=== PATIENT | female | born 1940 | race Two or more races ===

== ENCOUNTER 2020-10-21 11:36 | Outpatient (REF) | payer MEDICARE, SELFPAY ==
--- NOTE | ~2020-10-21 | XR_ITS ---
EXAMINATION: XR LUMBOSACRAL SPINE CLINICAL INFORMATION: Lumbago with sciatica, right side. COMPARISON: Lumbar spine MRI 07/10/2011. TECHNIQUE: Three views of the lumbosacral spine. FINDINGS: There is normal lumbar lordosis. There is L5-S1 disc prosthesis stabilized with bilateral pedicular screws and interconnecting rods. Mild loss of L1-L2, L2-L3 and L3-L4 disc heights is noted. The vertebral heights and alignment is normal. No visible fracture or lytic process seen. XR/XR lumbar spine 2-3V IMPRESSION: 1. Fused L5-S1. 2. Mild degenerative disc changes upper lumbar spine. 3. No visible acute fracture or dislocation seen.
== END 2020-10-21 11:37 | disposition home or self-care (01) ==
LOC: HO.XRAY 11:36
PROVIDERS: PCP Internal Medicine; Visit Provider Student in an Organized Health Care Education/Training Program
DX: M54.41 Lumbago with sciatica, right side (principal); G89.29 Other chronic pain
CPT/HCPCS: 72100; 99212

== ENCOUNTER → 2020-11-18 15:26 | Outpatient (BNVA) | payer MEDICARE, MEDICAID, SELFPAY | PROVIDERS: PCP Internal Medicine; Visit Provider Anesthesiology | DX: M96.1 Postlaminectomy syndrome, not elsewhere classified (principal); M51.36 Other intervertebral disc degeneration, lumbar region; G89.4 Chronic pain syndrome | CPT/HCPCS: 99202 ==

== ENCOUNTER 2020-11-25 09:58 | Outpatient (REF) | payer MEDICARE, MEDICAID, SELFPAY ==
--- NOTE | ~2020-11-25 | MR_ITS ---
EXAMINATION: MR LUMBAR SPINE WITHOUT AND WITH CONTRAST CLINICAL INFORMATION: Post laminectomy syndrome. COMPARISON: MRI dated 07/18/2011. X-ray from 10/21/2020. TECHNIQUE: MRI of the lumbar spine was obtained using routine sequences with and without contrast. Intravenous contrast: Gadavist 7.5 mL FINDINGS: VERTEBRAL BODIES AND PARASPINAL STRUCTURES: There is a mild rightward curvature of the lumbar spine. No compression fractures are seen. There is a mild anterolisthesis at the L4-L5 level. Posterior spinal fusion instrumentation visible at the L5-S1 level with an interbody prosthesis. The marrow signal is diffusely heterogeneous with fatty changes. No paraspinal soft tissue fluid collections are seen. CONUS MEDULLARIS AND CAUDA EQUINA: Normal, terminating at the level of L2. No lower cord signal abnormality is seen. No syrinx visible. The cauda equina nerve roots appear normal. There is no pathologic intradural enhancement on postcontrast imaging. SPINAL LEVELS: T12-L1: A right paracentral disc protrusion with a small component migrating superiorly has slightly increased in size with mild ventral thecal sac deformity. Mild facet arthropathy evident. Otherwise, no central canal stenosis or foraminal narrowing. L1-L2 and L2-L3: No significant disc pathology, central canal stenosis, or foraminal narrowing. L3-L4: Moderate right-sided facet arthrosis with postlaminectomy changes. No central canal stenosis. Mild posterior disc bulge again evident which is lateralized to the right side and further encroaches upon the moderately narrowed right neural foramen. This finding in combination with hypertrophic facet arthropathy results in mild mass effect upon the exiting right L3 nerve root, worsened compared to prior imaging. L4-L5: Very mild anterolisthesis is evident with a shallow, broad-based central disc protrusion lateralized more so to the right side. A small extruded component extends into the right lateral recess with mild mass effect upon the right L5 nerve root. Moderate facet arthropathy and [id number] central canal stenosis, worse at the upper L5 vertebral body level. Bony spurring and bulging disc result in moderate bilateral foraminal encroachment. L5-S1: Post fusion changes with a desiccated central disc protrusion and endplate spurring which appear to result in impression upon the emerging right S1 nerve root in the lateral recess and subarticular zone. No central canal stenosis. Hypertrophic facet arthropathy and moderate right foraminal narrowing. MR/MR lumbar spine wo/w con IMPRESSION: Mild increase in size of a right paracentral disc protrusion at the T12-L1 level resulting in mild ventral thecal sac distortion. Chronic post laminectomy changes at the L3-L4 level with moderate right-sided facet arthropathy and a right lateralized posterior disc bulge resulting in worsened moderate right foraminal encroachment and distortion of the exiting right L3 nerve root. Very mild anterolisthesis at the L4-L5 level with a shallow, broad-based central disc protrusion which has a small extruded component extending into the right lateral recess with mild mass effect upon the right L5 nerve root. [id number] central canal stenosis and hypertrophic facet arthropathy, worse at the upper L5 vertebral body level. Moderate foraminal narrowing. Status post prior posterior lumbar interbody fusion with hardware instrumentation. Desiccated central disc protrusion and ossific spurring impress upon the ventral thecal sac and right S1 nerve root.
[2020-11-25 11:03] LABS: Anion Gap 14 (12-20); Carbon Dioxide 28 mmol/L (22-29); Chloride 101 mmol/L (96-108); Cholesterol 214 mg/dL; Estimated Glomerular Filt Rate > 60; Glucose Random 191 mg/dL (60-115); HDL Cholesterol 64 mg/dL; LDL Cholesterol Calculated 116 mg/dl; Potassium 4.2 mmol/L (3.3-5.1); Sodium 139 mmol/L (135-145); Triglycerides 171 mg/dL
[2020-11-25 11:04] LABS: Estimated Average Glucose 203 mg/dL; Hemoglobin A1c % 8.7 %
[2020-11-25 11:08] LABS: Blood Urea Nitrogen 26 mg/dL (9-16); Calcium 9.1 mg/dL (8.4-10.2)
[2020-11-25 11:26] LABS: Free T4 (Free Thyroxine) 0.71 ng/dL (0.71-1.85)
[2020-11-25 17:31] LABS: Creatinine Urine 70.73 mg/dL; Microalbum/Creatinine Ratio Ur 39.5 ug/mg cr
== END 2020-11-25 09:59 | disposition home or self-care (01) ==
LOC: HO.MRI 09:58
PROVIDERS: Absent Provider Internal Medicine; PCP Internal Medicine; Visit Provider Anesthesiology
DX: M96.1 Postlaminectomy syndrome, not elsewhere classified (principal); E03.9 Hypothyroidism, unspecified; E11.9 Type 2 diabetes mellitus without complications; I10 Essential (primary) hypertension
CPT/HCPCS: 36415; 72158; 80048; 80061; 82043; 82565; 83036; 84439; 84443; A9585

== ENCOUNTER 2021-01-05 13:00 | Outpatient (RCR) | payer MEDICARE, MEDICAID, SELFPAY ==
--- NOTE | 2020-12-09 15:13 | MHC.PT.EP ---
[facility] [place] Office [place] Office [place] Office [address] [place] [address] [phone] F: [phone] F: [phone] F: [phone] F: [phone] Physical Therapy Plan of Care Date of Evaluation: Date of Surgery: na Diagnosis: low back pain with right sciatica Assessment: The patient has low back pain that is episodic in nature. She feels nearly constant leg pain and back pain. She presents with limited trunk ROM, strength. She has poor quality of movement limited by pain. She has reduced functional mobility. Poor sitting posture noted. Pt has poor body mechanics with lifting. She will benefit from skilled PT for education on lifting mechanics, body mechanics, and sitting posture. Frequency and Duration: The patient will be seen 2x/week x 4 weeks Short Term Goals: 1.Pt to able to demonstrate proper sitting posture with the use of a lumbar roll to decrease aggravating factors. 2.Pt to be able to demonstrate proper posture for common leisure activities such as crocheting and phone/tablet use. 3.For the patient to demonstrate proper upright sitting posture with use of the lumbar roll to improve compliance and carryover. Skilled Nursing Goals: 1.The patient to demonstrate proper lifting mechanics for household chore activities to show improved functional mobility. 2.The patient to report no leg or hip pain in order to show centralization of pain and reduction of lumbar derangement 3. Pt to be able to demonstrate self management of lumbar pain by demonstration of HEP. Treatment Plan: Modalities to reduce pain, spasms and effusion. Manual therapy to restore motion and function. Therapeutic exercise to improve strength and flexibility. Neuromuscular re-education for posture and balance. Therapeutic activities to return to functional activities of daily living. Electronically signed by: Jackie Shirley PT DPT Please sign and return to therapist. Thank you for your referral.
--- NOTE | 2021-01-05 14:19 | MHC.PT.DC ---
[facility] [place] Office [place] Office [place] Office [address] [place] [address] [facility] [phone] F: [phone] F: [phone] F: [phone] F: [phone] Physical Therapy Discharge Report Diagnosis: low back pain with right sciatica Date of Surgery: na Date of Evaluation: 12/09/20 Date of Discharge: 01/05/21 Treatments to Date: 8 Cancellations to Date: No Shows to Date: Discharge Status: Improved Function Independent with HEP Patient Elected to Stop Discharge Summary: Despite increased subjective pain levels the patient was able to complete the same exercise program as well a few new standing exercises without reports of increased pain. She shows increased activity tolerance, and increased strength demonstrated by performing the exercises without trouble or distress. The patient was d/c today due to lack of subjective improvements and the patient's request to return to the MD. The patient was issued a HEP and theraband. She has pictures of the exercises. Electronically signed by: Jackie Shirley PT DPT Please sign and return to therapist. Thank you for your referral.
== END 2021-01-20 08:00 | disposition home or self-care (01) ==
LOC: HO.PT 13:00
PROVIDERS: PCP Internal Medicine; Visit Provider Student in an Organized Health Care Education/Training Program
DX: M54.41 Lumbago with sciatica, right side (principal); G89.29 Other chronic pain
CPT/HCPCS: 97110; 97112; 97162; 97530

== ENCOUNTER → 2021-02-02 14:35 | Outpatient (BNVA) | payer MEDICARE, MEDICAID, SELFPAY | PROVIDERS: PCP Internal Medicine; Visit Provider Nurse Practitioner Family | DX: M51.36 Other intervertebral disc degeneration, lumbar region (principal); M96.1 Postlaminectomy syndrome, not elsewhere classified; G89.4 Chronic pain syndrome | CPT/HCPCS: 99212 ==

== ENCOUNTER 2021-04-07 06:05 | Outpatient (REF) | payer MEDICARE, MEDICAID, SELFPAY ==
--- NOTE | ~2021-04-07 | FL_ITS ---
EXAMINATION: XR FLUOROSCOPY WITH IMAGES CLINICAL INFORMATION: Low back pain. Previous fusion. COMPARISON: Lumbar spine x-ray 10/21/2020 TECHNIQUE: Fluoroscopy performed by Suyapa Obrien NP. Fluoroscopy time: 1.9 minutes DAP: 14.2 Gycm2 Images: 1 FINDINGS: There are L5 and S1 bilateral pedicular screws and interconnecting rods with a disc prosthesis for fusion. There are needles positioned inferior to the L4 pedicles with contrast extending into the soft tissues for pain management. The L4-L5 disc level is unremarkable. FL/FL guidance in treatment room IMPRESSION: Fluoroscopy provided to the referring physician for pain management.
== END 2021-04-07 06:06 | disposition home or self-care (01) ==
LOC: HO.RADIR 06:05
PROVIDERS: Visit Provider Internal Medicine
DX: M51.36 Other intervertebral disc degeneration, lumbar region (principal); M96.1 Postlaminectomy syndrome, not elsewhere classified; M54.5 Low back pain
CPT/HCPCS: 64483; 64484; J1100

== ENCOUNTER → 2021-05-14 09:02 | Outpatient (BNVA) | payer MEDICARE, MEDICAID, SELFPAY | PROVIDERS: PCP Internal Medicine; Visit Provider Internal Medicine | DX: M96.1 Postlaminectomy syndrome, not elsewhere classified (principal) | CPT/HCPCS: 99212 ==

== ENCOUNTER 2022-01-26 07:25 | Outpatient (REF) | payer MEDICARE, MEDICAID, SELFPAY ==
--- NOTE | ~2022-01-26 | FL_ITS ---
EXAMINATION: XR FLUOROSCOPY WITH IMAGES CLINICAL INFORMATION: Postlaminectomy syndrome. COMPARISON: None. TECHNIQUE: Fluoroscopy performed by Dr. Graham Neves. Fluoroscopy time: 0.7 minutes DAP: 2.3 Gy-cm2 Images: 3 FINDINGS: The patient is status post pedicle screw and margaret fixation L5-S1. Interdisc spacer present. A single needle is seen overlying the sacrum. FL/FL guidance in treatment room IMPRESSION: Intraoperative fluoroscopy for pain management procedure.
== END 2022-01-26 07:26 | disposition home or self-care (01) ==
LOC: HO.RADIR 07:25
PROVIDERS: Visit Provider Internal Medicine
DX: M51.36 Other intervertebral disc degeneration, lumbar region (principal); M96.1 Postlaminectomy syndrome, not elsewhere classified
CPT/HCPCS: 62323; J1040

== ENCOUNTER → 2022-02-25 10:14 | Outpatient (BNVA) | payer MEDICARE, MEDICAID, SELFPAY | PROVIDERS: PCP Internal Medicine; Visit Provider Nurse Practitioner Family | DX: M51.36 Other intervertebral disc degeneration, lumbar region (principal); M96.1 Postlaminectomy syndrome, not elsewhere classified | CPT/HCPCS: 99212 ==

== ENCOUNTER 2023-11-06 08:57 | Emergency (ER) | payer MEDICARE, MEDICAID, SELFPAY ==
--- NOTE | ~2023-11-06 | US_ITS ---
EXAMINATION: US VENOUS ULTRASOUND WITH DOPPLER LOWER EXTREMITY, BILATERAL CLINICAL INFORMATION: Bilateral lower extremity pain, edema and skin changes COMPARISON: Right lower extremity DVT study 06/12/2008 again (report only) TECHNIQUE: Ultrasound of the deep veins is performed from the hip to the calf with compression sonography and color and pulse Doppler assessment. Spectral analysis with color-flow imaging is performed. FINDINGS: RIGHT: There is normal venous compression and respiratory variation and augmented flow. The visualized common femoral vein, superficial femoral vein, profunda femoral vein, popliteal vein, and the trifurcation region shows no evidence of deep venous thrombosis. There is no significant popliteal fossa cyst. LEFT: There is normal venous compression and respiratory variation and augmented flow. The visualized common femoral vein, superficial femoral vein, profunda femoral vein, popliteal vein, and the trifurcation region shows no evidence of deep venous thrombosis. There is no significant popliteal fossa cyst. If the patient's symptoms persist, followup ultrasound in 5 days 7 days might be of value to exclude proximal propagation from a non-visualized calf vein. US/US venous duplex LE BI IMPRESSION: No DVT demonstrated in either lower extremity.
--- NOTE | ~2023-11-06 | XR_ITS ---
EXAMINATION: XR CHEST CLINICAL INFORMATION: Question congestive heart failure. COMPARISON: 12/29/2015 chest radiographs. TECHNIQUE: 2 views of the chest were obtained. FINDINGS: The lung volumes are low. There is no gross pneumothorax. S-shaped thoracolumbar scoliosis with multilevel degenerative changes. Cardiac silhouette appears enlarged, although evaluation is limited due to low lung volumes and scoliosis. Degenerative changes in the thoracic spine. Arm overlies the spine on the lateral view, further limiting evaluation. No gross pleural effusion. Mild bibasilar opacities likely represent subsegmental atelectasis or scar, although an infectious/inflammatory process could also be considered. XR/XR chest 2V IMPRESSION: 1. Mild bibasilar opacities likely represent subsegmental atelectasis or scar, although an infectious/inflammatory process could also be considered. 2. Cardiac silhouette appears enlarged, although evaluation is limited due to low lung volumes and scoliosis.
[2023-11-06 09:07] VITALS: BP 200/99; PULSE 95; RESP 16; TEMP 36; O2SAT 96; BMI 30.6
--- NOTE | 2023-11-06 10:51 | MHC.EDTECH ---
This tech called patient to triage for lab work 10:48, No answer
[2023-11-06 11:34] LABS: MANUAL DIFF FLAG NO
[2023-11-06 11:38] LABS: Basophils Absolute Auto 0.1 X10*3/uL (0.0-0.2); Basophils Percent Auto 0.9 % (0-2); Eosinophils Absolute Auto 0.2 X10*3/uL (0.0-0.4); Eosinophils Percent Auto 3.1 % (0-4); Hematocrit 38.8 % (37.0-47.0); Hemoglobin 12.7 g/dl (12.0-16.0); Imm Gran Abs Auto 0.03 X10*3/uL (0.00-0.03); Imm Gran Pct Auto 0.6 % (0.0-0.4); Lymphocytes Absolute Auto 1.3 X10*3/uL (1.2-4.9); Lymphocytes Percent Auto 23.1 % (20-40); Mean Corpuscular HGB Conc 32.7 g/dl (31.0-35.0); Mean Corpuscular Hemoglobin 31.5 pg (27.0-33.0); Mean Corpuscular Volume 96.3 fL (80.0-98.0); Mean Platelet Volume 9.3 fL (9.4-12.3); Monocytes Absolute Auto 0.5 X10*3/uL (0.1-1.2); Monocytes Percent Auto 9.4 % (2-11); Neutrophils Absolute Auto 3.4 x10*3/uL (2.0-8.3); Neutrophils Percent Auto 62.9 % (45-73); Platelet Count 329 X10*3/uL (160-400); Red Blood Count 4.03 X10*6/uL (4.20-5.50); Red Cell Distribution Width 13.6 % (11.0-16.0); White Blood Count 5.5 X10*3/uL (4.8-10.8)
[2023-11-06 11:58] LABS: B Type Natriuretic Peptide 21 pg/mL (<100)
--- NOTE | 2023-11-06 11:59 | ED.GENADULT ---
HPI - General Adult General Chief complaint: Extremity Injury, Lower Stated complaint: both legs swelling Time Seen by Provider: 11/06/23 11:59 History of Present Illness HPI narrative: 83 y/o F patient; PMH HTN, arthritis, T2DM (on Glipizide), hypothyroidism, HLD, GERD; presents from home with report of bilateral lower extremity swelling for the last one month. The patient states she has been in [place] since April 2023, and flew back yesterday. Per her son, when she travels to [place] she takes 3 months worth of medications with her and then occasionally she will call him to report she is out of medication and he will send her medications to her. However her son is concerned that she has not recently been compliant with her medications. The patient also endorses she has not recently been compliant with any of her medications. She denies: chest pain, SOB, cough/congestion, nausea/vomiting, diarrhea, abdominal pain. Related Data Home Medications Medication Instructions Recorded Confirmed acetaminophen 650 mg 650 mg PO Q8H 10/21/20 04/07/21 tablet,extended release (Tylenol Arthritis Pain) atenolol 100 mg tablet 100 mg PO DAILY 10/21/20 04/07/21 glipizide 10 mg tablet 10 mg PO DAILY 10/21/20 04/07/21 hydralazine 25 mg tablet 25 mg PO ONCE 10/21/20 04/07/21 hydrochlorothiazide 50 mg tablet 50 mg PO DAILY 10/21/20 04/07/21 levothyroxine 75 mcg capsule 75 mcg PO DAILY 10/21/20 04/07/21 omeprazole 20 mg capsule,delayed 20 mg PO DAILY 10/21/20 04/07/21 release simvastatin 80 mg tablet 80 mg PO DAILY 10/21/20 04/07/21 Previous Rx's Medication Instructions Recorded diclofenac sodium 1 % topical gel 2 g topical BID #100 grams 01/26/21 Allergies Allergy/AdvReac Type Severity Reaction Status Date / Time codeine [Tylenol-Codeine] Allergy Intermediate rash Verified 11/06/23 09:06 Penicillins Allergy Unknown SKIN TURNS Verified 11/06/23 09:06 PURPLE Review of Systems Review of Systems: Yes all other systems are reviewed and are negative PMFSH Past Medical History Attestation statement: The following information was validated with the patient. Source: old records reviewed Medical History Chronic pain syndrome Postlaminectomy syndrome of lumbar region Disc degeneration, lumbar Social History Social History Alcohol intake: never Smoked in Last 30 Days: No Use of substances other than those prescribed or required for medical reasons: No Advance Directives: No Physical Exam ED Vital Signs: Vital Signs - 24 hr 11/06/23 09:07 11/06/23 12:09 11/06/23 14:23 Temperature 96.8 F 98.8 F 98.2 F Pulse Rate 95 91 81 Respiratory Rate 16 16 16 Blood Pressure 200/99 H 194/86 H 179/81 H Pulse Oximetry 96 97 96 Oxygen Delivery Method Room Air Room Air Room Air BMI result Body Mass Index 30.6 Patient is afebrile, hypertensive. Const General: cooperative and no acute distress HENMT Head: Yes atraumatic Eyes General: appearance normal, both eyes and all related structures Neck Neck: Yes full ROM, Yes supple and No tender Chest Chest palpation & inspection: normal inspection of the chest and normal palpation of entire chest wall Resp Effort & Inspection: normal respiratory effort, able to speak in complete sentences, no cough and no respiratory distress Auscultation: clear to auscultation bilaterally Cardio Rate: regular rate Rhythm: regular rhythm Peripheral pulses: Peripheral pulses 2+ throughout GI Inspection: Yes normal to inspection, No Abdominal wall edema and No distended Palpation (GI): Soft to palpation, not firm, nontender, no guarding and not rigid Auscultation: normal bowel sounds Course Course Course Narrative: Patient is afebrile and hypertensive. She took her anti-hypertensive medications this morning following arrival in the emergency department. Received previously ordered: bilateral lower extremities US, basic labs. Called with critical glucose >400. Added VBG, LA, betahydroxybuterate, UA, CXR, serum osm. Reevaluation(s) Reevaluation #1: VBG without acute metabolic acidosis. Betahydroxybuterate within normal levels. UA unremarkable other than glucosurea. LA elevated at 2.8 - provided 1L IVF. Cr 1.34 (unclear baseline). TSH within normal levels. No evidence of DKA or HHS at this time. Placed on insulin sliding scale and provided Lispro 10 units. Improvement in glucose following insulin. Provided total 2L IVF - resolution of mild lactic acidosis. Impression: Asymptomatic hyperglycemia, hypertension Plan: Discharge to home with PCP follow up Patient heavily encouraged to take her dailt medications Condition: Stable Medications Administered Discontinued Medications Generic Name Dose Route Start Last Admin Trade Name Albertoq PRN Reason Stop Dose Admin Sodium Chloride 1,000 mls @ 999 mls/hr 11/06/23 12:45 11/06/23 15:32 Ns IV 11/06/23 13:45 Infused .Q1H1M MARIA DEL CARMEN Infusion Sodium Chloride 1,000 mls @ 999 mls/hr 11/06/23 16:15 11/06/23 19:03 Ns IV 11/06/23 17:15 Infused .Q1H1M MARIA DEL CARMEN Infusion Insulin Human Lispro 10 unit 11/06/23 13:49 11/06/23 14:21 Insulin Lispro 100 Unit/Ml 3 Ml Vial SUBCUT 11/06/23 13:50 10 unit ONCE ONE Administration Protocol Medical Decision Making Lab Data 11/06/23 11:31 11/06/23 11:31 Labs: Lab Results 11/06/23 11/06/23 11/06/23 Range/Units 11:31 12:16 12:17 WBC 5.5 (4.8-10.8) X10*3/uL RBC 4.03 L (4.20-5.50) X10*6/uL Hgb 12.7 (12.0-16.0) g/dl Hct 38.8 (37.0-47.0) % MCV 96.3 (80.0-98.0) fL MCH 31.5 (27.0-33.0) pg MCHC 32.7 (31.0-35.0) g/dl RDW 13.6 (11.0-16.0) % Plt Count 329 (160-400) X10*3/uL MPV 9.3 L (9.4-12.3) fL Immature Gran % (Auto) 0.6 H (0.0-0.4) % Neut % (Auto) 62.9 (45-73) % Lymph % (Auto) 23.1 (20-40) % [place] % (Auto) 9.4 (2-11) % Eos % (Auto) 3.1 (0-4) % Baso % (Auto) 0.9 (0-2) % Lymph # (Auto) 1.3 (1.2-4.9) X10*3/uL [place] # (Auto) 0.5 (0.1-1.2) X10*3/uL Eos # (Auto) 0.2 (0.0-0.4) X10*3/uL Baso # (Auto) 0.1 (0.0-0.2) X10*3/uL Abs Immat Gran (auto) 0.03 (0.00-0.03) X10*3/uL Absolute Neuts (auto) 3.4 (2.0-8.3) x10*3/uL Absolute Nucleated RBC 0.000 (0.0-0.012) X10*3/uL Nucleated RBC % (auto) 0.0 (0.0-0.2) /100WBC VBG pH (7.32-7.43) VBG pCO2 mmHg VBG pO2 mmHg VBG HCO3 (22-26) mmol/L VBG O2 Saturation % VBG Base Excess mmol/L Sodium 143 (135-145) mmol/L Potassium 3.9 (3.3-5.1) mmol/L Chloride 100 (96-108) mmol/L Carbon Dioxide 27 (22-29) mmol/L Anion Gap 20 (12-20) BUN 32 H (9-16) mg/dL Creatinine 1.34 (0.5-1.4) mg/dL Estim Creat Clear Calc 30.1 Estimated GFR 38 POC Glucose 409 H* (60-115) mg/dL Random Glucose 456 H* (60-115) mg/dL Estimat Average Glucose mg/dL Hemoglobin A1c % (<6.0) % Osmolality (281-305) mosm/kg Lactic Acid 2.8 H* (0.5-2.0) mmol/L Lactic Acid F/U @ 2Hr Calcium 9.5 (8.4-10.2) mg/dL Total Bilirubin 0.5 (0.0-1.0) mg/dL AST 18 (5-31) U/L ALT 33 H (0-31) U/L Alkaline Phosphatase 84 (39-117) U/L Troponin I High Sens < 2.7 (<3.5-17.0) ng/L B-Natriuretic Peptide 21 (<100) pg/mL Total Protein 8.1 H (6.5-8.0) g/dL Albumin 4.7 (3.5-5.0) g/dL Beta-Hydroxybutyrate 0.25 (0.02-0.27) mmol/L TSH 3.70 (0.32-4.0) uIU/mL Urine Color Urine Appearance Urine pH (5.0-9.0) Ur Specific [place] (1.005-1.025) Urine Protein (Neg-Trace) mg/dL Urine Glucose (UA) (Negative) mg/dL Urine Ketones (Negative) mg/dL Urine Blood (Negative) Urine Nitrite (Negative) Ur Leukocyte Esterase (Negative) Urine RBC (0-2) /HPF Urine WBC (0-5) /HPF Ur Squamous Epith Cells (0-2) /HPF Urine Bacteria (None Seen) Hyaline Casts (0-2) /LPF 11/06/23 11/06/23 11/06/23 Range/Units 12:20 12:30 14:34 WBC (4.8-10.8) X10*3/uL RBC (4.20-5.50) X10*6/uL Hgb (12.0-16.0) g/dl Hct (37.0-47.0) % MCV (80.0-98.0) fL MCH (27.0-33.0) pg MCHC (31.0-35.0) g/dl RDW (11.0-16.0) % Plt Count (160-400) X10*3/uL MPV (9.4-12.3) fL Immature Gran % (Auto) (0.0-0.4) % Neut % (Auto) (45-73) % Lymph % (Auto) (20-40) % [place] % (Auto) (2-11) % Eos % (Auto) (0-4) % Baso % (Auto) (0-2) % Lymph # (Auto) (1.2-4.9) X10*3/uL [place] # (Auto) (0.1-1.2) X10*3/uL Eos # (Auto) (0.0-0.4) X10*3/uL Baso # (Auto) (0.0-0.2) X10*3/uL Abs Immat Gran (auto) (0.00-0.03) X10*3/uL Absolute Neuts (auto) (2.0-8.3) x10*3/uL Absolute Nucleated RBC (0.0-0.012) X10*3/uL Nucleated RBC % (auto) (0.0-0.2) /100WBC VBG pH 7.50 H (7.32-7.43) VBG pCO2 38 mmHg VBG pO2 48 mmHg VBG HCO3 30 H (22-26) mmol/L VBG O2 Saturation 78.0 % VBG Base Excess 7.0 mmol/L Sodium (135-145) mmol/L Potassium (3.3-5.1) mmol/L Chloride (96-108) mmol/L Carbon Dioxide (22-29) mmol/L Anion Gap (12-20) BUN (9-16) mg/dL Creatinine (0.5-1.4) mg/dL Estim Creat Clear Calc Estimated GFR POC Glucose 280 H (60-115) mg/dL Random Glucose (60-115) mg/dL Estimat Average Glucose mg/dL Hemoglobin A1c % (<6.0) % Osmolality (281-305) mosm/kg Lactic Acid (0.5-2.0) mmol/L Lactic Acid F/U @ 2Hr Calcium (8.4-10.2) mg/dL Total Bilirubin (0.0-1.0) mg/dL AST (5-31) U/L ALT (0-31) U/L Alkaline Phosphatase (39-117) U/L Troponin I High Sens (<3.5-17.0) ng/L B-Natriuretic Peptide (<100) pg/mL Total Protein (6.5-8.0) g/dL Albumin (3.5-5.0) g/dL Beta-Hydroxybutyrate (0.02-0.27) mmol/L TSH (0.32-4.0) uIU/mL Urine Color Yellow Urine Appearance Clear Urine pH 8.0 (5.0-9.0) Ur Specific [place] 1.025 (1.005-1.025) Urine Protein Negative (Neg-Trace) mg/dL Urine Glucose (UA) >=1000 H (Negative) mg/dL Urine Ketones Negative (Negative) mg/dL Urine Blood Trace H (Negative) Urine Nitrite Negative (Negative) Ur Leukocyte Esterase Negative (Negative) Urine RBC 3-5 H (0-2) /HPF Urine WBC 0-5 (0-5) /HPF Ur Squamous Epith Cells 0-2 (0-2) /HPF Urine Bacteria None Seen (None Seen) Hyaline Casts 0-2 (0-2) /LPF 11/06/23 11/06/23 11/06/23 Range/Units 15:31 18:29 19:04 WBC (4.8-10.8) X10*3/uL RBC (4.20-5.50) X10*6/uL Hgb (12.0-16.0) g/dl Hct (37.0-47.0) % MCV (80.0-98.0) fL MCH (27.0-33.0) pg MCHC (31.0-35.0) g/dl RDW (11.0-16.0) % Plt Count (160-400) X10*3/uL MPV (9.4-12.3) fL Immature Gran % (Auto) (0.0-0.4) % Neut % (Auto) (45-73) % Lymph % (Auto) (20-40) % [place] % (Auto) (2-11) % Eos % (Auto) (0-4) % Baso % (Auto) (0-2) % Lymph # (Auto) (1.2-4.9) X10*3/uL [place] # (Auto) (0.1-1.2) X10*3/uL Eos # (Auto) (0.0-0.4) X10*3/uL Baso # (Auto) (0.0-0.2) X10*3/uL Abs Immat Gran (auto) (0.00-0.03) X10*3/uL Absolute Neuts (auto) (2.0-8.3) x10*3/uL Absolute Nucleated RBC (0.0-0.012) X10*3/uL Nucleated RBC % (auto) (0.0-0.2) /100WBC VBG pH (7.32-7.43) VBG pCO2 mmHg VBG pO2 mmHg VBG HCO3 (22-26) mmol/L VBG O2 Saturation % VBG Base Excess mmol/L Sodium (135-145) mmol/L Potassium (3.3-5.1) mmol/L Chloride (96-108) mmol/L Carbon Dioxide (22-29) mmol/L Anion Gap (12-20) BUN (9-16) mg/dL Creatinine (0.5-1.4) mg/dL Estim Creat Clear Calc Estimated GFR POC Glucose 156 H (60-115) mg/dL Random Glucose (60-115) mg/dL Estimat Average Glucose 240 mg/dL Hemoglobin A1c % 10.0 H (<6.0) % Osmolality 322 H (281-305) mosm/kg Lactic Acid 2.3 H* 1.9 (0.5-2.0) mmol/L Lactic Acid F/U @ 2Hr Cancelled Calcium (8.4-10.2) mg/dL Total Bilirubin (0.0-1.0) mg/dL AST (5-31) U/L ALT (0-31) U/L Alkaline Phosphatase (39-117) U/L Troponin I High Sens (<3.5-17.0) ng/L B-Natriuretic Peptide (<100) pg/mL Total Protein (6.5-8.0) g/dL Albumin (3.5-5.0) g/dL Beta-Hydroxybutyrate (0.02-0.27) mmol/L TSH (0.32-4.0) uIU/mL Urine Color Urine Appearance Urine pH (5.0-9.0) Ur Specific [place] (1.005-1.025) Urine Protein (Neg-Trace) mg/dL Urine Glucose (UA) (Negative) mg/dL Urine Ketones (Negative) mg/dL Urine Blood (Negative) Urine Nitrite (Negative) Ur Leukocyte Esterase (Negative) Urine RBC (0-2) /HPF Urine WBC (0-5) /HPF Ur Squamous Epith Cells (0-2) /HPF Urine Bacteria (None Seen) Hyaline Casts (0-2) /LPF Radiology Impression Discussion of test interpretation with radiology: I have reviewed the radiologist's reading. Radiologist Impression: EXAMINATION: XR CHEST CLINICAL INFORMATION: Question congestive heart failure. COMPARISON: 12/29/2015 chest radiographs. TECHNIQUE: 2 views of the chest were obtained. FINDINGS: The lung volumes are low. There is no gross pneumothorax. S-shaped thoracolumbar scoliosis with multilevel degenerative changes. Cardiac silhouette appears enlarged, although evaluation is limited due to low lung volumes and scoliosis. Degenerative changes in the thoracic spine. Arm overlies the spine on the lateral view, further limiting evaluation. No gross pleural effusion. Mild bibasilar opacities likely represent subsegmental atelectasis or scar, although an infectious/inflammatory process could also be considered. XR/XR chest 2V IMPRESSION: 1. Mild bibasilar opacities likely represent subsegmental atelectasis or scar, although an infectious/inflammatory process could also be considered. 2. Cardiac silhouette appears enlarged, although evaluation is limited due to low lung volumes and scoliosis. Discharge Plan Discharge Clinical Impression: Hypertension, Hyperglycemia Patient Disposition: Home, Self-Care Instructions: Hypertension and Diabetes (ED) Additional Instructions: As we discussed, you were seen today for high blood pressure and high blood sugar. It is very important that you take your daily medications as prescribed. Follow up with your PCP within 2 days to discuss your recent ED visit. Return to the emergency department for: Chest pain Difficulty breathing Passing out Abdominal pain Prescriptions: No Action diclofenac sodium 1 % gel 2 g topical BID Qty: 100 3RF atenolol 100 mg tablet 100 mg PO DAILY glipizide 10 mg tablet 10 mg PO DAILY simvastatin 80 mg tablet 80 mg PO DAILY omeprazole 20 mg capsule,delayed release(DR/EC) 20 mg PO DAILY hydralazine 25 mg tablet 25 mg PO ONCE acetaminophen [Tylenol Arthritis Pain] 650 mg tablet extended release 650 mg PO Q8H levothyroxine 75 mcg capsule 75 mcg PO DAILY hydrochlorothiazide 50 mg tablet 50 mg PO DAILY
[2023-11-06 12:02] LABS: Alanine Aminotransferase 33 U/L (0-31); Albumin Level 4.7 g/dL (3.5-5.0); Alkaline Phosphatase 84 U/L (39-117); Anion Gap 20 (12-20); Aspartate Amino Transferase 18 U/L (5-31); Bilirubin Total 0.5 mg/dL (0.0-1.0); Blood Urea Nitrogen 32 mg/dL (9-16); Calcium 9.5 mg/dL (8.4-10.2); Carbon Dioxide 27 mmol/L (22-29); Chloride 100 mmol/L (96-108); Creatinine Clr Calc Pharmacy 30.1; Estimated Glomerular Filt Rate 38; Glucose Random 456 mg/dL (60-115); Potassium 3.9 mmol/L (3.3-5.1); Sodium 143 mmol/L (135-145); Total Protein 8.1 g/dL (6.5-8.0)
--- NOTE | 2023-11-06 12:03 | PC.NURSE ---
critical value of a random glucose of 456mg/dL received from chemistry at this time. dr. caban notified/aware.
[2023-11-06 12:09] VITALS: BP 194/86; PULSE 91; RESP 16; TEMP 37.1; O2SAT 97
--- NOTE | 2023-11-06 12:19 | PC.NURSE ---
a&ox4. vss and up to date aside from being hypertensive. 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 pt presents to the ED w/ bilateral LE edema x 1 month. pt states she did not get checked out because she was in [place] x 4 months. pt just returned last night. 3+ pitting edema noted to LE bilaterally. swelling noted to thighs bilaterally as well - nonpitting. pt verbalizes constant 10/10 pain in calves bilaterally. tender upon palpation. pt verbalizes there is nothing that makes pain feel worse/better. pt denies feeling sob. no sob/wob noted. pt able to speak in full/clear sentences w/o difficulty. respirations even and unlabored. pt's son bedside for support. POC obtained by tech displaying 409 mg/dL. 20gIV placed in the right forearm - labs obtained/sent to lab. plan of care ongoing. call katz placed within reach.
[2023-11-06 12:21] LABS: Glucose, Whole Blood 409 mg/dL (60-115)
[2023-11-06 12:26] LABS: Venous Blood Gas Refer to POC result
[2023-11-06 12:27] LABS: VBG HCO3 30 mmol/L (22-26); VBG pCO2 38 mmHg; VBG pO2 48 mmHg
[2023-11-06 12:37] LABS: Appearance Urine Clear; Color Urine Yellow; Glucose Urine UA >=1000 mg/dL (Negative); Leukocyte Esterase Urine Negative (Negative); Nitrite Urine Negative (Negative); Specific Gravity - Urine 1.025 (1.005-1.025); UMIC TRIGGER UACC YES; Urine Blood Trace (Negative); Urine Ketones Negative (Negative); Urine Protein Negative (Neg-Trace)
[2023-11-06 12:38] LABS: Beta-Hydroxybutyrate 0.25 mmol/L (0.02-0.27)
[2023-11-06 12:39] LABS: Bacteria Urine None Seen (None Seen); Hyaline Casts Urine 0-2 /LPF (0-2); Squamous Epithelial Cell Urine 0-2 /HPF (0-2); WBC Urine 0-5 /HPF (0-5)
[2023-11-06 12:44] LABS: Lactic Acid 2.8 mmol/L (0.5-2.0)
[2023-11-06] MEDS: 0.9 % Sodium Chloride 1,000 ML 999 ML IV ×2 (12:58→16:35)
--- NOTE | 2023-11-06 12:58 | PC.NURSE ---
pt returned from xray at this time. IVF administered per provider order.
[2023-11-06 13:22] LABS: Troponin-I High Sensitivity < 2.7 ng/L (<3.5-17.0)
[2023-11-06 14:21] LABS: Reflex Lactate? Lactic Acid Added
[2023-11-06] MEDS: Insulin Lispro 100 UNIT/ML 3 ML VIAL 10 UNIT SUBCUT (14:21)
[2023-11-06 14:23] VITALS: BP 179/81; PULSE 81; RESP 16; TEMP 36.8; O2SAT 96
--- NOTE | 2023-11-06 14:45 | PC.NURSE ---
insulin administered per provider order. repeat POC obtained displaying 280mg/dL.
[2023-11-06 14:48] LABS: Glucose, Whole Blood 280 mg/dL (60-115)
[2023-11-06 15:55] LABS: Estimated Average Glucose 240 mg/dL
[2023-11-06 16:01] LABS: Lactic Acid 2.3 mmol/L (0.5-2.0)
[2023-11-06 16:03] LABS: Osmolality, Serum 322 mosm/kg (281-305)
[2023-11-06 17:36] LABS: Reflex Lactate? Lactic Acid Added
[2023-11-06 18:41] LABS: Glucose, Whole Blood 156 mg/dL (60-115)
[2023-11-06 19:18] LABS: Lactic Acid 1.9 mmol/L (0.5-2.0)
[2023-11-06 19:33] VITALS: BP 168/86; PULSE 78; RESP 18; TEMP 37.2; O2SAT 100
== END 2023-11-06 19:58 | disposition home or self-care (01) ==
PROVIDERS: Emergency Medicine; Emergency Provider Emergency Medicine; PCP Internal Medicine
DX: E11.65 Type 2 diabetes mellitus with hyperglycemia (principal); I10 Essential (primary) hypertension; M79.89 Other specified soft tissue disorders; Z79.84 Long term (current) use of oral hypoglycemic drugs
CPT/HCPCS: 36415; 71046; 80053; 81001; 82010; 82803; 82947; 83036; 83605; 83880; 83930; 84443; 84484; 85025; 93970; 96360; 96361; 99284; 99285

== ENCOUNTER 2024-02-06 13:57 | Outpatient (REF) | payer MEDICARE, MEDICAID, SELFPAY ==
[2024-02-06 16:42] LABS: Cholesterol 192 mg/dL (<200); HDL Cholesterol 62 mg/dL (>40); LDL Cholesterol Calculated 104 mg/dL (<100); Triglycerides 131 mg/dL (<150)
[2024-02-06 18:56] LABS: Reflex LDLD? No
== END 2024-02-06 13:58 | disposition home or self-care (01) ==
LOC: HO.HHCL 13:57
PROVIDERS: Visit Provider Internal Medicine
DX: E78.2 Mixed hyperlipidemia (principal)
CPT/HCPCS: 36415; 80061

== ENCOUNTER 2024-02-09 13:32 | Outpatient (REF) | payer MEDICARE, MEDICAID, SELFPAY ==
[2024-02-09 16:25] LABS: Appearance Urine Clear; Color Urine Yellow; Glucose Urine UA Negative (Negative); Leukocyte Esterase Urine Small (1+) (Negative); Nitrite Urine Negative (Negative); PH 5.5 (5.0-9.0); Specific Gravity - Urine 1.015 (1.005-1.025); UMIC TRIGGER UA YES; Urine Blood Negative (Negative); Urine Ketones Negative (Negative); Urine Protein Negative (Neg-Trace)
[2024-02-09 16:37] LABS: Bacteria Urine None Seen (None Seen); Hyaline Casts Urine 0-2 /LPF (0-2); RBC Urine 0-2 /HPF (0-2); Squamous Epithelial Cell Urine 0-2 /HPF (0-2); WBC Urine 0-5 /HPF (0-5)
== END 2024-02-09 13:33 | disposition home or self-care (01) ==
LOC: HO.HHCL 13:32
PROVIDERS: Visit Provider Internal Medicine
DX: R82.90 Unspecified abnormal findings in urine (principal)
CPT/HCPCS: 81001

== ENCOUNTER 2024-02-16 09:51 | Outpatient (REF) | payer MEDICARE, SELFPAY ==
--- NOTE | ~2024-02-16 | MR_ITS ---
EXAMINATION: MR LUMBAR SPINE WITHOUT CONTRAST CLINICAL INFORMATION: Recurrent lower back pain. COMPARISON: Lumbar spine MRI from 11/25/2020. TECHNIQUE: MRI of the lumbar spine was obtained using routine sequences without contrast. FINDINGS: Instrumented posterior fusion L5-S1 bilateral paired interpedicular screws. Disc spacers in place at L5-S1. Moderate right convex curvature of the midthoracic spine. Moderate left convex curvature of the thoracolumbar junction. Degenerative stepwise grade 1 anterolisthesis of L4-S1. Moderate degenerative disc disease at T12-L1 and L3-L5. Mild marrow edema within the L4-5 facets consistent with degenerative stress reaction. Associated maximum discogenic and lytic changes including mild Modic type I discogenic edema at L2-L3 and L4-L5. No additional suspicious marrow edema. The vertebral body heights are well-maintained. The conus medullaris terminates at the level of L1-L2. The distal spinal cord is normal in appearance. Laminectomy changes at L3-L4. Moderate subcutaneous edema within the posterior soft tissues of the back from L1-S3. No additional significant abnormalities of the paraspinal musculature. Limited evaluation of the intra-abdominal structures without significant abnormalities. The abdominal aorta is of normal contour and caliber. AXIAL SPINAL LEVELS: T12-L1: Mild diffuse disc bulge with posterior osseous ridging and superimposed central/right subarticular disc protrusion. There is mild bilateral facet joint arthropathy. There is no neural foraminal stenosis. There is no spinal canal stenosis. L1-L2: Mild diffuse disc bulge. There is mild bilateral facet joint arthropathy. There is no neural foraminal stenosis. There is no spinal canal stenosis. L2-L3: Shallow diffuse disc bulge. There is moderate bilateral facet joint arthropathy. There is mild bilateral neural foraminal stenosis. There is no spinal canal stenosis. L3-L4: Mild diffuse disc bulge with posterior osseous ridging and superimposed right foraminal disc protrusion. There is moderate right and mild left facet joint arthropathy. There is moderate right worse than left neural foraminal stenosis. Posterior decompression. There is stenosis of the right worse than left subarticular zones with no overt spinal canal stenosis centrally. L4-L5: Moderate diffuse disc bulge facet uncovering from anterolisthesis. There is severe bilateral facet joint arthropathy. There is moderate to severe bilateral neural foraminal stenosis. There is stenosis of the subarticular zones with mild spinal canal stenosis centrally. L5-S1: Fused at this level with moderate posterior osseous ridging. There is the facets are fused with moderate hypertrophic change facet joint arthropathy. There is moderate to severe right and mild left neural foraminal stenosis. There is stenosis of the right worse than left subarticular zones with no overt spinal canal stenosis centrally. MR/MR lumbar spine wo con IMPRESSION: Instrumented posterior fusion of L5-S1. Posterior decompression of L3-L4. Moderate multilevel degenerative spondyloarthropathy of the lumbar spine as described in detail above. Most notably, there is mild spinal canal stenosis at L4-L5. Stenoses of the subarticular zones and moderate to severe neural foraminal stenoses from L3-S1. Overall, degenerative changes appears similar to exam from 2020.
== END 2024-02-16 09:52 | disposition home or self-care (01) ==
LOC: HO.MRI 09:51
PROVIDERS: PCP Internal Medicine; Visit Provider Internal Medicine
DX: M54.50 Low back pain, unspecified (principal); G89.29 Other chronic pain
CPT/HCPCS: 72148

== ENCOUNTER → 2024-02-26 12:41 | Outpatient (REF) | payer MEDICARE, SELFPAY ==
--- NOTE | 2024-02-26 12:46 | CA_ITS ---
Transthoracic Echocardiogram Patient (Last, First, Middle): Nola Styles M Gender: Female Date of : 1940 Age: 83 Procedure Date: 02/26/2024 Procedure Type: Transthoracic Echocardiogram Location: OP Height: 162.56 cm Weight: 69.85 kg BSA: 1.75 m2 Heart Rate: 68 bpm BP: 152 / 74 mmHg Photovoltaic Installation Technician: SB Referring MD: Jaime Tinoco MD Symptoms: I10 HTN Study Quality: Fair but adequate ECG Rhythm: Sinus Conclusions: - The left ventricular systolic function is normal. The calculated ejection fraction is 68% by biplane method. - Moderate to severe basal septal hypertrophy. - No obvious valvular pathology seen on this study. Findings Left Ventricle Normal left ventricular cavity size. There is mildly increased left ventricular wall thickness. The left ventricular systolic function is normal. The calculated ejection fraction is 68% by biplane method. There is no evidence of regional wall motion abnormalities. Evidence suggests grade I (mild) diastolic dysfunction. Moderate to severe basal septal hypertrophy. Right Ventricle Normal right ventricular cavity size. There is moderately decreased right ventricular systolic function. Atria Both atria are normal in size. Aortic Valve There is a normal trileaflet aortic valve. There is mild calcification of the aortic valve. There is no aortic valve stenosis. There is no aortic valve regurgitation. Mitral Valve There is mild mitral annular calcification. There is no mitral valve regurgitation. There is no mitral valve stenosis. Pulmonic Valve The pulmonic valve is likely normal. Tricuspid Valve There is mild tricuspid valve regurgitation. There is no evidence of pulmonary hypertension. Great Vessels The asc aorta is normal in size. Venous The inferior vena cava was not well visualized. Pericardium/Pleural There is no evidence of pericardial effusion. Prior Study Comparison No significant change compared to prior study dated: 08/28/2006. Recommendations, Care & Conclusions No obvious valvular pathology seen on this study. Measurements 2D Linear Measurements IVSd: 1.00 0.6-0.9/0.6-1.0 cm LVIDd: 4.58 3.9-5.3/4.2-5.9 cm LVIDd Index: 2.62 2.4-3.2/2.2-3.1 cm/m2 LVIDs: 3.01 2.0-3.6 cm LVPWd: 1.10 0.7-1.1 cm LA Diam: 4.20 2.7-3.8/3.0-4.0 cm LAIDs Index: 2.40 1.5-2.3 cm/m2 LV Mass: 209.81 67-162/88-224 g LV Mass Index: 119.89 43-95/49-115 g/m2 LVOT Diam: 2.00 3.0+(-)1.3 cm 2D Systolic Function EF 4C: 75.40 >55% EF 2C: 59.40 >55% EF BiP: 67.50 >55% Mitral Valve MV Pk E: 0.61 MV PK A: 0.84 MV Decel Time: 281.00 E/A: 0.70 E'Lateral: 5.87 E'Medial: 3.92 E/E' Med: 15.50 E/E' Lat: 10.40 PHT: 82.00 MVA PHT: 2.68 Decel [place]: 2.17 Aortic Valve AoV Pk Zach: 1.51 AoV Pk Grad: 9.00 NATALIA: 2.28 LVOT LVOT Pk Zach: 0.99 LVOT Mn Zach: 0.68 LVOT VTI: 0.23 LVOT Pk Grad: 4.00 LVOT Mn Grad: 2.00 LVOT Diam: 2.00 LVOT Area: 3.14 Diastolic Function MV Pk E: 0.61 MV Pk A: 0.84 E/A: 0.70 E'Medial: 3.92 E/E' Med: 15.50 E' Laterial: 5.87 E/E' Lat: 10.40 Right Ventricle TAPSE (mm): 12.20 TVS' Zach: 6.96 Tricuspid Valve TR Pk Zach: 2.39 TR Pk Grad: 23.00 RA Press: 3.00 Great Vessels Aorta Sinus of Valsalva: 3.00 2.0-3.5 cm Ao Asc: 3.30 2.1-3.4 cm Pulmonary Valve PV Pk Zach: 1.02 Peak PV Grad: 4.00 Updated in Other Vendor System with Status of Final Amilcar Alston MD electronically signed on 02/26/2024 3:39:56 PM with status of Final
== END ==
LOC: HO.CARD 12:41
PROVIDERS: PCP Internal Medicine; Visit Provider Internal Medicine
DX: I10 Essential (primary) hypertension (principal); R60.0 Localized edema
CPT/HCPCS: 93306

== ENCOUNTER → 2024-02-26 12:46 | Outpatient (BNV) | payer MEDICARE, SELFPAY | PROVIDERS: PCP Internal Medicine; Visit Provider Internal Medicine | DX: I36.1 Nonrheumatic tricuspid (valve) insufficiency (principal); I34.0 Nonrheumatic mitral (valve) insufficiency; I35.8 Other nonrheumatic aortic valve disorders | CPT/HCPCS: 93306 ==

== ENCOUNTER 2024-03-27 09:01 | Outpatient (AMB) | payer MEDICARE, SELFPAY ==
--- NOTE | 2024-03-27 09:02 | MHC.OFFVIS ---
Vital Signs 03/27/24 09:04 Height 5 ft 1 in Weight 160 lb BMI 30.2 BP 170/88 H Blood Pressure Location Rt brachial Position Sitting Respiration 14 Pulse 68 Pulse Source Pulse Oximeter Pulse Oximetry (%) 95 Oxygen Delivery Method Room Air Intake Visit Reasons: Hip Pain Allergies codeine [Tylenol-Codeine] Allergy (Intermediate, Verified 03/27/24 09:09) rash Penicillins Allergy (Unknown, Verified 03/27/24 09:09) SKIN TURNS PURPLE Medication List - Last Reconciled 03/27/24 by Danuta Alexander LPN acetaminophen ER (Tylenol Arthritis Pain) 650 mg PO Q8H atenolol 100 mg PO DAILY diclofenac sodium 1% 2 grams topical BID glipizide 10 mg PO DAILY hydralazine 25 mg PO ONCE hydrochlorothiazide 50 mg PO DAILY levothyroxine 75 mcg PO DAILY omeprazole 20 mg PO DAILY simvastatin 80 mg PO DAILY HPI HPI Hip Pain: Details: 83-year-old female presents today for evaluation of back pain. She states her back pain has recurred and also has pain in the bilateral hip with occasional radiating pain in the legs. She reports she feels weak in the hip. She has difficulty sleeping at times due to pain. She is planning to go on a vacation this month, and states she is afraid to go because of pain. She is interested in receiving injections for bilateral hips. She underwent 2 surgeries on the back on 2 levels L4-5 and L5-S1 in 2008 and 2011. She had received instrumental fusion at L5-S1. She has had positive response to caudal LUCINDA and TFESI. Past Procedures: 01/26/22: Caudal LUCINDA with catheter - 50% sustained relief. 04/07/21: Bilateral L4 TFESI - 75% relief that is ongoing. [facility] Medical History Chronic pain syndrome Postlaminectomy syndrome of lumbar region Disc degeneration, lumbar Social History Alcohol intake: never Physical Exam Vital Signs: Last Vital Signs Pulse 68 03/27/24 09:04 Resp 14 03/27/24 09:04 BP 170/88 H 03/27/24 09:04 Pulse Ox 95 03/27/24 09:04 Oxygen Delivery Method Room Air 03/27/24 09:04 BMI result Body Mass Index 30.2 On exam today: Appears afebrile. Alert and oriented. Mood and affect appropriate. Follows and participates in conversation appropriately. Respiratory effort is unlabored. Able to transition from sit to stand unassisted. Ambulates with bilaterally normal heel strike and toe off. Able to stand and walk on toes and heels. Tenderness overlying the bilateral sacroiliac joints. Weight-bearing reproduces pain overlying the sacroiliac joints. Results Reviewed Results Reviewed: Date: 02/16/24. EXAMINATION: MR LUMBAR SPINE WITHOUT CONTRAST FINDINGS: Instrumented posterior fusion L5-S1 bilateral paired interpedicular screws. Disc spacers in place at L5-S1. Moderate right convex curvature of the midthoracic spine. Moderate left convex curvature of the thoracolumbar junction. Degenerative stepwise grade 1 anterolisthesis of L4-S1. Moderate degenerative disc disease at T12-L1 and L3-L5. Mild marrow edema within the L4-5 facets consistent with degenerative stress reaction. Associated maximum discogenic and lytic changes including mild Modic type I discogenic edema at L2-L3 and L4-L5. No additional suspicious marrow edema. The vertebral body heights are well-maintained. The conus medullaris terminates at the level of L1-L2. The distal spinal cord is normal in appearance. Laminectomy changes at L3-L4. Moderate subcutaneous edema within the posterior soft tissues of the back from L1-S3. No additional significant abnormalities of the paraspinal musculature. Limited evaluation of the intra-abdominal structures without significant abnormalities. The abdominal aorta is of normal contour and caliber. AXIAL SPINAL LEVELS: T12-L1: Mild diffuse disc bulge with posterior osseous ridging and superimposed central/right subarticular disc protrusion. There is mild bilateral facet joint arthropathy. There is no neural foraminal stenosis. There is no spinal canal stenosis. L1-L2: Mild diffuse disc bulge. There is mild bilateral facet joint arthropathy. There is no neural foraminal stenosis. There is no spinal canal stenosis. L2-L3: Shallow diffuse disc bulge. There is moderate bilateral facet joint arthropathy. There is mild bilateral neural foraminal stenosis. There is no spinal canal stenosis. L3-L4: Mild diffuse disc bulge with posterior osseous ridging and superimposed right foraminal disc protrusion. There is moderate right and mild left facet joint arthropathy. There is moderate right worse than left neural foraminal stenosis. Posterior decompression. There is stenosis of the right worse than left subarticular zones with no overt spinal canal stenosis centrally. L4-L5: Moderate diffuse disc bulge facet uncovering from anterolisthesis. There is severe bilateral facet joint arthropathy. There is moderate to severe bilateral neural foraminal stenosis. There is stenosis of the subarticular zones with mild spinal canal stenosis centrally. L5-S1: Fused at this level with moderate posterior osseous ridging. There is the facets are fused with moderate hypertrophic change facet joint arthropathy. There is moderate to severe right and mild left neural foraminal stenosis. There is stenosis of the right worse than left subarticular zones with no overt spinal canal stenosis centrally. IMPRESSION: Instrumented posterior fusion of L5-S1. Posterior decompression of L3-L4. Moderate multilevel degenerative spondyloarthropathy of the lumbar spine as described in detail above. Most notably, there is mild spinal canal stenosis at L4-L5. Stenoses of the subarticular zones and moderate to severe neural foraminal stenoses from L3-S1. Overall, degenerative changes appears similar to exam from 2020. Assessment & Plan Assessment & Plan (1) Postlaminectomy syndrome of lumbar region: Code(s): M96.1 - Postlaminectomy syndrome, not elsewhere classified Category: Medical (2) Sacroiliac joint dysfunction: Code(s): M53.3 - Sacrococcygeal disorders, not elsewhere classified Category: Medical Plan Multilevel degenerative changes in setting of post-laminectomy syndrome following instrumented fusion. Current pain appears to be secondary to SI joint dysfunction, though she has responded well to transforaminal injections in the past. She does have a radicular component at this time, but this is minimal. Will schedule for a bilateral?sacroiliac?joint?injections as a next step in anticipation of her upcoming vacation. If the SI joint injection is not helpful, we can discuss neuromodulation strategies in the future. Discussed the risks and benefits of the procedure with the patient in detail. All questions were answered. The patient is on board with the plan. Justification for interventional therapy: ? Patient with average pain > 6/10 ? Patient has exhausted conservative therapy ? Patient unable to tolerate physical therapy due to pain . Patient has a good understanding of their pain condition and has appropriate mental and social support Scribed for Dr. Neves by Yelena nurses medical assistants phlebotomists, on 03/27/2024. I, Dr. Neves, have personally reviewed and agree with the information entered by the scribe. Coding Level of Care Code Est Pt Level 4 (81742) Diagnoses Postlaminectomy syndrome of lumbar region M96.1 Sacroiliac joint dysfunction M53.3
[2024-03-27 09:04] VITALS: BP 170/88; PULSE 68; RESP 14; O2SAT 95; BMI 30.2
== END 2024-03-27 09:27 | disposition home or self-care (01) ==
PROVIDERS: PCP Internal Medicine; Visit Provider Internal Medicine
DX: M96.1 Postlaminectomy syndrome, not elsewhere classified (principal); M53.3 Sacrococcygeal disorders, not elsewhere classified
CPT/HCPCS: 99214

== ENCOUNTER → 2024-03-27 09:01 | Outpatient (BNVA) | payer MEDICARE, SELFPAY | PROVIDERS: PCP Internal Medicine; Visit Provider Internal Medicine | DX: M96.1 Postlaminectomy syndrome, not elsewhere classified (principal); M53.3 Sacrococcygeal disorders, not elsewhere classified | CPT/HCPCS: 99212 ==

== ENCOUNTER 2024-04-04 07:21 | Outpatient (REF) | payer MEDICARE, SELFPAY | END 2024-04-04 07:22 | disposition home or self-care (01) | LOC: CF 07:21 | PROVIDERS: Visit Provider Internal Medicine | DX: M53.3 Sacrococcygeal disorders, not elsewhere classified (principal) | CPT/HCPCS: 27096; J2795; J3301 ==

== ENCOUNTER 2024-04-04 13:51 | Outpatient (AMB) | payer MEDICARE, SELFPAY ==
[2024-04-04 13:54] VITALS: BP 154/81; PULSE 66; RESP 16; O2SAT 98
--- NOTE | 2024-04-04 14:24 | MHC.OFFVIS ---
Vital Signs 04/04/24 13:54 04/04/24 14:25 BP 154/81 H 178/88 H Blood Pressure Location Lt brachial Lt brachial Position Sitting Sitting Respiration 16 17 Pulse 66 61 Pulse Source Pulse Oximeter Pulse Oximeter Pulse Oximetry (%) 98 98 Oxygen Delivery Method Room Air Room Air Comment Pre-op Post-op Intake Visit Reasons: Chuy theraputic SIJ inj Allergies codeine [Tylenol-Codeine] Allergy (Intermediate, Verified 03/27/24 09:09) rash Penicillins Allergy (Unknown, Verified 03/27/24 09:09) SKIN TURNS PURPLE HPI HPI Chuy theraputic SIJ inj: Details: Patient presents for scheduled procedure. Denies any recent cough, cold, infection, fever or other significant changes in medical history since last office visit. [facility] Medical History Chronic pain syndrome Postlaminectomy syndrome of lumbar region Disc degeneration, lumbar Social History Alcohol intake: never Physical Exam Vital Signs: Last Vital Signs Pulse 61 04/04/24 14:25 Resp 17 04/04/24 14:25 BP 178/88 H 04/04/24 14:25 Pulse Ox 98 04/04/24 14:25 Oxygen Delivery Method Room Air 04/04/24 14:25 Office Procedures Joint Injection/Aspiration Joint Injection/Aspiration Details: Sacroiliac Joint Injection, Bilateral The procedure, its benefits, and its risks were explained and written informed consent was obtained from the patient. Immediately prior to starting the procedure, a time-out safety check was conducted. The patient's identification, procedure name, procedure site, and procedure laterality were confirmed with the patient. ? Patient was placed prone on the fluoroscopy table and the lumbosacral area was prepped using ChloraPrep and draped with sterile draped in standard fashion. The C-arm was rotated in a contralateral oblique fashion until the medial border of the iliac crest no longer foreshadowed the posterior sacroiliac joint line. The skin and subcutaneous tissue was anesthetized using 1 mL of 0.75% plain lidocaine with 1.5-inch 25-gauge needle in the middle region of the joint line.? A 3.5-inch 22-gauge spinal needle with small bend on the tip was slowly advanced towards the joint line, coaxial to the x-ray beam. Once bony content was obtained, the needle was easily slid into the intra-articular space.? Intra-articular needle position was confirmed using lateral fluoroscopy.? A total volume of 2.5mL of solution containing 40 mg triamcinolone and rest 0.5% of ropivacaine was injected intra-articularly. The stylet was reinserted and needle was removed. The same procedure was then repeated on the other side. The patient tolerated the procedure well. Patient denied any lower extremity weakness or numbness. Patient was observed for 30 min and was discharged after fulfilling the standard discharge criteria. Coding 41573 - Sacroiliac (Bilateral) Procedure code (CPT) selection complete Assessment & Plan Assessment & Plan (1) Sacroiliac joint dysfunction: Code(s): M53.3 - Sacrococcygeal disorders, not elsewhere classified Category: Medical Plan Patient is status post bilateral therapeutic sacroiliac joint injections. Patient tolerated procedure well and was discharged home in stable condition with discharge instructions. All questions were answered. We will follow-up via telephone or in clinic to assess response to therapy. A follow-up appointment was made during today's visit. Orders: Orders FL guidance in treatment room Today M53.3 - Sacrococcygeal disorders, not elsewhere classified Coding Level of Care Code Procedure Only Diagnoses Sacroiliac joint dysfunction M53.3 CPT Codes Coding - Joint 9: 63214 - Sacroiliac ([id number])
[2024-04-04 14:25] VITALS: BP 178/88; PULSE 61; RESP 17; O2SAT 98
== END 2024-04-04 14:24 | disposition home or self-care (01) ==
LOC: HO.PMCPRC 13:51
PROVIDERS: PCP Internal Medicine; Visit Provider Internal Medicine
DX: M53.3 Sacrococcygeal disorders, not elsewhere classified (principal)
CPT/HCPCS: 27096

== ENCOUNTER 2024-05-31 11:36 | Outpatient (AMB) | payer MEDICARE, SELFPAY ==
--- NOTE | 2024-05-31 11:37 | A.OFFVIS_ITS ---
Vital Signs 05/31/24 11:39 Height 5 ft 1 in Weight 157 lb BMI 29.7 BP 188/86 H Blood Pressure Location Lt brachial Position Sitting Respiration 15 Pulse 63 Pulse Source Pulse Oximeter Pulse Oximetry (%) 96 Oxygen Delivery Method Room Air Intake Visit Reasons: S/P kori therapeutic SIJ inj Allergies codeine [Tylenol-Codeine] Allergy (Intermediate, Verified 05/31/24 11:41) rash Penicillins Allergy (Unknown, Verified 05/31/24 11:41) SKIN TURNS PURPLE Medication List - Last Reconciled 05/31/24 by Danuta Alexander LPN acetaminophen ER (Tylenol Arthritis Pain) 650 mg PO Q8H atenolol 100 mg PO DAILY diclofenac sodium 1% 2 grams topical BID glipizide 10 mg PO DAILY hydralazine 25 mg PO ONCE hydrochlorothiazide 50 mg PO DAILY levothyroxine 75 mcg PO DAILY omeprazole 20 mg PO DAILY simvastatin 80 mg PO DAILY HPI HPI S/P kori therapeutic SIJ inj: Details: 83-year-old female who presents today to the office for status post bilateral therapeutic sacroiliac joint injection She states that last injection did not provide any relief. She reports pain in her lower back region. She has to use wheelchair for ambulation during her vacation due to difficulty walking for prolonged period of time. She is amenable to proceed with further injection first prior to trying neuromodulation option. Past procedures 04/04/2024: Sacroiliac Joint Injection, Bilateral: No relief. 01/26/22: Caudal LUCINDA with catheter - 50% sustained relief. 04/07/21: Bilateral L4 TFESI - 75% relief that is ongoing. [facility] Medical History Chronic pain syndrome Postlaminectomy syndrome of lumbar region Disc degeneration, lumbar Social History Alcohol intake: never Review of Systems Const All systems reviewed & are unremarkable except as noted in HPI and below Physical Exam Vital Signs: Last Vital Signs Pulse 63 05/31/24 11:39 Resp 15 05/31/24 11:39 BP 188/86 H 05/31/24 11:39 Pulse Ox 96 05/31/24 11:39 Oxygen Delivery Method Room Air 05/31/24 11:39 BMI result Body Mass Index 29.7 General: Appears afebrile. Alert and oriented. Mood and affect appropriate. Follows and participates in conversation appropriately. Respiratory effort is unlabored. Able to transition from sit to stand unassisted. Ambulates with bilaterally normal heel strike and toe off. Results Reviewed Results Reviewed: 02/16/2024: MR LUMBAR SPINE WITHOUT CONTRAST FINDINGS: Instrumented posterior fusion L5-S1 bilateral paired interpedicular screws. Disc spacers in place at L5-S1. Moderate right convex curvature of the midthoracic spine. Moderate left convex curvature of the thoracolumbar junction. Degenerative stepwise grade 1 anterolisthesis of L4-S1. Moderate degenerative disc disease at T12-L1 and L3-L5. Mild marrow edema within the L4-5 facets consistent with degenerative stress reaction. Associated maximum discogenic and lytic changes including mild Modic type I discogenic edema at L2-L3 and L4-L5. No additional suspicious marrow edema. The vertebral body heights are well-maintained. The conus medullaris terminates at the level of L1-L2. The distal spinal cord is normal in appearance. Laminectomy changes at L3-L4. Moderate subcutaneous edema within the posterior soft tissues of the back from L1-S3. No additional significant abnormalities of the paraspinal musculature. Limited evaluation of the intra-abdominal structures without significant abnormalities. The abdominal aorta is of normal contour and caliber. AXIAL SPINAL LEVELS: T12-L1: Mild diffuse disc bulge with posterior osseous ridging and superimposed central/right subarticular disc protrusion. There is mild bilateral facet joint arthropathy. There is no neural foraminal stenosis. There is no spinal canal stenosis. L1-L2: Mild diffuse disc bulge. There is mild bilateral facet joint arthropathy. There is no neural foraminal stenosis. There is no spinal canal stenosis. L2-L3: Shallow diffuse disc bulge. There is moderate bilateral facet joint arthropathy. There is mild bilateral neural foraminal stenosis. There is no spinal canal stenosis. L3-L4: Mild diffuse disc bulge with posterior osseous ridging and superimposed right foraminal disc protrusion. There is moderate right and mild left facet joint arthropathy. There is moderate right worse than left neural foraminal stenosis. Posterior decompression. There is stenosis of the right worse than left subarticular zones with no overt spinal canal stenosis centrally. L4-L5: Moderate diffuse disc bulge facet uncovering from anterolisthesis. There is severe bilateral facet joint arthropathy. There is moderate to severe bilateral neural foraminal stenosis. There is stenosis of the subarticular zones with mild spinal canal stenosis centrally. L5-S1: Fused at this level with moderate posterior osseous ridging. There is the facets are fused with moderate hypertrophic change facet joint arthropathy. There is moderate to severe right and mild left neural foraminal stenosis. There is stenosis of the right worse than left subarticular zones with no overt spinal canal stenosis centrally. IMPRESSION: Instrumented posterior fusion of L5-S1. Posterior decompression of L3-L4. Moderate multilevel degenerative spondyloarthropathy of the lumbar spine as described in detail above. Most notably, there is mild spinal canal stenosis at L4-L5. Stenoses of the subarticular zones and moderate to severe neural foraminal stenoses from L3-S1. Overall, degenerative changes appears similar to exam from 2020. Assessment & Plan Assessment & Plan (1) Disc degeneration, lumbar: Code(s): M51.36 - Other intervertebral disc degeneration, lumbar region Category: Medical (2) Lumbar radiculopathy: Code(s): M54.16 - Radiculopathy, lumbar region Category: Medical Plan We will schedule her for a repeat bilateral L4-5 transforaminal epidural steroid injection since that seems to have provided her most relief amongst the others that we have tried so far. She had 75 % sustained relief from that injection in 2020. Her recent MRI scan result showed moderate to severe foraminal stenosis at L4-5. Discussed the risks and benefits of the procedure with the patient in detail. All questions were answered. The patient is on board with the plan. Justification for interventional therapy: ? Patient with average pain > 6/10 ? Patient has exhausted conservative therapy ? Patient unable to tolerate physical therapy due to pain. ? Previous injection provided >75% relief in 2020. . Patient has a good understanding of their pain condition and has appropriate mental and social support Scribed for Dr. Neevs by Boni Camacho, medical records field technician, on 05/31/2024. I, Dr. Neves, have personally reviewed and agree with the information entered by the scribe. Coding Level of Care Code Est Pt Level 3 (07212) Diagnoses Disc degeneration, lumbar M51.36 Lumbar radiculopathy M54.16
[2024-05-31 11:39] VITALS: BP 188/86; PULSE 63; RESP 15; O2SAT 96; BMI 29.7
== END 2024-05-31 11:47 | disposition home or self-care (01) ==
PROVIDERS: PCP Internal Medicine; Visit Provider Internal Medicine
DX: M51.369 Other intervertebral disc degeneration, lumbar region without mention of lumbar back pain or lower extremity pain (principal); M54.16 Radiculopathy, lumbar region
CPT/HCPCS: 99213

== ENCOUNTER → 2024-05-31 11:36 | Outpatient (BNVA) | payer MEDICARE, SELFPAY | PROVIDERS: PCP Internal Medicine; Visit Provider Internal Medicine | DX: M51.369 Other intervertebral disc degeneration, lumbar region without mention of lumbar back pain or lower extremity pain (principal); M54.16 Radiculopathy, lumbar region | CPT/HCPCS: 99212 ==

== ENCOUNTER 2024-06-27 06:23 | Outpatient (REF) | payer MEDICARE, SELFPAY | END 2024-06-27 06:24 | disposition home or self-care (01) | LOC: CF 06:23 | PROVIDERS: Visit Provider Internal Medicine | DX: M54.16 Radiculopathy, lumbar region (principal) | CPT/HCPCS: 64483; J1100; J2003; Q9967 ==

== ENCOUNTER 2024-06-27 11:07 | Outpatient (AMB) | payer MEDICARE, SELFPAY ==
[2024-06-27 11:13] VITALS: BP 180/69; PULSE 69; O2SAT 97
--- NOTE | 2024-06-27 11:13 | MHC.OFFVIS ---
Vital Signs 06/27/24 11:13 06/27/24 11:42 BP 180/69 H 190/73 H Blood Pressure Location Lt brachial Lt brachial Position Sitting Sitting Pulse 69 68 Pulse Source Pulse Oximeter Pulse Oximeter Pulse Oximetry (%) 97 95 Oxygen Delivery Method Room Air Room Air Intake Visit Reasons: kori L4-L5 TFESI Allergies codeine [Tylenol-Codeine] Allergy (Intermediate, Verified 05/31/24 11:41) rash Penicillins Allergy (Unknown, Verified 05/31/24 11:41) SKIN TURNS PURPLE HPI HPI kori L4-L5 TFESI: Details: Patient presents for scheduled procedure. Denies any recent cough, cold, infection, fever or other significant changes in medical history since last office visit. [facility] Medical History Chronic pain syndrome Postlaminectomy syndrome of lumbar region Disc degeneration, lumbar Social History Alcohol intake: never Physical Exam Vital Signs: Last Vital Signs Pulse 68 06/27/24 11:42 BP 190/73 H 06/27/24 11:42 Pulse Ox 95 06/27/24 11:42 Oxygen Delivery Method Room Air 06/27/24 11:42 Office Procedures Details: Transforaminal epidural steroid injection, Bilateral L4/5 After obtaining written consent, pre-procedure blood pressure and heart rate were stable and recorded in the nursing record. The patient was placed in the prone position on the fluoroscopy table. The lumbosacral area was prepped with chloraprep, allowed to dry and draped in sterile fashion. Using fluoroscopy, the skin overlying our target was anesthetized with 0.5% lidocaine. A 22 gauge 3.5 inch spinal needle was advanced to the safe triangle in the upper pole of the right L4 foramen. No paresthesias were elicited with needle placement and aspiration was negative for blood and CSF. Correct needle position was confirmed with approximately 1 ml contrast dye (Omnipaque 180 mg/ml) injected under real-time fluoroscopy. No evidence of vascular or intrathecal uptake was seen and there was both epidural and peripheral spread of the contrast agent. 7.5 mg dexamethasone plus 1 ml containing 0.5% lidocaine was slowly injected. The needle was flushed and removed. The same procedure was repeated for the remaining levels. The skin was cleansed and a sterile bandages were applied. The patient tolerated the procedure well and no complications were encountered. Following the procedure the patient's vital signs were stable. The patient was discharged home in good condition with post-procedural instructions. Time Out: Immediately prior to the procedure, the following was verbally confirmed that there is a signed consent form and that the correct patient, planned procedure, site and side are consistent with documentation and that necessary equipment and/or blood products are available prior to the start of the case. Complications: none EBL: <5 cc 73220 - Lumbar/Sacral (bilateral) Procedure code (CPT) selection complete Assessment & Plan Assessment & Plan (1) Lumbar radiculopathy: Code(s): M54.16 - Radiculopathy, lumbar region Category: Medical Plan Patient is status post bilateral L4-5 TFESI. Patient tolerated procedure well and was discharged home in stable condition with discharge instructions. All questions were answered. We will follow-up via telephone or in clinic to assess response to therapy. A follow-up appointment was made during today's visit. Orders: Orders [place] guidance in treatment room Today M54.16 - Radiculopathy, lumbar region Coding Level of Care Code Procedure Only Diagnoses Lumbar radiculopathy M54.16 CPT Codes Transforaminal Epidural Steroid Inj - TESI 3: 47464 - Lumbar/Sacral ([id number])
[2024-06-27 11:42] VITALS: BP 190/73; PULSE 68; O2SAT 95
== END 2024-06-27 11:42 | disposition home or self-care (01) ==
LOC: HO.PMCPRC 11:07
PROVIDERS: PCP Internal Medicine; Visit Provider Internal Medicine
DX: M54.16 Radiculopathy, lumbar region (principal)
CPT/HCPCS: 64483

== ENCOUNTER 2024-07-24 10:59 | Outpatient (AMB) | payer MEDICARE, SELFPAY ==
[2024-07-24 11:20] VITALS: BP 120/82; PULSE 88; RESP 15; O2SAT 98; BMI 26.8
--- NOTE | 2024-07-24 11:20 | A.OFFVIS_ITS ---
Vital Signs 07/24/24 11:20 Height 5 ft 7 in Weight 171 lb BMI 26.8 BP 120/82 Blood Pressure Location Lt brachial Position Sitting Respiration 15 Pulse 88 Pulse Source Pulse Oximeter Pulse Oximetry (%) 98 Oxygen Delivery Method Room Air Intake Visit Reasons: s/p kori L4-L5 TFESI Allergies codeine [Tylenol-Codeine] Allergy (Intermediate, Verified 07/24/24 11:31) rash Penicillins Allergy (Unknown, Verified 07/24/24 11:31) SKIN TURNS PURPLE Medication List - Last Reconciled 07/24/24 by Danuta Alexander LPN acetaminophen ER (Tylenol Arthritis Pain) 650 mg PO Q8H atenolol 100 mg PO DAILY diclofenac sodium 1% 2 grams topical BID glipizide 10 mg PO DAILY hydralazine 25 mg PO ONCE hydrochlorothiazide 50 mg PO DAILY levothyroxine 75 mcg PO DAILY omeprazole 20 mg PO DAILY simvastatin 80 mg PO DAILY HPI HPI s/p kori L4-L5 TFESI: Details: 83-year-old female who presents to the office today for status post bilateral L4-5 TFESI. The patient reports >75% relief following the procedure. She reports mild improvement in her symptoms. She is inquiring if she needs to come back if pain recurs. She is inquiring if the injections contribute to the weak bones. She underwent back surgery in 2008 as well as 2011. She had tried Tylenol for pain and is wondering if she can take Tylenol now. She is also concerned about side effects with multiple medications. She reports she has a cyst on the finger of the left hand. She is requesting a referral to hand surgeon. Past procedures 06/27/24: Transforaminal epidural steroid injection, Bilateral L4/5: >75% relief. 04/04/2024: Sacroiliac Joint Injection, Bilateral: No relief. 01/26/22: Caudal LUCINDA with catheter - 50% sustained relief. 04/07/21: Bilateral L4 TFESI - 75% relief that is ongoing. [facility] Medical History Chronic pain syndrome Postlaminectomy syndrome of lumbar region Disc degeneration, lumbar Social History Alcohol intake: never Review of Systems Const All systems reviewed & are unremarkable except as noted in HPI and below Physical Exam Vital Signs: Last Vital Signs Pulse 88 07/24/24 11:20 Resp 15 07/24/24 11:20 BP 120/82 07/24/24 11:20 Pulse Ox 98 07/24/24 11:20 Oxygen Delivery Method Room Air 07/24/24 11:20 BMI result Body Mass Index 26.8 General: Appears afebrile. Alert and oriented. Mood and affect appropriate. Follows and participates in conversation appropriately. Respiratory effort is unlabored. Able to transition from sit to stand unassisted. Ambulates with bilaterally normal heel strike and toe off. Results Reviewed Results Reviewed: 02/16/2024: MR LUMBAR SPINE WITHOUT CONTRAST FINDINGS: Instrumented posterior fusion L5-S1 bilateral paired interpedicular screws. Disc spacers in place at L5-S1. Moderate right convex curvature of the midthoracic spine. Moderate left convex curvature of the thoracolumbar junction. Degenerative stepwise grade 1 anterolisthesis of L4-S1. Moderate degenerative disc disease at T12-L1 and L3-L5. Mild marrow edema within the L4-5 facets consistent with degenerative stress reaction. Associated maximum discogenic and lytic changes including mild Modic type I discogenic edema at L2-L3 and L4-L5. No additional suspicious marrow edema. The vertebral body heights are well-maintained. The conus medullaris terminates at the level of L1-L2. The distal spinal cord is normal in appearance. Laminectomy changes at L3-L4. Moderate subcutaneous edema within the posterior soft tissues of the back from L1-S3. No additional significant abnormalities of the paraspinal musculature. Limited evaluation of the intra-abdominal structures without significant abnormalities. The abdominal aorta is of normal contour and caliber. AXIAL SPINAL LEVELS: T12-L1: Mild diffuse disc bulge with posterior osseous ridging and superimposed central/right subarticular disc protrusion. There is mild bilateral facet joint arthropathy. There is no neural foraminal stenosis. There is no spinal canal stenosis. L1-L2: Mild diffuse disc bulge. There is mild bilateral facet joint arthropathy. There is no neural foraminal stenosis. There is no spinal canal stenosis. L2-L3: Shallow diffuse disc bulge. There is moderate bilateral facet joint arthropathy. There is mild bilateral neural foraminal stenosis. There is no spinal canal stenosis. L3-L4: Mild diffuse disc bulge with posterior osseous ridging and superimposed right foraminal disc protrusion. There is moderate right and mild left facet joint arthropathy. There is moderate right worse than left neural foraminal stenosis. Posterior decompression. There is stenosis of the right worse than left subarticular zones with no overt spinal canal stenosis centrally. L4-L5: Moderate diffuse disc bulge facet uncovering from anterolisthesis. There is severe bilateral facet joint arthropathy. There is moderate to severe bilateral neural foraminal stenosis. There is stenosis of the subarticular zones with mild spinal canal stenosis centrally. L5-S1: Fused at this level with moderate posterior osseous ridging. There is the facets are fused with moderate hypertrophic change facet joint arthropathy. There is moderate to severe right and mild left neural foraminal stenosis. There is stenosis of the right worse than left subarticular zones with no overt spinal canal stenosis centrally. IMPRESSION: Instrumented posterior fusion of L5-S1. Posterior decompression of L3-L4. Moderate multilevel degenerative spondyloarthropathy of the lumbar spine as described in detail above. Most notably, there is mild spinal canal stenosis at L4-L5. Stenoses of the subarticular zones and moderate to severe neural foraminal stenoses from L3-S1. Overall, degenerative changes appears similar to exam from 2020. Assessment & Plan Assessment & Plan (1) Ganglion cyst of finger of left hand: Code(s): M67.442 - Ganglion, left hand Category: Medical (2) Lumbar radiculopathy: Code(s): M54.16 - Radiculopathy, lumbar region Category: Medical Plan She reports more than 75% relief for her symptoms. I encourage her to call us when her symptoms come back and then we can revisit interventions. She inquired about taking acetaminophen as needed. I told her she can take 2 to 3 tablets a day as needed. For ganglion cyst, will refer her to a hand specialist. She will follow up as needed. Scribed for Dr. Neves by Yelena diploma medical assistant, on 07/24/2024. I, Dr. Neves, have personally reviewed and agree with the information entered by the scribe. Orders: Referrals Hand Surgery Referral M67.442 - Ganglion, left hand Coding Level of Care Code Est Pt Level 3 (30585) Diagnoses Ganglion cyst of finger of left hand M67.442 Lumbar radiculopathy M54.16
== END 2024-07-24 12:22 | disposition home or self-care (01) ==
PROVIDERS: PCP Internal Medicine; Visit Provider Internal Medicine
DX: M67.442 Ganglion, left hand (principal); M54.16 Radiculopathy, lumbar region
CPT/HCPCS: 99213

== ENCOUNTER → 2024-07-24 10:59 | Outpatient (BNVA) | payer MEDICARE, SELFPAY | PROVIDERS: PCP Internal Medicine; Visit Provider Internal Medicine | DX: M67.442 Ganglion, left hand (principal); M54.16 Radiculopathy, lumbar region | CPT/HCPCS: 99212 ==

== ENCOUNTER 2024-09-15 22:55 | Emergency (ER) | payer MEDICARE, SELFPAY ==
[2024-09-15 22:58] VITALS: BP 177/74; PULSE 67; RESP 16; TEMP 36.9; O2SAT 99; BMI 27.5
[2024-09-15 23:13] LABS: MANUAL DIFF FLAG NO
[2024-09-15 23:15] LABS: Basophils Absolute Auto 0.1 X10*3/uL (0.0-0.2); Basophils Percent Auto 0.8 % (0-2); Eosinophils Absolute Auto 0.2 X10*3/uL (0.0-0.4); Eosinophils Percent Auto 2.8 % (0-4); Hemoglobin 12.4 g/dl (12.0-16.0); Imm Gran Abs Auto 0.02 X10*3/uL (0.00-0.03); Imm Gran Pct Auto 0.3 % (0.0-0.4); Lymphocytes Absolute Auto 2.4 X10*3/uL (1.2-4.9); Lymphocytes Percent Auto 36.7 % (20-40); Mean Corpuscular HGB Conc 33.5 g/dl (31.0-35.0); Mean Corpuscular Hemoglobin 29.8 pg (27.0-33.0); Mean Corpuscular Volume 88.9 fL (80.0-98.0); Mean Platelet Volume 8.8 fL (9.4-12.3); Monocytes Absolute Auto 0.6 X10*3/uL (0.1-1.2); Monocytes Percent Auto 9.6 % (2-11); Neutrophils Absolute Auto 3.2 x10*3/uL (2.0-8.3); Neutrophils Percent Auto 49.8 % (45-73); Platelet Count 359 X10*3/uL (160-400); Red Blood Count 4.16 X10*6/uL (4.20-5.50); Red Cell Distribution Width 13.2 % (11.0-16.0); White Blood Count 6.4 X10*3/uL (4.8-10.8)
[2024-09-15 23:28] LABS: Alanine Aminotransferase 23 U/L (0-31); Albumin Level 4.4 g/dL (3.5-5.0); Alkaline Phosphatase 61 U/L (39-117); Anion Gap 15 (12-20); Aspartate Amino Transferase 22 U/L (5-31); Bilirubin Total 0.3 mg/dL (0.0-1.0); Blood Urea Nitrogen 30 mg/dL (9-16); Calcium 9.3 mg/dL (8.4-10.2); Carbon Dioxide 24 mmol/L (22-29); Chloride 107 mmol/L (96-108); Creatinine Clr Calc Pharmacy 45.5; Estimated Glomerular Filt Rate 58; Glucose Random 122 mg/dL (60-115); Potassium 3.9 mmol/L (3.3-5.1); Sodium 142 mmol/L (135-145)
[2024-09-15 23:34] LABS: B Type Natriuretic Peptide 35 pg/mL (<100)
[2024-09-16 01:13] VITALS: BP 180/69; PULSE 66; RESP 16; TEMP 36.6; O2SAT 95
--- NOTE | 2024-09-16 01:53 | ED.EXTPRO ---
HPI - Extremity Problem General Chief complaint: Extremity Problem Stated complaint: bilat leg pain/swelling, unable to walk Time Seen by Provider: 09/16/24 01:51 Source: patient Mode of arrival: ambulatory Limitations: no limitations History of Present Illness ED Provider: HPI Narrative: Patient with history of longstanding diabetes complaining of pain , paresthesia in the lower extremities for several months getting worse in last 2 weeks feels very sensitive to touch difficulty in walking because of increased pain taken Tylenol comes here for pain getting worse specially in the nighttime when she sleeps Related Data Home Medications ?Medication ?Instructions ?Recorded ?Confirmed acetaminophen 650 mg 650 mg PO Q8H 10/21/20 07/24/24 tablet,extended release (Tylenol Arthritis Pain) atenolol 100 mg tablet 100 mg PO DAILY 10/21/20 07/24/24 glipizide 10 mg tablet 10 mg PO DAILY 10/21/20 07/24/24 hydralazine 25 mg tablet 25 mg PO ONCE 10/21/20 07/24/24 hydrochlorothiazide 50 mg tablet 50 mg PO DAILY 10/21/20 07/24/24 levothyroxine 75 mcg capsule 75 mcg PO DAILY 10/21/20 07/24/24 omeprazole 20 mg capsule,delayed 20 mg PO DAILY 10/21/20 07/24/24 release simvastatin 80 mg tablet 80 mg PO DAILY 10/21/20 07/24/24 Previous Rx's ?Medication ?Instructions ?Recorded diclofenac sodium 1 % topical gel 2 g topical BID #100 grams 01/26/21 gabapentin 100 mg capsule 100 mg PO Q8H #90 caps 09/16/24 Allergies Allergy/AdvReac Type Severity Reaction Status Date / Time codeine [Tylenol-Codeine] Allergy Intermediate rash Verified 09/15/24 23:02 Penicillins Allergy Unknown SKIN TURNS Verified 09/15/24 23:02 PURPLE Review of Systems Review of Systems: Yes all other systems are reviewed and are negative PMFSH Past Medical History Medical History Chronic pain syndrome Postlaminectomy syndrome of lumbar region Disc degeneration, lumbar Social History Social History Alcohol intake: never Advance Directives: No Advance Directives Information Provided: Yes Do you have a plan to hurt others: No Plan Physical Exam Vital Signs: Vital Signs: Last Vital Signs Temp 97.6 F 09/16/24 02:29 Pulse 74 09/16/24 02:29 Resp 20 09/16/24 02:29 BP 156/89 H 09/16/24 02:29 Pulse Ox 97 09/16/24 02:29 O2 Del Method Room Air 09/16/24 02:29 BMI result Body Mass Index 27.5 Appearance: Alert. Oriented X3. No acute distress. Eyes: PERRLA, No Nystagmus ENT: Pharynx normal. Oral Mucosa moist Neck: Normal inspection. Neck supple. CVS: Normal heart rate and rhythm. Pulses normal. Respiratory: No respiratory distress. Equal air entry bilateral, no wheezing/rales/rhonchi Abdomen: Soft and nontender. Bowel sounds are present, no mass palpable, no CVA tenderness Skin: Skin warm and dry. Normal skin color. Normal skin turgor. Extremities: No lower extremity edema. No calf tenderness increased sensitive to light touch Neuro: Oriented X 3. No motor deficit. No sensory deficit.No cerebellar signs , cranial nerves II-XII intact Medications Administered Discontinued Medications Generic Name Dose Route Start Last Admin Trade Name Freq PRN Reason Stop Dose Admin Gabapentin 200 mg 09/16/24 02:01 09/16/24 02:23 Gabapentin 100 Mg Capsule PO 09/16/24 02:02 200 mg ONCE ONE Administration Oxycodone HCl 10 mg 09/16/24 02:22 09/16/24 02:25 Oxycodone Hcl Immed Release 5 Mg Tablet PO 09/16/24 02:23 10 mg ONCE ONE Administration Medical Decision Making Medical Decision Making [facility] Narrative: Patient with painful diabetic neuropathy will prescribe gabapentin advised to follow with PCP Lab Data MDM Lab Attestation statement: I reviewed the patient's lab results. 09/15/24 23:04 09/15/24 23:04 Labs: Lab Results 09/15/24 Range/Units 23:04 WBC 6.4 (4.8-10.8) X10*3/uL RBC 4.16 L (4.20-5.50) X10*6/uL Hgb 12.4 (12.0-16.0) g/dl Hct 37.0 (37.0-47.0) % MCV 88.9 (80.0-98.0) fL MCH 29.8 (27.0-33.0) pg MCHC 33.5 (31.0-35.0) g/dl RDW 13.2 (11.0-16.0) % Plt Count 359 (160-400) X10*3/uL MPV 8.8 L (9.4-12.3) fL Immature Gran % (Auto) 0.3 (0.0-0.4) % Neut % (Auto) 49.8 (45-73) % Lymph % (Auto) 36.7 (20-40) % Rock % (Auto) 9.6 (2-11) % Eos % (Auto) 2.8 (0-4) % Baso % (Auto) 0.8 (0-2) % Lymph # (Auto) 2.4 (1.2-4.9) X10*3/uL Rock # (Auto) 0.6 (0.1-1.2) X10*3/uL Eos # (Auto) 0.2 (0.0-0.4) X10*3/uL Baso # (Auto) 0.1 (0.0-0.2) X10*3/uL Abs Immat Gran (auto) 0.02 (0.00-0.03) X10*3/uL Absolute Neuts (auto) 3.2 (2.0-8.3) x10*3/uL Absolute Nucleated RBC 0.000 (0.0-0.012) X10*3/uL Nucleated RBC % (auto) 0.0 (0.0-0.2) /100WBC Sodium 142 (135-145) mmol/L Potassium 3.9 (3.3-5.1) mmol/L Chloride 107 (96-108) mmol/L Carbon Dioxide 24 (22-29) mmol/L Anion Gap 15 (12-20) BUN 30 H (9-16) mg/dL Creatinine 0.93 (0.5-1.4) mg/dL Estim Creat Clear Calc 45.5 Estimated GFR 58 Random Glucose 122 H (60-115) mg/dL Calcium 9.3 (8.4-10.2) mg/dL Magnesium 1.7 (1.6-2.6) mg/dL Total Bilirubin 0.3 (0.0-1.0) mg/dL AST 22 (5-31) U/L ALT 23 (0-31) U/L Alkaline Phosphatase 61 (39-117) U/L B-Natriuretic Peptide 35 (<100) pg/mL Total Protein 8.0 (6.5-8.0) g/dL Albumin 4.4 (3.5-5.0) g/dL Discharge Plan Discharge Clinical Impression: Painful diabetic neuropathy Patient Disposition: Home, Self-Care Instructions: Diabetic Peripheral Neuropathy (ED) Additional Instructions: Start taking gabapentin 100 mg 3 times daily for neuropathic pain which is from diabetes Follow up with your PCP Prescriptions: New gabapentin 100 mg capsule 100 mg PO Q8H Qty: 90 0RF No Action diclofenac sodium 1 % gel 2 g topical BID Qty: 100 3RF atenolol 100 mg tablet 100 mg PO DAILY glipizide 10 mg tablet 10 mg PO DAILY simvastatin 80 mg tablet 80 mg PO DAILY omeprazole 20 mg capsule,delayed release(DR/EC) 20 mg PO DAILY hydralazine 25 mg tablet 25 mg PO ONCE acetaminophen [Tylenol Arthritis Pain] 650 mg tablet extended release 650 mg PO Q8H levothyroxine 75 mcg capsule 75 mcg PO DAILY hydrochlorothiazide 50 mg tablet 50 mg PO DAILY Interventions: ED Discharge Assessment Last Done: 09/16/24 02:29 Discharge Date/Time: 09/16/24 02:36 Print Language: Occitan
[2024-09-16 02:14] LABS: Magnesium 1.7 mg/dL (1.6-2.6)
[2024-09-16] MEDS: Gabapentin 100 MG CAPSULE 200 MG PO (02:23)
[2024-09-16] MEDS: oxyCODONE HCl Immed Release 5 MG TABLET 10 MG PO (02:25)
[2024-09-16 02:29] VITALS: BP 156/89; PULSE 74; RESP 20; TEMP 36.4; O2SAT 97
--- NOTE | 2024-09-16 02:35 | PC.NURSE ---
assisted to wheelchair for dc. mental status at baseline. speech clear. moving all extremities at baseline. +pedal pules/CMS bilaterally
== END 2024-09-16 02:36 | disposition home or self-care (01) ==
PROVIDERS: Emergency Provider Internal Medicine; PCP Internal Medicine
DX: E11.40 Type 2 diabetes mellitus with diabetic neuropathy, unspecified (principal); R60.0 Localized edema; R26.2 Difficulty in walking, not elsewhere classified; M79.605 Pain in left leg; M79.604 Pain in right leg; Z79.899 Other long term (current) drug therapy
CPT/HCPCS: 36415; 80053; 83735; 83880; 85025; 99283

== ENCOUNTER 2024-10-03 10:33 | Outpatient (AMB) | payer MEDICARE, SELFPAY ==
--- NOTE | 2024-10-03 10:36 | A.OFFVIS_ITS ---
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 States she has pain in the left leg and foot. States it has been going on for about a month. 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 She states over the last month she has had worsening left leg more than right leg pain with swelling. Complaints include pain, swelling of lower extremities, cramping, fatigue, and heaviness of the lower extremities. It has been affecting their daily activities including walking, standing, and physical activity. It is noted more so in left leg. She has been having increased difficulty in walking due to the pain and swelling. She is a diabetic and does have a history of neuropathy; her last A1c on 09/24/2024 was 7.8%. Patient denies any previous venous surgery or injections. Patient denies any history of DVT/ PE. Patient denies any history of phlebitis. Trial of compression includes - elevation with some relief, soaking with water and Epsom salts decreases the swelling, and leg massager They now present for vascular evaluation regarding their varicose veins. [facility] Medical History Chronic pain syndrome Postlaminectomy syndrome of lumbar region Disc degeneration, lumbar Social History Alcohol intake: never Review of Systems Const Reports as per HPI and Denies weakness ENT Reports Normal hearing present and Denies dizziness Card Reports as per HPI, Denies chest pain, Denies chest pain at rest, Denies chest pain with activity, Denies dyspnea and Denies dyspnea on exertion Resp Reports as per HPI, Denies cough, Denies dyspnea and Denies dyspnea on exertion GI Reports as per HPI, Denies abdominal pain, Denies nausea and Denies vomiting Musc Denies numbness Skin/Breast Reports as per HPI, Denies erythema and Denies wounds Neuro Reports Normal hearing present, Denies dizziness, Denies numbness, Denies Sensory deficit (Neuro) and Denies weakness Psych Reports no additional complaints Endo Reports no additional complaints Physical Exam Const General: healthy appearing and no acute distress Orientation/consciousness: patient oriented x3 HEENT Head: Yes normal to inspection Ears: hearing grossly normal bilaterally Mouth: Normal oral and palatal mucosa present Resp Effort & Inspection: normal respiratory effort and able to speak in complete sentences Auscultation: clear to auscultation bilaterally Cardio Jugular venous distension: no JVD Rate: regular rate Rhythm: regular rhythm Heart sounds: S1 normal heart sound present and S2 normal heart sound present Bruits: no abdominal aortic bruits, no carotid bruits, no femoral bruits and no renal bruits Peripheral pulses: Peripheral pulses 2+ throughout GI Inspection: Yes normal to inspection Palpation (GI): No Abdominal aortic bruit present Skin General skin exam: no rashes or lesions noted Wounds: no wounds Hair: normal Neuro General: patient oriented x3 Cranial nerves: Yes Normal hearing present Cognition (Neuro): normal cognition Gait exam (Neuro): Normal gait present Motor exam (neuro): 5/5 motor strength present throughout Sensory Exam: No Sensory deficit (Neuro) Extrem Other: Left lower extremity: +1 peripheral edema noted. Palpable DP pulses. Discoloration noted around ankles. Right lower extremity: trace peripheral edema noted. Palpable DP pulses. CEAP: C - 3/4 E - primary A - superficial P - reflux General: Yes normal to inspection, Yes full ROM, Yes capillary refill normal and Yes normal gait Assessment & Plan Assessment & Plan (1) Varicose veins of both lower extremities with inflammation: Code(s): I83.11 - Varicose veins of right lower extremity with inflammation; I83.12 - Varicose veins of left lower extremity with inflammation Category: Medical Plan: Nola is presenting today with her son for concerns of venous insufficiency. She states she has had over a month worth left more than right lower extremity pain and swelling, that has caused increased difficulty in walking. In short, the patient has evidence of venous insufficiency. I have discussed the pathophysiology with the patient. In addition I have provided informational material regarding venous disease to the patient. We have discussed conservative measures including compression, elevation, and exercise. I have also provided a handout regarding appropriate use of compression stockings and where to purchase good compression stockings as well. I have taken the liberty of ordering venous insufficiency testing with the patient. They will follow up with me after testing. The patient had an opportunity to ask questions regarding the treatment plan. All questions were answered. Imaging studies, laboratory studies and physical exam results were discussed and reviewed in detail. No major barriers to understanding were identified. The patient expressed understanding and agreement with the above treatment plan. The patient is aware they should contact our office by phone for worsening of the current condition or the appearance of new symptoms. Thank you for allowing me to participate in the [facility] care of this patient. If you have any questions or concerns regarding the treatment for the above condition please do not hesitate to contact me. The office telephone contact is [phone]. This note is constructed using voice recognition software. While every effort has been made to ensure accuracy, marker machine attendant errors may have been included. Thank you for allowing me to participate in the care of your patient. Yours sincerely, YAMILET Neil Orders: Orders US venous duplex LE BI 1 Week I83.11 - Varicose veins of right lower extremity with inflammation, I83.12 - Varicose veins of left lower extremity with inflammation Coding Level of Care Code New Pt Level 4 (02589) Diagnoses Varicose veins of both lower extremities with inflammation I83.11; I83.12
--- OUTSIDE RECORDS SUMMARY | 2024-10-03 11:14 | XMS_ITS | Encounter Summary ---
Author Organization [employer] Address [address] [place] [address] Care Team Providers Care Tap Puller Name Role Phone Jaime Mares MD Primary Care Provide r Reason for Visit * Reason Comments Med Refill Encounter Details Date Type Department Care Team ([facility] Contact Info) Description 06/05/2024 Refill [facility] MED[facility]INE [address] [place] [address] Olya Harris MD [address] [place] [address] Type 2 diabetes mellitus with diabetic polyneuropathy, without long-term current use of insulin ([facility]) Social History Tobacco Use Types Packs/Day Years Used Date Smoking Tobacco: Never Passive Smoke Exposure: Never Smokeless Tobacco: Never Depression Answer Date Recorded Patient Health Questionnaire-9 Score 1 12/05/2023 Patient Health Questionnaire-9 Score 1 12/05/2023 Last PHQ-9: Questionnaire Data Not on file 0 12/05/2023 Housing Stability Answer Date Recorded What is your housing situation today? I have ray parnell 12/05/[address] you li ve. Do you have problems with any of the following? None of the above 12/05/2023 Food Insecurity Answer Date Recorded Within the past 12 months, y ou worried that your food would run out before you got money to buy more: Never True 12/05/2023 Within the past 12 months,th e food you bought just didn't last and you didn't have enough money to get more: Never True Transportation Answer Date Recorded In the past 12 months, has l ack of transportation kept you from medical appts, meetings, work or from getting things needed for daily living? No 12/05/2023 Utilities Answer Date Recorded In the past 12 months, has t he electric, gas, oil or water company threatened to shut off services in your home? No 12/05/2023 Depression Answer Date Recorded Patient Health Questionnaire-2 Score 0 12/05/2023 Comments Unknown Sex and Gender Information Value Date Recorded Sex Assigned at Female 06/20/2022 10:14 AM EDT Legal Sex Female 10:14 AM EDT Gender Identity Female 06/20/2022 10:14 AM EDT Sexual Orientation Choose not to disclose 2021 10:14 AM EDT documented as of this encounter Plan of Treatment Upcoming Encounters Date Type Department Care Team (Late st Contact Info) Description 10/22/2024 1:15 PM EST Office Visit [facility] MEDICINE [address] [place] [phone] Jaime Mares MD [address] [place] [phone] documented as of this encounter Visit Diagnoses Diagnosis Type 2 diabetes mellitus with diabetic polyneuropathy, without long-term current use of insulin ([facility]) documented in this encounter Additional Health Concerns Assessment Noted Time PHQ-9 Depression Total Score: 1 12/05/19 24 9:34 AM EDT documented as of this encounter Care Teams Tap Puller Relationship Specialty Start Date End Date Jaime Mares MD [address] [place] [phone] PCP - General Internal Medicine 06/23/14 documented as of this encounter
--- OUTSIDE RECORDS SUMMARY | 2024-10-03 11:14 | XMS_ITS | Encounter Summary ---
Author Organization [employer] Address [address] [facility] [address] [place] [address] Care Team Providers Care Talent Acquisition Specialist Name Role Phone Jaime Mares MD Primary Care Provide r Encounter Details Date Type Department Care Team (Late st Contact Info) Description 09/15/2024 Orders Only GENERIC EXTERNAL DATA DEPARTMENT Provider, Generic External Data Social History Tobacco Use Types Packs/Day Years [...] Description 10/22/2024 1:15 PM EST Office Visit [facility] [address] [facility] [place] [address] Jaime Mares MD [address] [facility] [place] [phone] documented as of this encounter Procedures Procedure Name Priority Date/Time Associated Diagnosis Comments CBC WITH AUTO DIFFERENTIAL Routine 09/15/2024 11:04 PM EST B TYPE NATRIURETIC PEPTIDE (BNP) Routine 09/15/2024 11:04 PM EST MAGNESIUM Routine 09/15/2024 11:04 PM EST COMPREHENSIVE METABOLIC PANEL Routine 09/15/2024 11:04 PM EST documented in this encounter Results * Magnesium (09/15/2024 11:04 PM EST) Pathologist [facility] Magnesium 1.7 1.6 - 2.6 mg/dL [facility] 09/15/2024 11:0 4 PM EST 09/15/2024 11:12 PM EST us Generic External Data Provider LAB BLOOD ORDERAB LES Final Result [facility] [address] [place] [address] [phone] * B Type Natriuretic Peptide (BNP) (09/15/2024 11:04 PM EST) Pathologist [facility] B Type Natriuretic Peptide 35 <100 pg/mL [facility] Comment:For those patients w ho are being treated with Natrecor(nesiritide, recombinant BNP), BNP testing should beperformed at least two hours post treatment in order toensure that only endogenous levels of BNP are detected. 09/15/2024 11:0 4 PM EST 09/15/2024 11:12 PM EST us Generic External Data Provider LAB BLOOD ORDERAB LES Final Result [facility] [address] [place] [address] [phone] * (ABNORMAL) Comprehensive Metabolic Panel (09/15/2024 11:04 PM EST) Sodium 142 135 - 145 mmol/L [facility] Potassium 3.9 3.3 - 5.1 mmol/L [facility] Chloride 107 96 - 108 mmol/L [facility] Carbon Dioxide 24 22 - 29 mmol/L [facility] Anion Gap 15 12 - 20 [facility] Urea Nitrogen (BUN) 30(H) 9 - 16 mg/dL [facility] Creatinine, Serum 0.93 0.5 - 1.4 mg/dL [facility] Creatinine Clr Calc Pharmacy 45.5 [facility] Comment:Provided height and weight: 162.56 cm,72.575 kg.eGFR (calculated from the MDRD study equation) and eCrCl(calculated from the Cockcroft-Gault equation) are based ondifferent parameters and may not yield comparable results.If eCrCl result is absurd, please check patient'sheight/weight. Estimated Glomerular Filt Rate 58 [facility] Comment:Chronic Kidney Disea se: Estimated GFR < 60 mL/min/[id number] Kidney Disease: Estimated GFR < 15 mL/min/1.73m2 Glucose 122(H) 60 - 115 mg/dL [facility] Calcium 9.3 8.4 - 10.2 mg/dL [facility] Bilirubin, Total 0.3 0.0 - 1.0 mg/dL [facility] Aspartate Amino Transferase 22 5 - 31 U/L [facility] Alanine Aminotransferase 23 0 - 31 U/L [facility] Total Protein 8.0 6.5 - 8.0 g/dL [facility] Albumin Level 4.4 3.5 - 5.0 g/dL [facility] Alkaline Phosphatase 61 39 - 117 U/L [facility] 09/15/2024 11:0 4 PM EST 09/15/2024 11:12 PM EST us Generic External Data Provider LAB BLOOD ORDERAB LES Final Result [facility] [address] [place], [place] [phone] * (ABNORMAL) CBC auto differential (09/15/2024 11:04 PM EST) White Blood Count 6.4 4.8 - 10.8 X10*3/uL [facility] Red Blood Count 4.16(L) 4.20 - 5.50 X10*6/uL [facility] Hemoglobin 12.4 12.0 - 16.0 g/dl [facility] Hematocrit 37.0 37.0 - 47.0 % [facility] Mean Corpuscular Volume 88.9 80.0 - 98.0 fL [facility] Mean Corpuscular Hemoglobin 29.8 27.0 - 33.0 pg [facility] Mean Corpuscular HGB Conc 33.5 31.0 - 35.0 g/dl [facility] Red Cell Distribution Width 13.2 11.0 - 16.0 % [facility] Platelet Count 359 160 - 400 X10*3/uL [facility] Mean Platelet Volume 8.8(L) 9.4 - 12.3 fL [facility] Neutrophils Percent Auto 49.8 45 - 73 % [facility] Imm Gran Pct Auto 0.3 0.0 - 0.4 % [facility] Lymphocytes Percent Auto 36.7 20 - 40 % [facility] Monocytes Percent Auto 9.6 2 - 11 % [facility] Eosinophils Percent Auto 2.8 0 - 4 % [facility] Basophils Percent Auto 0.8 0 - 2 % [facility] NRBC Pct Auto 0.0 0.0 - 0.2 /100WBC [facility] Neutrophils Absolute Auto 3.2 2.0 - 8.3 x10*3/uL [facility] Imm Gran Abs Auto 0.02 0.00 - 0.03 X10*3/uL [facility] Lymphocytes Absolute Auto 2.4 1.2 - 4.9 X10*3/uL [facility] Monocytes Absolute Auto 0.6 0.1 - 1.2 X10*3/uL [facility] Eosinophils Absolute Auto 0.2 0.0 - 0.4 X10*3/uL [facility] Basophils Absolute Auto 0.1 0.0 - 0.2 X10*3/uL [facility] NRBC Abs Auto 0.000 0.0 - 0.012 X10*3/uL [facility] 09/15/2024 11:0 4 PM EST 09/15/2024 11:12 PM EST us Generic External Data Provider LAB BLOOD ORDERAB LES Final Result Performing Organization Address City/State/[facility] Co de Phone Number [facility] [address] [place] [address] [phone] documented in this encounter Visit Diagnoses Not on filedocumented in this encounter Additional Health Concerns Assessment Noted Time PHQ-9 Depression Total Score: 1 12/05/19 24 9:34 AM EDT documented as of this encounter Care Teams Talent Acquisition Specialist Relationship Specialty Start Date End Date Jaime Mares MD [address] [place] [phone] PCP - General Internal Medicine 06/23/14 documented as of this encounter
--- OUTSIDE RECORDS SUMMARY | 2024-10-03 11:14 | XMS_ITS | Encounter Summary ---
Author Organization [employer] Address [address] [facility] [address] [place] [address] Care Team Providers Care Training Engineer Name Role Phone Jaime Mares MD Primary Care Provide r Reason for Visit * Reason Onset Date Comments ER Follow-up 09/17/2024 Encounter Details Date Type Department Care Team ([facility] st Contact Info) Description 09/17/2024 Telephone [facility] MEDICINE [address] [place] [address] Jaime Mares MD [address] [place] [phone] ER Follow-up Social History Tobacco Use Types Packs/Day Years [...] AM EDT documented as of this encounter Miscellaneous Notes * Telephone Encounter - Edwina Espinosa RN - 09/18/2024 2:31 PM EST TC placed to pt to f/u on recent [facility] ED visit on 09/16/2024 for bilateral leg pain due to diabetic peripheral neuropathy. Pt discharged with instructions to start taking gabapentin 100 mg TID for the pain related to diabetes. Pt confirms that the pain can at times be around at 7/10 and ambulation isdifficult. Pt agreeable to coming in to the office to discuss this neuropathic pain with PCP on 09/24/2024 at 11 AM. * Telephone Encounter - Ferny James - 09/18/2024 2:10 PM EST Tc from pt returning call. Pt would like to request a referral to the PT on leg because pt can't walk. Pt contact info: [phone] (Swedish) * Telephone Encounter - Edwina Espinosa RN - 09/18/2024 1:37 PM EST TC placed to pt and LVM to call back the office * Telephone Encounter - Valentin Warren 09/17/2024 11:32 AM EST Patient calling to report ED visit on : Date: 09/15/2024 Hospital: [facility] Seen for: trouble walking Symptomatic No *if yes message should go to Triage Patient advised will forward to team nurse for follow up documented in this encounter Plan of Treatment Upcoming Encounters Date Type Department Care Team (Late st Contact Info) Description 10/22/2024 1:15 PM EST Office Visit [facility] MEDICINE [address] [place] [address] Jaime Mares MD [address] [place] [address] documented as of this encounter Visit Diagnoses Not on filedocumented in this encounter Additional Health Concerns Assessment Noted Time PHQ-9 Depression Total Score: 1 12/05/19 24 9:34 AM EDT documented as of this encounter Care Teams Training Engineer Relationship Specialty Start Date End Date Jaime Mares MD [address] [place] [address] PCP - General Internal Medicine 06/23/14 documented as of this encounter
--- OUTSIDE RECORDS SUMMARY | 2024-10-03 11:14 | XMS_ITS | Encounter Summary ---
Author Organization [employer] Address [address] [place] [address] [address] [place] [address] Care Team Providers Care Navigation Teacher Name Role Phone Jaime Mares MD Primary Care Provide r Reason for Referral * Imaging (Routine) - Authorized Specialty Diagnoses / Procedures Referred By Contac t Referred To Contact Radiology Diagnoses Osteoporosis, unspecified osteoporosis type, unspecified pathological fracture presence Procedures BD DEXA Axial Jaime Mares MD [address] [place] [address] Phone: tel: fax: [address] Phone: tel: fax: Referral ID Status Reason Start Date Expiration Date V isits Requested Visits Authorized [id number] Authorized 09/24/2024 09/24/2025 1 1 * Consultation (Routine) - Authorized Specialty Diagnoses / Procedures Referred By Contac t Referred To Contact Vascular Surgery Diagnoses Vascular insufficiency of extremity Jaime Mares MD [address] [place] [address] Phone: tel: fax: [facility] Referral ID Status Reason Start Date Expiration Date Visits Requested Visits Authorized [id number] Authorized Specialty Services Required 09/24/2024 09/24/2025 1 1 Reason for Visit * Reason Comments Sick Onsite [facility] 09/16/2024 DX: DIABETIC NEUROPATHY, BILATERAL LEG PAIN Encounter Details Date Type Department Care Team (Latest Contact Info) Description 09/24/2024 11:00 AM EST Office Visit [facility] [address] [place] [address] Ja[facility] Mares MD [address] [facility] [place] [address] Essential hypertension (Primary Dx); Type 2 diabetes mellitus with diabetic polyneuropathy, without long-term current use of insulin ([facility]); Acquired hypothyroidism; Mixed hyperlipidemia; Uncontrolled type 2 diabetes mellitus with hyperglycemia ([facility]); Vascular insufficiency of extremity; Osteoporosis, unspecified osteoporosis type, unspecified pathological fracture presence; Encounter for immunization; Neuropathic pain of both legs Social History Tobacco Use Types Packs/Day Years Used Date Smoking Tobacco: Never Passive Smoke Exposure: Never Smokeless Tobacco: Never Depression Answer Date Recorded Patient Health Questionnaire-9 Score 3 09/24/2024 Patient Health Questionnaire-9 Score 3 09/24/2024 Last PHQ-9: Questionnaire Data Not on file 0 09/24/2024 Housing Stability Answer Date Recorded What is [...] Answer Date Recorded Patient Health Questionnaire-2 Score 1 09/24/2024 Internet Access Answer Date Recorded Internet Access Q1 Yes 09/24/2024 Internet Access Q2 Not on file 09/24/2024 Comments Unknown Sex and Gender Information Value Date Recorded Sex Assigned at Female 06/20/2022 10:14 AM EDT Legal Sex Female 10:14 AM EDT Gender Identity Female 06/20/2022 10:14 AM EDT Sexual Orientation Choose not to disclose 2021 10:14 AM EDT documented as of this encounter Last Filed Vital Signs Vital Sign Reading Time Taken Comments Blood Pressure 152/72 09/24/2024 11:29 AM EST manual recheck BP Pulse 70 09/24/2024 11:29 AM EST Temperature 35.7 ??C (96.2 ??F) 09/24/2024 1 1:01 AM EST Respiratory Rate 20 09/24/2024 11:0 1 AM EST Oxygen Saturation 99% 09/24/2024 11: 29 AM EST Inhaled Oxygen Concentration - - Weight 71.6 kg (157 lb 12.8 oz) 09/24/2024 11:01 AM EST Height 172.4 cm (5' 7.88 ) 09/24/2024 1 1:01 AM EST Body Mass Index 24.08 09/24/2024 11:01 AM EST documented in this encounter Progress Notes * Jaime Christopher MD - 09/24/2024 11:00 AM EST SUBJECTIVE Nola Styles is a 84 y.o. female who presents for Sick Onsite ([facility] 09/16/2024 DX: DIABETIC NEUROPATHY, BILATERAL LEG PAIN). Hypertension This is a chronic problem. Pertinent negatives include no chest pain, headaches or shortness of breath. Review of Systems Constitutional: Negative for fever. HENT: Negative for sore throat. Respiratory: Negative for cough and shortness of breath. Cardiovascular: Negative for chest pain. Gastrointestinal: Negative for abdominal pain. Neurological: Negative for headaches. Allergies Allergen Reactions Alendronate Penicillin G Amlodipine Rash OBJECTIVE Vitals: 09/24/24 1101 09/24/24 1129 BP: (!) 174/78 (!) 152/72 BP Location: Left arm Left arm Patient Position: Sitting Sitting BP Cuff Size: Large adult Large adult Pulse: 65 70 Resp: 20 Temp: 96.2 ??F (35.7 ??C) TempSrc: Temporal SpO2: 96% 99% Weight: 157 lb 12.8 oz (71.6 kg) Height: 5' 7.88 (1.724 m) Physical Exam Vitals reviewed. Constitutional: Appearance: Normal appearance. HENT: Head: Normocephalic and atraumatic. Right Ear: External ear normal. Left Ear: External ear normal. Nose: Nose normal. Mouth/Throat: Mouth: Mucous membranes are moist. Eyes: Conjunctiva/sclera: Conjunctivae normal. Cardiovascular: Rate and Rhythm: Normal rate and regular rhythm. Pulmonary: Effort: Pulmonary effort is normal. Breath sounds: Normal breath sounds. Skin: General: Skin is warm. Neurological: Mental Status: She is alert. Mental status is at baseline. Assessment/Plan Problem List Items Addressed This Visit Diabetes mellitus with diabetic polyneuropathy, without long-term current use of insulin ([facility]) Patient is here for a f/u a Hgb A1c on 09/24/2024: 7.8 down to 8 from 10 She is on a regimen of Metformin XR 500 mg 2 tabs po BID and Glipizide ER 10 mg po Daily she is getting med boxes. Plan: Asked to bring glucometer before we make any changes Eye exam was done on 12/12/13 via [facility] Microalbumin will repeat Foot check risk of zero, on Asa daily. Adhere to diabetic diet check your blood sugars regularly check your feet on a daily basis f/u 4 weeks Relevant Medications gabapentin (Neurontin) 300 MG capsule Other Relevant Orders POCT Glucose (Completed) POCT HGB A1C (Completed) Albumin, Random Urine W/Creatinine Essential hypertension - Primary Pt here for a f/u BP remains uncontrolled She is supposed to be on a regimen of: Atenolol 100 mg po daily, Hctz 50 mg po daily and Hydralazine 25 mg po TID, No longer on Benicar 20 mg po daily, Insurance did not cover brand name only. Pt was on Irbesartan but refuses to take it, she did not want to take any other medications other than the Benicar She also did not tolerate Losartan because she felt lightheaded so she decided to stop. Most recent electrolytes, Bun and Creatinine done on Lab Results Component Value Date NA 142 09/15/2024 NA 143 11/06/2023 K 3.9 09/15/2024 K 3.9 11/06/2023 CL 107 09/15/2024 CL 100 11/06/2023 BUN 30 (H) 09/15/2024 BUN 32 (H) 11/06/2023 CREATININE 0.93 09/15/2024 CREATININE 1.34 11/06/2023 were wnl. Plan: Will recheck in 4 weeks , if still elevated will start on Benicar 20 mg po daily pt has new insurance Pt has medboxes patient advised to adhere to a low sodium diet, encouraged about medication compliance, counseled about weight loss. Pt had a [address] Branham, pt was seen 09/30/2019 Study showed BP was suboptimally controlled Pt is resistant to adding a new agent. f/u with me in 4 weeks ECHO 02/26/24 unremarkable Acquired hypothyroidism Pt doing well Pt is on synthroid 75 mcg po daily but most recent TSH Lab Results Component Value Date TSH 3.70 11/06/2023 11/06/2023 normal continue current regimen. Relevant Orders TSH with Reflex to Free T4 Mixed hyperlipidemia Patient with elevated lipids. Most recent lipid profile from: Lab Results Component Value Date TRIG 131 02/06/2024 CHOL 192 02/06/2024 LDLCHOLCAL 104 (H) 02/06/2024 HDL 62 02/06/2024 Currently on a regimen of: Simvastatin 80mg po qhs . Most recent LFT'S from: 11/06/2023 were wnl. Lipids not at target. Previously we switched her to Atorvastatin 40 mg po qhs, but she told me she was not able to tolerate it. She is resistant to try any other agent. She wants to continue with Simvastatin advised to try to adhere to a low cholesterol diet, counseled and educated about diet and exercise,Patient encouraged to come up with a personal goal for weight loss. Repeat Lipid profile. Pt forgot Vascular insufficiency of extremity Relevant Orders Referral to Vascular Surgery Osteoporosis Relevant Orders BD DEXA Axial Neuropathic pain of both legs Patient with c/o new onset of burning pain on both lower extremities On exam she has decreased sensation on her feet Previously I had recommended a Trial of gabapentin 300 mg po TID. Pt did not refill meds. Seen in the ER recently and restarted on a lower dose of 100 mg po TID with good results, I had asked her to go back to her 300 mg po TID dose. Side effects such as over sedation discussed, she will increase the dose gradually, once a day then twice a day then TID if tolerated Other Visit Diagnoses Uncontrolled type 2 diabetes mellitus with hyperglycemia (CMS/HCC) Relevant Medications gabapentin (Neurontin) 300 MG capsule Encounter for immunization Relevant Orders FLU VACCINE TRIVALENT HIGH DOSE 65 yrs + (Completed) documented in this encounter Miscellaneous Notes * Assessment & Plan Note - Jaime Christopher MD - 09/24/2024 3:28 PM EST Associated Problem(s): Neuropathic pain of both legs Patient with c/o new onset of burning pain on both lower extremities On exam she has decreased sensation on her feet Previously I had recommended a Trial of gabapentin 300 mg po TID. Pt did not refill meds. Seen in the ER recently and restarted on a lower dose of 100 mg po TID with good results, I had asked her to go back to her 300 mg po TID dose. Side effects such as over sedation discussed, she will increase the dose gradually, once a day then twice a day then TID if tolerated * Assessment & Plan Note - Jaime Christopher MD - 09/24/2024 11:40 AM EST Associated Problem(s): Mixed hyperlipidemia Patient with elevated lipids. Most recent lipid profile from: Lab Results Component Value Date TRIG 131 02/06/2024 CHOL 192 02/06/2024 LDLCHOLCAL 104 (H) 02/06/2024 HDL 62 02/06/2024 Currently on a regimen of: Simvastatin 80mg po qhs . Most recent LFT'S from: 11/06/2023 were wnl. Lipids not at target. Previously we switched her to Atorvastatin 40 mg po qhs, but she told me she was not able to tolerate it. She is resistant to try any other agent. She wants to continue with Simvastatin advised to try to adhere to a low cholesterol diet, counseled and educated about diet and exercise,Patient encouraged to come up with a personal goal for weight loss. Repeat Lipid profile. Pt forgot * Assessment & Plan Note - Jaime Christopher MD - 09/24/2024 11:39 AM EST Associated Problem(s): Acquired hypothyroidism Pt doing well Pt is on synthroid 75 mcg po daily but most recent TSH Lab Results Component Value Date TSH 3.70 11/06/2023 11/06/2023 normal continue current regimen. * Assessment & Plan Note - Jaime Christopher MD - 09/24/2024 11:38 AM EST Associated Problem(s): Essential hypertension Pt here for a f/u BP remains uncontrolled She is supposed to be on a regimen of: Atenolol 100 mg po daily, Hctz 50 mg po daily and Hydralazine 25 mg po TID, No longer on Benicar 20 mg po daily, Insurance did not cover brand name only. Pt was on Irbesartan but refuses to take it, she did not want to take any other medications other than the Benicar She also did not tolerate Losartan because she felt lightheaded so she decided to stop. Most recent electrolytes, Bun and Creatinine done on Lab Results Component Value Date NA 142 09/15/2024 NA 143 11/06/2023 K 3.9 09/15/2024 K 3.9 11/06/2023 CL 107 09/15/2024 CL 100 11/06/2023 BUN 30 (H) 09/15/2024 BUN 32 (H) 11/06/2023 CREATININE 0.93 09/15/2024 CREATININE 1.34 11/06/2023 were wnl. Plan: Will recheck in 4 weeks , if still elevated will start on Benicar 20 mg po daily pt has new insurance Pt has medboxes patient advised to adhere to a low sodium diet, encouraged about medication compliance, counseled about weight loss. Pt had a [address] Branham, pt was seen 09/30/2019 Study showed BP was suboptimally controlled Pt is resistant to adding a new agent. f/u with me in 4 weeks ECHO 02/26/24 unremarkable * Assessment & Plan Note - Jaime Christopher MD - 09/24/2024 11:37 AM EST Associated Problem(s): Diabetes mellitus with diabetic polyneuropathy, without long-term current use of insulin ([facility]) Patient is here for a f/u a Hgb A1c on 09/24/2024: 7.8 down to 8 from 10 She is on a regimen of Metformin XR 500 mg 2 tabs po BID and Glipizide ER 10 mg po Daily she is getting med boxes. Plan: Asked to bring glucometer before we make any changes Eye exam was done on 12/12/13 via [facility] Microalbumin will repeat Foot check risk of zero, on Asa daily. Adhere to diabetic diet check your blood sugars regularly check your feet on a daily basis f/u 4 weeks documented in this encounter Plan of Treatment Upcoming Encounters Date Type Department Care Team (Late st Contact Info) Description 10/22/2024 1:15 PM EST Office Visit [facility] [address] [place], [place] [phone] Jaime Mares MD [address] [place] [address] Scheduled Orders Name Type Priority Associated Diagnoses Orde r Schedule Albumin, Random Urine W/Creatinine Lab Routine Type 2 diabetes mellitus with diabetic polyneuropathy, without long-term current use of insulin (CMS/HCC) Ordered: 09/24/2024 TSH with Reflex to Free T4 Lab Routine Acquired hypothyroidism Ordered: 09/24/2024 BD DEXA Axial Imaging Routine Osteoporosis, unspecified osteoporosis type, unspecified pathological fracture presence Ordered: 09/24/2024 Scheduled Referrals Name Type Priority Associated Diagnoses Orde r Schedule Referral to Vascular Surgery Outpatient Referral Routine Vascular insufficiency of extremity Expected: 09/24/2024 (Approximate), Expires: 09/24/2025 documented as of this encounter Procedures Procedure Name Priority Date/Time Associated Diagnosis Comments POCT GLYCATED HEMOGLOBIN, TOTAL Routine 09/24/2024 11:20 AM EST Type 2 diabetes mellitus with diabetic polyneuropathy, without long-term current use of insulin ([facility]) POCT GLUCOSE Routine 09/24/2024 11:16 AM EST Type 2 diabetes mellitus with diabetic polyneuropathy, without long-term current use of insulin ([facility]) documented in this encounter Results * (ABNORMAL) POCT HGB A1C (09/24/2024 11:20 AM EST) Hemoglobin A1C 7.8(A) 4.0 - 6.0 % QC Media Lot # [id number] Lot# Expiration Date Blood 09/24/2024 11:2 0 AM EST us Jaime Christopher MD POINT OF CARE TEST EN TER/EDIT ORDERABLES Final Result * POCT Glucose (09/24/2024 11:16 AM EST) Glucose Blood, POC 120 60 - 200 mg/dL QC Media Lot # [id number] Lot# Expiration Date Blood Capillary blood specimen / Unknown 09/24/2024 11:16 AM EST us Jaime Christopher MD POINT OF CARE TEST EN TER/EDIT ORDERABLES Final Result documented in this encounter Visit Diagnoses Diagnosis Essential hypertension- Primary Unspecified essential hypertension Type 2 diabetes mellitus with diabetic polyneuropathy, without long-term current use of insulin ([facility]) Acquired hypothyroidism Unspecified hypothyroidism Mixed hyperlipidemia Uncontrolled type 2 diabetes mellitus with hyperglycemia ([facility]) Vascular insufficiency of extremity Osteoporosis, unspecified osteoporosis type, unspecified pathological fracture presence Encounter for immunization Neuropathic pain of both legs documented in this encounter Additional Health Concerns Assessment Noted Time PHQ-9 Depression Total Score: 3 09/24/19 25 11:09 AM EST documented as of this encounter Care Teams Navigation Teacher Relationship Specialty Start Date End Date Jaime Mares MD [address] [place] [id number] PCP - General Internal Medicine 06/23/14 documented as of this encounter
--- OUTSIDE RECORDS SUMMARY | 2024-10-03 11:14 | XMS_ITS | Encounter Summary ---
Author Organization [employer] Address [address] [facility] [address] [place] [address] Care Team Providers Care Sheet Ironworker Name Role Phone Jaime Mares MD Primary Care Provide r Reason for Visit * Reason Onset Date Comments Returning Call 09/23/2024 Encounter Details Date Type Department Care Team ([facility] st Contact Info) Description 09/23/2024 Telephone [facility] [address] [place] [address] Jaime Mares MD [address] [place] [address] Returning Call Social History Tobacco Use Types Packs/Day Years [...] Telephone Encounter - Edwina Espinosa RN - 09/25/2024 9:40 AM EST TC placed to pt to f/u on telephone call from 09/23/2024 in which the pt states that she was contacted by [facility]. Pt confirms that she went to her scheduled office visit yesterday with PCP and currently has no further questions or concerns at this time. Pt to call back PRN * Telephone Encounter - Mauro Toribio - 09/24/2024 3:52 PM EST TC from pt returning call regarding prior message. Contact pt at [phone] (Tristanian) * Telephone Encounter - Edwina Espinosa RN - 09/23/2024 11:30 AM EST TC placed to pt and LVM to call back the office * Telephone Encounter - Ferny James - 09/23/2024 9:53 AM EST Tc from pt requesting a call back because pt states that she received a phone call from [facility] but doesn't know from who. Pt contact: [phone] documented in this encounter Plan of Treatment Upcoming Encounters Date Type Department Care Team (Late st Contact Info) Description 10/22/2024 1:15 PM EST Office Visit [facility] [address] [facility] [place] [address] Jaime Mares MD [address] [place] [address] documented as of this encounter Visit Diagnoses Not on filedocumented in this encounter Additional Health Concerns Assessment Noted Time PHQ-9 Depression Total Score: 1 12/05/19 24 9:34 AM EDT documented as of this encounter Care Teams Sheet Ironworker Relationship Specialty Start Date End Date Jaime Mares MD [address] [place] [address] PCP - General Internal Medicine 06/23/14 documented as of this encounter
--- OUTSIDE RECORDS SUMMARY | 2024-10-03 11:14 | XMS_ITS | Encounter Summary ---
Author Organization [employer] Address [address] [facility] [address], [place] [address] Care Team Providers Care Music Theory Professor Name Role Phone Jaime Mares MD Primary Care Provide r Reason for Visit * Reason Onset Date Comments triage 2022 Encounter Details Date Type Department Care Team ([facility] st Contact Info) Description 2022 Telephone [facility] [address] [place] [address] Jaime Mares MD [address] [place] [address] triage Social History Tobacco Use Types Packs/Day Years Used Date Smoking Tobacco: Never Assessed Comments Unknown Sex and Gender Information Value Date Recorded Sex Assigned at Female 06/20/2022 10:14 AM EDT Legal Sex Female 10:14 AM EDT Gender Identity Female 06/20/2022 10:14 AM EDT Sexual Orientation Choose not to disclose 2021 10:14 AM EDT documented as of this encounter Miscellaneous Notes * Telephone Encounter - Gin Kuhn RN - 08/26/2022 10:38 AM EST Pt's son Juan called [facility] 08/25/22 reporting pt covid + as of 08/23/22. Pertinent Sx include cough, sneezing, body aches, insomnia. Denies fever, wheezing, SOB. Pt requesting paxlovid. Will send request to PCP as well as on site provider. documented in this encounter Plan of Treatment Upcoming Encounters Date Type Department Care Team (Late st Contact Info) Description 10/22/2024 1:15 PM EST Office Visit [facility] [address] [facility] [place] [address] Jaime Mares MD [address] [place] [address] documented as of this encounter Visit Diagnoses Not on filedocumented in this encounter Care Teams Music Theory Professor Relationship Specialty Start Date End Date Jaime Mares MD [address] [facility] [place] [address] PCP - General Internal Medicine 06/23/14 documented as of this encounter
--- OUTSIDE RECORDS SUMMARY | 2024-10-03 11:14 | XMS_ITS | Encounter Summary ---
Author Organization [employer] [facility] Address [address] [facility] [address], [place] [address] Care Team Providers Care Manager Of Procurement Name Role Phone Jaime Mares MD Primary Care Provide r Reason for Visit * Reason Comments Med Refill Encounter Details Date Type Department Care Team (Late st Contact Info) Description 03/29/2023 Refill [facility] [address] [place] [address] Jaime Mares MD [address] [place], [place] [phone] Essential (primary) hypertension Social History Tobacco Use Types Packs/Day Years [...] Description 10/22/2024 1:15 PM EST Office Visit [facility] [address] [place], [place] [phone] Jaime Mares MD [address] [place], [place] [phone] documented as of this encounter Visit Diagnoses Diagnosis Essential (primary) hypertension Unspecified essential hypertension documented in this encounter Care Teams Manager Of Procurement Relationship Specialty Start Date End Date Jaime Mares MD [address] [place] [address] PCP - General Internal Medicine 06/23/14 documented as of this encounter
--- OUTSIDE RECORDS SUMMARY | 2024-10-03 11:14 | XMS_ITS | Encounter Summary ---
Author Organization [employer] Address [address] [facility] [address] [place] [address] Care Team Providers Care Pan Helper Name Role Phone Jaime Mares MD Primary Care Provide r Reason for Visit * Reason Onset Date Comments Referral 09/19/2024 New Med Request 09/19/2024 Encounter Details Date Type Department Care Team ([facility] st Contact Info) Description 09/19/2024 Telephone [facility] [address] [place] [address] Jaime Mares MD [address] [place] [address] Referral; New Med Request Social History Tobacco Use Types Packs/Day Years [...] Miscellaneous Notes * Telephone Encounter - Gin Shin RN - 09/19/2024 11:13 AM EST To be addressed in other encounter * Telephone Encounter - Valentin Noe - 09/19/2024 10:49 AM EST Tc from pt requesting a referral for physical therapy due to visiting ER and was recommend to follow up with PCP and request referral due to pain and constant crap in foot. Pt also states need [employer] test strips for glucometer as requested glucometer monitor and never was given to her after several attempts pt states she bough it and needs the test strips. documented in this encounter Plan of Treatment Upcoming Encounters Date Type Department Care Team (Late st Contact Info) Description 10/22/2024 1:15 PM EST Office Visit [facility] [address] [place] [address] Jaime Mares MD [address] [place] [address] documented as of this encounter Visit Diagnoses Not on filedocumented in this encounter Additional Health Concerns Assessment Noted Time PHQ-9 Depression Total Score: 1 12/05/19 24 9:34 AM EDT documented as of this encounter Care Teams Pan Helper Relationship Specialty Start Date End Date Jaime Mares MD [address] [place] [address] PCP - General Internal Medicine 06/23/14 documented as of this encounter
--- OUTSIDE RECORDS SUMMARY | 2024-10-03 11:14 | XMS_ITS | Encounter Summary ---
Author Organization [employer] Address [address] [facility] [address] [place] [address] Care Team Providers Care Tractor Operator Helper Name Role Phone Jaime Mares MD Primary Care Provide r Encounter Details Date Type Department Care Team (Late st Contact Info) Description 11/23/2022 Orders Only [facility] [address] [place], [place] [phone] Duyen Burgess LPN Social History Tobacco Use Types Packs/Day Years [...] 1:15 PM EST Office Visit [facility] [address] [place] [address] Jaime Mares MD [address] [place], [place] [phone] documented as of this encounter Visit Diagnoses Not on filedocumented in this encounter Care Teams Tractor Operator Helper Relationship Specialty Start Date End Date Jaime Mares MD [address] [place], [place] [phone] PCP - General Internal Medicine 06/23/14 documented as of this encounter
--- OUTSIDE RECORDS SUMMARY | 2024-10-03 11:14 | XMS_ITS | Clinical Summary ---
Author Organization [employer] Address [address] [place] [address] Care Team Providers Care Supervisor General Name Role Phone Jaime Mares MD Primary Care Provide r Allergies Active Allergy Reactions Criticality Noted Date Comments Alendronate 05/08/2014 Amlodipine Rash Low 07/03/2012 Penicillin G 03/15/2012 Medications metFORMIN XR (Glucophage-XR) 500 MG 24 hr tabletIndications :Type 2 diabetes mellitus with diabetic polyneuropathy, without long-term current use of insulin (CMS/HCC) TAKE 2 TABLETS BY MOUTH TWICE DAILY AT NOON AND IN THE EVENING 120 tablet 6 02/06/20 24 Active simvastatin (Zocor) 80 MG tabletIndications :Mixed hyperlipidemia TAKE 1 TABLET BY MOUTH EVERY EVENING 90 tablet 1 04/11/20 24 Active Calcium Carb-Cholecalcife rol (Oyster Shell Calcium w/D) 500-5 MG-MCG tablet TAKE 1 TABLET BY MOUTH TWICE DAILY IN THE MORNING AND IN THE EVENING 180 tablet 1 04/11/20 24 Active levothyroxine (Synthroid, Levoxyl) 75 MCG tablet TAKE 1 TABLET BY MOUTH EVERY MORNING 90 tablet 1 04/11/20 24 Active atenolol (Tenormin) 100 MG tabletIndications :Essential hypertension TAKE 1 TABLET BY MOUTH EVERYDAY AT NOON 90 tablet 1 04/11/20 24 Active hydroCHLOROthiazi de (HYDRODiuril) 50 MG tabletIndications :Essential hypertension TAKE 1 TABLET BY MOUTH EVERY MORNING 90 tablet 1 04/11/20 24 Active glipiZIDE XL (Glucotrol XL) 10 MG 24 hr tabletIndications :Type 2 diabetes mellitus with diabetic polyneuropathy, without long-term current use of insulin (CMS/HCC) TAKE 1 TABLET BY MOUTH EVERY MORNING WITH BREAKFAST 90 tablet 1 04/11/20 24 Active hydrALAZINE (Apresoline) 50 MG tabletIndications :Essential (primary) hypertension TAKE 1 TABLET BY MOUTH THREE TIMES A DAY 270 tablet 1 04/11/20 24 Active Aspirin Low Dose 81 MG EC tablet TAKE 1 TABLET BY MOUTH EVERY EVENING 90 tablet 3 05/23/20 24 Active omeprazole (PriLOSEC) [address] capsule TAKE 1 CAPSULE BY MOUTH EVERY MORNING BEFORE MEALS 90 capsule 3 05/23/20 24 Active gabapentin (Neurontin) 300 MG capsuleIndication s:Uncontrolled type 2 diabetes mellitus with hyperglycemia (CMS/HCC) Take 1 capsule (300 mg) by mouth 3 times daily. 90 capsule 3 09/24/19 25 Active gabapentin (Neurontin) 300 MG capsuleIndication s:Uncontrolled type 2 diabetes mellitus with hyperglycemia (CMS/HCC) Take 1 capsule (300 mg) by mouth 3 times daily. 90 capsule 3 12/06/19 24 2024 Discontinued(R eorder (will not trigger notification to Pharmacy)) Active Problems Problem Noted Date Diagnosed Date Vascular insufficiency of extremity 09/24/2024 Neuropathic pain of both legs 12/06/2023 Assessment & Plan (09/24/2024 3:28 PM EST): Patient with c/o new onset of burning [...] twice a day then TID if tolerated Assessment & Plan (12/06/2023 1:57 PM EDT): Patient with c/o new onset of burning pain on both lower extremities On exam she has decreased sensation on her feet Plan: Diabetic shoes Trial of gabapentin 300 mg po TID [facility] care 12/05/2023 Assessment & Plan (12/06/2023 1:55 PM EDT): Mammo BI-RADS - 1 10/15/2018 Pt is 83 years of age no further screenings discussed with patient DEXA scan osteoporosis 02/04/14 Colonoscopy 12/07/2018 Vaccines: Flu: Declines Tdap: 11/03/2015 Zoster : f/u visit in 2 months Skin lesion 12/05/2023 Assessment & Plan (12/05/2023 10:01 AM EDT): Hyperkeratotic skin lesion right mckin[place] Brown, irregular borders, seborrheic hyperkeratosis Plan: [facility] Diabetes mellitus with diabe tic polyneuropathy, without long-term current use of insulin 08/26/2022 Assessment & Plan (09/24/2024 3:25 PM EST): Patient is here for a f/u a Hgb A1c on 09/24/2024: 7.8 down to 8 from 10 She is on a regimen of Metformin XR 500 mg 2 tabs po BID and Glipizide ER 10 mg po Daily she is getting med boxes. Plan: Asked to bring glucometer before we make any changes Eye exam was done on 12/12/13 via [facility] Microalbumin will repeat Foot check risk of zero, on Asa daily. Adhere to diabetic diet check your blood sugars regularly check your feet on a daily basis f/u 4 weeks Assessment & Plan (02/06/2024 1:36 PM EDT): Patient is here for a f/u a Hgb A1c on 02/06/2024: down to 8 from 10 She is on a regimen of Metformin XR 500 mg 2 tabs po BID and Glipizide ER 10 mg po Daily she is getting med boxes. Plan: No changes for now Average bg today 132 Eye exam was done on 12/12/13 via [facility] Microalbumin 08/27/2019 was 5 ,pt on ARB. will repeat Foot check risk of zero, on Asa daily. Adhere to diabetic diet check your blood sugars regularly check your feet on a daily basis f/u 3 months Assessment & Plan (12/06/2023 1:49 PM EDT): Patient is here for a f/u after a long hiatus, was living in [place] and was without medications for months, [place] the [place] she ended up in the ER due to hyperglycemia that was managed with IV fluids and Insulin Glucometer review today: average Hgb A1c on 11/06/2023: 10 She is supposed to ne on a regimen of Metformin XR 500 mg 2 tabs po BID and Glipizide ER 10 mg po Daily she is getting med boxes. Patient was without meds for months. I reviewed her glcuometer and now her FBGs are average of 111 Plan: No changes , elevated A1c a result of non compliance Eye exam was done on 12/12/13 via [facility] Microalbumin 08/27/2019 was 5 ,pt on ARB. will repeat Foot check risk of zero, on Asa daily. Adhere to diabetic diet check your blood sugars regularly check your feet on a daily basis f/u 3 months Essential hypertension 05/28/2015 Assessment & Plan (09/24/2024 3:26 PM EST): Pt here for a f/u BP remains [...] me in 4 weeks ECHO 02/26/24 unremarkable Assessment & Plan (02/06/2024 1:37 PM EDT): Pt here for a f/u after a long hiatus. Pt was in [place] BP remains uncontrolled She is on a regimen of: Atenolol 100 mg po daily, Hctz 50 mg po daily and Hydralazine 25 mg po TID No longer on Benicar 20 mg po daily, Insurance did not cover brand name only. Pt was on Irbesartan but refuses to take it, she did not want to take any other medications other than the Benicar She also did not tolerate Losartan because she felt lightheaded so she decided to stop. Most recent electrolytes, Bun and Creatinine done on: 11/06/2023 were wnl. Plan: Add Nifedipine XL 30 mg po daily Pt has medboxes patient advised to adhere to a low sodium diet, encouraged about medication compliance, counseled about weight loss. Pt had a [address] Branham, pt was seen 09/30/2019 Study showed BP was suboptimally controlled Pt is resistant to adding a new agent. f/u with me in 2 months ECHO is booked for 02/26/24 @1PM. Assessment & Plan (12/06/2023 1:45 PM EDT): Pt here for a f/u after a long hiatus. Pt was in [place] BP remains uncontrolled She is on a regimen of: Atenolol 100 mg po daily, Hctz 50 mg po daily and Hydralazine 25 mg po TID No longer on Benicar 20 mg po daily, Insurance did not cover brand name only. Pt was on Irbesartan but refuses to take it, she did not want to take any other medications other than the Benicar She also did not tolerate Losartan because she felt lightheaded so she decided to stop. Pt's son reported patient getting up at night constantly to urinate. I contacted Pharmacy to move diuretic (hydrochlorothiazide) to the morning to prevent pt from having to get up to use the bathroom at [facility]. Most recent electrolytes, Bun and Creatinine done on: 11/06/2023 were wnl. Plan: Continue current regimen. Pt has medboxes patient advised to adhere to a low sodium diet, encouraged about medication compliance, counseled about weight loss. Pt had a [address] Branham, pt was seen 09/30/2019 Study showed BP was suboptimally controlled Pt is resistant to adding a new agent. f/u with me in 2 months Diverticulosis of small intestine 06/30/2014 Assessment & Plan (12/06/2023 1:46 PM EDT): Pt here for a f/u. Used to be under the care of Dr. Graves. Last EGD 12/2018 , biopsy showed chronic gastritis , H pylori as well as atypical lymphoid infiltrate with rare lymphoepithelial lesion, results were not conclusive for a B-cell lymphboproliferative disoreder and the GI recommendation was to treat the H Pylori and repeat the EGD and sampling after treatment Of note pt had a previous MRI done at [facility] that showed a heterogeneous mass like structure about 3 mm x 4 mm in the region of the head of the pancreas, She had a CT of her abdomen and an Upper GI series. 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 Pt was referred to [facility] surgical associates and pt told me she saw Dr Salmeron who according to pt recommended not to do anything. Pt had c/o persistent GERD and nausea. Did not want to take Omeprazole because she felt the omeprazole made her feel nauseated. Pt was switched to Pepcid and will continue to follow with GI Glaucoma suspect 01/03/2014 Assessment & Plan (12/05/2023 8:50 AM EDT): Eye exam was done on 05/22/[address] Carlos She was Dx with glaucoma suspect and referred her to Dr Kay 06/2012 recommending follow up in 1 year. She saw [facility] 12/12/13. Lipoma 01/03/2014 Assessment & Plan (12/05/2023 8:51 AM EDT): Pt with a large mass on her back for several years. exam seemed to be suggestive of a lipoma. US of her back to evaluate this done on 12/04/2012 failed to identified any mass. Pt was seen on 01/31/2013 by a local surgeon Dr Saul for consideration of excision. He was seen and he recommended a CT of the area once done February. His plan was to review the imagine and make recommendations after. He was last seen 01/10/2014 and he thought that likely was a Lipoma but was not 100% sure so he was going to order an MRI of her chest wall. No records were received . Acquired hypothyroidism 08/21/1957 Assessment & Plan (09/24/2024 11:39 AM EST): Pt doing well Pt is on synthroid 75 mcg po daily but most recent TSH Lab Results Component Value Date TSH 3.70 11/06/2023 11/06/2023 normal continue current regimen. Assessment & Plan (12/05/2023 8:43 AM EDT): Pt doing well Pt is on synthroid 75 mcg po daily but most recent TSH 11/06/2023 normal continue current regimen. Chronic low back pain 08[birth year]21/1957 Assessment & Plan (02/06/2024 1:30 PM EDT): Pt c/o persistent low back pain She used to be under the care of [facility] Pain management. Last seen 02/25/2022 Pt has a Hx. of a lumbar radiculopathy for which she had a microdiscectomy of L5-S1 by Dr. Fraga on 06/24/2009. she was seen in and he recommended P.T and an epidural injection which she already had on 02/27/12, pt had minimal relief for 3 days. MRI of the LS spine done on 07/18/11 showed an enhanced scar in the right anterior epidural space of L5-S1 disc without recurrent disk herniation. There was a small right paracentral disc herniation at T12-L1 which was unchanged from previous examination. Pt was also seen by a different Neurosurgeon (Dr Herring) for a second opinion on 05/03/2012 and she did not recommend any further surgical interventions. Pt had a narcotic contract and we started her on MS contin 15 mg po BID and Oxycodone 5mg po q 6 hrs prn. she then decided to stop taking it because she did not want to become addicted to it. Pt decided to follow Dr Fraga's advice and underwent this surgical intervention in an effort to make her pain more tolerable. Pt underwent s right L5-S1 transforaminal lumbar interbody fusion for recurrent disc herniation and foraminal stenosis. Last MRI 11/25/2020 (Please see scanned document) The assurance specialist at [facility] already reviewed her MRI and has recommended a steroid injections. She has had good results with them in the past. MRI booked for 02/16/24 @10:30AM Assessment & Plan (12/06/2023 1:54 PM EDT): Pt c/o persistent low back pain She used to be under the care of [facility] Pain management. Last seen 02/25/2022 Pt has a Hx. of a lumbar radiculopathy for which she had a microdiscectomy of L5-S1 by Dr. Fraga on 06/24/2009. she was seen in and he recommended P.T and an epidural injection which she already had on 02/27/12, pt had minimal relief for 3 days. MRI of the LS spine done on 07/18/11 showed an enhanced scar in the right anterior epidural space of L5-S1 disc without recurrent disk herniation. There was a small right paracentral disc herniation at T12-L1 which was unchanged from previous examination. Pt was also seen by a different Neurosurgeon (Dr Herring) for a second opinion on 05/03/2012 and she did not recommend any further surgical interventions. Pt had a narcotic contract and we started her on MS contin 15 mg po BID and Oxycodone 5mg po q 6 hrs prn. she then decided to stop taking it because she did not want to become addicted to it. Pt decided to follow Dr Fraga's advice and underwent this surgical intervention in an effort to make her pain more tolerable. Pt underwent s right L5-S1 transforaminal lumbar interbody fusion for recurrent disc herniation and foraminal stenosis. Last MRI 11/25/2020 (Please see scanned document) The assurance specialist at [facility] already reviewed her MRI and has recommended a steroid injections. She has had good results with them in the past. Plan: Will update her MRI Mixed hyperlipidemia 08/21/1957 Assessment & Plan (09/24/2024 11:40 AM EST): Patient with elevated lipids. Most recent lipid [...] diet, counseled and educated about diet and exercise, Patient encouraged to come up with a personal goal for weight loss. Repeat Lipid profile. Pt forgot Assessment & Plan (02/06/2024 2:28 PM EDT): Patient with elevated lipids. Most recent lipid profile from: 06/27/2022 Component Ref Range & Units 1 yr ago Chol/HDLC Ratio <5.0 (calc) 4.3 Cholesterol, Total <200 mg/dL 261 High HDL Cholesterol > OR = 50 mg/dL 61 LDL Cholesterol mg/dL (calc) 169 High Currently on a regimen of: Simvastatin 80mg [...] diet, counseled and educated about diet and exercise, Patient encouraged to come up with a personal goal for weight loss. Repeat Lipid profile. Pt forgot Assessment & Plan (12/05/2023 8:48 AM EDT): Patient with elevated lipids. Most recent lipid profile from: 06/27/2022 Component Ref Range & Units 1 yr ago Chol/HDLC Ratio <5.0 (calc) 4.3 Cholesterol, Total <200 mg/dL 261 High HDL Cholesterol > OR = 50 mg/dL 61 LDL Cholesterol mg/dL (calc) 169 High Currently on a regimen of: Simvastatin 80mg [...] diet, counseled and educated about diet and exercise, Patient encouraged to come up with a personal goal for weight loss. Repeat Lipid profile Osteoporosis 08/21/1957 Assessment & Plan (12/05/2023 8:51 AM EDT): Pt unable to tolerate bisphosphonate due to allergic reaction continue Ca with Vit D and moderate exercise Resolved Problems Problem Noted Date Diagnosed Date Resolved Date Type 2 diabetes mellitus 08/21/1957 Encounters Date Type Department Care Team Description 09/24/2024 11:00 AM EST Office Visit [facility] MEDICINE [address] [place] [phone] Jaime Mares MD Essential hypertension (Primary Dx); Type 2 diabetes mellitus with diabetic polyneuropathy, without long-term current use of insulin ([facility]); Acquired hypothyroidism; Mixed hyperlipidemia; Uncontrolled type 2 diabetes mellitus with hyperglycemia ([facility]); Vascular insufficiency of extremity; Osteoporosis, unspecified osteoporosis type, unspecified pathological fracture presence; Encounter for immunization; Neuropathic pain of both legs 09/24/2024 Travel 09/23/2024 Telephone [facility] MEDICINE [address] [place] [address] Jaime Mares MD Returning Call 09/23/2024 Telephone [facility] MEDICINE [address] [place], [place] [phone] Jaime Mares MD Chart Prep 09/19/2024 Telephone [facility] MEDICINE [address] [place], [place] [phone] Jaime Mares MD Medication Question 09/19/2024 Telephone [facility] MEDICINE [address], [place] [phone] Jaime Mares MD Referral 09/19/2024 Telephone [facility] MEDICINE [address], [place] [phone] Jaime Mares MD Referral; New Med Request 09/17/2024 Telephone [facility] [address], [place] [phone] Jaime Mares MD ER Follow-up 09/15/2024 Orders Only GENERIC EXTERNAL DATA DEPARTMENT Provider, Generic External Data 09/06/2024 Telephone [facility] [address], [place] [phone] Jaime Mares MD Referral 09/06/2024 Telephone [facility] [address], [place] [phone] Jaime Mares MD Nurse Triage from Last 3 Months Immunizations Name Administration Dates Next Due Influenza High-dose Quadriva lent Preservative Free 06/23/2022 Influenza, High Dose Seasona l, Preservative Free 09/24/2024 Pfizer Covid-19 Vaccine 12+ 05/19/2021,,09/29/2020 Pneumococcal Conjugate PCV 13 05/28/2015 Pneumococcal Polysaccharide PPSV23 11/29/2016 TD (adult), 2 Lf tetanus tox oid, preservative free, adsorbed 04/02/1993 Tdap 11/29/2016 Zoster, live 11/03/2015 Social History Tobacco Use Types Packs/Day Years Used Date Smoking Tobacco: Never Passive Smoke Exposure: Never Smokeless Tobacco: Never Tobacco Cessation:Counseling Given: Not Answered Depression Answer Date Recorded Patient Health Questionnaire-9 [...] not to disclose 2021 10:14 AM EDT Last Filed Vital Signs Vital Sign Reading [...] Mass Index 24.08 09/24/2024 11:01 AM EST Plan of Treatment Upcoming Encounters Date Type Department Care Team (Late st Contact Info) Description 10/22/2024 1:15 PM EST Office Visit [facility] MEDICINE [address] [place] [address] Jaime Mares MD [address] [place] [phone] Health Maintenance Due Date Last Done Comments Eye Exam 1950 Zoster Vaccines (2 of 3) 12/29/2015 11/03/2015 RSV Patients and Patients Aged 60 years or older (1 - 1-dose 75+ series) 2017 Diabetes: Urine Protein Screening 06/27/2023 06/27/2022, 11/25/2020, 08/27/2019 COVID-19 Vaccine ( season) 2024 03/17/2022, 05/19/2021, 10/19/2020, Additional history exists Diabetes: Foot Exam 12/04/2024 12/05/2023, 12/05/2023, 12/05/2023, Additional history exists Diabetes: Hemoglobin A1C 12/22/2024 025, 02/06/2024, 11/06/2023, Additional history exists Lipid Panel 02/05/2025 02/06/2024, 06/27/2022 Alcohol/Substance Use Screening 09/24/2025 09/24/2024 Depression Screening 09/24/2025 09/24/2024, 09/24/19 25 SDOH Screening 09/24/2025 09/24/2024 Tobacco Screening 09/24/2025 09/24/2024 DTaP/Tdap/Td Vaccines (2 - Td or Tdap) 11/29/2026 11/29/2016, 04/02/1993 Pneumococcal Vaccine: 50+ Years Completed 11/29/2016, 05/28/2015 Influenza Vaccine Completed 09/24/2024, 06/23/2022 HIB Vaccines Aged Out No longer eligi ble based on patient's age to complete this topic HPV Vaccines Aged Out No longer eligi ble based on patient's age to complete this topic Hepatitis A Vaccines Aged Out No long er eligible based on patient's age to complete this topic Hepatitis B Vaccines Aged Out No long er eligible based on patient's age to complete this topic IPV Vaccines Aged Out No longer eligi ble based on patient's age to complete this topic Meningococcal Vaccine Aged Out No ana marco eligible based on patient's age to complete this topic RSV under 20 months Aged Out No longe r eligible based on patient's age to complete this topic Rotavirus Vaccines Aged Out No longer eligible based on patient's age to complete this topic Procedures Procedure Name Priority Date/Time Associated Diagnosis Comments POCT GLYCATED HEMOGLOBIN, TOTAL Routine 09/24/2024 11:20 AM EST Type 2 diabetes mellitus with diabetic polyneuropathy, without long-term current use of insulin ([facility]) POCT GLUCOSE Routine 09/24/2024 11:16 AM EST Type 2 diabetes mellitus with diabetic polyneuropathy, without long-term current use of insulin ([facility]) MAGNESIUM Routine 09/15/2024 11:04 PM EST B TYPE NATRIURETIC PEPTIDE (BNP) Routine 09/15/2024 11:04 PM EST COMPREHENSIVE METABOLIC PANEL Routine 09/15/2024 11:04 PM EST CBC WITH AUTO DIFFERENTIAL Routine 09/15/2024 11:04 PM EST LIPID PANEL WITH REFLEX TO DIRECT LDL Routine 02/06/2024 2:08 PM EDT Mixed hyperlipidemia ALBUMIN, RANDOM URINE W/CREATININE Routine 06/27/2022 11:37 AM EST from Last 3 Months or Most Recently Relevant to Health Maintenance Results * (ABNORMAL) POCT HGB A1C (09/24/2024 11:20 AM EST) Hemoglobin A1C 7.8(A) 4.0 - 6.0 % QC Media Lot # [id number] Lot# Expiration Date Blood 09/24/2024 11:2 0 AM EST Jaime Christopher MD POINT OF CARE TEST EN TER/EDIT ORDERABLES Final Result * POCT Glucose (09/24/2024 11:16 AM EST) Glucose Blood, POC 120 60 - 200 mg/dL QC Media Lot # [id number] Lot# Expiration Date [id number] Blood Capillary blood specimen / Unknown 09/24/2024 11:16 AM EST Jaime Christopher MD POINT OF CARE TEST EN TER/EDIT ORDERABLES Final Result * (ABNORMAL) CBC auto differential (09/15/2024 11:04 PM EST) White Blood Count 6.4 4.8 - 10.8 X10*3/uL [facility] Red Blood Count 4.16(L) 4.20 - 5.50 X10*6/uL [facility] Hemoglobin 12.4 12.0 - 16.0 g/dl [facility] Hematocrit 37.0 37.0 - 47.0 % [facility] Mean Corpuscular Volume 88.9 80.0 - 98.0 fL [facility] Mean Corpuscular Hemoglobin 29.8 27.0 - 33.0 pg [facility] Mean Corpuscular HGB Conc 33.5 31.0 - 35.0 g/dl [facility] Red Cell Distribution Width 13.2 11.0 - 16.0 % [facility] Platelet Count 359 160 - 400 X10*3/uL [facility] Mean Platelet Volume 8.8(L) 9.4 - 12.3 fL [facility] Neutrophils Percent Auto 49.8 45 - 73 % [facility] Imm Gran Pct Auto 0.3 0.0 - 0.4 % [facility] Lymphocytes Percent Auto 36.7 20 - 40 % [facility] Monocytes Percent Auto 9.6 2 - 11 % [facility] Eosinophils Percent Auto 2.8 0 - 4 % [facility] Basophils Percent Auto 0.8 0 - 2 % [facility] NRBC Pct Auto 0.0 0.0 - 0.2 /100WBC [facility] Neutrophils Absolute Auto 3.2 2.0 - 8.3 x10*3/uL [facility] Imm Gran Abs Auto 0.02 0.00 - 0.03 X10*3/uL [facility] Lymphocytes Absolute Auto 2.4 1.2 - 4.9 X10*3/uL [facility] Monocytes Absolute Auto 0.6 0.1 - 1.2 X10*3/uL [facility] Eosinophils Absolute Auto 0.2 0.0 - 0.4 X10*3/uL [facility] Basophils Absolute Auto 0.1 0.0 - 0.2 X10*3/uL [facility] NRBC Abs Auto 0.000 0.0 - 0.012 X10*3/uL [facility] 09/15/2024 11:0 4 PM EST 09/15/2024 11:12 PM EST Generic External Data Provider LAB BLOOD ORDERAB LES Final Result Performing Organization Address [facility] Co de Phone Number [facility] [address] [place] [phone] * B Type Natriuretic Peptide (BNP) (09/15/2024 11:04 PM EST) B Type Natriuretic Peptide 35 <100 pg/mL [facility] Comment:For those patients w ho are being treated with Natrecor(nesiritide, recombinant BNP), BNP testing should beperformed at least two hours post treatment in order toensure that only endogenous levels of BNP are detected. 09/15/2024 11:0 4 PM EST 09/15/2024 11:12 PM EST Generic External Data Provider LAB BLOOD ORDERAB LES Final Result Performing Organization Address [facility] Co de Phone Number [facility] [address] [place] [address] [phone] * Magnesium (09/15/2024 11:04 PM EST) Magnesium 1.7 1.6 - 2.6 mg/dL [facility] 09/15/2024 11:0 4 PM EST 09/15/2024 11:12 PM EST us Generic External Data Provider LAB BLOOD ORDERAB LES Final Result [facility] [address] [place] [address] [phone] * (ABNORMAL) Comprehensive Metabolic Panel (09/15/2024 11:04 PM EST) Sodium 142 135 - 145 mmol/L [facility] Potassium 3.9 3.3 - 5.1 mmol/L [facility] Chloride 107 96 - 108 mmol/L [facility] Carbon Dioxide 24 22 - 29 mmol/L [facility] Anion Gap 15 12 - 20 [facility] Urea Nitrogen (BUN) 30(H) 9 - 16 mg/dL [facility] Creatinine, Serum 0.93 0.5 - 1.4 mg/dL [facility] Creatinine Clr Calc Pharmacy 45.5 [facility] Comment:Provided height and weight: 162.56 cm,72.575 kg.eGFR (calculated from the MDRD study equation) and eCrCl(calculated from the Cockcroft-Gault equation) are based ondifferent parameters and may not yield comparable results.If eCrCl result is absurd, please check patient'sheight/weight. Estimated Glomerular Filt Rate 58 [facility] Comment:Chronic Kidney Disea se: Estimated GFR < 60 mL/min/1.06t1Xhkgkm Kidney Disease: Estimated GFR < 15 mL/min/1.73m2 Glucose 122(H) 60 - 115 mg/dL [facility] Calcium 9.3 8.4 - 10.2 mg/dL [facility] Bilirubin, Total 0.3 0.0 - 1.0 mg/dL [facility] Aspartate Amino Transferase 22 5 - 31 U/L [facility] Alanine Aminotransferase 23 0 - 31 U/L [facility] Total Protein 8.0 6.5 - 8.0 g/dL [facility] Albumin Level 4.4 3.5 - 5.0 g/dL [facility] Alkaline Phosphatase 61 39 - 117 U/L [facility] 09/15/2024 11:0 4 PM EST 09/15/2024 11:12 PM EST us Generic External Data Provider LAB BLOOD ORDERAB LES Final Result Performing Organization Address [facility]/ZIP Co de Phone Number [facility] [address] [place] [address] [phone] * (ABNORMAL) Lipid Panel with Reflex to Direct LDL (02/06/2024 2:08 PM EDT) Triglycerides 131 <150 mg/dL [facility] Comment:Desirable Triglyceri de: less than 150 mg/dLBorderline High Triglyceride 150-199 mg/dLHigh Triglyceride: 200-499 mg/dLVery High Triglyceride: greater than or equal to 5OO mg/dL Cholesterol 192 <200 mg/dL [facility] Comment:Desirable Cholestero l: less than 200 mg/dLBorderline High Cholesterol: 200-239 mg/dLHigh Cholesterol: greater than 239 mg/dL LDL Cholesterol Calculated 104(H) <100 mg/dL [facility] Comment:Desirable LDL: less than 100 mg/dLNear Optimal/Above Optimal LDL: 110- 129 mg/dLBorderline High LDL: 130-159 mg/dLHigh LDL: 160-189 mg/dLVery High LDL: greater than or equal to 190 mg/dL HDL Cholesterol 62 >40 mg/dL [facility] Comment:Desirable HDL: great er than 40 mg/dL Note: This HDL assay may give artificially low results in patients with liver disease. Blood 02/06/2024 2:08 PM EDT 02/06/2024 3:53 PM EDT us Jaime Christopher MD LAB BLOOD ORDERABLES Final Result Performing Organization Address [facility]/ZIP Co de Phone Number [facility] [address] [place] [address] [phone] * ALBUMIN, RANDOM URINE W/CREATININE (06/27/2022 11:37 AM EST) Microalbumin Urine 1.2 See Note: mg/dL [facility] Comment: Reference Range: ?? Reference Range Not established Microalb/Creat Ratio 11 <30 mcg/mg creat [facility] Comment: ?? The ADA defines abnormalities in albumin excretion as follows: ?? Albuminuria Category ?Result (mcg/mg creatinine) ?? Normal to Mildly increased ?? <30 Moderately increased ? 30-299 ?? Severely increased ? > OR = 300 ?? The ADA recommends that at least two of three specimens collected within a 3-6 month period be abnormal before considering a patient to be within a diagnostic category. Creatinine, Urine 109 20 - 275 mg/dL [facility] 06/27/2022 11:3 7 AM EST Jaime Christopher MD LAB URINE ORDERABLES Final Result Performing Organization Address City/State/[facility] Co de Phone Number [facility] from Last 3 Months or Most Recently Relevant to Health Maintenance Insurance [id number] [facility] Care Teams Supervisor General Relationship Specialty Start Date End Date Jaime Mares MD [address] [place] [phone] PCP - General Internal Medicine 06/23/14
--- OUTSIDE RECORDS SUMMARY | 2024-10-03 11:14 | XMS_ITS | Encounter Summary ---
Author Organization [employer] Address [address] [facility] [address] [place] [address] Care Team Providers Care Senior It Auditor Name Role Phone Jaime Mares MD Primary Care Provide r Reason for Visit * Reason Onset Date Comments Medication Question 09/19/2024 Encounter Details Date Type Department Care Team ([facility] st Contact Info) Description 09/19/2024 Telephone [facility] MEDICINE [address] [place] [address] Jaime Mares MD [address] [place] [address] Medication Question Social History Tobacco Use Types Packs/Day Years [...] encounter Miscellaneous Notes * Telephone Encounter - Shelton Salter - 09/19/2024 11:04 AM EST TC from pt requesting Test strips . documented in this encounter Plan of Treatment Upcoming Encounters Date Type Department Care Team (Late st Contact Info) Description 10/22/2024 1:15 PM EST Office Visit [facility] MED[facility]INE [address] [place] [address] Jaime Mares MD [address] [place] [address] documented as of this encounter Visit Diagnoses Not on filedocumented in this encounter Additional Health Concerns Assessment Noted Time PHQ-9 Depression Total Score: 1 12/05/19 24 9:34 AM EDT documented as of this encounter Care Teams Senior It Auditor Relationship Specialty Start Date End Date Jaime Mares MD [address] [place] [address] PCP - General Internal Medicine 06/23/14 documented as of this encounter
--- OUTSIDE RECORDS SUMMARY | 2024-10-03 11:14 | XMS_ITS | Encounter Summary ---
Author Organization [employer] Address [address] [facility] [address] [place] [address] Care Team Providers Care Civil Clerk Name Role Phone Jaime Mares MD Primary Care Provide r Encounter Details Date Type Department Care Team (Late st Contact Info) Description 01/23/2023 Orders Only [facility]S [address] [place], [place] [phone] Duyen Burgess LPN Social History Tobacco Use [...] Description 10/22/2024 1:15 PM EST Office Visit [facility] MEDICINE [address] [place] [address] Jaime Mares MD [address] [place], [place] [phone] documented as of this encounter Visit Diagnoses Not on filedocumented in this encounter Care Teams Civil Clerk Relationship Specialty Start Date End Date Jaime Mares MD [address] [place], [place] [phone] PCP - General Internal Medicine 06/23/14 documented as of this encounter
--- OUTSIDE RECORDS SUMMARY | 2024-10-03 11:14 | XMS_ITS | Encounter Summary ---
Author Organization [employer] Address [address] [facility] [address] [place] [address] Care Team Providers Care Manager Programs Name Role Phone Jaime Mares MD Primary Care Provide r Reason for Visit * Reason Onset Date Comments Chart Prep 09/23/2024 Encounter Details Date Type Department Care Team ([facility] st Contact Info) Description 09/23/[address] [facility] MEDICINE [address] [place] [address] Jaime Mares MD [address] [place] [address] Chart Prep Social History Tobacco Use Types Packs/Day Years [...] encounter Miscellaneous Notes * Telephone Encounter - Minerva Patricio [place] - 09/23/2024 9:23 AM EST Chart Prep Labs: done Images: not done ; MRI completed, ECHO also completed. Vaccines due: Covid Due, Flu Due, RSV in Pharmacy Due, and Shingles in pharmacy Due Referrals: Completed Screenings: Eye Exam and Foot Exam Overdue care gaps: A1C, Glucose, Sbirt, SDOH, PHQ-9, and Oral Health Chart prep for upcoming appt with Dr.Esparza alvarado. LB documented in this encounter Plan of Treatment Upcoming Encounters Date Type Department Care Team (Late st Contact Info) Description 10/22/2024 1:15 PM EST Office Visit [facility] MEDICINE [address] [place] [address] Jaime Mares MD [address] [place] [address] documented as of this encounter Visit Diagnoses Not on filedocumented in this encounter Additional Health Concerns Assessment Noted Time PHQ-9 Depression Total Score: 1 12/05/19 24 9:34 AM EDT documented as of this encounter Care Teams Manager Programs Relationship Specialty Start Date End Date Jaime Mares MD [address] [place] [address] PCP - General Internal Medicine 06/23/14 documented as of this encounter
--- OUTSIDE RECORDS SUMMARY | 2024-10-03 11:14 | XMS_ITS | Encounter Summary ---
Author Organization [employer] Address [address] [facility] [address] [place] [address] Care Team Providers Care Hop Trainer Name Role Phone Jaime Mares MD Primary Care Provide r Reason for Visit * Reason Onset Date Comments triage 08/23/2022 Encounter Details Date Type Department Care Team ([facility] st Contact Info) Description 08/23/2022 Telephone [facility] MEDICINE [address] [place] [address] Jaime Mares MD [address] [place] [address] triage Social History Tobacco Use Types Packs/Day [...] encounter Miscellaneous Notes * Telephone Encounter - Pinky Javed RN - 08/23/2022 1:08 PM EST Triage call with [employer] [place] [id number] Pt reports home tested + for Covid this morning. Pt symptoms are mild with runny nose, sneezing, nasal congestion, dry cough, neg for fever, diarrhea, nausea. Pt was given home care handouts via textin dominican. Home care disposition agreed with and home care reviewed thoroughly. Pt is asking aboutmedications and if BP meds can be taken with certain cough syrups. Scheduled a tele visit with MEDICAL RECORDS MANAGER Catalina tejeda at 315pm . Insurance is active. Protocol Used: COVID-19 - Diagnosed or Suspected (Adult) Protocol-Based Disposition: Home Care Positive Triage Question: * [1] COVID-19 diagnosed by positive lab test (e.g., PCR, rapid self-test kit) AND [2] mild symptoms (e.g., cough, fever, others) AND [3] no complications or SOB * All higher-acuity triage questions were negative Care Advice Discussed: * Reassurance and Education - Positive COVID-19 Lab Test and Mild Symptoms * General Care Advice for COVID-19 Symptoms * Cough Medicines * Cough Syrup With Dextromethorphan * Cough Syrup With Dextromethorphan - Extra Notes and Warnings * Humidifier * Coughing Spells * Pain and Fever Medicines * Pain and Fever Medicines - Extra Notes and Warnings * Mild Stomach and Intestinal Symptoms During COVID-19 Illness * Reasons To Call Back - Fever over 103 F (39.4 C) - Fever lasts over 3 days - Fever returns after being gone for 24 hours - Chest pain or difficulty breathing occurs - You become worse * COVID-19 - How to Protect Your Family and Yourself From Getting Sick * COVID-19 - How to Protect Others - When You Are Sick With COVID-19 * Clean Your Hands Often Cough (Dutch) handout sent to [phone] CDC: Sick With COVID-19 (Dutch) handout sent to [phone] * Telephone Encounter - Alejandra Ferreira - 08/23/2022 11:28 AM EST Patient calling to report Covid positive pt sneezing x 1 day. Patient speaks (Dutch). Advised triage nurse will call patient back. documented in this encounter Plan of Treatment Upcoming Encounters Date Type Department Care Team (Late st Contact Info) Description 10/22/2024 1:15 PM EST Office Visit [facility] MEDICINE [address] [place] [phone] Jaime Mares MD [address] [place] [address] documented as of this encounter Visit Diagnoses Not on filedocumented in this encounter Care Teams Hop Trainer Relationship Specialty Start Date End Date Jaime Mares MD [address] [place] [address] PCP - General Internal Medicine 06/23/14 documented as of this encounter
--- OUTSIDE RECORDS SUMMARY | 2024-10-03 11:14 | XMS_ITS | Encounter Summary ---
Author Organization [employer] Address [address] [facility] [address] [place] [address] Care Team Providers Care Bariatric Program Coordinator Name Role Phone Jaime Mares MD Primary Care Provide r Encounter Details Date Type Department Care Team (Latest Contact Info) Description 09/24/2024 Travel Social History Tobacco Use Types Packs/Day Years [...] Description 10/22/2024 1:15 PM EST Office Visit [facility] MEDICINE [address] [place] [address] Jaime Mares MD [address] [place] [address] documented as of this encounter Visit Diagnoses Not on filedocumented in this encounter Additional Health Concerns Assessment Noted Time PHQ-9 Depression Total Score: 3 09/24/19 25 11:09 AM EST documented as of this encounter Care Teams Bariatric Program Coordinator Relationship Specialty Start Date End Date Jaime Mares MD [address] [place] [address] PCP - General Internal Medicine 06/23/14 documented as of this encounter
--- OUTSIDE RECORDS SUMMARY | 2024-10-03 11:14 | XMS_ITS | Encounter Summary ---
Author Organization [employer] Address [address] [facility] [address] [place] [address] Care Team Providers Care Digital Media Producer Name Role Phone Jaime Mares MD Primary Care Provide r Reason for Visit * Reason Onset Date Comments Referral 09/06/2024 Encounter Details Date Type Department Care Team ([facility] st Contact Info) Description 09/06/2024 Telephone [facility] MEDICINE [address] [place] [address] Jaime Mares MD [address] [place] [address] Referral Social History Tobacco Use Types Packs/Day Years [...] Telephone Encounter - Gin Shin RN - 09/07/2024 11:27 AM EST No Dx of calcaneal spurs on file. Pt spoke with [facility] nurses yestrday and [place]. If appropriate, she can be referred to podiatry after that as she has never been evaluated for this. * Telephone Encounter - Stefani Hillman - 09/06/2024 1:17 PM EST Tc from pt requesting referral for a security infrastructure engineer, states has a spur and can't walk. documented in this encounter Plan of Treatment Upcoming Encounters Date Type Department Care Team (Late st Contact Info) Description 10/22/2024 1:15 PM EST Office Visit [facility] MEDICINE [address] [place] [address] Jaime Mares MD [address] [place] [address] documented as of this encounter Visit Diagnoses Not on filedocumented in this encounter Additional Health Concerns Assessment Noted Time PHQ-9 Depression Total Score: 1 12/05/19 24 9:34 AM EDT documented as of this encounter Care Teams Digital Media Producer Relationship Specialty Start Date End Date Jaime Mares MD [address] [place] [address] PCP - General Internal Medicine 06/23/14 documented as of this encounter
--- OUTSIDE RECORDS SUMMARY | 2024-10-03 11:14 | XMS_ITS | Encounter Summary ---
Author Organization [employer] [facility] Address [address] [facility] [address] [place] [address] Care Team Providers Care Space Operations Name Role Phone Jaime Mares MD Primary Care Provide r Reason for Visit * Reason Onset Date Comments Nurse Triage 09/06/2024 Encounter Details Date Type Department Care Team ([facility] st Contact Info) Description 09/06/2024 Telephone [facility] MEDICINE [address] [place] [address] Jaime Mares MD [address] [place] [address] Nurse Triage Social History Tobacco Use Types Packs/Day Years [...] encounter Miscellaneous Notes * Telephone Encounter - Kimberli Knutson RN - 09/06/2024 1:47 PM EST Called pt. Via [employer] distributor advertising material [id number] [address]. Pt. States that she has been having pain in her left foot x 3-4 days. Pt. Cannot bear weight on foot. Sole of foot is swollen. No redness and no spot on foot. Pt. Is Diabetic. No fever. Pt. States she Is worried that her other foot will get effected also because she is bearing all her weight on right foot and it is starting to hurt. Pt. Will go to [facility] walk in tomorrow am 09/07/24 and have her Son bring her. Protocol Used: Foot Pain (Adult) Protocol-Based Disposition: See in Office today - Pt. Unable to come in today. Will go to [facility] walk in tomorrow around 10am with Son 09/07/24. Video visit offer not recorded Positive Triage Question: * Moderate pain (e.g., interferes with normal activities, limping) and present > 3 days * All higher-acuity triage questions were negative * Telephone Encounter - Stefani Hillman - 09/06/2024 1:15 PM EST Symptom: Leg Pain - Not From Injury Outcome: Schedule an urgent appointment (within 1 hour) or talk to a nurse or provider soon Reason: Trouble walking The caller accepted this outcome. [phone] Sy[place] documented in this encounter Plan of Treatment Upcoming Encounters Date Type Department Care Team (Late st Contact Info) Description 10/22/2024 1:15 PM EST Office Visit [facility] [address] [facility] [place] [address] Jaime Mares MD [address] [facility] [place] [address] documented as of this encounter Visit Diagnoses Not on filedocumented in this encounter Additional Health Concerns Assessment Noted Time PHQ-9 Depression Total Score: 1 12/05/19 24 9:34 AM EDT documented as of this encounter Care Teams Space Operations Relationship Specialty Start Date End Date Jaime Mares MD [address] [facility] [place] [address] PCP - General Internal Medicine 06/23/14 documented as of this encounter
--- OUTSIDE RECORDS SUMMARY | 2024-10-03 11:14 | XMS_ITS | Encounter Summary ---
Author Organization [employer] Address [address] [facility] [address] [place] [address] Care Team Providers Care Unit Assembler Name Role Phone Jaime Mares MD Primary Care Provide r Reason for Visit * Reason Onset Date Comments Referral 09/19/2024 Encounter Details Date Type Department Care Team ([facility] st Contact Info) Description 09/19/2024 Telephone [facility] MEDICINE [address] [place] [address] Jaime Mares MD [address] [place] [address] Referral Social History Tobacco Use Types Packs/Day [...] Telephone Encounter - Edwina Espinosa RN - 09/19/2024 2:27 PM EST TC placed to pt with S oyster worker Dexter #[id number] to advise and inform that at upcoming ED F/U appt with PCP on 09/24 a request and referral for physical therapy can be placed. Pt was advised at most recent ED visit to participate in physical therapy to assist with ongoing diabetic neuropathy. Pt agreeable to this plan of care and stated understanding. * Telephone Encounter - Shelton Salter - 09/19/2024 11:00 AM EST TC from pt requesting referral for Physical Therapy of her leg pain. Seen at [facility] ED on 09/16/24 . Pt would like Physical Therapy to be at [facility] . Upcoming HD[facility] visit on 09/24 documented in this encounter Plan of Treatment Upcoming Encounters Date Type Department Care Team (Late st Contact Info) Description 10/22/2024 1:15 PM EST Office Visit [facility] MEDICINE [address] [place] [address] Jaime Mares MD [address] [place] [address] documented as of this encounter Visit Diagnoses Not on filedocumented in this encounter Additional Health Concerns Assessment Noted Time PHQ-9 Depression Total Score: 1 12/05/19 24 9:34 AM EDT documented as of this encounter Care Teams Unit Assembler Relationship Specialty Start Date End Date Jaime Mares MD [address] [place] [address] PCP - General Internal Medicine 06/23/14 documented as of this encounter
== END 2024-10-03 11:37 | disposition home or self-care (01) ==
PROVIDERS: PCP Internal Medicine; Visit Provider Physician Assistant Surgical
DX: I83.11 Varicose veins of right lower extremity with inflammation (principal); I83.12 Varicose veins of left lower extremity with inflammation
CPT/HCPCS: 99204

== ENCOUNTER → 2024-10-03 10:33 | Outpatient (BNVA) | payer MEDICARE, SELFPAY | PROVIDERS: PCP Internal Medicine; Visit Provider Physician Assistant Surgical | DX: I83.11 Varicose veins of right lower extremity with inflammation (principal); I83.12 Varicose veins of left lower extremity with inflammation | CPT/HCPCS: 99202 ==

== ENCOUNTER 2024-10-22 13:41 | Outpatient (REF) | payer MEDICARE, SELFPAY ==
[2024-10-22 16:51] LABS: Cholesterol 227 mg/dL (<200); HDL Cholesterol 47 mg/dL (>40); LDL Cholesterol Calculated 139 mg/dL (<100); Triglycerides 205 mg/dL (<150)
[2024-10-22 17:01] LABS: TSH reflex Free T4 1.07 uIU/mL (0.32-4.0)
[2024-10-22 17:14] LABS: Creatinine Urine 24.46 mg/dL; Microalbum/Creatinine Ratio Ur 53.1 ug/mg cr (<30)
--- OUTSIDE RECORDS SUMMARY | 2024-10-22 17:15 | XMS_ITS | Encounter Summary ---
Author Organization [employer] Address [address] [place] [address] [address], [place] [address] Care Team Providers Care Aircraft Motor Mechanic Name Role Phone Jaime Mares MD Primary Care Provide r Reason for Referral * Imaging (Routine) - Pending Review Specialty Diagnoses / Procedures Referred By Contac t Referred To Contact Radiology Diagnoses Osteoporosis, unspecified osteoporosis type, unspecified pathological fracture presence Procedures BD DEXA Axial Jaime Mares MD [address] [place] [address] Phone: tel: fax: [address] Phone: tel: fax: Referral ID Status Reason Start Date Expiration Date V isits Requested Visits Authorized [id number] Pending Review 09/24/2024 09/24/2025 1 1 * Consultation (Routine) - Closed Specialty Diagnoses / Procedures Referred By Contac t Referred To Contact Vascular Surgery Diagnoses Vascular insufficiency of extremity Jaime Mares MD [address] [place] [address] Phone: tel: fax: [facility] Referral ID Status Reason Start Date Expiration Date V isits Requested Visits Authorized [id number] Closed Specialty Services Required 09/24/2024 09/24/2025 1 1 Reason for Visit * Reason Comments Sick Onsite [facility] 09/16/2024 DX: DIABETIC NEUROPATHY, BILATERAL LEG PAIN Encounter Details Date Type Department Care Team (Latest Contact Info) Description 09/24/2024 11:00 AM EST Office Visit [facility] [address] [facility] [place] [address] Jaime Mares MD [address] [place] [address] Essential hypertension (Primary Dx); Type 2 diabetes mellitus with diabetic polyneuropathy, without long-term current use of insulin ([facility]); Acquired hypothyroidism; Mixed hyperlipidemia; Uncontrolled type 2 diabetes mellitus with hyperglycemia ([facility]); Vascular insufficiency of extremity; Osteoporosis, unspecified osteoporosis [...] y.o. female who presents for Sick Onsite ([facility] 09/16/2024 DX: DIABETIC NEUROPATHY, BILATERAL LEG [...] polyneuropathy, without long-term current use of insulin ([facility]) Patient is here for a f/u a Hgb A1c on 09/24/2024: 7.8 down to 8 from 10 She is on a regimen of Metformin XR 500 mg 2 tabs po BID and Glipizide ER 10 mg po Daily she is getting med boxes. Plan: Asked to bring glucometer before we make any changes Eye exam was done on 12/12/13 via [facility] Microalbumin will repeat Foot check risk of [...] polyneuropathy, without long-term current use of insulin ([facility]) Patient is here for a f/u a Hgb A1c on 09/24/2024: 7.8 down to 8 from 10 She is on a regimen of Metformin XR 500 mg 2 tabs po BID and Glipizide ER 10 mg po Daily she is getting med boxes. Plan: Asked to bring glucometer before we make any changes Eye exam was done on 12/12/13 via [facility] Microalbumin will repeat Foot check risk of zero, on Asa daily. Adhere to diabetic diet check your blood sugars regularly check your feet on a daily basis f/u 4 weeks documented in this encounter Plan of Treatment Upcoming Encounters Date Type Department Care Team (Late st Contact Info) Description 11/22/2024 11:30 AM EDT Clinical Support [facility] MEDICINE [address] [place] [address] 01/23/2025 11:15 AM EDT Office Visit [facility] MEDICINE [address] [place] [address] Jaime Mares MD [address] [place] [phone] Scheduled Orders Name Type Priority Associated Diagnoses Orde r Schedule Albumin, Random Urine W/Creatinine Lab Routine Type 2 diabetes mellitus with diabetic polyneuropathy, without long-term current use of insulin ([facility]) Ordered: 09/24/2024 TSH with Reflex to Free [...] polyneuropathy, without long-term current use of insulin ([facility]) POCT GLUCOSE Routine 09/24/2024 11:16 AM EST Type 2 diabetes mellitus with diabetic polyneuropathy, without long-term current use of insulin ([facility]) documented in this encounter Results * (ABNORMAL) [...] polyneuropathy, without long-term current use of insulin ([facility]) Acquired hypothyroidism Unspecified hypothyroidism Mixed hyperlipidemia Uncontrolled type 2 diabetes mellitus with hyperglycemia ([facility]) Vascular insufficiency of extremity Osteoporosis, unspecified osteoporosis type, unspecified pathological fracture presence Encounter for immunization Neuropathic pain of both legs documented in this encounter Additional Health Concerns Assessment Noted Time PHQ-9 Depression Total Score: 3 09/24/19 25 11:09 AM EST documented as of this encounter Care Teams Aircraft Motor Mechanic Relationship Specialty Start Date End Date Jaime Mares MD [address] [place] [phone] PCP - General Internal Medicine 06/23/14 documented as of this encounter
--- OUTSIDE RECORDS SUMMARY | 2024-10-22 17:15 | XMS_ITS | Encounter Summary ---
Author Organization [employer] Address [address] [facility] [address] [place] [address] Care Team Providers Care Gang Bore Operator Name Role Phone Jaime Mares MD Primary Care Provide r Reason for Visit * Reason Onset Date Comments Medication Question 09/19/2024 Encounter Details Date Type Department Care Team ([facility] st Contact Info) Description 09/19/2024 Telephone [facility] MEDICINE [address] [place] [address] Jaime Mares MD [address] [place] [address] Medication Question Social History Tobacco Use Types [...] Description 11/22/2024 11:30 AM EDT Clinical Support [facility] MEDICINE [address] [place] [address] 01/23/2025 11:15 AM EDT Office Visit [facility]ICINE [address] [place] [address] Jaime Mares MD [address] [place] [address] documented as of this encounter Visit Diagnoses Not on filedocumented in this encounter Additional Health Concerns Assessment Noted Time PHQ-9 Depression Total Score: 1 12/05/19 24 9:34 AM EDT documented as of this encounter Care Teams Gang Bore Operator Relationship Specialty Start Date End Date Jaime Mares MD [address] [place] [phone] PCP - General Internal Medicine 06/23/14 documented as of this encounter
--- OUTSIDE RECORDS SUMMARY | 2024-10-22 17:15 | XMS_ITS | Encounter Summary ---
Author Organization [employer] Address [address] [facility] [address] [place] [address] Care Team Providers Care County Director Name Role Phone Jaime Mares MD Primary Care Provide r Reason for Visit * Reason Onset Date Comments Returning Call 09/23/2024 Encounter Details Date Type Department Care Team ([facility] st Contact Info) Description 09/23/2024 Telephone [facility] MEDICINE [address] [place] [address] Jaime Mares MD [address] [place] [address] Returning Call Social History Tobacco Use Types [...] pt states that she was contacted by [facility]. Pt confirms that she went to her scheduled office visit yesterday with PCP and currently has no further questions or concerns at this time. Pt to call back PRN * Telephone Encounter - Mauro Toribio - 09/24/2024 3:52 PM EST TC from pt returning call regarding prior message. Contact pt at [phone] (Danish) * Telephone Encounter - Edwina Espinosa RN - 09/23/2024 11:30 AM EST TC placed to pt and LVM to call back the office * Telephone Encounter - Ferny aJmes - 09/23/2024 9:53 AM EST Tc from pt requesting a call back because pt states that she received a phone call from [facility] but doesn't know from who. Pt contact: [phone] documented in this encounter Plan of Treatment Upcoming Encounters Date Type Department Care Team (Late st Contact Info) Description 11/22/2024 11:30 AM EDT Clinical Support [address] [address] 01/23/2025 11:15 AM EDT Office Visit [address] [address] Jaime Mares MD [address] [place] [phone] documented as of this encounter Visit Diagnoses Not on filedocumented in this encounter Additional Health Concerns Assessment Noted Time PHQ-9 Depression Total Score: 1 12/05/19 24 9:34 AM EDT documented as of this encounter Care Teams County Director Relationship Specialty Start Date End Date Jaime Mares MD [address] [place] [phone] PCP - General Internal Medicine 06/23/14 documented as of this encounter
--- OUTSIDE RECORDS SUMMARY | 2024-10-22 17:15 | XMS_ITS | Encounter Summary ---
Author Organization [employer] Address [address] [facility] 7t [place] [address] Care Team Providers Care Student Nurse Name Role Phone Jaime Mares MD Primary Care Provide r Reason for Visit * Reason Comments Med Refill Encounter Details Date Type Department Care Team ([facility] Contact Info) Description 06/05/2024 Refill [facility] MEDICINE [address] [place] [address] Olya Harris MD [address] [place] [address] Type 2 diabetes mellitus with diabetic polyneuropathy, without long-term current use of insulin ([facility]) Social History Tobacco Use Types [...] Description 11/22/2024 11:30 AM EDT Clinical Support [address] [address] 01/23/2025 11:15 AM EDT Office Visit [facility] MEDICINE [address] [place] [address] Jaime Mares MD [address] [place] [address] documented as of this encounter Visit Diagnoses Diagnosis Type 2 diabetes mellitus with diabetic polyneuropathy, without long-term current use of insulin ([facility]) documented in this encounter Additional Health Concerns Assessment Noted Time PHQ-9 Depression Total Score: 1 12/05/19 24 9:34 AM EDT documented as of this encounter Care Teams Student Nurse Relationship Specialty Start Date End Date Jaime Mares MD [address] [place] [phone] PCP - General Internal Medicine 06/23/14 documented as of this encounter
--- OUTSIDE RECORDS SUMMARY | 2024-10-22 17:15 | XMS_ITS | Encounter Summary ---
Author Organization [employer] Address [address] [facility] 7 [place] [address] Care Team Providers Care Python Java Developer Name Role Phone Jaime Mares MD Primary Care Provide r Reason for Visit * Reason Comments Follow-up Encounter Details Date Type Department Care Team (Latest Contact Info) Description 10/22/2024 1:15 PM EST Office Visit [facility] MEDICINE [address] [place] [address] Jaime Mares MD [address] [place] [address] Vascular insufficiency of extremity (Primary Dx); Type 2 diabetes mellitus with diabetic polyneuropathy, without long-term current use of insulin ([facility]); Essential hypertension; Mixed hyperlipidemia; Acquired hypothyroidism; Preventative health care; Neuropathic pain of both legs Social History [...] Sign Reading Time Taken Comments Blood Pressure 156/96 10/22/2024 1:20 PM EST manual recheck BP Pulse 60 10/22/2024 1:08 PM EST Temperature 36.1 ??C (96.9 ??F) 10/22/2024 1 :08 PM EST Respiratory Rate 20 10/22/2024 1:08 PM EST Oxygen Saturation 97% 10/22/2024 1:0 8 PM EST Inhaled Oxygen Concentration - - Weight 72.3 kg (159 lb 6.4 oz) 10/22/2024 1:08 PM EST Height 172.4 cm (5' 7.88 ) 10/22/2024 1 :08 PM EST Body Mass Index 24.32 10/22/2024 1:08 PM EST documented in this encounter Progress Notes * Jaime Christopher MD - 10/22/2024 1:15 PM EST SUBJECTIVE Nola Styles is a 84 y.o. female who presents for Follow-up. Diabetes She presents for her follow-up diabetic visit. She has type 2 diabetes mellitus. Pertinent negatives for hypoglycemia include no headaches. Pertinent negatives for diabetes include no chest pain. Review of Systems Constitutional: Negative for fever. HENT: Negative for sore throat. Respiratory: Negative for cough and shortness of breath. Cardiovascular: Negative for chest pain. Gastrointestinal: Negative for abdominal pain. Neurological: Negative for headaches. Allergies Allergen Reactions Alendronate Penicillin G Amlodipine Rash OBJECTIVE Vitals: 10/22/24 1308 10/22/24 1320 BP: (!) 192/86 (!) 156/96 BP Location: Left arm Left arm Patient Position: Sitting Sitting BP Cuff Size: Adult Adult Pulse: 60 Resp: 20 Temp: 96.9 ??F (36.1 ??C) TempSrc: Temporal SpO2: 97% Weight: 159 lb 6.4 oz (72.3 kg) Height: 5' 7.88 (1.724 m) Physical [...] Assessment/Plan Problem List Items Addressed This Visit Vascular insufficiency of extremity - Primary Seen by Vascular surgery 10/03/2024 work up in progress Diabetes mellitus with diabetic polyneuropathy, without long-term current use of insulin ([facility]) Patient is here for a f/u a Hgb A1c on 09/24/2024: 7.8 down to 8 from 10 She is on a regimen of Metformin XR 500 mg 2 tabs po BID and Glipizide ER 10 mg po Daily she is getting med boxes. Did not bring Glucometer today Plan: No changes until she brings her glucometer Eye exam was done on 12/12/13 via [facility] Microalbumin re ordered Foot check risk of zero, on Asa daily. Adhere to diabetic diet check your blood sugars regularly check your feet on a daily basis f/u 3 months Relevant Orders Albumin, Random Urine W/Creatinine POCT Glucose (Completed) Essential hypertension Pt here for a f/u BP remains uncontrolled She is supposed to be on a regimen of: Atenolol 100 mg po daily, Hctz 50 mg po daily and Hydralazine 25 mg po TID Pt was on Irbesartan but refuses to [...] 09/15/2024 CREATININE 1.34 11/06/2023 were wnl. Plan: Start Diovan 40 mg po daily Pt has medboxes patient advised to adhere to a low sodium diet, encouraged about medication compliance, counseled about weight loss. Pt had a [address] Branham, pt was seen 09/30/2019 Study showed BP was suboptimally controlled Pt is resistant to adding a new agent. f/u with me in 4 weeks ECHO 02/26/24 unremarkable Relevant Medications valsartan (Diovan) 40 MG tablet Mixed hyperlipidemia Patient with elevated lipids. Most [...] weight loss. Repeat Lipid profile. Pt forgot again Relevant Orders Lipid Panel, Standard Acquired hypothyroidism Pt doing well Pt is on synthroid 75 mcg po daily but most recent TSH Lab Results Component Value Date TSH 3.70 11/06/2023 11/06/2023 normal continue current regimen. Repeat TSH Relevant Orders TSH with Reflex to Free T4 Preventative health care Mammo BI-RADS - 1 10/15/2018 Pt is 83 years of age no further screenings discussed with patient DEXA scan osteoporosis 02/04/14 Colonoscopy 12/07/2018 Vaccines: Flu: Declines Tdap: 11/03/2015 Neuropathic pain of both legs Patient with c/o burning pain on both lower extremities On exam she has decreased sensation on her feet She is Gabapentin 300 mg po TID dose. Side effects such as over sedation discussed. documented in this encounter Miscellaneous Notes * Assessment & Plan Note - Jaime Christopher MD - 10/22/2024 1:28 PM EST Associated Problem(s): Neuropathic pain of both legs Patient with c/o burning pain on both lower extremities On exam she has decreased sensation on her feet She is Gabapentin 300 mg po TID dose. Side effects such as over sedation discussed. * Assessment & Plan Note - Jaime Christopher MD - 10/22/2024 1:26 PM EST Associated Problem(s): Preventative health care Mammo BI-RADS - 1 10/15/2018 Pt is 83 years of age no further screenings discussed with patient DEXA scan osteoporosis 02/04/14 Colonoscopy 12/07/2018 Vaccines: Flu: Declines Tdap: 11/03/2015 * Assessment & Plan Note - Jaime Christopher MD - 10/22/2024 1:07 PM EST Associated Problem(s): Acquired hypothyroidism Pt doing well Pt is on synthroid 75 mcg po daily but most recent TSH Lab Results Component Value Date TSH 3.70 11/06/2023 11/06/2023 normal continue current regimen. Repeat TSH * Assessment & Plan Note - Jaime Christopher MD - 10/22/2024 1:07 PM EST Associated Problem(s): Mixed hyperlipidemia Patient with [...] weight loss. Repeat Lipid profile. Pt forgot again * Assessment & Plan Note - Jaime Christopher MD - 10/22/2024 1:06 PM EST Associated Problem(s): Essential hypertension Pt here for a f/u BP remains uncontrolled She is supposed to be on a regimen of: Atenolol 100 mg po daily, Hctz 50 mg po daily and Hydralazine 25 mg po TID Pt was on Irbesartan but refuses to [...] 09/15/2024 CREATININE 1.34 11/06/2023 were wnl. Plan: Start Diovan 40 mg po daily Pt has medboxes patient [...] Plan Note - Jaime Christopher MD - 10/22/2024 1:05 PM EST Associated Problem(s): Diabetes mellitus with diabetic polyneuropathy, without long-term current use of insulin ([facility]) Patient is here for a f/u a Hgb A1c on 09/24/2024: 7.8 down to 8 from 10 She is on a regimen of Metformin XR 500 mg 2 tabs po BID and Glipizide ER 10 mg po Daily she is getting med boxes. Did not bring Glucometer today Plan: No changes until she brings her glucometer Eye exam was done on 12/12/13 via [facility] Microalbumin re ordered Foot check risk of zero, on Asa daily. Adhere to diabetic diet check your blood sugars regularly check your feet on a daily basis f/u 3 months * Assessment & Plan Note - Jaime Christopher MD - 10/22/2024 1:04 PM EST Associated Problem(s): Vascular insufficiency of extremity Seen by Vascular surgery 10/03/2024 work up in progress documented in this encounter Plan of Treatment Upcoming Encounters Date Type Department Care Team (Late st Contact Info) Description 11/22/2024 11:30 AM EDT Clinical Support [facility] [address] [facility] [address] 01/23/2025 11:15 AM EDT Office Visit [facility] MEDICINE [address] [facility] [place] [address] Jaime Mares MD [address] [place] [address] documented as of this encounter Procedures Procedure Name Priority Date/Time Associated Diagnosis Comments TSH W/REFLEX TO FT4 Routine 10/22/2024 1:43 PM EST Acquired hypothyroidism ALBUMIN, RANDOM URINE W/CREATININE Routine 10/22/2024 1:43 PM EST Type 2 diabetes mellitus with diabetic polyneuropathy, without long-term current use of insulin ([facility]) LIPID PANEL, STANDARD Routine 10/22/2024 1:43 PM EST Mixed hyperlipidemia POCT GLUCOSE Routine 10/22/2024 1:20 PM EST Type 2 diabetes mellitus with diabetic polyneuropathy, without long-term current use of insulin ([facility]) documented in this encounter Results * (ABNORMAL) Lipid Panel, Standard (10/22/2024 1:43 PM EST) Triglycerides 205(H) <150 mg/dL [facility] Comment:Desirable Triglyceri de: less than 150 mg/dLBorderline High Triglyceride 150-199 mg/dLHigh Triglyceride: 200-499 mg/dLVery High Triglyceride: greater than or equal to 5OO mg/dL Cholesterol 227(H) <200 mg/dL [facility] Comment:Desirable Cholestero l: less than 200 mg/dLBorderline High Cholesterol: 200-239 mg/dLHigh Cholesterol: greater than 239 mg/dL LDL Cholesterol Calculated 139(H) <100 mg/dL [facility] Comment:Desirable LDL: less than 100 mg/dLNear Optimal/Above Optimal LDL: 110- 129 mg/dLBorderline High LDL: 130-159 mg/dLHigh LDL: 160-189 mg/dLVery High LDL: greater than or equal to 190 mg/dL HDL Cholesterol 47 >40 mg/dL [facility] Comment:Desirable HDL: great er than 40 mg/dL Note: This HDL assay may give artificially low results in patients with liver disease. Blood Venous blood specimen / Unknown 10/22/2024 1:43 PM EST 10/22/2024 4:06 PM EST Jaime Christopher MD LAB BLOOD ORDERABLES Final Result Performing Organization Address [facility]/ZIP Co de Phone Number [facility] [address] [place] [phone] * TSH with Reflex to Free T4 (10/22/2024 1:43 PM EST) TSH reflex Free T4 1.07 0.32 - 4.0 uIU/mL [facility] Blood Venous blood specimen / Unknown 10/22/2024 1:43 PM EST 10/22/2024 4:06 PM EST Jaime Christopher MD LAB BLOOD ORDERABLES Final Result Performing Organization Address [facility] Co de Phone Number [facility] [address] [place] [phone] * (ABNORMAL) Albumin, Random Urine W/Creatinine (10/22/2024 1:43 PM EST) Creatinine, Urine 24.46 mg/dL [facility] Microalbumin Urine 13.0 mg/L [facility] Microalbum Creatinine Ratio Ur 53.1(H) <30 ug/mg cr [facility] Comment:Albumin/Creatinine R atio Reference Ranges: Normal: < 30 ug/mg creatinine Microalbuminuria: 30 - 300 ug/mg creatinineClinical Albuminuria: > 300 ug/mg creatinine Urine (Urine, Random) 10/22/2024 1:43 PM EST 10/22/2024 4:36 PM EST Jaime Christopher MD LAB URINE ORDERABLES Final Result [facility] [address] [place] [address] [phone] * POCT Glucose (10/22/2024 1:20 PM EST) Glucose Blood, POC 96 60 - 200 mg/dL QC Media Lot # [id number] Lot# Expiration Date [id number] Blood Capillary blood specimen / Unknown 10/22/2024 1:20 PM EST Jaime Christopher MD POINT OF CARE TEST EN TER/EDIT ORDERABLES Final Result documented in this encounter Visit Diagnoses Diagnosis Vascular insufficiency of extremity- Primary Type 2 diabetes mellitus with diabetic polyneuropathy, without long-term current use of insulin ([facility]) Essential hypertension Unspecified essential hypertension Mixed hyperlipidemia Acquired hypothyroidism Unspecified hypothyroidism Preventative health care Routine general medical examination at a health care facility Neuropathic pain of both legs documented in this encounter Additional Health Concerns Assessment Noted Time PHQ-9 Depression Total Score: 3 09/24/19 25 11:09 AM EST documented as of this encounter Care Teams Python Java Developer Relationship Specialty Start Date End Date Jaime Mares MD [address] [place] [phone] PCP - General Internal Medicine 06/23/14 documented as of this encounter
--- OUTSIDE RECORDS SUMMARY | 2024-10-22 17:15 | XMS_ITS | Encounter Summary ---
Author Organization [facility] Address [address] [facility] [address], [place] [address] Care Team Providers Care Supply Chain Business Analyst Name Role Phone Jaime Mares MD Primary Care Provide r Reason for Visit * Reason Comments Med Refill Encounter Details Date Type Department Care Team (Late st Contact Info) Description 03/29/2023 Refill [facility] MEDICINE [address] [place] [address] [phone] Jaime Mares MD [address] [place] [address] [phone] Essential (primary) hypertension Social History Tobacco Use [...] Description 11/22/2024 11:30 AM EDT Clinical Support [facility] MEDICINE [address] [place] [address] [phone] 01/23/2025 11:15 AM EDT Office Visit [facility] MEDICINE [address] [place] [address] [phone] Jaime Mares MD [address] [place] [address] [phone] documented as of this encounter Visit Diagnoses Diagnosis Essential (primary) hypertension Unspecified essential hypertension documented in this encounter Care Teams Supply Chain Business Analyst Relationship Specialty Start Date End Date Jaime Mares MD [address] [place] [address] PCP - General Internal Medicine 06/23/14 documented as of this encounter
--- OUTSIDE RECORDS SUMMARY | 2024-10-22 17:15 | XMS_ITS | Encounter Summary ---
Author Organization [employer] Address [address] [facility] [address], [place] [address] Care Team Providers Care Diamond Selector Name Role Phone Jaime Mares MD Primary Care Provide r Reason for Visit * Reason Onset Date Comments triage 2022 Encounter Details Date Type Department Care Team ([facility] st Contact Info) Description 2022 Telephone [facility] [address] [place] [address] Jaime Mares MD [address] [place] [address] triage Social History Tobacco Use Types Packs/Day [...] Description 11/22/2024 11:30 AM EDT Clinical Support [address] [address] 01/23/2025 11:15 AM EDT Office Visit [address] [address] Jaime Mares MD [address] [place] [phone] documented as of this encounter Visit Diagnoses Not on filedocumented in this encounter Care Teams Diamond Selector Relationship Specialty Start Date End Date Jaime Mares MD [address] [place] [phone] PCP - General Internal Medicine 06/23/14 documented as of this encounter
--- OUTSIDE RECORDS SUMMARY | 2024-10-22 17:15 | XMS_ITS | Encounter Summary ---
Author Organization [employer] Address [address] [facility] 7[address] [place] [address] Care Team Providers Care Surgery Tech Name Role Phone Jaime Mares MD Primary Care Provide r Encounter Details Date Type Department Care Team (Late st Contact Info) Description 01/23/2023 Orders Only [facility] [address] [place] [address] Duyen Burgess LPN Social History Tobacco Use [...] Description 11/22/2024 11:30 AM EDT Clinical Support [address] [address] 01/23/2025 11:15 AM EDT Office Visit [address] [address] Jaime Mares MD [address] [place] [phone] documented as of this encounter Visit Diagnoses Not on filedocumented in this encounter Care Teams Surgery Tech Relationship Specialty Start Date End Date Jaime Mares MD [address] [place] [address] PCP - General Internal Medicine 06/23/14 documented as of this encounter
--- OUTSIDE RECORDS SUMMARY | 2024-10-22 17:15 | XMS_ITS | Encounter Summary ---
Author Organization [employer] Address [address] [facility] 7t [place] [address] Care Team Providers Care Ware Finisher Name Role Phone Jaime Mares MD Primary [...] Description 11/22/2024 11:30 AM EDT Clinical Support [facility] [address] [place] [phone] 01/23/2025 11:15 AM EDT Office Visit [address] [address] Jaime Mares MD [address] [place] [phone] documented as of this encounter Visit Diagnoses Not on filedocumented in this encounter Additional Health Concerns Assessment Noted Time PHQ-9 Depression Total Score: 3 09/24/19 25 11:09 AM EST documented as of this encounter Care Teams Ware Finisher Relationship Specialty Start Date End Date Jaime Mares MD [address] [place] [phone] PCP - General Internal Medicine 06/23/14 documented as of this encounter
--- OUTSIDE RECORDS SUMMARY | 2024-10-22 17:15 | XMS_ITS | Encounter Summary ---
Author Organization [employer] Address [address] [facility] 7 [place] [address] Care Team Providers Care Abalone Processor Name Role Phone Jaime Mares MD Primary Care Provide r Reason for Visit * Reason Onset Date Comments Chart Prep 09/23/2024 Encounter Details Date Type Department Care Team ([facility] st Contact Info) Description 09/23/2024 Telephone [facility] [address] [place] [address] Jaime Mares MD [address] [place] [address] Chart Prep Social History Tobacco Use Types [...] Description 11/22/2024 11:30 AM EDT Clinical Support [facility] [address] [place] [address] [place] [address] 01/23/2025 11:15 AM EDT Office Visit [facility] [address] [place] [address] [place] [address] Jaime Mares MD [address] [place] [phone] documented as of this encounter Visit Diagnoses Not on filedocumented in this encounter Additional Health Concerns Assessment Noted Time PHQ-9 Depression Total Score: 1 12/05/19 24 9:34 AM EDT documented as of this encounter Care Teams Abalone Processor Relationship Specialty Start Date End Date Jaime Mares MD [address] [place] [phone] PCP - General Internal Medicine 06/23/14 documented as of this encounter
--- OUTSIDE RECORDS SUMMARY | 2024-10-22 17:15 | XMS_ITS | Encounter Summary ---
Author Organization [employer] Address [address] [facility] 7 [place] [address] Care Team Providers Care Brick Kiln Burner Name Role Phone Jaime Mares MD Primary Care Provide r Reason for Visit * Reason Onset Date Comments Chart Prep 10/04/2024 Encounter Details Date Type Department Care Team ([facility] st Contact Info) Description 10/04/2024 Telephone [facility] [address] [place] [address] Jaime Mares MD [address] [place] [address] Chart Prep Social History Tobacco Use Types [...] Telephone Encounter - Minerva Patricio [place] - 10/04/2024 11:15 AM EST Chart Prep Labs: not done Images: BD Dexa appt for 10/25/2024 @11:30AM. Vaccines due: Covid Due, RSV in Pharmacy Due, and Shingles in pharmacy Due Referrals: Vascular Completed Screenings: Eye Exam and Foot Exam Overdue care gaps: Glucose Chart prep for upcoming appt with Dr.Esparza alvarado. LB documented in this encounter Plan of Treatment Upcoming Encounters Date Type Department Care Team (Late st Contact Info) Description 11/22/2024 11:30 AM EDT Clinical Support [facility] [address] [place] [address] 01/23/2025 11:15 AM EDT Office Visit [facility] [address] [place] [address] Jaime Mares MD [address] [place] [phone] documented as of this encounter Visit Diagnoses Not on filedocumented in this encounter Additional Health Concerns Assessment Noted Time PHQ-9 Depression Total Score: 3 09/24/19 25 11:09 AM EST documented as of this encounter Care Teams Brick Kiln Burner Relationship Specialty Start Date End Date [place]eneg[place] Ashwin, Jaime, MD [address] [place] [address] PCP - General Internal Medicine 06/23/14 documented as of this encounter
--- OUTSIDE RECORDS SUMMARY | 2024-10-22 17:15 | XMS_ITS | Encounter Summary ---
Author Organization [employer] Address [address] [facility] 7t [place] [address] Care Team Providers Care Entertainment Agent Name Role Phone Jaime Mares MD Primary Care Provide r Encounter Details Date Type Department Care Team (Latest Contact Info) Description 10/22/2024 Travel Social History Tobacco Use Types Packs/Day [...] Description 11/22/2024 11:30 AM EDT Clinical Support [facility] [address] [place] [phone] 01/23/2025 11:15 AM EDT Office Visit [address] [address] Jaime Mares MD [address] [place] [address] documented as of this encounter Visit Diagnoses Not on filedocumented in this encounter Additional Health Concerns Assessment Noted Time PHQ-9 Depression Total Score: 3 09/24/19 25 11:09 AM EST documented as of this encounter Care Teams Entertainment Agent Relationship Specialty Start Date End Date Jaime Mares MD [address] [place] [phone] PCP - General Internal Medicine 06/23/14 documented as of this encounter
--- OUTSIDE RECORDS SUMMARY | 2024-10-22 17:15 | XMS_ITS | Clinical Summary ---
Author Organization [employer] Address [address] [place] [address] 7[address] [place] [address] Care Team Providers Care Plant Operator Control Room Operator Name Role Phone Jaime Mares MD [...] EVENING 120 tablet 6 02/06/20 24 Active hydrALAZINE (Apresoline) 50 MG tabletIndications [...] daily. 90 capsule 3 09/24/19 25 Active Calcium Carb-Cholecalcife rol (Oyster Shell Calcium w/D) 500-5 MG-MCG tablet TAKE 1 TABLET BY MOUTH TWICE DAILY IN THE MORNING AND IN THE EVENING 180 tablet 1 10/08/19 25 Active glipiZIDE XL (Glucotrol XL) 10 MG 24 hr tabletIndications :Type 2 diabetes mellitus with diabetic polyneuropathy, without long-term current use of insulin (CMS/HCC) TAKE 1 TABLET BY MOUTH EVERY MORNING WITH BREAKFAST 90 tablet 1 10/08/19 25 Active atenolol (Tenormin) 100 MG tabletIndications :Essential hypertension TAKE 1 TABLET BY MOUTH EVERYDAY AT NOON 90 tablet 1 10/08/19 25 Active simvastatin (Zocor) 80 MG tabletIndications :Mixed hyperlipidemia TAKE 1 TABLET BY MOUTH EVERY EVENING 90 tablet 1 10/08/19 25 Active hydroCHLOROthiazi de (HYDRODiuril) 50 MG tabletIndications :Essential hypertension TAKE 1 TABLET BY MOUTH EVERY MORNING 90 tablet 1 10/08/19 25 Active levothyroxine (Synthroid, Levoxyl) 75 MCG tablet TAKE 1 TABLET BY MOUTH EVERY MORNING 90 tablet 1 10/08/19 25 Active valsartan (Diovan) 40 MG tabletIndications :Essential hypertension Take 1 tablet (40 mg) by mouth Once per day. 30 tablet 3 10/23/19 25 Active gabapentin (Neurontin) 300 MG capsuleIndication s:Uncontrolled type 2 diabetes mellitus with hyperglycemia (CMS/HCC) Take 1 capsule (300 mg) by mouth 3 times daily. 90 capsule 3 12/06/19 24 2024 Discontinued(R eorder (will not trigger notification to Pharmacy)) simvastatin (Zocor) 80 MG tabletIndications :Mixed hyperlipidemia TAKE 1 TABLET BY MOUTH EVERY EVENING 90 tablet 1 04/11/20 24 2024 Discontinued Calcium Carb-Cholecalcife rol (Oyster Shell Calcium w/D) 500-5 MG-MCG tablet TAKE 1 TABLET BY MOUTH TWICE DAILY IN THE MORNING AND IN THE EVENING 180 tablet 1 04/11/20 24 2024 Discontinued levothyroxine (Synthroid, Levoxyl) 75 MCG tablet TAKE 1 TABLET BY MOUTH EVERY MORNING 90 tablet 1 04/11/20 24 2024 Discontinued atenolol (Tenormin) 100 MG tabletIndications :Essential hypertension TAKE 1 TABLET BY MOUTH EVERYDAY AT NOON 90 tablet 1 04/11/20 24 2024 Discontinued hydroCHLOROthiazi de (HYDRODiuril) 50 MG tabletIndications :Essential hypertension TAKE 1 TABLET BY MOUTH EVERY MORNING 90 tablet 1 04/11/20 24 2024 Discontinued glipiZIDE XL (Glucotrol XL) 10 MG 24 hr tabletIndications :Type 2 diabetes mellitus with diabetic polyneuropathy, without long-term current use of insulin ([facility]) TAKE 1 TABLET BY MOUTH EVERY MORNING WITH BREAKFAST 90 tablet 1 04/11/20 24 2024 Discontinued Active Problems Problem Noted Date Diagnosed Date Vascular insufficiency of extremity 09/24/2024 Assessment & Plan (10/22/2024 1:04 PM EST): Seen by Vascular surgery 10/03/2024 work up in progress Neuropathic pain of both legs 12/06/2023 Assessment & Plan (10/22/2024 1:28 PM EST): Patient with c/o burning pain on both lower extremities On exam she has decreased sensation on her feet She is Gabapentin 300 mg po TID dose. Side effects such as over sedation discussed. Assessment & Plan (09/24/2024 3:28 PM EST): [...] Trial of gabapentin 300 mg po TID Preventative health care 12/05/2023 Assessment & Plan (10/22/2024 1:26 PM EST): Mammo BI-RADS - 1 10/15/2018 Pt is 83 years of age no further screenings discussed with patient DEXA scan osteoporosis 02/04/14 Colonoscopy 12/07/2018 Vaccines: Flu: Declines Tdap: 11/03/2015 Assessment & Plan (12/06/2023 1:55 PM EDT): Mammo BI-RADS - 1 10/15/2018 Pt is 83 years of age no further screenings discussed with patient DEXA scan osteoporosis 02/04/14 Colonoscopy 12/07/2018 Vaccines: Flu: Declines Tdap: 11/03/2015 Zoster : f/u visit in 2 months Skin lesion 12/05/2023 Assessment & Plan (12/05/2023 10:01 AM EDT): Hyperkeratotic skin lesion right mckinney Brown, irregular borders, seborrheic hyperkeratosis Plan: [facility] Diabetes mellitus with diabe tic polyneuropathy, without long-term current use of insulin 08/26/2022 Assessment & Plan (10/22/2024 1:19 PM EST): Patient is here for a [...] Eye exam was done on 12/12/13 via [facility] Microalbumin re ordered Foot check risk of zero, on Asa daily. Adhere to diabetic diet check your blood sugars regularly check your feet on a daily basis f/u 3 months Assessment & Plan (09/24/2024 3:25 PM EST): [...] Eye exam was done on 12/12/13 via [facility] Microalbumin will repeat Foot check [...] Eye exam was done on 12/12/13 via [facility] Microalbumin 08/27/2019 was 5 ,pt on ARB. will repeat Foot check risk of zero, on Asa daily. Adhere to diabetic diet check your blood sugars regularly check your feet on a daily basis f/u 3 months Assessment & Plan (12/06/2023 1:49 PM EDT): Patient is here for a f/u after a long hiatus, was living in [place] and was without medications for months, upon her return to the she ended up in the ER due [...] Eye exam was done on 12/12/13 via [facility] Microalbumin 08/27/2019 was 5 ,pt on ARB. will repeat Foot check risk of zero, on Asa daily. Adhere to diabetic diet check your blood sugars regularly check your feet on a daily basis f/u 3 months Essential hypertension 05/28/2015 Assessment & Plan (10/22/2024 1:24 PM EST): Pt here for a f/u [...] weeks ECHO 02/26/24 unremarkable Assessment & Plan (09/24/2024 3:26 PM EST): [...] after a long hiatus. Pt was in [place] BP remains uncontrolled She is on a [...] after a long hiatus. Pt was in [place] BP remains uncontrolled She is on a [...] get up to use the bathroom at [facility]. Most recent electrolytes, Bun and Creatinine done [...] pt had a [place] [facility] that showed a heterogeneous mass like structure [...] to the radiologist. Pt was referred to [facility] and pt told me she [...] . Acquired hypothyroidism 08/21/1957 Assessment & Plan (10/22/2024 1:07 PM EST): Pt doing well Pt is on synthroid 75 mcg po daily but most recent TSH Lab Results Component Value Date TSH 3.70 11/06/2023 11/06/2023 normal continue current regimen. Repeat TSH Assessment & Plan (09/24/2024 11:39 AM EST): [...] used to be under the care of [facility] Pain management. Last seen 02/25/2022 Pt has [...] MRI 11/25/2020 (Please see scanned document) The materials specialist at [facility] already reviewed her MRI and has recommended a steroid injections. She has had good results with them in the past. MRI booked for 02/16/24 @10:30AM Assessment & Plan (12/06/2023 1:54 PM EDT): Pt c/o persistent low back pain She used to be under the care of [facility] Pain management. Last seen 02/25/2022 Pt has [...] MRI 11/25/2020 (Please see scanned document) The materials specialist at [facility] already reviewed her MRI and has recommended a steroid injections. She has had good results with them in the past. Plan: Will update her MRI Mixed hyperlipidemia 08/21/1957 Assessment & Plan (10/22/2024 1:07 PM EST): Patient with elevated lipids. Most recent [...] loss. Repeat Lipid profile. Pt forgot again Assessment & Plan (09/24/2024 11:40 AM EST): [...] Encounters Date Type Department Care Team Description 10/22/2024 1:15 PM EST Office Visit [facility] [address] [place], [place] [address] Jaime Mares MD Vascular insufficiency of extremity (Primary Dx); Type 2 diabetes mellitus with diabetic polyneuropathy, without long-term current use of insulin ([facility]); Essential hypertension; Mixed hyperlipidemia; Acquired hypothyroidism; Preventative health care; Neuropathic pain of both legs 10/22/2024 Travel 10/06/2024 Refill [facility] [place], [place] [address] Jaime Mares MD Type 2 diabetes mellitus with diabetic polyneuropathy, without long-term current use of insulin ([facility]); Essential hypertension; Mixed hyperlipidemia 10/04/2024 Telephone [facility] [place] [address] Jaime Mares MD Chart Prep 09/24/2024 11:00 AM EST Office Visit [facility] [place] [place] [address] Jaime Mares MD Essential hypertension (Primary Dx); Type 2 diabetes mellitus with diabetic polyneuropathy, without long-term current use of insulin ([facility]); Acquired hypothyroidism; Mixed hyperlipidemia; Uncontrolled type 2 diabetes mellitus with hyperglycemia ([facility]); Vascular insufficiency of extremity; Osteoporosis, unspecified osteoporosis type, unspecified pathological fracture presence; Encounter for immunization; Neuropathic pain of both legs 09/24/2024 Travel 09/23/2024 Telephone [facility] [place] [address] Jaime Mares MD Returning Call 09/23/2024 Telephone [facility] [place] [address] Jaime Mares MD Chart Prep 09/19/2024 Telephone [facility] [place] [place] [address] Jaime Mares MD Medication Question 09/19/2024 Telephone [facility] [place] [address] Jaime Mares MD Referral 09/19/2024 Telephone [facility] [address] [place], [place] [address] Jaime Mares MD Referral; New Med Request 09/17/2024 Telephone [facility] [address] [place], [place] [address] Jaime Mares MD ER Follow-up 09/15/2024 Orders Only GENERIC EXTERNAL DATA DEPARTMENT Provider, Generic External Data 09/06/2024 Telephone [facility] [address] [place], [place] [address] Jaime Mares MD Referral 09/06/2024 Telephone [facility] [address] [place], [place] [phone] Jaime Mares MD Nurse Triage from Last [...] Mass Index 24.32 10/22/2024 1:08 PM EST Plan of Treatment Upcoming Encounters Date Type Department Care Team (Late st Contact Info) Description 11/22/2024 11:30 AM EDT Clinical Support [facility] [address] [place] [phone] 01/23/2025 11:15 AM EDT Office Visit [facility] [address] [place] [phone] Jaime Mares MD [address] [place] [phone] Health Maintenance Due Date Last Done Comments Eye Exam 1950 Zoster Vaccines (2 of 3) 12/29/2015 11/03/2015 RSV Patients and Patients Aged 60 years or older (1 - 1-dose 75+ series) 2017 Diabetes: Urine Protein Screening 06/27/2023 10/22/2024, 06/27/2022, 11/25/2020, Additional history exists COVID-19 Vaccine ( season) 2024 03/17/2022, 05/19/2021, 10/19/2020, Additional history exists Diabetes: Foot Exam 12/04/2024 12/05/2023, 12/05/2023, 12/05/2023, Additional history exists Diabetes: Hemoglobin A1C 12/22/2024 025, 02/06/2024, 11/06/2023, Additional history exists Lipid Panel 02/05/2025 10/22/2024, 01/19, 06/27/2022 Alcohol/Substance Use Screening 09/24/2025 09/24/2024 Depression Screening 09/24/2025 09/24/2024, 09/24/19 SDOH Screening 09/24/2025 09/24/2024 Tobacco Screening 09/24/2025 [...] Procedure Name Priority Date/Time Associated Diagnosis Comments LIPID PANEL, STANDARD Routine 10/22/2024 1:43 PM EST Mixed hyperlipidemia TSH W/REFLEX TO FT4 Routine 10/22/2024 1 :43 PM EST Acquired hypothyroidism ALBUMIN, RANDOM URINE W/CREATININE Routine 10/22/2024 1:43 PM EST Type 2 diabetes mellitus with diabetic polyneuropathy, without long-term current use of insulin ([facility]) POCT GLUCOSE Routine 10/22/2024 1:20 PM EST Type 2 diabetes mellitus with diabetic polyneuropathy, without long-term current use of insulin ([facility]) POCT GLYCATED HEMOGLOBIN, TOTAL Routine 09/24/2024 11:20 AM EST Type 2 diabetes mellitus with diabetic polyneuropathy, without long-term current use of insulin ([facility]) POCT GLUCOSE Routine 09/24/2024 11:16 AM EST Type 2 diabetes mellitus with diabetic polyneuropathy, without long-term current use of insulin ([facility]) MAGNESIUM Routine 09/15/2024 11:04 PM EST B TYPE NATRIURETIC PEPTIDE (BNP) Routine 09/15/2024 11:04 PM EST COMPREHENSIVE METABOLIC PANEL Routine 09/15/2024 11:04 PM EST CBC WITH AUTO DIFFERENTIAL Routine 09/15/2024 11:04 PM EST from Last 3 Months Results * TSH with Reflex to Free T4 (10/22/2024 1:43 PM EST) TSH reflex Free T4 1.07 0.32 - 4.0 uIU/mL [facility] Blood Venous blood specimen / Unknown 10/22/2024 1:43 PM EST 10/22/2024 4:06 PM EST Jaime Christopher MD LAB BLOOD ORDERABLES Final Result Performing Organization Address [facility] Co de Phone Number [facility] [address] [place] [phone] * (ABNORMAL) Albumin, Random Urine W/Creatinine (10/22/2024 1:43 PM EST) Creatinine, Urine 24.46 mg/dL [facility] Microalbumin Urine 13.0 mg/L H [facility] Microalbum Creatinine Ratio Ur 53.1(H) <30 ug/mg cr [facility] Comment:Albumin/Creatinine R atio Reference Ranges: Normal: < 30 ug/mg creatinine Microalbuminuria: 30 - 300 ug/mg creatinineClinical Albuminuria: > 300 ug/mg creatinine Urine (Urine, Random) 10/22/2024 1:43 PM EST 10/22/2024 4:36 PM EST Jaime Christopher MD LAB URINE ORDERABLES Final Result Performing Organization Address [facility] Co de Phone Number [facility] [address] [place] [phone] * (ABNORMAL) Lipid Panel, Standard (10/22/2024 1:43 PM EST) Triglycerides 205(H) <150 mg/dL [facility] Comment:Desirable Triglyceri de: less than 150 mg/dLBorderline High Triglyceride 150-199 mg/dLHigh Triglyceride: 200-499 mg/dLVery High Triglyceride: greater than or equal to 5OO mg/dL Cholesterol 227(H) <200 mg/dL [facility] Comment:Desirable Cholestero l: less than 200 mg/dLBorderline High Cholesterol: 200-239 mg/dLHigh Cholesterol: greater than 239 mg/dL LDL Cholesterol Calculated 139(H) <100 mg/dL [facility] Comment:Desirable LDL: less than 100 mg/dLNear Optimal/Above Optimal LDL: 110- 129 mg/dLBorderline High LDL: 130-159 mg/dLHigh LDL: 160-189 mg/dLVery High LDL: greater than or equal to 190 mg/dL HDL Cholesterol 47 >40 mg/dL [facility] Comment:Desirable HDL: great er than 40 mg/dL Note: This HDL assay may give artificially low results in patients with liver disease. Blood Venous blood specimen / Unknown 10/22/2024 1:43 PM EST 10/22/2024 4:06 PM EST us Jaime Christopher MD LAB BLOOD ORDERABLES Final Result [facility] [address] [place] [phone] * POCT Glucose (10/22/2024 1:20 PM EST) Only the most recent of2 resultswithin the time period is included. Glucose Blood, POC 96 60 - 200 mg/dL QC Media Lot # [id number] Lot# Expiration Date Blood Capillary blood specimen / Unknown 10/22/2024 1:20 PM EST us Jaime Christopher MD POINT OF CARE TEST EN TER/EDIT ORDERABLES Final Result * (ABNORMAL) POCT HGB A1C (09/24/2024 11:20 AM EST) Hemoglobin A1C 7.8(A) 4.0 - 6.0 % QC Media Lot # [id number] Lot# Expiration Date Blood 09/24/2024 11:2 0 AM EST us Jaime Christopher MD POINT OF CARE TEST EN TER/EDIT ORDERABLES Final Result * (ABNORMAL) CBC auto differential (09/15/2024 11:04 PM EST) White Blood Count 6.4 4.8 - 10.8 X10*3/uL [facility] Red Blood Count 4.16(L) 4.20 - 5.50 X10*6/uL [facility] Hemoglobin 12.4 12.0 - 16.0 g/dl [facility] Hematocrit 37.0 37.0 - 47.0 % [facility] Mean Corpuscular Volume 88.9 80.0 - 98.0 fL [facility] Mean Corpuscular Hemoglobin 29.8 27.0 - 33.0 pg [facility] Mean Corpuscular HGB Conc 33.5 31.0 - 35.0 g/dl [facility] Red Cell Distribution Width 13.2 11.0 - 16.0 % [facility] Platelet Count 359 160 - 400 X10*3/uL [facility] Mean Platelet Volume 8.8(L) 9.4 - 12.3 fL [facility] Neutrophils Percent Auto 49.8 45 - 73 % [facility] Imm Gran Pct Auto 0.3 0.0 - 0.4 % [facility] Lymphocytes Percent Auto 36.7 20 - 40 % [facility] Monocytes Percent Auto 9.6 2 - 11 % [facility] Eosinophils Percent Auto 2.8 0 - 4 % [facility] Basophils Percent Auto 0.8 0 - 2 % [facility] NRBC Pct Auto 0.0 0.0 - 0.2 /100WBC [facility] Neutrophils Absolute Auto 3.2 2.0 - 8.3 x10*3/uL [facility] Imm Gran Abs Auto 0.02 0.00 - 0.03 X10*3/uL [facility] Lymphocytes Absolute Auto 2.4 1.2 - 4.9 X10*3/uL [facility] Monocytes Absolute Auto 0.6 0.1 - 1.2 X10*3/uL [facility] Eosinophils Absolute Auto 0.2 0.0 - 0.4 X10*3/uL [facility] Basophils Absolute Auto 0.1 0.0 - 0.2 X10*3/uL [facility] NRBC Abs Auto 0.000 0.0 - 0.012 X10*3/uL [facility] 09/15/2024 11:0 4 PM EST 09/15/2024 11:12 PM EST us Generic External Data Provider LAB BLOOD ORDERAB LES Final Result Performing Organization Address [facility] Phone Number [facility] [address] [place] [phone] * B Type Natriuretic Peptide (BNP) (09/15/2024 11:04 PM EST) Pathologist [facility] B Type Natriuretic Peptide 35 <100 pg/mL [facility] Comment:For those patients w ho are being treated with Natrecor(nesiritide, recombinant BNP), BNP testing should beperformed at least two hours post treatment in order toensure that only endogenous levels of BNP are detected. 09/15/2024 11:0 4 PM EST 09/15/2024 11:12 PM EST Generic External Data Provider LAB BLOOD ORDERAB LES Final Result Performing Organization Address [facility] Number [facility] [address] [place] [phone] * Magnesium (09/15/2024 11:04 PM EST) Pathologist [facility] Magnesium 1.7 1.6 - 2.6 mg/dL [facility] 09/15/2024 11:0 4 PM EST 09/15/2024 11:12 PM EST Generic External Data Provider LAB BLOOD ORDERAB LES Final Result Performing Organization Address [facility] Phone Number [facility] [address] [place] [phone] * (ABNORMAL) Comprehensive Metabolic Panel (09/15/2024 11:04 PM EST) Pathologist [facility] Sodium 142 135 - 145 mmol/L [facility] Potassium 3.9 3.3 - 5.1 mmol/L [facility] Chloride 107 96 - 108 mmol/L [facility] Carbon Dioxide 24 22 - 29 mmol/L [facility] Anion Gap 15 12 - 20 [facility] Urea Nitrogen (BUN) 30(H) 9 - 16 mg/dL [facility] Creatinine, Serum 0.93 0.5 - 1.4 mg/dL [facility] Creatinine Clr Calc Pharmacy 45.5 [facility] Comment:Provided height and weight: 162.56 cm,72.575 kg.eGFR (calculated from the MDRD study equation) and eCrCl(calculated from the Cockcroft-Gault equation) are based ondifferent parameters and may not yield comparable results.If eCrCl result is absurd, please check patient'sheight/weight. Estimated Glomerular Filt Rate 58 [facility] Comment:Chronic Kidney Disea se: Estimated GFR < 60 mL/min/[id number] Kidney Disease: Estimated GFR < 15 mL/min/1.73m2 Glucose 122(H) 60 - 115 mg/dL [facility] Calcium 9.3 8.4 - 10.2 mg/dL [facility] Bilirubin, Total 0.3 0.0 - 1.0 mg/dL [facility] Aspartate Amino Transferase 22 5 - 31 U/L [facility] Alanine Aminotransferase 23 0 - 31 U/L [facility] Total Protein 8.0 6.5 - 8.0 g/dL [facility] Albumin Level 4.4 3.5 - 5.0 g/dL [facility] Alkaline Phosphatase 61 39 - 117 U/L [facility] 09/15/2024 11:0 4 PM EST 09/15/2024 11:12 PM EST us Generic External Data Provider LAB BLOOD ORDERAB LES Final Result [facility] [address] [place] [address] [phone] from Last 3 Months Insurance [facility] Member Subscriber Plan / Payer (Ef fective 2024-Present) Name:Nola Styles Relation to Subscriber:Self Name:Nola Styles Payer ID:Not on file Type:Not on file Address: [address] MEDICARE ADVANTAGE Care Teams Plant Operator Control Room Operator Relationship Specialty Start Date End Date Jaime Mares MD [address] [place] [phone] PCP - General Internal Medicine 06/23/14
--- OUTSIDE RECORDS SUMMARY | 2024-10-22 17:15 | XMS_ITS | Encounter Summary ---
Author Organization [employer] Address [address] [facility] [address] [place] [address] Care Team Providers Care Supervisor Slitting And Shipping Name Role Phone Jaime Mares MD Primary Care Provide r Reason for Visit * Reason Comments Med Refill Encounter Details Date Type Department Care Team ([facility] Contact Info) Description 10/06/2024 Refill [facility] [address] [place] [address] Jaime Mares MD [address] [place] [address] Type 2 diabetes mellitus with diabetic polyneuropathy, without long-term current use of insulin ([facility]); Essential hypertension; Mixed hyperlipidemia Social History Tobacco Use Types Packs/Day Years [...] Description 11/22/2024 11:30 AM EDT Clinical Support [address] [address] 01/23/2025 11:15 AM EDT Office Visit [address] [address] Jaime Mares MD [address] [place] [phone] documented as of this encounter Visit Diagnoses Diagnosis Type 2 diabetes mellitus with diabetic polyneuropathy, without long-term current use of insulin ([facility]) Essential hypertension Unspecified essential hypertension Mixed hyperlipidemia documented in this encounter Additional Health Concerns Assessment Noted Time PHQ-9 Depression Total Score: 3 09/24/19 25 11:09 AM EST documented as of this encounter Care Teams Supervisor Slitting And Shipping Relationship Specialty Start Date End Date Jaime Mares MD [address] [place] [phone] PCP - General Internal Medicine 06/23/14 documented as of this encounter
--- OUTSIDE RECORDS SUMMARY | 2024-10-22 17:15 | XMS_ITS | Encounter Summary ---
Author Organization [employer] Address [address] [facility] [address] [place] [address] Care Team Providers Care Tangled Yarn Worker Name Role Phone Jaime Mares MD Primary Care Provide r Encounter Details Date Type Department Care Team (Late st Contact Info) Description 11/23/2022 Orders Only [facility] [address] [place] [address] Duyen Burgess LPN Social History Tobacco Use [...] Description 11/22/2024 11:30 AM EDT Clinical Support [address] [address] 01/23/2025 11:15 AM EDT Office Visit [address] [address] Jaime Mares MD [address] [place] [phone] documented as of this encounter Visit Diagnoses Not on filedocumented in this encounter Care Teams Tangled Yarn Worker Relationship Specialty Start Date End Date Jaime Mares MD [address] [place] [address] PCP - General Internal Medicine 06/23/14 documented as of this encounter
--- OUTSIDE RECORDS SUMMARY | 2024-10-22 17:15 | XMS_ITS | Encounter Summary ---
Author Organization [employer] Address [address] [facility] [address] [place] [address] Care Team Providers Care Tours Hostess Name Role Phone Jaime Mares MD Primary Care Provide r Reason for Visit * Reason Onset Date Comments triage 08/23/2022 Encounter Details Date Type Department Care Team ([facility] st Contact Info) Description 08/23/2022 Telephone [facility] MEDICINE [address] [place] [address] Jaime Mares MD [address] [place] [address] triage Social History Tobacco Use Types Packs/Day [...] 08/23/2022 1:08 PM EST Triage call with [employer] Remote Sensing Specialist ID [id number] Pt reports home tested + for Covid this morning. Pt symptoms are mild with runny nose, sneezing, nasal congestion, dry cough, neg for fever, diarrhea, nausea. Pt was given home care handouts via textin vincentian. Home care disposition agreed with and home care reviewed thoroughly. Pt is asking aboutmedications and if BP meds can be taken with certain cough syrups. Scheduled a tele visit with FORKLIFT OPERATOR Catalina tejeda at 315pm . Insurance is [...] COVID-19 * Clean Your Hands Often Cough (Faroese) handout sent to [phone] CDC: Sick With COVID-19 (Faroese) handout sent to [phone] * Telephone Encounter - Alejandra Ferreira - 08/23/2022 11:28 AM EST Patient calling to report Covid positive pt sneezing x 1 day. Patient speaks (Faroese). Advised triage nurse will call patient back. documented in this encounter Plan of Treatment Upcoming Encounters Date Type Department Care Team (Late st Contact Info) Description 11/22/2024 11:30 AM EDT Clinical Support [address] [address] 01/23/2025 11:15 AM EDT Office Visit [address] [place] [address] Jaime Mares MD [address] [place], [place] [phone] documented as of this encounter Visit Diagnoses Not on filedocumented in this encounter Care Teams Tours Hostess Relationship Specialty Start Date End Date Jaime Mares MD [address] [place], [place] [phone] PCP - General Internal Medicine 06/23/14 documented as of this encounter
== END 2024-10-22 13:42 | disposition home or self-care (01) ==
LOC: HO.HHCL 13:41
PROVIDERS: Visit Provider Internal Medicine
DX: E78.2 Mixed hyperlipidemia (principal); E03.9 Hypothyroidism, unspecified; E11.42 Type 2 diabetes mellitus with diabetic polyneuropathy
CPT/HCPCS: 36415; 80061; 82043; 82570; 84443

== ENCOUNTER 2024-10-25 10:56 | Outpatient (REF) | payer MEDICARE, SELFPAY ==
--- NOTE | ~2024-10-25 | MM_ITS ---
EXAMINATION: DXA BONE DENSITY AXIAL HISTORY: Estrogen deficiency TECHNIQUE: IRIS-RFID Dual energy absorptiometry (DEXA) of the lumbar spine, total left hip, and femoral neck was performed. COMPARISON: Comparison is made with the prior examination dated 02/04/2014. FINDINGS: The bone mineral density of the lumbar spine is 0.865 with a T-score of -2.5, and a Z-score of -0.8. This represents a BMD change of 5.1% compared to the prior exam. This is statistically significant. The bone mineral density of the left total hip is 0.947 with a T-score of -0.5, and a Z-score of 1.5. This represents BMD change of 4.4% compared to the prior exam. This is statistically significant. The bone mineral density of the left femoral neck is 0.928 with a T-score of -0.8, and a Z-score of 1.4. This represents BMD change of 4.0% compared to the prior exam. FRACTURE RISK: The FRAX index suggests a ten year probability of major osteoporotic fracture of 6.4%, and of hip fracture 1.2%. MM/XR DEXA axial skeleton IMPRESSION: Based on bone mineral density, and according to World Health Organization (WHO) criteria, the diagnosis is consistent with osteoporosis. All bone density values are in grams per centimeter squared (g/cm2). Statistically, 68% of repeat scans fall within 1 SD (+/- 0.010 g/cm2 for AP spine L1-L4) and 1 SD (+/- 0.012 g/cm2 for femur total) FRAX is a trademark of the [employer] [employer] Metabolic Bone Disease, a World Health Organization (WHO) Collaborating Center. Electronically signed by: Cristhian Draper MD 10/25/2024 01:40 PM EST
--- OUTSIDE RECORDS SUMMARY | 2024-10-25 12:37 | XMS_ITS | Encounter Summary ---
Author Organization [employer] Address [address] [facility] 7 [place] [address] Care Team Providers Care Offshore Wind Turbine Technician Name Role Phone Jaime Mares MD Primary Care Provide r Reason for Visit * Reason Onset Date Comments Returning Call 09/23/2024 Encounter Details Date Type Department Care Team ([facility] st Contact Info) Description 09/23/2024 Telephone [facility] MEDICINE [address] [place] [address] Jaime Mares MD [address] [place] [address] Returning Call Social History Tobacco Use Types [...] states that she was contacted by [facility]. Pt confirms that she went to her scheduled office visit yesterday with PCP and currently has no further questions or concerns at this time. Pt to call back PRN * Telephone Encounter - Mauro Toribio - 09/24/2024 3:52 PM EST TC from pt returning call regarding prior message. Contact pt at [phone] (Bulgarian) * Telephone Encounter - Edwina Espinosa RN - 09/23/2024 11:30 AM EST TC placed to pt and LVM to call back the office * Telephone Encounter - Ferny James - 09/23/2024 9:53 AM EST Tc from pt requesting a call back because pt states that she received a phone call from [place] but doesn't know from who. Pt contact: [phone] documented in this encounter Plan of Treatment Upcoming Encounters Date Type Department Care Team (Late st Contact Info) Description 11/22/2024 11:30 AM EDT Clinical Support [address] [address] 01/23/2025 11:15 AM EDT Office Visit [address] [address] Jaime Mares MD [address] [place] [address] documented as of this encounter Visit Diagnoses Not on filedocumented in this encounter Additional Health Concerns Assessment Noted Time PHQ-9 Depression Total Score: 1 12/05/19 24 9:34 AM EDT documented as of this encounter Care Teams Offshore Wind Turbine Technician Relationship Specialty Start Date End Date Jaime Mares MD [address] [place] [phone] PCP - General Internal Medicine 06/23/14 documented as of this encounter
--- OUTSIDE RECORDS SUMMARY | 2024-10-25 12:37 | XMS_ITS | Encounter Summary ---
Author Organization [employer] Address [address] [facility] 7[address] [place] [address] Care Team Providers Care Mechanical Assembler Name Role Phone Jaime Mares MD Primary Care Provide r Reason for Visit * Reason Comments Med Refill Encounter Details Date Type Department Care Team ([facility] Contact Info) Description 10/06/2024 Refill [facility] MEDICINE [address] [place] [address] Jaime Mares MD 230 [place] [address] Type 2 diabetes mellitus with diabetic polyneuropathy, without long-term current use of insulin ([facility]); Essential hypertension; Mixed hyperlipidemia Social History Tobacco [...] Description 11/22/2024 11:30 AM EDT Clinical Support [address] [address] 01/23/2025 11:15 AM EDT Office Visit [address] [address] Jaime Mares MD [address] [place] [phone] documented as of this encounter Visit Diagnoses Diagnosis Type 2 diabetes mellitus with diabetic polyneuropathy, without long-term current use of insulin ([facility]) Essential hypertension Unspecified essential hypertension Mixed hyperlipidemia documented in this encounter Additional Health Concerns Assessment Noted Time PHQ-9 Depression Total Score: 3 09/24/19 25 11:09 AM EST documented as of this encounter Care Teams Mechanical Assembler Relationship Specialty Start Date End Date Jaime Mares MD [address] [place] [phone] PCP - General Internal Medicine 06/23/14 documented as of this encounter
--- OUTSIDE RECORDS SUMMARY | 2024-10-25 12:37 | XMS_ITS | Encounter Summary ---
Author Organization [employer] Address [address] [facility] [address] [address] Care Team Providers Care Field Artillery Fire Control Man Name Role Phone Jaime Mares MD Primary Care Provide r Encounter Details Date Type Department Care Team (Late st Contact Info) Description 11/23/2022 Orders Only [facility] CHC MED & PEDS [address] [place] [address] Duyen Burgess LPN Social History Tobacco Use [...] Description 11/22/2024 11:30 AM EDT Clinical Support [address] [address] 01/23/2025 11:15 AM EDT Office Visit [address] [address] Jaime Mares MD [address] [place] [address] documented as of this encounter Visit Diagnoses Not on filedocumented in this encounter Care Teams Field Artillery Fire Control Man Relationship Specialty Start Date End Date Jaime Mares MD 230 [place] [address] PCP - General Internal Medicine 06/23/14 documented as of this encounter
--- OUTSIDE RECORDS SUMMARY | 2024-10-25 12:37 | XMS_ITS | Encounter Summary ---
Author Organization [employer] Address [address] [facility] 7 [place] [address] Care Team Providers Care Coal And Ash Supervisor Name Role Phone Jaime Mares MD Primary Care Provide r Reason for Visit * Reason Comments Follow-up Encounter Details Date Type Department Care Team (Latest Contact Info) Description 10/22/2024 1:15 PM EST Office Visit [facility] MEDICINE [address] [place] [address] Jaime Mares MD 230 [place] [address] Vascular insufficiency of extremity (Primary Dx); Type 2 diabetes mellitus with diabetic polyneuropathy, without long-term current use of insulin ([facility]); Essential hypertension; Mixed hyperlipidemia; Acquired hypothyroidism; Preventative [...] polyneuropathy, without long-term current use of insulin ([facility]) Patient is here for a f/u a Hgb A1c on 09/24/2024: 7.8 down to 8 from 10 She is on a regimen of Metformin XR 500 mg 2 tabs po BID and Glipizide ER 10 mg po Daily she is getting med boxes. Did not bring Glucometer today Plan: No changes until she brings her glucometer Eye exam was done on 12/12/13 via [facility] Microalbumin re ordered Foot check [...] polyneuropathy, without long-term current use of insulin ([facility]) Patient is here for a f/u a Hgb A1c on 09/24/2024: 7.8 down to 8 from 10 She is on a regimen of Metformin XR 500 mg 2 tabs po BID and Glipizide ER 10 mg po Daily she is getting med boxes. Did not bring Glucometer today Plan: No changes until she brings her glucometer Eye exam was done on 12/12/13 via [facility] Microalbumin re ordered Foot check [...] Description 11/22/2024 11:30 AM EDT Clinical Support [facility] [address] [facility] [place] [address] 01/23/2025 11:15 AM EDT Office Visit [facility] [address] [facility] [place] [address] Jaime Mares MD [address] [facility] [place] [address] documented as of this encounter Procedures Procedure Name Priority Date/Time Associated Diagnosis Comments TSH W/REFLEX TO FT4 Routine 10/22/2024 1:43 PM EST Acquired hypothyroidism ALBUMIN, RANDOM URINE W/CREATININE Routine 10/22/2024 1:43 PM EST Type 2 diabetes mellitus with diabetic polyneuropathy, without long-term current use of insulin ([facility]) LIPID PANEL, STANDARD Routine 10/22/2024 1:43 PM EST Mixed hyperlipidemia POCT GLUCOSE Routine 10/22/2024 1:20 PM EST Type 2 diabetes mellitus with diabetic polyneuropathy, without long-term current use of insulin ([facility]) documented in this encounter Results * (ABNORMAL) Lipid Panel, Standard (10/22/2024 1:43 PM EST) Triglycerides 205(H) <150 mg/dL [facility] Comment:Desirable Triglyceri de: less than 150 mg/dLBorderline High Triglyceride 150-199 mg/dLHigh Triglyceride: 200-499 mg/dLVery High Triglyceride: greater than or equal to 5OO mg/dL Cholesterol 227(H) <200 mg/dL [facility] Comment:Desirable Cholestero l: less than 200 mg/dLBorderline High Cholesterol: 200-239 mg/dLHigh Cholesterol: greater than 239 mg/dL LDL Cholesterol Calculated 139(H) <100 mg/dL [facility] Comment:Desirable LDL: less than 100 mg/dLNear Optimal/Above Optimal LDL: 110- 129 mg/dLBorderline High LDL: 130-159 mg/dLHigh LDL: 160-189 mg/dLVery High LDL: greater than or equal to 190 mg/dL HDL Cholesterol 47 >40 mg/dL [facility] Comment:Desirable HDL: great er than 40 mg/dL Note: This HDL assay may give artificially low results in patients with liver disease. Blood Venous blood specimen / Unknown 10/22/2024 1:43 PM EST 10/22/2024 4:06 PM EST Jaime Christopher MD LAB BLOOD ORDERABLES Final Result Performing Organization Address [facility]/ZIP Co de Phone Number [facility] [address] [place] [phone] * TSH with Reflex to Free T4 (10/22/2024 1:43 PM EST) TSH reflex Free T4 1.07 0.32 - 4.0 uIU/mL [facility] Blood Venous blood specimen / Unknown 10/22/2024 1:43 PM EST 10/22/2024 4:06 PM EST Jaime Christopher MD LAB BLOOD ORDERABLES Final Result Performing Organization Address [facility] Co de Phone Number [facility] [address] [place] [phone] * (ABNORMAL) Albumin, Random Urine W/Creatinine (10/22/2024 1:43 PM EST) Creatinine, Urine 24.46 mg/dL [facility] Microalbumin Urine 13.0 mg/L H [facility] Microalbum Creatinine Ratio Ur 53.1(H) <30 ug/mg cr [facility] Comment:Albumin/Creatinine R atio Reference Ranges: Normal: < 30 ug/mg creatinine Microalbuminuria: 30 - 300 ug/mg creatinineClinical Albuminuria: > 300 ug/mg creatinine Urine (Urine, Random) 10/22/2024 1:43 PM EST 10/22/2024 4:36 PM EST Jaime Christopher MD LAB URINE ORDERABLES Final Result [facility] [address] [place] [address] [phone] * POCT Glucose (10/22/2024 1:20 PM EST) Glucose Blood, POC 96 60 - 200 mg/dL QC Media Lot # [id number] Lot# Expiration Date [id number] Blood Capillary blood specimen / Unknown 10/22/2024 1:20 PM EST Jaime Christopher MD POINT OF CARE TEST EN TER/EDIT ORDERABLES Final Result documented in this encounter Visit Diagnoses Diagnosis Vascular insufficiency of extremity- Primary Type 2 diabetes mellitus with diabetic polyneuropathy, without long-term current use of insulin ([facility]) Essential hypertension Unspecified essential hypertension Mixed hyperlipidemia Acquired hypothyroidism Unspecified hypothyroidism Preventative health care Routine general medical examination at a health care facility Neuropathic pain of both legs documented in this encounter Additional Health Concerns Assessment Noted Time PHQ-9 Depression Total Score: 3 09/24/19 25 11:09 AM EST documented as of this encounter Care Teams Coal And Ash Supervisor Relationship Specialty Start Date End Date Jaime Mares MD [address] [place] [phone] PCP - General Internal Medicine 06/23/14 documented as of this encounter
--- OUTSIDE RECORDS SUMMARY | 2024-10-25 12:37 | XMS_ITS | Encounter Summary ---
Author Organization [employer] [facility] Address [address] [facility] [address] [address] Care Team Providers Care Milk Vendor Name Role Phone Jaime Mares MD Primary Care Provide r Encounter Details Date Type Department Care Team (Late st Contact Info) Description 01/23/2023 Orders Only [facility] CHC MED & PEDS [address] [place] [address] Duyen Burgess LPN Social History Tobacco Use [...] Description 11/22/2024 11:30 AM EDT Clinical Support [address] [address] 01/23/2025 11:15 AM EDT Office Visit [address] [address] Jaime Mares MD [address] [place] [address] documented as of this encounter Visit Diagnoses Not on filedocumented in this encounter Care Teams Milk Vendor Relationship Specialty Start Date End Date Jaime Mares MD [address] [place] [address] PCP - General Internal Medicine 06/23/14 documented as of this encounter
--- OUTSIDE RECORDS SUMMARY | 2024-10-25 12:37 | XMS_ITS | Encounter Summary ---
Author Organization [employer] Address 75 [facility] 7 [place] [address] Care Team Providers Care Special Machine Stitcher Name Role Phone Jaime Mares MD Primary Care Provide r Reason for Visit * Reason Onset Date Comments Medication Question 09/19/2024 Encounter Details Date Type Department Care Team ([facility] st Contact Info) Description 09/19/2024 Telephone [facility] MEDICINE [address] [place] [address] Jaime Mares MD [address] [place] [address] Medication Question Social History Tobacco Use Types [...] Description 11/22/2024 11:30 AM EDT Clinical Support [facility] MEDICINE [address] [place] [phone] 01/23/2025 11:15 AM EDT Office Visit [facility] MEDICINE [address] [place] [phone] Jaime Mares MD [address] [place] [address] documented as of this encounter Visit Diagnoses Not on filedocumented in this encounter Additional Health Concerns Assessment Noted Time PHQ-9 Depression Total Score: 1 12/05/19 24 9:34 AM EDT documented as of this encounter Care Teams Special Machine Stitcher Relationship Specialty Start Date End Date Jaime Mares MD [address] [place] [phone] PCP - General Internal Medicine 06/23/14 documented as of this encounter
--- OUTSIDE RECORDS SUMMARY | 2024-10-25 12:37 | XMS_ITS | Clinical Summary ---
Author Organization [employer] Address [address] [place] [address] 7t [place] [address] Care Team Providers Care Cotton Ball Machine Tender Name Role Phone Jaime Mares MD Primary [...] polyneuropathy, without long-term current use of insulin ([facility]) TAKE 1 TABLET BY MOUTH EVERY MORNING [...] day. 30 tablet 3 10/23/19 25 Active simvastatin (Zocor) 80 MG tabletIndications :Mixed hyperlipidemia TAKE 1 TABLET BY MOUTH EVERY EVENING 90 tablet 1 04/11/20 24 025 Discontinued Calcium Carb-Cholecalcife rol (Oyster Shell Calcium w/D) 500-5 MG-MCG tablet TAKE 1 TABLET BY MOUTH TWICE DAILY IN THE MORNING AND IN THE EVENING 180 tablet 04/11/20 025 Discontinued levothyroxine (Synthroid, Levoxyl) 75 MCG tablet TAKE 1 TABLET BY MOUTH EVERY MORNING 90 tablet 1 04/11/20 24 025 Discontinued atenolol (Tenormin) 100 MG tabletIndications :Essential hypertension TAKE 1 TABLET BY MOUTH EVERYDAY AT NOON 90 tablet 1 04/11/20 24 025 Discontinued hydroCHLOROthiazi de (HYDRODiuril) 50 MG tabletIndications :Essential hypertension TAKE 1 TABLET BY MOUTH EVERY MORNING 90 tablet 1 04/11/20 24 025 Discontinued glipiZIDE XL (Glucotrol XL) 10 MG 24 hr tabletIndications :Type 2 diabetes mellitus with diabetic polyneuropathy, without long-term current use of insulin ([facility]) TAKE 1 TABLET BY MOUTH EVERY MORNING WITH BREAKFAST 90 tablet 1 04/11/20 24 025 Discontinued Active Problems Problem Noted Date Diagnosed [...] Trial of gabapentin 300 mg po TID [facility] care 12/05/2023 Assessment & Plan (10/22/2024 1:26 [...] mckinney Brown, irregular borders, seborrheic hyperkeratosis Plan: [facility] Diabetes mellitus with diabe tic [...] Eye exam was done on 12/12/13 via [facility] Microalbumin re ordered Foot check [...] Eye exam was done on 12/12/13 via [facility] Microalbumin 08/27/2019 was 5 ,pt on ARB. will repeat Foot check risk of zero, on Asa daily. Adhere to diabetic diet check your blood sugars regularly check your feet on a daily basis f/u 3 months Assessment & Plan (12/06/2023 1:49 PM EDT): Patient is here for a f/u after a long hiatus, was living in [place] and was without medications for months, upon [...] Eye exam was done on 12/12/13 via [facility] Microalbumin 08/27/2019 was 5 ,pt [...] after a long hiatus. Pt was in [place] BP remains uncontrolled She is on a [...] after a long hiatus. Pt was in [place] BP remains uncontrolled She is on a [...] get up to use the bathroom at [facility]. Most recent electrolytes, Bun and [...] a previous MRI done [place] [facility] that showed a heterogeneous mass like structure [...] radiologist. Pt was referred to [facility] and pt told me she [...] used to be under the care of [facility] Pain management. Last seen 02/25/2022 Pt has [...] MRI 11/25/2020 (Please see scanned document) The graphics specialist at [facility] already reviewed her MRI and has recommended a steroid injections. She has had good results with them in the past. MRI booked for 02/16/24 @10:30AM Assessment & Plan (12/06/2023 1:54 PM EDT): Pt c/o persistent low back pain She used to be under the care of [facility] Pain management. Last seen 02/25/2022 Pt has [...] MRI 11/25/2020 (Please see scanned document) The graphics specialist at [facility] already reviewed her MRI and has recommended [...] Description 10/22/2024 1:15 PM EST Office Visit [facility] [address] [place] [phone] Jaime Mares MD Vascular insufficiency of extremity (Primary Dx); Type 2 diabetes mellitus with diabetic polyneuropathy, without long-term current use of insulin (CMS/HCC); Essential hypertension; Mixed hyperlipidemia; Acquired hypothyroidism; Preventative health care; Neuropathic pain of both legs 10/22/2024 Travel 10/06/2024 Refill [facility] Prabhjot Sebastian, [place] [address] Jaime Mares MD Type 2 diabetes mellitus with diabetic polyneuropathy, without long-term current use of insulin (CMS/HCC); Essential hypertension; Mixed hyperlipidemia 10/04/2024 Telephone [facility] Prabhjot Sebastian, [place] [address] Jaime Mares MD Chart Prep 09/24/2024 11:00 AM EST Office Visit [facility] [place] [address] Jaime Mares MD Essential hypertension (Primary Dx); Type 2 diabetes mellitus with diabetic polyneuropathy, without long-term current use of insulin ([facility]); Acquired hypothyroidism; Mixed hyperlipidemia; Uncontrolled type 2 diabetes mellitus with hyperglycemia ([facility]); Vascular insufficiency of extremity; Osteoporosis, unspecified osteoporosis type, unspecified pathological fracture presence; Encounter for immunization; Neuropathic pain of both legs 09/24/2024 Travel 09/23/2024 Telephone [facility] [place] [place] [address] Jaime Mares MD Returning Call 09/23/2024 Telephone [facility] [place] [place] [address] Jaime Mares MD Chart Prep 09/19/2024 Telephone [facility] [place] [place] [address] Jaime Mares MD Medication Question 09/19/2024 Telephone [facility] Prabhjot Sebastian, [place] [address] Jaime Mares MD Referral 09/19/2024 Telephone [facility] [place] [place] [address] Jaime Mares MD Referral; New Med Request 09/17/2024 Telephone [facility] [place] [place] [address] Jaime Mares MD ER Follow-up 09/15/2024 Orders Only GENERIC EXTERNAL DATA DEPARTMENT Provider, Generic External Data 09/06/2024 Telephone [facility] [address], [place] [address] Jaime Mares MD Referral 09/06/2024 Telephone [facility] [address], [place] [address] Jaime Mares MD Nurse Triage from Last [...] Description 11/22/2024 11:30 AM EDT Clinical Support [facility] [address] [place] [phone] 01/23/2025 11:15 AM EDT Office Visit [facility] [address] [place] [phone] Jaime Mares MD [address] [place] [phone] Health Maintenance Due Date Last Done Comments Eye Exam 1950 Zoster Vaccines (2 of 3) 12/29/2015 11/03/2015 RSV Patients and Patients Aged 60 years or older (1 - 1-dose 75+ series) 2017 COVID-19 Vaccine ( season) 2024 03/17/2022, 05/19/2021, 10/19/2020, Additional history exists Diabetes: Foot Exam 12/04/2024 12/05/2023, 12/05/2023, 12/05/2023, Additional history exists Diabetes: Hemoglobin A1C 12/22/2024 025, 02/06/2024, 11/06/2023, Additional history exists Alcohol/Substance Use Screening 09/24/2025 09/24/2024 Depression Screening 09/24/2025 09/24/2024, 09/24/19 SDOH Screening 09/24/2025 09/24/2024 Tobacco Screening 09/24/2025 09/24/2024 Diabetes: Urine Protein Screening 10/22/2025 10/22/2024, 06/27/2022, 11/25/2020, Additional history exists Lipid Panel 10/22/2025 10/22/2024, 01/19, 06/27/2022 DTaP/Tdap/Td Vaccines (2 - Td or Tdap) [...] polyneuropathy, without long-term current use of insulin ([facility]) POCT GLUCOSE Routine 10/22/2024 1:20 PM EST Type 2 diabetes mellitus with diabetic polyneuropathy, without long-term current use of insulin ([facility]) POCT GLYCATED HEMOGLOBIN, TOTAL Routine 09/24/2024 11:20 AM EST Type 2 diabetes mellitus with diabetic polyneuropathy, without long-term current use of insulin ([facility]) POCT GLUCOSE Routine 09/24/2024 11:16 AM EST Type 2 diabetes mellitus with diabetic polyneuropathy, without long-term current use of insulin ([facility]) MAGNESIUM Routine 09/15/2024 11:04 PM EST B TYPE NATRIURETIC PEPTIDE (BNP) Routine 09/15/2024 11:04 PM EST COMPREHENSIVE METABOLIC PANEL Routine 09/15/2024 11:04 PM EST CBC WITH AUTO DIFFERENTIAL Routine 09/15/2024 11:04 PM EST from Last 3 Months Results * TSH with Reflex to Free T4 (10/22/2024 1:43 PM EST) TSH reflex Free T4 1.07 0.32 - 4.0 uIU/mL [facility] Blood Venous blood specimen / Unknown 10/22/2024 1:43 PM EST 10/22/2024 4:06 PM EST us Jaime Christopher MD LAB BLOOD ORDERABLES Final Result [facility] [address] [place] [address] [phone] * (ABNORMAL) Albumin, Random Urine W/Creatinine (10/22/2024 1:43 PM EST) Creatinine, Urine 24.46 mg/dL [facility] Microalbumin Urine 13.0 mg/L [facility] Microalbum Creatinine Ratio Ur 53.1(H) <30 ug/mg cr [facility] Comment:Albumin/Creatinine R atio Reference Ranges: Normal: < 30 ug/mg creatinine Microalbuminuria: 30 - 300 ug/mg creatinineClinical Albuminuria: > 300 ug/mg creatinine Urine (Urine, Random) 10/22/2024 1:43 PM EST 10/22/2024 4:36 PM EST Jaime Christopher MD LAB URINE ORDERABLES Final Result [facility] [address] [place] [address] [phone] * (ABNORMAL) Lipid Panel, Standard (10/22/2024 1:43 PM EST) Triglycerides 205(H) <150 mg/dL [facility] Comment:Desirable Triglyceri de: less than 150 mg/dLBorderline High Triglyceride 150-199 mg/dLHigh Triglyceride: 200-499 mg/dLVery High Triglyceride: greater than or equal to 5OO mg/dL Cholesterol 227(H) <200 mg/dL [facility] Comment:Desirable Cholestero l: less than 200 mg/dLBorderline High Cholesterol: 200-239 mg/dLHigh Cholesterol: greater than 239 mg/dL LDL Cholesterol Calculated 139(H) <100 mg/dL [facility] Comment:Desirable LDL: less than 100 mg/dLNear Optimal/Above Optimal LDL: 110- 129 mg/dLBorderline High LDL: 130-159 mg/dLHigh LDL: 160-189 mg/dLVery High LDL: greater than or equal to 190 mg/dL HDL Cholesterol 47 >40 mg/dL [facility] Comment:Desirable HDL: great er than 40 mg/dL Note: This HDL assay may give artificially low results in patients with liver disease. Blood Venous blood specimen / Unknown 10/22/2024 1:43 PM EST 10/22/2024 4:06 PM EST Jaime Christopher MD LAB BLOOD ORDERABLES Final Result [facility] [address] [place] [phone] * POCT Glucose (10/22/2024 1:20 PM EST) Only the most recent of2 resultswithin the time period is included. [facility] Glucose Blood, POC 96 60 - 200 mg/dL QC Media Lot # [id number] Lot# Expiration Date Blood Capillary blood specimen / Unknown 10/22/2024 1:20 PM EST Jaime Christopher MD POINT OF CARE TEST EN TER/EDIT ORDERABLES Final Result * (ABNORMAL) POCT HGB A1C (09/24/2024 11:20 AM EST) [facility] Hemoglobin A1C 7.8(A) 4.0 - 6.0 % QC Media Lot # [id number] Lot# Expiration Date Blood 09/24/2024 11:2 0 AM EST Jaime Christopher MD POINT OF CARE TEST EN TER/EDIT ORDERABLES Final Result * (ABNORMAL) CBC auto differential (09/15/2024 11:04 PM EST) [facility] White Blood Count 6.4 4.8 - 10.8 X10*3/uL [facility] Red Blood Count 4.16(L) 4.20 - 5.50 X10*6/uL [facility] Hemoglobin 12.4 12.0 - 16.0 g/dl [facility] Hematocrit 37.0 37.0 - 47.0 % [facility] Mean Corpuscular Volume 88.9 80.0 - 98.0 fL [facility] Mean Corpuscular Hemoglobin 29.8 27.0 - 33.0 pg [facility] Mean Corpuscular HGB Conc 33.5 31.0 - 35.0 g/dl [facility] Red Cell Distribution Width 13.2 11.0 - 16.0 % [facility] Platelet Count 359 160 - 400 X10*3/uL [facility] Mean Platelet Volume 8.8(L) 9.4 - 12.3 fL [facility] Neutrophils Percent Auto 49.8 45 - 73 % [facility] Imm Gran Pct Auto 0.3 0.0 - 0.4 % [facility] Lymphocytes Percent Auto 36.7 20 - 40 % [facility] Monocytes Percent Auto 9.6 2 - 11 % [facility] Eosinophils Percent Auto 2.8 0 - 4 % [facility] Basophils Percent Auto 0.8 0 - 2 % [facility] NRBC Pct Auto 0.0 0.0 - 0.2 /100WBC [facility] Neutrophils Absolute Auto 3.2 2.0 - 8.3 x10*3/uL [facility] Imm Gran Abs Auto 0.02 0.00 - 0.03 X10*3/uL [facility] Lymphocytes Absolute Auto 2.4 1.2 - 4.9 X10*3/uL [facility] Monocytes Absolute Auto 0.6 0.1 - 1.2 X10*3/uL [facility] Eosinophils Absolute Auto 0.2 0.0 - 0.4 X10*3/uL [facility] Basophils Absolute Auto 0.1 0.0 - 0.2 X10*3/uL [facility] NRBC Abs Auto 0.000 0.0 - 0.012 X10*3/uL [facility] 09/15/2024 11:0 4 PM EST 09/15/2024 11:12 PM EST Generic External Data Provider LAB BLOOD ORDERAB LES Final Result Performing Organization Address [facility] de Phone Number [facility] [address] [place] [phone] * B Type Natriuretic Peptide (BNP) (09/15/2024 11:04 PM EST) [facility] B Type Natriuretic Peptide 35 <100 pg/mL [facility] Comment:For those patients w ho are being treated with Natrecor(nesiritide, recombinant BNP), BNP testing should beperformed at least two hours post treatment in order toensure that only endogenous levels of BNP are detected. 09/15/2024 11:0 4 PM EST 09/15/2024 11:12 PM EST Generic External Data Provider LAB BLOOD ORDERAB LES Final Result Performing Organization Address [facility] de Phone Number [facility] [address] [place] [phone] * Magnesium (09/15/2024 11:04 PM EST) [facility] Magnesium 1.7 1.6 - 2.6 mg/dL [facility] 09/15/2024 11:0 4 PM EST 09/15/2024 11:12 PM EST Generic External Data Provider LAB BLOOD ORDERAB LES Final Result Performing Organization Address [facility] de Phone Number [facility] [address] [place] [phone] * (ABNORMAL) Comprehensive Metabolic Panel (09/15/2024 11:04 PM EST) [facility] Sodium 142 135 - 145 mmol/L [facility] Potassium 3.9 3.3 - 5.1 mmol/L [facility] Chloride 107 96 - 108 mmol/L [facility] Carbon Dioxide 24 22 - 29 mmol/L [facility] Anion Gap 15 12 - 20 [facility] Urea Nitrogen (BUN) 30(H) 9 - 16 mg/dL [facility] Creatinine, Serum 0.93 0.5 - 1.4 mg/dL [facility] Creatinine Clr Calc Pharmacy 45.5 [facility] Comment:Provided height and weight: 162.56 cm,72.575 kg.eGFR (calculated from the MDRD study equation) and eCrCl(calculated from the Cockcroft-Gault equation) are based ondifferent parameters and may not yield comparable results.If eCrCl result is absurd, please check patient'sheight/weight. Estimated Glomerular Filt Rate 58 [facility] Comment:Chronic Kidney Disea se: Estimated GFR < 60 mL/min/1.94c6Slmkri Kidney Disease: Estimated GFR < 15 mL/min/1.73m2 Glucose 122(H) 60 - 115 mg/dL [facility] Calcium 9.3 8.4 - 10.2 mg/dL [facility] Bilirubin, Total 0.3 0.0 - 1.0 mg/dL [facility] Aspartate Amino Transferase 22 5 - 31 U/L [facility] Alanine Aminotransferase 23 0 - 31 U/L [facility] Total Protein 8.0 6.5 - 8.0 g/dL [facility] Albumin Level 4.4 3.5 - 5.0 g/dL [facility] Alkaline Phosphatase 61 39 - 117 U/L [facility] 09/15/2024 11:0 4 PM EST 09/15/2024 11:12 PM EST us Generic External Data Provider LAB BLOOD ORDERAB LES Final Result [facility] [address] [place] [address] [phone] from Last 3 Months Insurance [facility] Member Subscriber Plan / Payer (Ef fective 2024-Present) Name:Nola Styles Relation to Subscriber:Self Name:Nola Styles Payer ID:Not on file Type:Not on file Address: [address] MED[address] ADVANTAGE Member Subscriber Plan / Payer (Ef fective 2024-Present) Name:Nola Styles Relation to Subscriber:Self Name:Nola Styles Payer ID:Not on file Type:Not on file Address: [address] Care Teams Cotton Ball Machine Tender Relationship Specialty Start Date End Date Jaime Mares MD [address] [place] [address] PCP - General Internal Medicine 06/23/14
--- OUTSIDE RECORDS SUMMARY | 2024-10-25 12:37 | XMS_ITS | Encounter Summary ---
Author Organization [email or web address] Address [address] [facility] 7t [place] [address] Care Team Providers Care Auto Parts Professional Name Role Phone Jaime Mares MD Primary Care Provide r Reason for Visit * Reason Comments Med Refill Encounter Details Date Type Department Care Team ([facility] Contact Info) Description 06/05/2024 Refill [facility] [address] [place] [address] Olya Harris MD [address] [place] [address] Type 2 diabetes mellitus with diabetic polyneuropathy, without long-term current use of insulin ([facility]) Social History Tobacco Use Types Packs/Day Years [...] Description 11/22/2024 11:30 AM EDT Clinical Support [address] [address] 01/23/2025 11:15 AM EDT Office Visit [facility] [address] [place] [phone] Jaime Mares MD [address] [place] [phone] documented as of this encounter Visit Diagnoses Diagnosis Type 2 diabetes mellitus with diabetic polyneuropathy, without long-term current use of insulin ([facility]) documented in this encounter Additional Health Concerns Assessment Noted Time PHQ-9 Depression Total Score: 1 12/05/19 24 9:34 AM EDT documented as of this encounter Care Teams [employer] Parts Professional Relationship Specialty Start Date End Date Jaime Mares MD [address] [place] [phone] PCP - General Internal Medicine 06/23/14 documented as of this encounter
--- OUTSIDE RECORDS SUMMARY | 2024-10-25 12:37 | XMS_ITS | Encounter Summary ---
Author Organization [employer] Address [address] [facility] 7t [place] [address] Care Team Providers Care Pen Maker Name Role Phone Jaime Mares MD Primary [...] Description 11/22/2024 11:30 AM EDT Clinical Support [facility] [address] [place] [phone] 01/23/2025 11:15 AM EDT Office Visit [address] [address] Jaime Mares MD [address] [place] [phone] documented as of this encounter Visit Diagnoses Not on filedocumented in this encounter Additional Health Concerns Assessment Noted Time PHQ-9 Depression Total Score: 3 09/24/19 25 11:09 AM EST documented as of this encounter Care Teams Pen Maker Relationship Specialty Start Date End Date Jaime Mares MD [address] [place] [phone] PCP - General Internal Medicine 06/23/14 documented as of this encounter
--- OUTSIDE RECORDS SUMMARY | 2024-10-25 12:37 | XMS_ITS | Encounter Summary ---
Author Organization [facility] Address [address] [facility] [address], [place] [address] Care Team Providers Care Mechanical Engineering Technologist Name Role Phone Jaime Mares MD Primary Care Provide r Reason for Visit * Reason Comments Med Refill Encounter Details Date Type Department Care Team (Late st Contact Info) Description 03/29/2023 Refill [facility] [address] [place] [address] [phone] Jaime Mares MD [address] [place] [address] [phone] Essential (primary) hypertension Social History Tobacco Use [...] Description 11/22/2024 11:30 AM EDT Clinical Support [facility] [address] [place] [address] [phone] 01/23/2025 11:15 AM EDT Office Visit [facility] [address] [place] [address] [phone] Jaime Mares MD [address] [place] [address] [phone] documented as of this encounter Visit Diagnoses Diagnosis Essential (primary) hypertension Unspecified essential hypertension documented in this encounter Care Teams Mechanical Engineering Technologist Relationship Specialty Start Date End Date Jaime Mares MD [address] [place] [phone] PCP - General Internal Medicine 06/23/14 documented as of this encounter
--- OUTSIDE RECORDS SUMMARY | 2024-10-25 12:37 | XMS_ITS | Encounter Summary ---
Author Organization [employer] Address [address] [facility] 7 [place] [address] Care Team Providers Care Dining Manager Name Role Phone Jaime Mares MD Primary Care Provide r Reason for Visit * Reason Onset Date Comments Chart Prep 10/04/2024 Encounter Details Date Type Department Care Team ([facility] st Contact Info) Description 10/04/2024 Telephone [facility] [address] [place] [address] Jaime Mares MD [address] [place] [address] Chart Prep Social History Tobacco Use Types [...] Description 11/22/2024 11:30 AM EDT Clinical Support [facility] [address] [place] [phone] 01/23/2025 11:15 AM EDT Office Visit [facility] [address] [place] [phone] Jaime Mares MD [address] [place] [phone] documented as of this encounter Visit Diagnoses Not on filedocumented in this encounter Additional Health Concerns Assessment Noted Time PHQ-9 Depression Total Score: 3 09/24/19 25 11:09 AM EST documented as of this encounter Care Teams Dining Manager Relationship Specialty Start Date End Date Montenegro Ashwin, Jaime, MD [address] [place] [address] PCP - General Internal Medicine 06/23/14 documented as of this encounter
--- OUTSIDE RECORDS SUMMARY | 2024-10-25 12:37 | XMS_ITS | Encounter Summary ---
Author Organization [employer] Address [address] [facility] [address] [address] Care Team Providers Care Hand Assembler Name Role Phone Jaime Mares MD Primary Care Provide r Reason for Visit * Reason Onset Date Comments triage 2022 Encounter Details Date Type Department Care Team ([facility] st Contact Info) Description 2022 Telephone [facility] [address] [place] [address] Jaime Mares MD 230 [place] [address] triage Social History Tobacco Use Types Packs/Day [...] 11/22/2024 11:30 AM EDT Clinical Support [address] [address] 01/23/2025 11:15 AM EDT Office Visit [address] [address] Jaime Mares MD [address] [place] [phone] documented as of this encounter Visit Diagnoses Not on filedocumented in this encounter Care Teams Hand Assembler Relationship Specialty Start Date End Date Jaime Mares MD [address] [place] [phone] PCP - General Internal Medicine 06/23/14 documented as of this encounter
--- OUTSIDE RECORDS SUMMARY | 2024-10-25 12:37 | XMS_ITS | Encounter Summary ---
Author Organization [employer] Address [address] [facility] [address] [place] [address] Care Team Providers Care Rocket Engine Component Mechanic Name Role Phone Jaime Mares MD Primary Care Provide r Reason for Visit * Reason Onset Date Comments triage 08/23/2022 Encounter Details Date Type Department Care Team ([facility] st Contact Info) Description 08/23/2022 Telephone [facility] [address] [place] [address] Jaime Mares MD [address] [place] [address] triage Social History Tobacco Use Types Packs/Day [...] 08/23/2022 1:08 PM EST Triage call with [employer] [employer] [id number] Pt reports home tested + for Covid this morning. Pt symptoms are mild with runny nose, sneezing, nasal congestion, dry cough, neg for fever, diarrhea, nausea. Pt was given home care handouts via textin guatemalan. Home care disposition agreed with and home care reviewed thoroughly. Pt is asking aboutmedications and if BP meds can be taken with certain cough syrups. Scheduled a tele visit with PRESS OPERATOR HEAVY DUTY Catalina tejeda at 315pm . Insurance is [...] COVID-19 * Clean Your Hands Often Cough (Icelandic) handout sent to [phone] CDC: Sick With COVID-19 (Icelandic) handout sent to [phone] * Telephone Encounter - Alejandra Ferreira - 08/23/2022 11:28 AM EST Patient calling to report Covid positive pt sneezing x 1 day. Patient speaks (Icelandic). Advised triage nurse will call patient back. documented in this encounter Plan of Treatment Upcoming Encounters Date Type Department Care Team (Late st Contact Info) Description 11/22/2024 11:30 AM EDT Clinical Support [address] [address] 01/23/2025 11:15 AM EDT Office Visit [address] [place] [address] Jaime Mares MD [address] [place], [place] [phone] documented as of this encounter Visit Diagnoses Not on filedocumented in this encounter Care Teams Rocket Engine Component Mechanic Relationship Specialty Start Date End Date Jaime Mares MD [address] [place], [place] [phone] PCP - General Internal Medicine 06/23/14 documented as of this encounter
== END 2024-10-25 10:57 | disposition home or self-care (01) ==
LOC: HO.MAMMO 10:56
PROVIDERS: PCP Internal Medicine; Visit Provider Internal Medicine
DX: M81.0 Age-related osteoporosis without current pathological fracture (principal)
CPT/HCPCS: 77080

== ENCOUNTER → 2024-10-25 11:30 | Outpatient (BNV) | payer MEDICARE, SELFPAY | PROVIDERS: PCP Internal Medicine; Visit Provider Radiology Diagnostic Radiology | DX: E28.39 Other primary ovarian failure (principal) | CPT/HCPCS: 77080 ==

== ENCOUNTER 2024-10-31 08:25 | Outpatient (REF) | payer MEDICARE, SELFPAY ==
--- NOTE | ~2024-10-31 | US_ITS ---
EXAMINATION: US VENOUS ULTRASOUND WITH DOPPLER LOWER EXTREMITY, BILATERAL CLINICAL INFORMATION: Varicose veins of right lower extremity with inflammation. COMPARISON: DVT ultrasound 11/06/2023. TECHNIQUE: Ultrasound of the superficial veins is performed in the bilateral lower extremities from the hip to the calf with compression sonography and color and pulse Doppler assessment. Spectral analysis with color-flow imaging is performed. FINDINGS: RIGHT SIDE: GREATER SAPHENOUS VEIN: The right saphenofemoral junction diameter is 0.4 cm. There is no reflux. The right proximal thigh diameter is 0.3 cm. There is no reflux. The right mid thigh diameter is 0.2 cm. There is no reflux. The right above-knee diameter is 0.2 cm. There is no reflux. The right at-knee diameter is 0.2 cm. There is no reflux. The right below-knee diameter is 0.2 cm. There is no reflux. The right mid calf diameter is 0.1 cm. There is no reflux. The right ankle diameter is 0.1 cm. There is no reflux. MEDIAL ACCESSORY GREATER SAPHENOUS VEIN: The right saphenofemoral junction diameter is 0.2 cm. There is no reflux. The right mid thigh diameter is 0.2 cm. There is no reflux. LESSER SAPHENOUS VEIN: The right saphenopopliteal junction diameter is 0.2 cm. There is no reflux. The right mid calf diameter is 0.2 cm. There is no reflux. The right distal calf diameter is 0.2 cm. There is no reflux. The vein of Giacomini diameter 0.3 cm. There is no reflux. SAPHENOUS PERFORATORS: None. VARICOSITIES: None. LEFT SIDE: GREATER SAPHENOUS VEIN: The left saphenofemoral junction diameter is 0.7 cm. There is no reflux. The left proximal thigh diameter is 0.5 cm. There is no reflux. The left mid thigh diameter is 0.3 cm. There is no reflux. The left above-knee diameter is 0.3 cm. There is no reflux. The left at-knee diameter is 0.3 cm. There is no reflux. The left below-knee diameter is 0.2 cm. There is no reflux. The left mid calf diameter is 0.2 cm. There is no reflux. The left ankle diameter is 0.2 cm. There is no reflux. LATERAL ACCESSORY GREATER SAPHENOUS VEIN: The left saphenofemoral junction diameter is 0.1 cm. There is no reflux The left mid thigh diameter is 0.2 cm. There is no reflux. LESSER SAPHENOUS VEIN: The left saphenopopliteal junction diameter is 0.2 cm. There is no reflux. The left mid calf diameter is 0.2 cm. There is no reflux. The left distal calf diameter is 0.2 cm. There is no reflux. The vein of Giacomini diameter 0.2 cm. There is no reflux. SAPHENOUS PERFORATORS: None. VARICOSITIES: At the left greater saphenous vein proximal calf measures 0.2 cm. There is no reflux. OTHER: There is no evidence of DVT in either lower extremity. Mildly prominent reactive appearing left groin lymph node measuring 1.9 x 0.8 x 1.8). This is nonspecific. US/US venous duplex LE BI IMPRESSION: : 1. No hemodynamically significant reflux is seen of the bilateral greater or lesser saphenous veins. 2. There is a solitary left greater saphenous varicosity in the proximal left calf measuring 0.2 cm. There is no reflux. 3. There are no right lower extremity varicosities. 4. See above for details. Electronically signed by: Reyes Gutierrez MD 10/31/2024 09:59 AM EDT
--- OUTSIDE RECORDS SUMMARY | 2024-10-31 08:53 | XMS_ITS | Encounter Summary ---
Author Organization [employer] Address [address] [facility] [address] [place] [address] Care Team Providers Care Assembler Faucets Name Role Phone Jaime Mares MD Primary Care Provide r Reason for Visit * Reason Onset Date Comments Chart Prep 10/04/2024 Encounter Details Date Type Department Care Team ([facility] st Contact Info) Description 10/04/2024 Telephone [facility] MEDICINE [address] [place] [address] Jaime Mares MD [address] [place] [address] Chart Prep Social History Tobacco Use Types [...] Description 11/22/2024 11:30 AM EDT Clinical Support [facility] MEDICINE [address] [place] [phone] 01/23/2025 11:15 AM EDT Office Visit [facility] MED[facility]INE [address] [place] [phone] Jaime Mares MD [address] [place] [phone] documented as of this encounter Visit Diagnoses Not on filedocumented in this encounter Additional Health Concerns Assessment Noted Time PHQ-9 Depression Total Score: 3 09/24/19 25 11:09 AM EST documented as of this encounter Care Teams Assembler Faucets Relationship Specialty Start Date End Date Montenegro Ashwin, Jaime, MD [address] [place] [address] PCP - General Internal Medicine 06/23/14 documented as of this encounter
--- OUTSIDE RECORDS SUMMARY | 2024-10-31 08:53 | XMS_ITS | Encounter Summary ---
Author Organization [employer] Address [address] [facility] [address] [place] [address] Care Team Providers Care Layer Off Name Role Phone Jaime Mares MD Primary Care Provide r Reason for Visit * Reason Onset Date Comments Results 10/28/2024 Referral 10/28/2024 Encounter Details Date Type Department Care Team ([facility] st Contact Info) Description 10/28/2024 Telephone [facility] MED[facility]INE [address] [place] [address] Gin Shin RN [address] [place] [address] Results; Referral Social History Tobacco Use Types Packs/Day [...] Telephone Encounter - Gin Shin RN - 10/28/2024 9:22 AM EDT Telephone call placed to pt utilizing How do you roll? #[id number] regarding below results and POC. Informed DEXA showed known Dx of osteoporosis. Pt confirms she is taking the calcium with vitamin D. Informed of referral to endocrinology and advised if she doesn't hear from their office to book appt within 2 weeks,let us know. Pt reports that she has a lot of appts. Explained that with osteoporosis we worry about her falling and breaking a bone and that endocrinology will evaluate and see if there is any Tx they can offer to strengthen her bones. Pt agreeable to plan after discussing risks and plan. Pt verbalized understanding and denied having any further questions or concerns at this time. * Telephone Encounter - Gin Shin RN - 10/28/2024 8:59 AM EDT ----- Message from Jaime Christopher MD sent at 10/27/2024 4:09 PM EDT ----- Please let patient know her most recent Bone density shows osteoporosis (known) In the past she wasnot treated with Biphosphonates due to allergic reaction.I have placed a referral to Endocrinology for consideration of alternative treatments. In the meantime please make sure she is taking her Calcium with Vitamin D documented in this encounter Plan of Treatment Upcoming Encounters Date Type Department Care Team (Late st Contact Info) Description 11/22/2024 11:30 AM EDT Clinical Support [address] [address] 01/23/2025 11:15 AM EDT Office Visit [address] [address] Jaime Mares MD [address] [place] [phone] documented as of this encounter Visit Diagnoses Not on filedocumented in this encounter Additional Health Concerns Assessment Noted Time PHQ-9 Depression Total Score: 3 09/24/19 25 11:09 AM EST documented as of this encounter Care Teams Layer Off Relationship Specialty Start Date End Date Jaime Mares MD [address] [place] [phone] PCP - General Internal Medicine 06/23/14 documented as of this encounter
--- OUTSIDE RECORDS SUMMARY | 2024-10-31 08:53 | XMS_ITS | Encounter Summary ---
Author Organization [employer] Address [address] [facility] [address] [place] [address] Care Team Providers Care Pickle Sorter Name Role Phone Jaime Mares MD Primary Care Provide r Reason for Visit * Reason Comments Follow-up Encounter Details Date Type Department Care Team (Latest Contact Info) Description 10/22/2024 1:15 PM EST Office Visit [facility] [address] [place] [address] Jaime Mares MD [address] [place] [address] Vascular insufficiency of extremity (Primary Dx); Type 2 diabetes mellitus with diabetic polyneuropathy, without long-term current use of insulin ([facility]); Essential hypertension; Mixed hyperlipidemia; Acquired hypothyroidism; Preventative [...] polyneuropathy, without long-term current use of insulin ([facility]) Patient is here for a [...] Eye exam was done on 12/12/13 via [facility] Microalbumin re ordered Foot [...] polyneuropathy, without long-term current use of insulin ([facility]) Patient is here for a [...] Eye exam was done on 12/12/13 via [facility] Microalbumin re ordered Foot [...] Description 11/22/2024 11:30 AM EDT Clinical Support [facility] [address] [facility] [place] [address] 01/23/2025 11:15 AM EDT Office Visit [facility] [address] [facility] [place] [address] Jaime Mares MD [address] [facility] [place] [address] documented as of this encounter Procedures Procedure Name Priority Date/Time Associated Diagnosis Comments TSH W/REFLEX TO FT4 Routine 10/22/2024 1:43 PM EST Acquired hypothyroidism ALBUMIN, RANDOM URINE W/CREATININE Routine 10/22/2024 1:43 PM EST Type 2 diabetes mellitus with diabetic polyneuropathy, without long-term current use of insulin ([facility]) LIPID PANEL, STANDARD Routine 10/22/2024 1:43 PM EST Mixed hyperlipidemia POCT GLUCOSE Routine 10/22/2024 1:20 PM EST Type 2 diabetes mellitus with diabetic polyneuropathy, without long-term current use of insulin ([facility]) documented in this encounter Results * (ABNORMAL) Lipid Panel, Standard (10/22/2024 1:43 PM EST) Triglycerides 205(H) <150 mg/dL [facility] Comment:Desirable Triglyceri de: less than 150 mg/dLBorderline High Triglyceride 150-199 mg/dLHigh Triglyceride: 200-499 mg/dLVery High Triglyceride: greater than or equal to 5OO mg/dL Cholesterol 227(H) <200 mg/dL [facility] Comment:Desirable Cholestero l: less than 200 mg/dLBorderline High Cholesterol: 200-239 mg/dLHigh Cholesterol: greater than 239 mg/dL LDL Cholesterol Calculated 139(H) <100 mg/dL [facility] Comment:Desirable LDL: less than 100 mg/dLNear Optimal/Above Optimal LDL: 110- 129 mg/dLBorderline High LDL: 130-159 mg/dLHigh LDL: 160-189 mg/dLVery High LDL: greater than or equal to 190 mg/dL HDL Cholesterol 47 >40 mg/dL [facility] Comment:Desirable HDL: great er than 40 mg/dL Note: This HDL assay may give artificially low results in patients with liver disease. Blood Venous blood specimen / Unknown 10/22/2024 1:43 PM EST 10/22/2024 4:06 PM EST Jaime Christopher MD LAB BLOOD ORDERABLES Final Result Performing Organization Address [facility]/ZIP Co de Phone Number [facility] [address] [place] [phone] * TSH with Reflex to Free T4 (10/22/2024 1:43 PM EST) TSH reflex Free T4 1.07 0.32 - 4.0 uIU/mL [facility] Blood Venous blood specimen / Unknown 10/22/2024 1:43 PM EST 10/22/2024 4:06 PM EST Jaime Christopher MD LAB BLOOD ORDERABLES Final Result Performing Organization Address [facility] Co de Phone Number [facility] [address] [place] [phone] * (ABNORMAL) Albumin, Random Urine W/Creatinine (10/22/2024 1:43 PM EST) Creatinine, Urine 24.46 mg/dL [facility] Microalbumin Urine 13.0 mg/L H [facility] Microalbum Creatinine Ratio Ur 53.1(H) <30 ug/mg cr [facility] Comment:Albumin/Creatinine R atio Reference Ranges: Normal: < 30 ug/mg creatinine Microalbuminuria: 30 - 300 ug/mg creatinineClinical Albuminuria: > 300 ug/mg creatinine Urine (Urine, Random) 10/22/2024 1:43 PM EST 10/22/2024 4:36 PM EST Jaime Christopher MD LAB URINE ORDERABLES Final Result [facility] [address] [place] [address] [phone] * POCT Glucose (10/22/2024 1:20 PM EST) Glucose Blood, POC 96 60 - 200 mg/dL [employer] Lot # [id number] Lot# Expiration Date [id number] Blood Capillary blood specimen / Unknown 10/22/2024 1:20 PM EST Jaime Christopher MD POINT OF CARE TEST EN TER/EDIT ORDERABLES Final Result documented in this encounter Visit Diagnoses Diagnosis Vascular insufficiency of extremity- Primary Type 2 diabetes mellitus with diabetic polyneuropathy, without long-term current use of insulin ([facility]) Essential hypertension Unspecified essential hypertension Mixed hyperlipidemia Acquired hypothyroidism Unspecified hypothyroidism Preventative health care Routine general medical examination at a health care facility Neuropathic pain of both legs documented in this encounter Additional Health Concerns Assessment Noted Time PHQ-9 Depression Total Score: 3 09/24/19 25 11:09 AM EST documented as of this encounter Care Teams Pickle Sorter Relationship Specialty Start Date End Date Jaime Mares MD [address] [place] [phone] PCP - General Internal Medicine 06/23/14 documented as of this encounter
--- OUTSIDE RECORDS SUMMARY | 2024-10-31 08:53 | XMS_ITS | Clinical Summary ---
Author Organization [employer] Address [address] [place] [address] 7[address] [place] [address] Care Team Providers Care Primary Education Professor Name Role Phone Jaime Mares MD [...] polyneuropathy, without long-term current use of insulin ([facility]) TAKE 1 TABLET BY MOUTH EVERY MORNING [...] polyneuropathy, without long-term current use of insulin ([facility]) TAKE 1 TABLET BY MOUTH EVERY MORNING [...] Trial of gabapentin 300 mg po TID [facility] care 12/05/2023 Assessment & Plan (10/22/2024 1:26 [...] mckinney Brown, irregular borders, seborrheic hyperkeratosis Plan: [facility] Diabetes mellitus with diabe tic [...] Eye exam was done on 12/12/13 via [facility] Microalbumin re ordered Foot check [...] Eye exam was done on 12/12/13 via [facility] Microalbumin 08/27/2019 was 5 ,pt on ARB. will repeat Foot check risk of zero, on Asa daily. Adhere to diabetic diet check your blood sugars regularly check your feet on a daily basis f/u 3 months Assessment & Plan (12/06/2023 1:49 PM EDT): Patient is here for a f/u after a long hiatus, was living in [place] and was without medications for months, upon [...] [facility] 12[facility]12[facility] Microalbumin 08/27/2019 was 5 ,pt [...] after a long hiatus. Pt was in [place] BP remains uncontrolled She is on a [...] after a long hiatus. Pt was in [place] BP remains uncontrolled She is on a [...] pt had a previous MRI done at [facility] that showed a heterogeneous mass like structure [...] to the radiologist. Pt was referred to [facility] surgical associates and pt told me she [...] used to be under the care of [facility]. Last seen 02/25/2022 Pt has [...] MRI 11/25/2020 (Please see scanned document) The instructional systems specialist at [facility] already reviewed her MRI and has recommended a steroid injections. She has had good results with them in the past. MRI booked for 02/16/24 @10:30AM Assessment & Plan (12/06/2023 1:54 PM EDT): Pt c/o persistent low back pain She used to be under the care of [facility]. Last seen 02/25/2022 Pt has [...] MRI 11/25/2020 (Please see scanned document) The instructional systems specialist at [facility] already reviewed her MRI and has recommended [...] Encounters Date Type Department Care Team Description 10/28/2024 Telephone [facility] [address] [place] [address] Gin Shin RN Results; Referral 10/27/2024 Orders Only [facility] [address] [place] [address] Jaime Mares MD Osteoporosis, unspecified osteoporosis type, unspecified pathological fracture presence (Primary Dx) 10/22/2024 1:15 PM EST Office Visit [facility] [address] [facility] [place] [address] Jaime Mares MD Vascular insufficiency of extremity (Primary Dx); Type 2 diabetes mellitus with diabetic polyneuropathy, without long-term current use of insulin ([facility]); Essential hypertension; Mixed hyperlipidemia; Acquired hypothyroidism; Preventative health care; Neuropathic pain of both legs 10/22/2024 Travel 10/06/2024 Refill [facility] [address] [facility] [place] [address] Jaime Mares MD Type 2 diabetes mellitus with diabetic polyneuropathy, without long-term current use of insulin ([facility]); Essential hypertension; Mixed hyperlipidemia 10/04/2024 Telephone [facility] [address] [place] [address] Jaime Mares MD Chart Prep 09/24/2024 11:00 AM EST Office Visit [facility] [address] [facility] [place] [address] Jaime Mares MD Essential hypertension (Primary Dx); Type 2 diabetes mellitus with diabetic polyneuropathy, without long-term current use of insulin ([facility]); Acquired hypothyroidism; Mixed hyperlipidemia; Uncontrolled type 2 diabetes mellitus with hyperglycemia ([facility]); Vascular insufficiency of extremity; Osteoporosis, unspecified osteoporosis type, unspecified pathological fracture presence; Encounter for immunization; Neuropathic pain of both legs 09/24/2024 Travel 09/23/2024 Telephone [facility] [address] [facility] [place] [address] Jaime Mares MD Returning Call 09/23/2024 Telephone [facility] [address] [place] [address] Jaime Mares MD Chart Prep 09/19/2024 Telephone [facility] [address] [place] [address] Jaime Mares MD Medication Question 09/19/[address] [place] [address] Jaime Mares MD Referral 09/19/2024 Telephone [facility] [address] [place] [address] Jaime Mares MD Referral; New Med Request 09/17/2024 Telephone [facility] [address] [facility] [place] [address] Jaime Mares MD ER Follow-up 09/15/2024 Orders Only GENERIC EXTERNAL DATA DEPARTMENT Provider, Generic External Data 09/06/2024 Telephone [facility] [address] [facility] [place] [address] Jaime Mares MD Referral 09/06/2024 Telephone [facility] [address] [facility] [place] [address] Jaime Mares MD Nurse Triage from Last [...] Description 11/22/2024 11:30 AM EDT Clinical Support [facility] [address] [place] [address] 01/23/2025 11:15 AM EDT Office Visit [facility] [address] [place] [address] Jaime Mares MD [address] [place] [address] Health Maintenance Due Date Last Done Comments [...] Procedure Name Priority Date/Time Associated Diagnosis Comments BD DEXA AXIAL Routine 10/25/2024 11:30 AM EST Osteoporosis, unspecified osteoporosis type, unspecified pathological fracture presence LIPID PANEL, STANDARD Routine 10/22/2024 1:43 PM EST Mixed hyperlipidemia TSH W/REFLEX TO FT4 Routine 10/22/2024 1 :43 PM EST Acquired hypothyroidism ALBUMIN, RANDOM URINE W/CREATININE Routine 10/22/2024 1:43 PM EST Type 2 diabetes mellitus with diabetic polyneuropathy, without long-term current use of insulin (CMS/HCC) POCT GLUCOSE Routine 10/22/2024 1:20 PM EST Type 2 diabetes mellitus with diabetic polyneuropathy, without long-term current use of insulin (CMS/HCC) POCT GLYCATED HEMOGLOBIN, TOTAL Routine 09/24/2024 11:20 AM EST Type 2 diabetes mellitus with diabetic polyneuropathy, without long-term current use of insulin (CMS/HCC) POCT GLUCOSE Routine 09/24/2024 11:16 AM EST Type 2 diabetes mellitus with diabetic polyneuropathy, without long-term current use of insulin (CMS/HCC) MAGNESIUM Routine 09/15/2024 11:04 PM EST B TYPE NATRIURETIC PEPTIDE (BNP) Routine 09/15/2024 11:04 PM EST COMPREHENSIVE METABOLIC PANEL Routine 09/15/2024 11:04 PM EST CBC WITH AUTO DIFFERENTIAL Routine 09/15/2024 11:04 PM EST from Last 3 Months Results * BD DEXA Axial (10/25/2024 11:30 AM EST) Anatomical Region Laterality Modality Body Radiographic Juju ging 10/25/2024 11:3 0 AM EST Narrative 10/25/2024 1:43 PM EST ? [facility] ? [address] ?[place], [place] [address] ? Mammography Report ? Signed ? Patient: Nola Styles M ?MR#: [id number] ?? [id number] ? : 1940 ?Acct:[id number] ? Age/Sex: 84 / F ?ADM Date: 10/25/24 ? Loc: HO.MAMMO ? Attending Dr: Jaime Tinoco MD ? Ordering Physician: Jaime Tinoco MD ?Resu ?? lts: ? Date of Service: 10/25/24 ?Follow Up: ? Procedure(s): XR DEXA axial skeleton ?? Accession Number(s): [id number] ? cc: Jaime Tinoco MD; Quin Diaz MD ? EXAMINATION: ??DXA BONE DENSITY AXIAL ? HISTORY: ??Estrogen deficiency ? TECHNIQUE: [employer] Dual energy absorptiometry (DEXA) ?? of the lumbar spine, total left hip, and femoral neck was performed. ? COMPARISON: Comparison is made with the prior examination dated ?? 02/04/2014. ? FINDINGS: ? The bone mineral density of the lumbar spine is 0.865 with a T-score of ?? -2.5, and a Z-score of -0.8. ? This represents a BMD change of 5.1% compared to the prior exam. ??This ?? is statistically significant. ? The bone mineral density of the left total hip is 0.947 with a T-score ?? of -0.5, and a Z-score of 1.5. ? This represents BMD change of 4.4% compared to the prior exam. ??This is ?? statistically significant. ? The bone mineral density of the left femoral neck is 0.928 with a ?? T-score of -0.8, and a Z-score of 1.4. ? This represents BMD change of 4.0% compared to the prior exam. ? FRACTURE RISK: ?? The FRAX index suggests a ten year probability of major osteoporotic ?? fracture of 6.4%, and of hip fracture 1.2%. ? MM/XR DEXA axial skeleton ?? IMPRESSION: ?? Based on bone mineral density, and according to World Health ?? Organization (WHO) criteria, the diagnosis is consistent with ?? osteoporosis. ? All bone density values are in grams per centimeter squared (g/cm2). ?? Statistically, 68% of repeat scans fall within 1 SD (+/- 0.010 g/cm2 ?? for AP spine L1-L4) and 1 SD (+/- 0.012 g/cm2 for femur total) ?? FRAX is a trademark of the [employer]'s ?? [place] for Metabolic Bone Disease, a World Health Organization (WHO) ?? Collaborating Center. ? Electronically signed by: ??Cristhian Draper MD ??10/25/2024 01:40 PM EST ?? RP ? Dictated By: ?Cristhian Draper MD ? Signed By: ?<Electronically signed by Cristhian Draper MD in OV> ?10/25/24 1340 ? DD/ 1130 ? TD/TT: 10/25/24 1159 ? Hansard Reporter: ? Procedure Note Donotuseinterpreter, Image - 10/25/2024 [facility] [address] [place] [address] Dr. [place], [place] [address] Mammography Report Signed Patient: Nola Styles MMR#: [id number] : 3Acct:[id number] Age/Sex: 84 / FADM Date: 10/25/24 Loc: HO.MAMMO Attending Dr: Jaime Tinoco MD Ordering Physician: Jaime Tinocoesu lts: Date of Service: 10/25/24Follow Up: Procedure(s): XR DEXA axial skeleton Accession Number(s): [id number] cc: Jaime Tinoco MD; Quin Diaz MD EXAMINATION: DXA BONE DENSITY AXIAL HISTORY: Estrogen deficiency TECHNIQUE: [employer] Dual energy absorptiometry (DEXA) of the lumbar spine, total left hip, and femoral neck was performed. COMPARISON: Comparison is made with the prior examination dated 02/04/2014. FINDINGS: The bone mineral density of the lumbar spine is 0.865 with a T-score of -2.5, and a Z-score of -0.8. This represents a BMD change of 5.1% compared to the prior exam. This is statistically significant. The bone mineral density of the left total hip is 0.947 with a T-score of -0.5, and a Z-score of 1.5. This represents BMD change of 4.4% compared to the prior exam. This is statistically significant. The bone mineral density of the left femoral neck is 0.928 with a T-score of -0.8, and a Z-score of 1.4. This represents BMD change of 4.0% compared to the prior exam. FRACTURE RISK: The FRAX index suggests a ten year probability of major osteoporotic fracture of 6.4%, and of hip fracture 1.2%. MM/XR DEXA axial skeleton IMPRESSION: Based on bone mineral density, and according to World Health Organization (WHO) criteria, the diagnosis is consistent with osteoporosis. All bone density values are in grams per centimeter squared (g/cm2). Statistically, 68% of repeat scans fall within 1 SD (+/- 0.010 g/cm2 for AP spine L1-L4) and 1 SD (+/- 0.012 g/cm2 for femur total) FRAX is a trademark of the [employer] [place] for Metabolic Bone Disease, a World Health Organization (WHO) Collaborating Center. Electronically signed by: Cristhian Draper MD 10/25/2024 01:40 PM EST Dictated By: Cristhian Draper MD Signed By: <Electronically signed by Cristhian Draper MD in OV> 10/25/24 1340 DD/ 1130 TD/TT: 10/25/24 1159 Hansard Reporter: Jaime Christopher MD IMG DXA PROCEDURES Fi nal Result * TSH with Reflex to Free T4 (10/22/2024 1:43 PM EST) Pathologist [facility] TSH reflex Free T4 1.07 0.32 - 4.0 uIU/mL [facility] Blood Venous blood specimen / Unknown 10/22/2024 1:43 PM EST 10/22/2024 4:06 PM EST Jaime Christopher MD LAB BLOOD ORDERABLES Final Result [facility] [address] [place] [phone] * (ABNORMAL) Albumin, Random Urine W/Creatinine (10/22/2024 1:43 PM EST) Creatinine, Urine 24.46 mg/dL [facility] Microalbumin Urine 13.0 mg/L [facility] Microalbum Creatinine Ratio Ur 53.1(H) <30 ug/mg cr [facility] Comment:Albumin/Creatinine R atio Reference Ranges: Normal: < 30 ug/mg creatinine Microalbuminuria: 30 - 300 ug/mg creatinineClinical Albuminuria: > 300 ug/mg creatinine Urine (Urine, Random) 10/22/2024 1:43 PM EST 10/22/2024 4:36 PM EST Jaime Christopher MD LAB URINE ORDERABLES Final Result Performing Organization Address City/[facility]/ZIP Co de Phone Number [facility] [address] [place] [address] [phone] * (ABNORMAL) Lipid Panel, Standard (10/22/2024 1:43 PM EST) Triglycerides 205(H) <150 mg/dL [facility] Comment:Desirable Triglyceri de: less than 150 mg/dLBorderline High Triglyceride 150-199 mg/dLHigh Triglyceride: 200-499 mg/dLVery High Triglyceride: greater than or equal to 5OO mg/dL Cholesterol 227(H) <200 mg/dL [facility] Comment:Desirable Cholestero l: less than 200 mg/dLBorderline High Cholesterol: 200-239 mg/dLHigh Cholesterol: greater than 239 mg/dL LDL Cholesterol Calculated 139(H) <100 mg/dL [facility] Comment:Desirable LDL: less than 100 mg/dLNear Optimal/Above Optimal LDL: 110- 129 mg/dLBorderline High LDL: 130-159 mg/dLHigh LDL: 160-189 mg/dLVery High LDL: greater than or equal to 190 mg/dL HDL Cholesterol 47 >40 mg/dL [facility] Comment:Desirable HDL: great er than 40 mg/dL Note: This HDL assay may give artificially low results in patients with liver disease. Blood Venous blood specimen / Unknown 10/22/2024 1:43 PM EST 10/22/2024 4:06 PM EST Jaime Christopher MD LAB BLOOD ORDERABLES Final Result [facility] [address] [place] [address] [phone] * POCT Glucose (10/22/2024 1:20 PM [...] Blood Count 6.4 4.8 - 10.8 X10*3/uL [facility] Red Blood Count 4.16(L) 4.20 - 5.50 X10*6/uL [facility] Hemoglobin 12.4 12.0 - 16.0 g/dl [facility] Hematocrit 37.0 37.0 - 47.0 % [facility] Mean Corpuscular Volume 88.9 80.0 - 98.0 fL [facility] Mean Corpuscular Hemoglobin 29.8 27.0 - 33.0 pg [facility] Mean Corpuscular HGB Conc 33.5 31.0 - 35.0 g/dl [facility] Red Cell Distribution Width 13.2 11.0 - 16.0 % [facility] Platelet Count 359 160 - 400 X10*3/uL [facility] Mean Platelet Volume 8.8(L) 9.4 - 12.3 fL [facility] Neutrophils Percent Auto 49.8 45 - 73 % [facility] Imm Gran Pct Auto 0.3 0.0 - 0.4 % [facility] Lymphocytes Percent Auto 36.7 20 - 40 % [facility] Monocytes Percent Auto 9.6 2 - 11 % [facility] Eosinophils Percent Auto 2.8 0 - 4 % [facility] Basophils Percent Auto 0.8 0 - 2 % [facility] NRBC Pct Auto 0.0 0.0 - 0.2 /100WBC [facility] Neutrophils Absolute Auto 3.2 2.0 - 8.3 x10*3/uL [facility] Imm Gran Abs Auto 0.02 0.00 - 0.03 X10*3/uL [facility] Lymphocytes Absolute Auto 2.4 1.2 - 4.9 X10*3/uL [facility] Monocytes Absolute Auto 0.6 0.1 - 1.2 X10*3/uL [facility] Eosinophils Absolute Auto 0.2 0.0 - 0.4 X10*3/uL [facility] Basophils Absolute Auto 0.1 0.0 - 0.2 X10*3/uL [facility] NRBC Abs Auto 0.000 0.0 - 0.012 X10*3/uL [facility] 09/15/2024 11:0 4 PM EST 09/15/2024 11:12 PM EST us Generic External Data Provider LAB BLOOD ORDERAB LES Final Result [facility] [address] [place] [address] [phone] * B Type Natriuretic Peptide (BNP) (09/15/2024 11:04 PM EST) B Type Natriuretic Peptide 35 <100 pg/mL [facility] Comment:For those patients w ho are being treated with Natrecor(nesiritide, recombinant BNP), BNP testing should beperformed at least two hours post treatment in order toensure that only endogenous levels of BNP are detected. 09/15/2024 11:0 4 PM EST 09/15/2024 11:12 PM EST Generic External Data Provider LAB BLOOD ORDERAB LES Final Result Performing Organization Address [facility]/ZIP Co de Phone Number [facility] [address] [place] [phone] * Magnesium (09/15/2024 11:04 PM EST) [facility] Magnesium 1.7 1.6 - 2.6 mg/dL [facility] 09/15/2024 11:0 4 PM EST 09/15/2024 11:12 PM EST Klood External Data Provider LAB BLOOD ORDERAB LES Final Result Performing Organization Address [facility] Co de Phone Number [facility] [address] [place] [phone] * (ABNORMAL) Comprehensive Metabolic Panel (09/15/2024 11:04 PM EST) [facility] Sodium 142 135 - 145 mmol/L [facility] Potassium 3.9 3.3 - 5.1 mmol/L [facility] Chloride 107 96 - 108 mmol/L [facility] Carbon Dioxide 24 22 - 29 mmol/L [facility] Anion Gap 15 12 - 20 [facility] Urea Nitrogen (BUN) 30(H) 9 - 16 mg/dL [facility] Creatinine, Serum 0.93 0.5 - 1.4 mg/dL [facility] Creatinine Clr Calc Pharmacy 45.5 [facility] Comment:Provided height and weight: 162.56 cm,72.575 kg.eGFR (calculated from the MDRD study equation) and eCrCl(calculated from the Cockcroft-Gault equation) are based ondifferent parameters and may not yield comparable results.If eCrCl result is absurd, please check patient'sheight/weight. Estimated Glomerular Filt Rate 58 [facility] Comment:Chronic Kidney Disea se: Estimated GFR < 60 mL/min/1.05t2Vgmcob Kidney Disease: Estimated GFR < 15 mL/min/1.73m2 Glucose 122(H) 60 - 115 mg/dL [facility] Calcium 9.3 8.4 - 10.2 mg/dL [facility] Bilirubin, Total 0.3 0.0 - 1.0 mg/dL [facility] Aspartate Amino Transferase 22 5 - 31 U/L [facility] Alanine Aminotransferase 23 0 - 31 U/L [facility] Total Protein 8.0 6.5 - 8.0 g/dL [facility] Albumin Level 4.4 3.5 - 5.0 g/dL [facility] Alkaline Phosphatase 61 39 - 117 U/L [facility] 09/15/2024 11:0 4 PM EST 09/15/2024 11:12 PM EST us Generic External Data Provider LAB BLOOD ORDERAB LES Final Result Performing Organization Address City/State/[facility] Co de Phone Number [facility] [address] [place] [address] [phone] from Last [address] [facility] [employer] Care Teams Primary Education Professor Relationship Specialty Start Date End Date Jaime Mares MD [address] [place] [phone] PCP - General Internal Medicine 06/23/14
--- OUTSIDE RECORDS SUMMARY | 2024-10-31 08:53 | XMS_ITS | Encounter Summary ---
Author Organization [employer] Address [address] [facility] 7t [place] [address] Care Team Providers Care Home Appliance Technician Name Role Phone Jaime Mares MD [...] 11:30 AM EDT Clinical Support [facility] [address] [place] [phone] 01/23/2025 11:15 AM EDT Office Visit [address] [address] Jaime Mares MD [address] [place] [phone] documented as of this encounter Visit Diagnoses Not on filedocumented in this encounter Additional Health Concerns Assessment Noted Time PHQ-9 Depression Total Score: 3 09/24/19 25 11:09 AM EST documented as of this encounter Care Teams Home Appliance Technician Relationship Specialty Start Date End Date Jaime Mares MD [address] [place] [phone] PCP - General Internal Medicine 06/23/14 documented as of this encounter
--- OUTSIDE RECORDS SUMMARY | 2024-10-31 08:53 | XMS_ITS | Encounter Summary ---
Author Organization [employer] Address [address] [facility] [address] [place] [address] Care Team Providers Care Development Spec Name Role Phone Jaime Mares MD Primary Care Provide r Reason for Visit * Reason Onset Date Comments Medication Question 09/19/2024 Encounter Details Date Type Department Care Team ([facility] st Contact Info) Description 09/19/2024 Telephone [facility] [address] [place] [address] Jaime Mares MD [address] [place] [address] Medication Question Social History Tobacco Use Types [...] Description 11/22/2024 11:30 AM EDT Clinical Support [facility] [address] [place] [phone] 01/23/2025 11:15 AM EDT Office Visit [facility] [address] [place] [phone] Jaime Mares MD [address] [place] [address] documented as of this encounter Visit Diagnoses Not on filedocumented in this encounter Additional Health Concerns Assessment Noted Time PHQ-9 Depression Total Score: 1 12/05/19 24 9:34 AM EDT documented as of this encounter Care Teams Development Spec Relationship Specialty Start Date End Date Jaime Mares MD [address] [place] [phone] PCP - General Internal Medicine 06/23/14 documented as of this encounter
--- OUTSIDE RECORDS SUMMARY | 2024-10-31 08:53 | XMS_ITS | Encounter Summary ---
Author Organization [employer] Address [address] [facility] [address] [place] [address] Care Team Providers Care Safety Analyst Name Role Phone Jaime Mares MD Primary Care Provide r Reason for Visit * Reason Comments Med Refill Encounter Details Date Type Department Care Team ([facility] Contact Info) Description 10/06/2024 Refill [facility] [address] [place] [address] Jaime Mares MD [address] [place] [address] Type 2 diabetes mellitus with diabetic polyneuropathy, without long-term current use of insulin ([facility]); Essential hypertension; Mixed hyperlipidemia Social History [...] Description 11/22/2024 11:30 AM EDT Clinical Support [address] [address] 01/23/2025 11:15 AM EDT Office Visit [address] [address] Jaime Mares MD [address] [place] [phone] documented as of this encounter Visit Diagnoses Diagnosis Type 2 diabetes mellitus with diabetic polyneuropathy, without long-term current use of insulin ([facility]) Essential hypertension Unspecified essential hypertension Mixed hyperlipidemia documented in this encounter Additional Health Concerns Assessment Noted Time PHQ-9 Depression Total Score: 3 09/24/19 25 11:09 AM EST documented as of this encounter Care Teams Safety Analyst Relationship Specialty Start Date End Date Jaime Mares MD [address] [place] [phone] PCP - General Internal Medicine 06/23/14 documented as of this encounter
--- OUTSIDE RECORDS SUMMARY | 2024-10-31 08:53 | XMS_ITS | Encounter Summary ---
Author Organization [employer] Address [address] [facility] [address] [place] [address] Care Team Providers Care Improvement Rn Name Role Phone Jaime Mares MD Primary Care Provide r Encounter Details Date Type Department Care Team (Late st Contact Info) Description 11/23/2022 Orders Only [facility] [address] [place] [address] Duyen Burgess LPN Social History Tobacco Use [...] Description 11/22/2024 11:30 AM EDT Clinical Support [address] [address] 01/23/2025 11:15 AM EDT Office Visit [address] [address] Jaime Mares MD [address] [place] [phone] documented as of this encounter Visit Diagnoses Not on filedocumented in this encounter Care Teams Improvement Rn Relationship Specialty Start Date End Date Jaime Mares MD [address] [place] [address] PCP - General Internal Medicine 06/23/14 documented as of this encounter
--- OUTSIDE RECORDS SUMMARY | 2024-10-31 08:53 | XMS_ITS | Encounter Summary ---
Author Organization [employer] Address [address] [facility] 7t [place] [address] Care Team Providers Care Wireless Store Manager Name Role Phone Jaime Mares MD Primary Care Provide r Reason for Visit * Reason Comments Med Refill Encounter Details Date Type Department Care Team ([facility] Contact Info) Description 06/05/[address] [facility] [address] [place] [address] Olya Harris MD [address] [place] [address] Type 2 diabetes mellitus with diabetic polyneuropathy, without long-term current use of insulin ([facility]) Social History Tobacco Use Types Packs/Day Years [...] Description 11/22/2024 11:30 AM EDT Clinical Support [address] [address] 01/23/2025 11:15 AM EDT Office Visit [facility] [address] [place] [phone] Jaime Mares MD [address] [place] [address] documented as of this encounter Visit Diagnoses Diagnosis Type 2 diabetes mellitus with diabetic polyneuropathy, without long-term current use of insulin ([facility]) documented in this encounter Additional Health Concerns Assessment Noted Time PHQ-9 Depression Total Score: 1 12/05/19 24 9:34 AM EDT documented as of this encounter Care Teams Wireless Store Manager Relationship Specialty Start Date End Date Jaime Mares MD [address] [place] [phone] PCP - General Internal Medicine 06/23/14 documented as of this encounter
--- OUTSIDE RECORDS SUMMARY | 2024-10-31 08:53 | XMS_ITS | Encounter Summary ---
Author Organization [facility] Address [address] [place] [address] [place], [place] [address] Care Team Providers Care Grab Hooker Name Role Phone Jaime Mares MD Primary Care Provide r Reason for Referral * Consultation (Routine) - Authorized Specialty Diagnoses / Procedures Referred By Contac t Referred To Contact Endocrinology Diagnoses Osteoporosis, unspecified osteoporosis type, unspecified pathological fracture presence Jaime Mares MD [address] [place] [address] Phone: tel: fax: [facility] [place] [address] [place] [address] Phone: tel: fax: Referral ID Status Reason Start Date Expiration Date Visits Requested Visits Authorized [id number] Authorized Specialty Services Required 10/27/2024 10/27/2025 1 1 Encounter Details Date Type Department Care Team (Late st Contact Info) Description 10/27/2024 Orders Only [facility] [address] [place], [place] [phone] Jaime Mares MD [address] [place], [place] [phone] Osteoporosis, unspecified osteoporosis type, unspecified pathological fracture presence (Primary Dx) Social History Tobacco Use Types Packs/Day Years [...] 11:30 AM EDT Clinical Support [facility] [address] [place] [address] [phone] 01/23/2025 11:15 AM EDT Office Visit [facility] [address] [place] [phone] Jaime Mares MD [address] [place] [phone] Scheduled Referrals Name Type Priority Associated Diagnoses Orde r Schedule Referral to Endocrinology Outpatient Referral Routine Osteoporosis, unspecified osteoporosis type, unspecified pathological fracture presence Expected: 10/27/2024 (Approximate), Expires: 10/27/2025 documented as of this encounter Visit Diagnoses Diagnosis Osteoporosis, unspecified osteoporosis type, unspecified pathological fracture presence- Primary documented in this encounter Additional Health Concerns Assessment Noted Time PHQ-9 Depression Total Score: 3 09/24/19 25 11:09 AM EST documented as of this encounter Care Teams Grab Hooker Relationship Specialty Start Date End Date Jaime Mares MD [address] [place] [phone] PCP - General Internal Medicine 06/23/14 documented as of this encounter
--- OUTSIDE RECORDS SUMMARY | 2024-10-31 08:53 | XMS_ITS | Encounter Summary ---
Author Organization [facility] Address 75 [facility] [address], [place] [address] Care Team Providers Care Quality Assurance Nurse Name Role Phone Jaime Mares MD Primary Care Provide r Reason for Visit * Reason Comments Med Refill Encounter Details Date Type Department Care Team (Late st Contact Info) Description 03/29/2023 Refill [facility] [address] [place] [address] [phone] Jaime Mares MD [address] [place] [address] [phone] Essential (primary) hypertension Social History Tobacco Use [...] Description 11/22/2024 11:30 AM EDT Clinical Support [facility] [address] [place] [address] [phone] 01/23/2025 11:15 AM EDT Office Visit [facility] [address] [place] [address] [phone] Jaime Mares MD [address] [place] [address] [phone] documented as of this encounter Visit Diagnoses Diagnosis Essential (primary) hypertension Unspecified essential hypertension documented in this encounter Care Teams Quality Assurance Nurse Relationship Specialty Start Date End Date Jaime Mares MD [address] [place] [address] PCP - General Internal Medicine 06/23/14 documented as of this encounter
--- OUTSIDE RECORDS SUMMARY | 2024-10-31 08:53 | XMS_ITS | Encounter Summary ---
Author Organization [employer] Address 75 [facility] 7[address] [place] [address] Care Team Providers Care Label Paster Name Role Phone Jaime Mares MD Primary Care Provide r Reason for Visit * Reason Onset Date Comments triage 08/23/2022 Encounter Details Date Type Department Care Team ([facility] st Contact Info) Description 08/23/2022 Telephone [facility] [address] [place] [address] Jaime Mares MD [address] [place] [address] triage Social History Tobacco Use Types Packs/Day [...] 08/23/2022 1:08 PM EST Triage call with [email or web address] [place] [id number] Pt reports home tested + for Covid this morning. Pt symptoms are mild with runny nose, sneezing, nasal congestion, dry cough, neg for fever, diarrhea, nausea. Pt was given home care handouts via textin romanian. Home care disposition agreed with and home care reviewed thoroughly. Pt is asking aboutmedications and if BP meds can be taken with certain cough syrups. Scheduled a tele visit with PROCESSING ANALYST Catalina tejeda at 315pm . Insurance is [...] COVID-19 * Clean Your Hands Often Cough (French) handout sent to [phone] CDC: Sick With COVID-19 (French) handout sent to [phone] * Telephone Encounter - Alejandra Ferreira - 08/23/2022 11:28 AM EST Patient calling to report Covid positive pt sneezing x 1 day. Patient speaks (French). Advised triage nurse will call patient back. documented in this encounter Plan of Treatment Upcoming Encounters Date Type Department Care Team (Late st Contact Info) Description 11/22/2024 11:30 AM EDT Clinical Support [address] [address] 01/23/2025 11:15 AM EDT Office Visit [address] [place] [address] Jaime Mares MD [address] [place], [place] [phone] documented as of this encounter Visit Diagnoses Not on filedocumented in this encounter Care Teams Label Paster Relationship Specialty Start Date End Date Jaime Mares MD [address] [place], [place] [phone] PCP - General Internal Medicine 06/23/14 documented as of this encounter
--- OUTSIDE RECORDS SUMMARY | 2024-10-31 08:53 | XMS_ITS | Encounter Summary ---
Author Organization [employer] Address 75 [facility] [address] [address] Care Team Providers Care Senior Sas Developer Name Role Phone Jaime Mares MD Primary Care Provide r Reason for Visit * Reason Onset Date Comments triage 2022 Encounter Details Date Type Department Care Team ([facility] st Contact Info) Description 2022 Telephone [facility] [address] [place] [address] Jaime Mares MD [address] [place] [address] triage Social History Tobacco Use Types Packs/Day [...] Description 11/22/2024 11:30 AM EDT Clinical Support [address] [address] 01/23/2025 11:15 AM EDT Office Visit [address] [address] Jaime Mares MD [address] [place] [phone] documented as of this encounter Visit Diagnoses Not on filedocumented in this encounter Care Teams Senior Sas Developer Relationship Specialty Start Date End Date Jaime Mares MD [address] [place] [phone] PCP - General Internal Medicine 06/23/14 documented as of this encounter
--- OUTSIDE RECORDS SUMMARY | 2024-10-31 08:53 | XMS_ITS | Encounter Summary ---
Author Organization [employer] Address 75 [facility] 7[address] [place] [address] Care Team Providers Care Strategic Marketing Leader Name Role Phone Jaime Mares MD Primary Care Provide r Encounter Details Date Type Department Care Team (Late st Contact Info) Description 01/23/2023 Orders Only [facility] [address] [place] [address] Duyen Burgess LPN Social History Tobacco Use [...] Description 11/22/2024 11:30 AM EDT Clinical Support [address] [address] 01/23/2025 11:15 AM EDT Office Visit [address] [address] Jaime Mares MD [address] [place] [phone] documented as of this encounter Visit Diagnoses Not on filedocumented in this encounter Care Teams Strategic Marketing Leader Relationship Specialty Start Date End Date Jaime Mares MD [address] [place] [address] PCP - General Internal Medicine 06/23/14 documented as of this encounter
== END 2024-10-31 08:26 | disposition home or self-care (01) ==
LOC: HO.US 08:25
PROVIDERS: PCP Internal Medicine; Visit Provider Physician Assistant Surgical
DX: I83.11 Varicose veins of right lower extremity with inflammation (principal); I83.12 Varicose veins of left lower extremity with inflammation
CPT/HCPCS: 93970

== ENCOUNTER → 2024-10-31 08:27 | Outpatient (BNV) | payer MEDICARE, SELFPAY | PROVIDERS: PCP Internal Medicine; Visit Provider Radiology Diagnostic Radiology | DX: I83.11 Varicose veins of right lower extremity with inflammation (principal); I83.12 Varicose veins of left lower extremity with inflammation | CPT/HCPCS: 93970 ==

== ENCOUNTER 2024-11-04 09:16 | Outpatient (AMB) | payer MEDICARE, SELFPAY ==
--- NOTE | 2024-11-04 09:17 | MHC.OFFVIS ---
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 Patient reports she noticed about 3 years ago. She states that is causes her pain when she is gripping something. Patient dines numbness and tingling in her finger. Patient mentions that she has a lump on the dorsal aspect of her right hand and that been there for about 3 years as well with no previous treatment. 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 Patient reports she noticed about 3 years ago. She states that is causes her pain when she is gripping something. Patient dines numbness and tingling in her finger. Patient mentions that she has a lump on the dorsal aspect of her right hand and that been there for about 3 years as well with no previous treatment. She is not having pain on the site of the ganglion cyst. No other acute complaints or concerns at this time. [facility] Medical History Chronic pain syndrome Postlaminectomy syndrome of lumbar region Disc degeneration, lumbar Social History (Updated 11/04/24 @ 09:23 by Alden Zazueta) Alcohol intake: never Patient Tobacco Use Status: Never used Tobacco Current occupational status: retired Current occupation: right hand dominant Review of Systems Const All systems reviewed & are unremarkable except as noted in HPI and below Physical Exam Vital Signs: BMI result Body Mass Index 26.1 Extrem Other: Patient is alert, oriented, and in no acute distress. Neuro: Normal sensation of the tips of all digits of the left hand at this time Vascular: Cap refill brisk Pain: No tenderness to palpation about mass on the dorsal aspect of the PIP joint of the left index finger Range of motion of the left hand painless ROM: Patient is able to make a closed fist and extend all digits of the left hand fully and without difficulty Skin: There is noted to be an approximately 1 cm in diameter mass noted on the dorsal aspect of the PIP joint of the left index finger No lacerations or abrasions. General: No ecchymosis, erythema, or evidence of infection. Psych: Appears grossly normal Affect normal Attitude cooperative Assessment & Plan Assessment & Plan (1) Ganglion cyst of finger of left hand: Code(s): M67.442 - Ganglion, left hand Category: Medical Plan 1. Ganglion cyst of PIP joint of left index finger The risks and benefits of a lidocaine injection and cyst aspiration including but not limited to risk of damage to blood vessels, nerves, tendons, infection, skin bleaching, failure to improve symptoms, increased pain, and possible need for further injections or other intervention were discussed with the patient and the patient wishes to proceed with the steroid injection. Once consent was obtained, I aseptically prepped the area over the dorsal PIP joint of the left index finger. I then injected the cyst with 1% lidocaine and proceeded with aspiration of the cyst. However, there is very limited aspiration achieved, as i suspected this is a loculated cyst with multiple pockets Due to limited aspiration, I feel that it was appropriate to get the patient's signed up for surgical excision I educated the patient about the condition. I discussed both operative and nonoperative treatment options. The patient would like to proceed with surgery. The risks and benefits of operative treatment were discussed with the patient and the patient wishes to proceed with surgery. These risks include, but are not limited to, risk of damage to blood vessels, nerves, tendons, infection, recurrence, incomplete relief of preoperative symptoms, persistent pain, possible need for further surgery, and the risks associated with regional blocks and/or anesthesia. Plan is to take the patient to the operating room at some point in the next few weeks for the following procedures: 1. Excision of ganglion cyst of PIP joint of left index finger under local All of the preoperative paperwork including the consent was discussed today. All of the patient's questions were answered in the clinic today. The patient understands that they will be in contact with our surgical coder to discuss scheduling their procedure. Patient reports diabetes, last A1c 7.8 Denies blood thinners, asthma, heart issues, lung issues, kidney issues, or current smoking. Coding Level of Care Code New Pt Level 4 (07374) Diagnoses Ganglion cyst of finger of left hand M67.442
[2024-11-04 09:22] VITALS: BMI 26.1
== END 2024-11-04 09:56 | disposition home or self-care (01) ==
LOC: HO.HOS 09:16
PROVIDERS: PCP Internal Medicine
DX: M67.442 Ganglion, left hand (principal)
CPT/HCPCS: 20612; 99204

== ENCOUNTER → 2024-11-04 09:16 | Outpatient (BNVA) | payer MEDICARE, SELFPAY | PROVIDERS: PCP Internal Medicine | DX: M67.442 Ganglion, left hand (principal) | CPT/HCPCS: 20612; 99202; J2003 ==

== ENCOUNTER 2024-11-05 10:51 | Outpatient (AMB) | payer MEDICARE, SELFPAY ==
[2024-11-05 10:53] VITALS: BMI 26.1
--- NOTE | 2024-11-05 10:53 | A.OFFVIS_ITS ---
Vital Signs 11/05/24 10:53 Height 5 ft 4 in Weight 152 lb BMI 26.1 Intake Visit Reasons: follow up s/p US 10/31/24 Intake Note: followup US 10/31/24 for Left LE pain Predatory Animal Trapper Required: No Accompanied by: Son Allergies codeine [Tylenol-Codeine] Allergy (Intermediate, Verified 11/05/24 10:55) rash Penicillins Allergy (Unknown, Verified 11/05/24 10:55) SKIN TURNS PURPLE HPI HPI follow up s/p US 10/31/24: Details: Noal is presenting today with her son for a follow up to venous insufficiency ultrasound, performed on 10/31/2024. She states her leg/foot pain has been getting better. Her son states that [facility], and she states she is feeling better. She has also been more active at home. She has no new concerns today. [facility] Medical History Chronic pain syndrome Postlaminectomy syndrome of lumbar region Disc degeneration, lumbar Social History Alcohol intake: never Patient Tobacco Use Status: Never used Tobacco Current occupational status: retired Current occupation: right hand dominant Review of Systems Const Reports as per HPI and Denies weakness ENT Reports Normal hearing present and Denies dizziness Card Reports as per HPI, Denies chest pain, Denies chest pain at rest, Denies chest pain with activity, Denies dyspnea and Denies dyspnea on exertion Resp Reports as per HPI, Denies cough, Denies dyspnea and Denies dyspnea on exertion GI Reports as per HPI, Denies abdominal pain, Denies nausea and Denies vomiting Musc Denies numbness Skin/Breast Reports as per HPI, Denies erythema and Denies wounds Neuro Reports Normal hearing present, Denies dizziness, Denies numbness, Denies Sensory deficit (Neuro) and Denies weakness Psych Reports no additional complaints Endo Reports no additional complaints Physical Exam Vital Signs: BMI result Body Mass Index 26.1 Const General: healthy appearing and no acute distress Orientation/consciousness: patient oriented x3 HEENT Head: Yes normal to inspection Ears: hearing grossly normal bilaterally Mouth: Normal oral and palatal mucosa present Resp Effort & Inspection: normal respiratory effort and able to speak in complete sentences Auscultation: clear to auscultation bilaterally Cardio Jugular venous distension: no JVD Rate: regular rate Rhythm: regular rhythm Heart sounds: S1 normal heart sound present and S2 normal heart sound present Bruits: no abdominal aortic bruits, no carotid bruits, no femoral bruits and no renal bruits Peripheral pulses: Peripheral pulses 2+ throughout GI Inspection: Yes normal to inspection Palpation (GI): No Abdominal aortic bruit present Skin General skin exam: no rashes or lesions noted Wounds: no wounds Hair: normal Neuro General: patient oriented x3 Cranial nerves: Yes Normal hearing present Cognition (Neuro): normal cognition Gait exam (Neuro): Normal gait present Motor exam (neuro): 5/5 motor strength present throughout Sensory Exam: No Sensory deficit (Neuro) Extrem Other: Left lower extremity: trace edema noted. Palpable DP pulses. Discoloration noted around ankles. Right lower extremity: trace peripheral edema noted. Palpable DP pulses. General: Yes normal to inspection, Yes full ROM, Yes capillary refill normal and Yes normal gait Results Reviewed Results Reviewed: Brief summary of venous insufficiency testing is as follows: right great saphenous vein: negative right small saphenous vein: negative right accessory vein: none present left great saphenous vein: negative left small saphenous vein: negative left accessory vein: none present Please note there is no evidence of any venous aneurysms or significant tortuos ity Assessment & Plan Assessment & Plan (1) Varicose veins of both lower extremities with inflammation: Code(s): I83.11 - Varicose veins of right lower extremity with inflammation; I83.12 - Varicose veins of left lower extremity with inflammation Category: Medical Plan: Nola is presenting today as a follow up to venous insufficiency ultrasound, performed on 10/31/2024 there was no insufficiency found on ultrasound. She does continue with intermittent left lower extremity swelling and pain as well as left foot pain. She does continue on gabapentin for neuropathy. Likely this pain and swelling is due to neuropathy. We discussed the importance of taking the gabapentin; however, we know it does cause drowsiness, we discussed to talk with her PCP but maybe only take it at night before bed. We discussed the importance of continuing with physical activity. We discussed the importance of maintaining blood sugar control as well as a healthy, well-balanced diet. We discussed that if she has any vascular issues in the future to reach back out to us. Thank you for allowing us to participate in the patient's care. If there are any questions or concerns, please do not hesitate to reach out to us. Coding Level of Care Code Est Pt Level 4 (83241) Diagnoses Varicose veins of both lower extremities with inflammation I83.11; I83.12 Comment Review of venous insufficiency
== END 2024-11-05 11:06 | disposition home or self-care (01) ==
LOC: HO.HVS 10:52
PROVIDERS: PCP Internal Medicine; Visit Provider Physician Assistant Surgical
DX: I83.11 Varicose veins of right lower extremity with inflammation (principal); I83.12 Varicose veins of left lower extremity with inflammation
CPT/HCPCS: 99214

== ENCOUNTER → 2024-11-05 10:51 | Outpatient (BNVA) | payer MEDICARE, SELFPAY | PROVIDERS: PCP Internal Medicine; Visit Provider Physician Assistant Surgical | DX: I83.11 Varicose veins of right lower extremity with inflammation (principal); I83.12 Varicose veins of left lower extremity with inflammation | CPT/HCPCS: 99212 ==

== ENCOUNTER 2024-12-10 09:36 | Day surgery (SDC) | payer MEDICARE, SELFPAY ==
[2024-12-10 10:05] VITALS: BP 167/62; PULSE 62; RESP 18; TEMP 36.6; O2SAT 96
--- NOTE | 2024-12-10 10:14 | MHC.SHP ---
Pre-Procedural Eval Section A - 24 Hr Update-Section A only Date of Service: 12/10/24 The patient is an INPATIENT: No Changes since office visit: No Cold of Flu in the past 2 weeks, No New Medical Problems, No Changes in Medication and No Patient answered all questions The patient has been examined within 24 hours of the surgical procedure. The History & Physical has been completed within 30 days and I have reviewed it.: Yes Section B - Complete if H&P > 30 days Chief Complaint: Ganglion, left hand Allergies: Allergies Allergy/AdvReac Type Severity Reaction Status Date / Time codeine [Tylenol-Codeine] Allergy Intermediate rash Verified 12/10/24 10:07 Penicillins Allergy Unknown SKIN TURNS Verified 12/10/24 10:07 PURPLE Plan Diagnosis/Plan: Unchanged I have reviewed the history and physical and performed a pertinent physical examination on my patient. No changes have occurred unless specified. Time Spent With Patient Time: Total time managing care of this patient today ____ minutes.
--- NOTE | 2024-12-10 10:15 | P.OP_ITS ---
Operative Note Operative Note Date of Service: 12/10/24 Narrative: Operative Note Preop diagnosis: 1. Left index finger dorsal PIP ganglion Postop diagnosis: same Procedure: 1. Left index finger dorsal PIP ganglion excision Surgeon: Wendy Lawson MD Packaging Line Attendant: Antony WOODARD Anesthesia: digital block using 1% lidocaine with epinephrine Findings: 1.5 cm diameter multi lobular ganglion found of the dorsal aspect of the patient's left index finger IP joint. It extended deep between the ulnar sagittal band and the central slip to the dorsal aspect of the PIP joint EBL: Less than 5 mL Tourniquet time: None Specimens: Index finger ganglion for histopathology Complications: None Disposition: Brought to recovery room in stable condition Plan: Follow-up for 7-10 days for wound check and suture removal and to check pathology Indications: The patient is 84 years old, with left index finger dorsal PIP joint ganglion . The risks and benefits of operative treatment including but not limited to risk of damage to blood vessels, nerves, tendons, infection, persistent pain, persistent symptoms, recurrence or possible need for additional surgery were discussed with the patient and the patient wishes to proceed with surgery. Procedure: Once consent was obtained a digital block was performed in the preop area using a combination of 1% lidocaine with epinephrine. The patient was then brought back to the operating suite and placed on the operative table in supine position. The left upper extremity was prepped and draped in a standard surgical fashion. Once assured that we had a good block, I made a dorsal longitudinal incision centered over the ganglion on the dorsal aspect of the left index finger PIP joint. The incision was made through the skin to the subcutaneous tissues using a 15. Blade. I then carefully dissected down to the level of the ganglion using tenotomy and iris scissors. The ganglion was dissected free from the surrounding tissues down to its origin in the dorsal aspect of the IP joint. I followed the ganglion down as it passed between the ulnar sagittal band and the central slip to the PIP joint of the index finger. It was filled with clear viscous fluid consistent with a ganglion. It was then excised from the PIP joint and removed from the patient. Was placed on the back table and sent for histopathology. No further masses were identified. Once satisfied with the ganglion excision the wound was copiously irrigated with normal saline and hemostasis was obtained with a brief period of local pressure. The skin edges were reapproximated with some 5.0 nylon suture material and a sterile dressing was applied. The patient appears to have tolerated the procedure well and with no complications. All digits were well vascularized at the conclusion of the case.
[2024-12-10 10:53] VITALS: BMI 27.8
[2024-12-10 11:44] VITALS: BP 119/47; PULSE 63; RESP 18; TEMP 36.7; O2SAT 94
== END 2024-12-10 11:46 | disposition home or self-care (01) ==
PROVIDERS: PCP Internal Medicine; Visit Provider Orthopaedic Surgery
PROC: (CPT 26160; principal; 2024-12-10 12:50)
DX: M67.442 Ganglion, left hand (principal); G89.4 Chronic pain syndrome; M51.369 Other intervertebral disc degeneration, lumbar region without mention of lumbar back pain or lower extremity pain; M96.1 Postlaminectomy syndrome, not elsewhere classified; Z88.0 Allergy status to penicillin; Z88.5 Allergy status to narcotic agent
CPT/HCPCS: 26160; 88304; J0171; J2003

== ENCOUNTER → 2024-12-10 09:36 | Outpatient (BNV) | payer MEDICARE, SELFPAY | PROVIDERS: PCP Internal Medicine; Visit Provider Orthopaedic Surgery | DX: M67.442 Ganglion, left hand (principal) | CPT/HCPCS: 26160 ==

== ENCOUNTER 2024-12-24 13:55 | Outpatient (AMB) | payer MEDICARE, SELFPAY ==
--- NOTE | 2024-12-24 14:18 | MHC.OFFVIS ---
Intake Visit Reasons: PO-Lt IF Ganglion Cyst Exc 12/10/24 Intake Note: Ninfa is a 84 year old right hand dominant female who presents today for a post operative visit s/p left index finger dorsal PIP ganglion excision DOS: 12/10/[address] Wendy Lawson. Patient reports she is having a lot of sharp and aching pain in the left hand at rest. Denies any discharge from her incision. Denies numbness and tingling. Sutures removed and steri strips applied. Allergies codeine [Tylenol-Codeine] Allergy (Intermediate, Verified 12/24/24 14:25) rash Penicillins Allergy (Unknown, Verified 12/24/24 14:25) SKIN TURNS PURPLE HPI HPI PO-Lt IF Ganglion Cyst Exc 12/10/24: Details: Ninfa is a 84 year old right hand dominant female who presents today for a post operative visit s/p left index finger dorsal PIP ganglion excision DOS: 12/10/[address] Wendy Lawson. Patient reports she is having a lot of sharp and aching pain in the left hand at rest. Patient reports that she has not been moving the left index finger at all since surgery, and she left the original dressing on until today. Denies any discharge from her incision. Denies numbness and tingling. Sutures removed and steri strips applied. [facility] Medical History GERD (gastroesophageal reflux disease) Hypercholesteremia Diabetes Hypertension Chronic pain syndrome Postlaminectomy syndrome of lumbar region Disc degeneration, lumbar Surgical History Hx of colonoscopy Social History Are you a primary medicare insurance specialist to a significant other at home: No Do you presently have visiting nurse or other home services: No Alcohol intake: never Patient Tobacco Use Status: Never used Tobacco Current occupational status: retired Current occupation: right hand dominant Review of Systems Const All systems reviewed & are unremarkable except as noted in HPI and below Physical Exam Extrem Other: Patient is alert, oriented, and in no acute distress. Neuro: Normal sensation of the tips of all digits of the left hand at this time Vascular: Cap refill brisk Pain: No tenderness to palpation about incision on the dorsal aspect of the PIP joint of the left index finger Patient reports significant pain with even slight passive range of motion of the left index finger, patient repeatedly moves my hand away from her finger with even the attempt of slight gentle passive range of motion ROM: Patient is able to make a closed fist and extend all digits of the left hand fully and without difficulty Skin: Incision site on dorsal aspect of left index finger clean, dry, intact No evidence of infection or discharge No lacerations or abrasions. General: No ecchymosis, erythema, or evidence of infection. Psych: Appears grossly normal Affect normal Attitude cooperative Assessment & Plan Assessment & Plan (1) Ganglion cyst of finger of left hand: Code(s): M67.442 - Ganglion, left hand Category: Medical Plan 1. Status post ganglion cyst excision of the left index finger with associated severe postoperative stiffness DOS 12/10/2024 Patient is educated about this condition Patient is educated about the typical recovery course Approximately 20 minutes are spent with the patient attempting to increase her passive range of motion of the left index finger, with slight gains made Patient is educated that it is of the utmost importance that she continues to both passively and actively move the left index finger at home before seeing OT OT referral placed Patient expresses understanding of this Follow-up in 3-4 weeks for [id number] check, sooner with any acute concerns Orders: Orders OT Evaluation and Treatment 12/24/24 M67.442 - Ganglion, left hand Coding Level of Care Code Global (89138) Diagnoses Ganglion cyst of finger of left hand M67.442
== END 2024-12-24 15:03 | disposition home or self-care (01) ==
LOC: HO.HOS 13:56
PROVIDERS: PCP Internal Medicine
DX: M67.442 Ganglion, left hand (principal)
CPT/HCPCS: 99024

== ENCOUNTER → 2024-12-24 13:55 | Outpatient (BNVA) | payer MEDICARE, SELFPAY | PROVIDERS: PCP Internal Medicine | DX: Z47.89 Encounter for other orthopedic aftercare (principal); Z98.890 Other specified postprocedural states | CPT/HCPCS: 99212 ==

== ENCOUNTER 2024-12-26 12:54 | Outpatient (AMB) | payer MEDICARE, SELFPAY ==
--- NOTE | 2024-12-26 12:59 | A.OFFVIS_ITS ---
Vital Signs 12/26/24 13:03 Height 5 ft 1.73 in Weight 156 lb 15.506 oz BMI 29.0 BP 148/72 H Blood Pressure Location Lt brachial Position Sitting Pulse 63 Pulse Source Pulse Oximeter Pulse Oximetry (%) 96 Oxygen Delivery Method Room Air Intake Visit Reasons: Osteoporosis Intake Note: New patient externally referred for Osteoporosis. Pug Machine Operator Required: Yes Pug Machine Operator Language: Installation Helper Services: Pug Machine Operator Present Pug Machine Operator Name: Whit CMI Information Interpreted: non-clinical & clinical Accompanied by: Self / Same As Patient Allergies codeine [Tylenol-Codeine] Allergy (Intermediate, Verified 12/26/24 13:04) rash Penicillins Allergy (Unknown, Verified 12/26/24 13:04) SKIN TURNS PURPLE Medication List - Last Reconciled 12/26/24 by Cristhian Estrada MD acetaminophen ER (Tylenol Arthritis Pain) 650 mg PO Q8H aspirin 81 mg PO QPM atenolol 100 mg PO DAILY diclofenac sodium 1% 2 grams topical BID gabapentin 100 mg PO Q8H gabapentin 300 mg PO TID glipizide 10 mg PO DAILY glipizide ER 10 mg PO DAILY hydralazine 25 mg PO ONCE hydrochlorothiazide 50 mg PO DAILY hydrocodone-acetaminophen 5-325 mg 1 tab PO Q6H PRN levothyroxine 75 mcg PO DAILY metformin ER 1,000 mg PO BID omeprazole 20 mg PO DAILY simvastatin 80 mg PO DAILY valsartan 40 mg PO DAILY HPI Comments Details: The patient is an 84-year-old female presenting with osteoporosis management concerns. Her condition has been present for three to four years and remains untreated by osteoporosis-specific medication, with no history of specialist consultation. She does not recall experiencing fractures but notes spinal disc issues, not attributed to fractures. She maintains an active lifestyle with daily light weight resistance exercises, temporarily affected by a recent hand surgery. Her dietary intake includes daily milk and intermittent yogurt consumption, but she avoids salmon due to intolerance. She has not supplemented her diet with calcium or vitamin D, despite acknowledging the recommendation for increased intake. Her medical history is notable for significant height loss over time, while she denies personal or familial history of conditions commonly associated with decreased bone density. The patient's social history is unremarkable with no smoking or alcohol misuse. There are no reported symptoms relating to other endocrine disorders. First diagnosed in 4-5 yrs ago . Not Received treatment in the past No history of pathologic fracture or ONJ. Has several servings of dietary calcium per day. Not Takes Calcium supplement or Vitamin D daily. - Omeprazole: Currently used, no specific dose or indication mentioned. - Vitamin D supplement: Recently purchased but details on dosage and usage are unclear. The patient consumes milk daily and has yogurt two or three times a week, providing some calcium intake. She avoids salmon, which causes gastrointestinal issues, but otherwise follows a varied diet as outlined in a provided list. She is currently not using calcium supplements despite being advised to supplement dietary intake as needed to reach 1200 mg daily. Denies ever using PPI, anticoagulant, antiepileptic or glucocorticoid medication. Does weight bearing exercise 5 days per week in the form of light weights . - Engages in light weight resistance exercises daily, at home and previously at the [facility]. - Goals included maintaining bone health through weightbearing activities, slightly limited by recent hand surgery. 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 UTD on dental cleanings and sees dentist every 6 months. No planned upcoming dental work or extractions. No tabacco use or ETOH abuse DXA dated 10/25/24 :S: The bone mineral density of the lumbar spine is 0.865 with a T-score of -2.5, and a Z-score of -0.8. This represents a BMD change of 5.1% compared to the prior exam. This is statistically significant. The bone mineral density of the left total hip is 0.947 with a T-score of -0.5, and a Z-score of 1.5. This represents BMD change of 4.4% compared to the prior exam. This is statistically significant. The bone mineral density of the left femoral neck is 0.928 with a T-score of -0.8, and a Z-score of 1.4. This represents BMD change of 4.0% compared to the prior exam. FRACTURE RISK: The FRAX index suggests a ten year probability of major osteoporotic fracture of 6.4%, and of hip fracture 1.2%. Labs: [facility] Medical History (Updated 12/26/24 @ 13:05 by Cristhian Estrada MD) Osteoporosis GERD (gastroesophageal reflux disease) Hypercholesteremia Diabetes Hypertension Chronic pain syndrome Postlaminectomy syndrome of lumbar region Disc degeneration, lumbar Surgical History Hx of total thyroidectomy Hx of hand surgery Hx of colonoscopy Social History Are you a primary ocular care technician to a significant other at home: No Do you presently have visiting nurse or other home services: No Alcohol intake: never Patient Tobacco Use Status: Never used Tobacco Current occupational status: retired Current occupation: right hand dominant Physical Exam Vital Signs: BMI result Body Mass Index 29.0 There are no Cushingoid features. Absence of blue sclera. Absence of kyphosis. Thyroid gland is of nl size and weighs 15 gms. There are no thyroid nodules palpated. Lungs CTA. Heart S1 S2 Reg R/R Abdominal exam benign. Muscle strength 5/5 . Examination of spine reveals absence of tenderness on palpation Assessment & Plan Assessment & Plan (1) Osteoporosis: Code(s): M81.0 - Age-related osteoporosis without current pathological fracture Category: Medical Plan: This 84-year-old female with a history of borderline osteoporosis. Partial secondary workup has been performed Plan is to complete the secondary workup by checking a 25 hydroxy vitamin-D, urine immunofixation, phosphorus level, 24 hour urine for calcium and creatinine. Will ensure 1200 mg of calcium and 2000 IU of vitamin D3. Assuming secondary workup is negative could either consider observing without pharmacologic therapy considering relatively low risk for fracture or initiating anti resorptive therapy like a bisphosphonate. 1. Osteoporosis The patient requires enhanced dietary calcium and vitamin D supplementation to manage osteoporosis, with intake to include 1200 mg of calcium and 2000 IU of vitamin D daily from dietary or supplemental sources. Current bone density results are borderline, and follow-up is planned in four months to reassess and determine additional interventions if required. I discussed with the patient the importance of adequate calcium and vitamin D intake for bone health management in osteoporosis. The benefits of her existing exercise regimen were emphasized, alongside the need for supplementation to potentially improve and maintain bone density. I advised to initially avoid more invasive treatments due to her stable condition and symptom absence. We also reviewed strategies for dietary enhancements, specifically increased dairy intake, as alternatives to supplements. Arrangements were made for a follow-up visit in four months, with instructions to postpone any scheduled laboratory testing till after her supplements have been adequately integrated. - Take 1200 mg of calcium daily through diet or supplements. - Take 2000 IU of vitamin D daily. - Continue light weight exercises as tolerated. - Avoid starting 24-hour urine test until after starting supplements. - Schedule a follow-up appointment in four months. - Seek immediate care if experiencing any new severe symptoms or suspected fractures. The patient had an opportunity to ask questions regarding treatment plan. The patient expressed understanding and agreement with the above treatment plan. Patient was informed and verbally consented to the use of an ambient scribe for clinic note documentation during this visit. Orders: Orders Vitamin D 25-OH Total Today M81.0 - Age-related osteoporosis without current pathological fracture Immunofixation, Random Urine Today M81.0 - Age-related osteoporosis without current pathological fracture Phosphorus Today M81.0 - Age-related osteoporosis without current pathological fracture Calcium, 24 Hr Ur Today M81.0 - Age-related osteoporosis without current pathological fracture Creatinine, 24 Hr Group Today M81.0 - Age-related osteoporosis without current pathological fracture Coding Level of Care Code New Pt Level 4 (49482) Diagnoses Osteoporosis M81.0
[2024-12-26 13:03] VITALS: BP 148/72; PULSE 63; O2SAT 96; BMI 29.0
--- OUTSIDE RECORDS SUMMARY | 2024-12-26 14:02 | XMS_ITS | Encounter Summary ---
Author Organization [employer] Address [address] [place] [address] Care Team Providers Care Accounting Clerks Supervisor Name Role Phone Jaime Mares MD Primary Care Provide r Reason for Visit * Reason Onset Date Comments triage 08/23/2022 Encounter Details Date Type Department Care Team ([facility] st Contact Info) Description 08/23/2022 Telephone [facility] [address] [place] [phone] Jaime Mares MD [address] [place] [address] triage Social History Tobacco Use Types Packs/Day [...] 08/23/2022 1:08 PM EST Triage call with [employer] Horticulture Teacher [place] [id number] Pt reports home tested + for Covid this morning. Pt symptoms are mild with runny nose, sneezing, nasal congestion, dry cough, neg for fever, diarrhea, nausea. Pt was given home care handouts via textin gabonese. Home care disposition agreed with and home care reviewed thoroughly. Pt is asking aboutmedications and if BP meds can be taken with certain cough syrups. Scheduled a tele visit with CLIENT APPLICATION SUPPORT ENGINEER Catalina tejeda at 315pm . Insurance is [...] COVID-19 * Clean Your Hands Often Cough (Turkmen) handout sent to [phone] CDC: Sick With COVID-19 (Turkmen) handout sent to [phone] * Telephone Encounter - Alejandra Ferreira - 08/23/2022 11:28 AM EST Patient calling to report Covid positive pt sneezing x 1 day. Patient speaks (Turkmen). Advised triage nurse will call patient back. documented in this encounter Plan of Treatment Upcoming Encounters Date Type Department Care Team (Late st Contact Info) Description 01/23/2025 11:15 AM EDT Office Visit [facility] [address] [place] [phone] Jaime Mares MD [address] [place] [address] documented as of this encounter Visit Diagnoses Not on filedocumented in this encounter Care Teams Accounting Clerks Supervisor Relationship Specialty Start Date End Date Jaime Mares MD [address] [place] [address] PCP - General Internal Medicine 06/23/14 documented as of this encounter
--- OUTSIDE RECORDS SUMMARY | 2024-12-26 14:02 | XMS_ITS | Encounter Summary ---
Author Organization [employer] Address [address] [place] [address] Care Team Providers Care Supervisor Accounts Receivable Name Role Phone Jaime Mares MD Primary Care Provide r Encounter Details Date Type Department Care Team (Late st Contact Info) Description 11/23/2022 Orders Only [facility] [address], [place] [phone] Duyen Burgess LPN Social History Tobacco Use [...] Description 01/23/2025 11:15 AM EDT Office Visit [facility] [address] [place] [address] Jaime Mares MD [address] [place] [address] documented as of this encounter Visit Diagnoses Not on filedocumented in this encounter Care Teams Supervisor Accounts Receivable Relationship Specialty Start Date End Date Jaime Mares MD [address] [place], [place] [phone] PCP - General Internal Medicine 06/23/14 documented as of this encounter
--- OUTSIDE RECORDS SUMMARY | 2024-12-26 14:02 | XMS_ITS | Clinical Summary ---
Author Organization [employer] Address [address] [facility] [facility] [address] [place] [address] Care Team Providers Care Older Worker Specialist Name Role Phone Jaime Mares MD Primary Care Provide r Allergies Active Allergy Reactions Criticality Noted Date Comments Alendronate 05/08/2014 Amlodipine Rash Low 07/03/2012 Penicillin G 03/15/2012 Medications metFORMIN XR (Glucophage-XR) 500 MG 24 hr tabletIndications: Type 2 diabetes mellitus with diabetic polyneuropathy, without long-term current use of insulin (CMS/HCC) TAKE 2 TABLETS BY MOUTH TWICE DAILY AT NOON AND IN THE EVENING 120 tablet 6 4 Active Aspirin Low Dose 81 MG EC tablet TAKE 1 TABLET BY MOUTH EVERY EVENING 90 tablet 3 4 Active omeprazole (PriLOSEC) [address] capsule TAKE 1 CAPSULE BY MOUTH EVERY MORNING BEFORE MEALS 90 capsule 3 4 Active gabapentin (Neurontin) 300 MG capsuleIndications :Uncontrolled type 2 diabetes mellitus with hyperglycemia (CMS/HCC) Take 1 capsule (300 mg) by mouth 3 times daily. 90 capsule 3 5 Active Calcium Carb-Cholecalcifer ol (Oyster Shell Calcium w/D) 500-5 MG-MCG tablet TAKE 1 TABLET BY MOUTH TWICE DAILY IN THE MORNING AND IN THE EVENING 180 tablet 1 5 Active glipiZIDE XL (Glucotrol XL) 10 MG 24 hr tabletIndications: Type 2 diabetes mellitus with diabetic polyneuropathy, without long-term current use of insulin (CMS/HCC) TAKE 1 TABLET BY MOUTH EVERY MORNING WITH BREAKFAST 90 tablet 1 5 Active atenolol (Tenormin) 100 MG tabletIndications: Essential hypertension TAKE 1 TABLET BY MOUTH EVERYDAY AT NOON 90 tablet 1 5 Active simvastatin (Zocor) 80 MG tabletIndications: Mixed hyperlipidemia TAKE 1 TABLET BY MOUTH EVERY EVENING 90 tablet 1 5 Active hydroCHLOROthiazid e (HYDRODiuril) 50 MG tabletIndications: Essential hypertension TAKE 1 TABLET BY MOUTH EVERY MORNING 90 tablet 1 5 Active levothyroxine (Synthroid, Levoxyl) 75 MCG tablet TAKE 1 TABLET BY MOUTH EVERY MORNING 90 tablet 1 5 Active valsartan (Diovan) 40 MG tabletIndications: Essential hypertension Take 1 tablet (40 mg) by mouth Once per day. 30 tablet 3 5 Active hydrALAZINE (Apresoline) 50 MG tabletIndications: Essential (primary) hypertension TAKE 1 TABLET BY MOUTH THREE TIMES DAILY IN THE MORNING, EVENING, AND BEDTIME 270 tablet 1 5 Active Active Problems Problem Noted Date Diagnosed Date [...] mckinney Brown, irregular borders, seborrheic hyperkeratosis Plan: [facility] Diabetes mellitus with [...] Eye exam was done on 12/12/13 via [facility] Microalbumin re ordered Foot [...] Eye exam was done on 12/12/13 via [facility] Microalbumin 08/27/2019 was 5 ,pt on ARB. will repeat Foot check risk of zero, on Asa daily. Adhere to diabetic diet check your blood sugars regularly check your feet on a daily basis f/u 3 months Assessment & Plan (12/06/2023 1:49 PM EDT): Patient is here for a f/u after a long hiatus, was living in [place] and was without medications for months, upon [...] Eye exam was done on 12/12/13 via [facility] Microalbumin 08/27/2019 was 5 ,pt [...] after a long hiatus. Pt was in [place] BP remains uncontrolled She is on a [...] after a long hiatus. Pt was in [place] BP remains uncontrolled She is on a [...] get up to use the bathroom at [facility]. Most recent electrolytes, Bun and Creatinine [...] pt had a previous MRI done at [facility] that showed a heterogeneous mass [...] to the radiologist. Pt was referred to [facility] surgical associates and pt told [...] used to be under the care of [facility] Pain management. Last seen 02/25/2022 Pt has [...] MRI 11/25/2020 (Please see scanned document) The display specialist at [facility] already reviewed her MRI and has recommended a steroid injections. She has had good results with them in the past. MRI booked for 02/16/24 @10:30AM Assessment & Plan (12/06/2023 1:54 PM EDT): Pt c/o persistent low back pain She used to be under the care of [facility] Pain management. Last seen 02/25/2022 Pt has [...] MRI 11/25/2020 (Please see scanned document) The display specialist at [facility] already reviewed her MRI and has recommended [...] Encounters Date Type Department Care Team Description 12/10/2024 Orders Only GENERIC EXTERNAL DATA DEPARTMENT Provider, Generic External Data 12/06/2024 11:30 AM EDT Clinical Support [facility] [place] [address] Gin Shin, RN Essential hypertension 12/06/2024 Travel 11/22/2024 11:30 AM EDT Clinical Support [facility] [place] [address] Sharyn Evangelista RN Essential hypertension 11/22/2024 Travel 11/19/2024 Refill [facility] [place] [address] Jaime Mares MD Essential (primary) hypertension 10/28/2024 Telephone [facility] [place] [address] Gin Shin, RN Results; Referral 10/27/2024 Orders Only [facility] [place] [address] Jaime Mares MD Osteoporosis, unspecified osteoporosis type, unspecified pathological fracture presence (Primary Dx) 10/22/2024 1:15 PM EST Office Visit [facility] [place] [address] Jaime Mares MD Vascular insufficiency of extremity (Primary Dx); Type 2 diabetes mellitus with diabetic polyneuropathy, without long-term current use of insulin ([facility]); Essential hypertension; Mixed hyperlipidemia; Acquired hypothyroidism; Preventative health care; Neuropathic pain of both legs 10/22/2024 Travel 10/06/2024 Refill [facility] [address] [place] [address] Jaime Mares MD Type 2 diabetes mellitus with diabetic polyneuropathy, without long-term current use of insulin ([facility]); Essential hypertension; Mixed hyperlipidemia 10/04/2024 Telephone [facility] [address] [place], [place] [phone] Jaime Mares MD Chart Prep from Last 3 Months Immunizations Name Administration Dates Next Due Influenza High-dose Quadriva lent Preservative Free 06/23/2022 Influenza, High Dose Seasona l, Preservative Free 09/24/2024 Pfizer Covid-19 Vaccine 12+ 05/19/2021, 1,09/29/2020 Pneumococcal Conjugate PCV 13 05/28/2015 Pneumococcal Polysaccharide [...] Sign Reading Time Taken Comments Blood Pressure 142/78 12/06/2024 12:49 PM EDT Pulse 72 12/06/2024 12:49 PM EDT Temperature 36.1 ??C (96.9 ??F) 10/22/2024 1:08 PM ES T Respiratory Rate 16 12/06/2024 12:49 PM EDT Oxygen Saturation 97% 12/06/2024 12:49 PM EDT Inhaled Oxygen Concentration - - Weight 72.3 kg (159 lb 6.4 oz) 10/22/2024 1:08 P M EST Height 172.4 cm (5' 7.88 ) 10/22/2024 1:08 PM ES T Body Mass Index 24.32 10/22/2024 1:08 PM EST Plan of Treatment Upcoming Encounters Date Type Department Care Team (Late st Contact Info) Description 01/23/2025 11:15 AM EDT Office Visit [facility] [address] [place] [address] Jaime Mares MD [address] [place] [address] Health Maintenance Due Date Last Done Comments [...] 09/24/2025 09/24/2024, 09/24/19 SDOH Screening 09/24/2025 09/24/2024 Diabetes: Urine Protein Screening 10/22/2025 10/22/2024, 06/27/2022, 11/25/2020, Additional history exists Lipid Panel 10/22/2025 10/22/2024, 01/19, 06/27/2022 Tobacco Screening 12/06/2025 12/06/2024 DTaP/Tdap/Td Vaccines (2 - Td or Tdap) [...] Procedure Name Priority Date/Time Associated Diagnosis Comments GROSS AND MICROSCOPIC LEVEL 3 Routine 12/10/2024 11:25 AM EDT VASC US LOWER EXTREMITY VENOUS DUPLEX BILATERAL Routine 10/31/2024 8:45 AM EDT BD DEXA AXIAL Routine 10/25/2024 11:30 AM EST Osteoporosis, unspecified osteoporosis type, unspecified pathological fracture presence LIPID PANEL, STANDARD Routine 10/22/2024 1:43 PM EST Mixed hyperlipidemia TSH W/REFLEX TO FT4 Routine 10/22/2024 1 :43 PM EST Acquired hypothyroidism ALBUMIN, RANDOM URINE W/CREATININE Routine 10/22/2024 1:43 PM EST Type 2 diabetes mellitus with diabetic polyneuropathy, without long-term current use of insulin ([facility]) POCT GLUCOSE Routine 10/22/2024 1:20 PM EST Type 2 diabetes mellitus with diabetic polyneuropathy, without long-term current use of insulin ([facility]) POCT GLYCATED HEMOGLOBIN, TOTAL Routine 09/24/2024 11:20 AM EST Type 2 diabetes mellitus with diabetic polyneuropathy, without long-term current use of insulin ([facility]) from Last 3 Months or Most Recently Relevant to Health Maintenance Results * Gross and Microscopic Level 3 (12/10/2024 11:25 AM EDT) 12/10/2024 11:2 5 AM EDT 12/10/2024 12:55 PM EDT [facility] - 12/11/2024 1:52 PM EDT ----- ------- Name: Nola Styles ? Age/Sex: 84/F ? : 1940 Unit#: [id number] ?? Attend Dr: Wendy Lawson MD ?Re12/10/24 ?Status: DEP SDC ? Location: HO.SSS ?Disch: ? ----- ------- SPEC : [id number] ? RECD: 12/10/24-5 ? STATUS: ??SOUT ? REQ NUM: [id number] ? PACO: 12/10/24-1125 ? SUBM DR: Wendy Lawson MD ? ENTERED: ??12/10/24-1300 ?SP TYPE: Surgical ? OTHR DR: Jaime Tinoco MD ?? ORDERED: ??Gross Micro L3 ? Diagnosis ?? Soft tissue, left index finger, excision: ??Fibrovascular tissue with pseudocyst formation ?? and myxoid change, consistent with ganglion. ?Clinical History Left index finger ganglion cyst ?Microscopic Description Microscopic sections reviewed. ? Material Received ?? Left index finger ganglion cyst ? Gross Description Received in formalin labeled left index finger ganglion? is a 1.4 x 1.0 x 0.6 cm shaggy, goldsmith, white-pink portion of fibrous tissue. ??The margins are inked and the specimen is sectioned to reveal a pederson-white cyst containing scant clear mucogelatinous material. Manager Validation sections are submitted in a cassette labeled A1. CEDS Copies To: ?? Jaime Tinoco MD ?? [facility] ?? [address] ?? [place] [address] ?? [phone] ?? Wendy Lawson MD ?? [facility] ?? [address] [place] [address] [address] ?? [place] [address] ?? [phone] ----- ------- Signed (signature on file) Vincent Lucas MD 12/11/24 4047 ? ----- ------- ? END OF REPORT ? us Generic External Data Provider LAB CYTOLOGY JONI MEJIA Final Result [facility] [address] [place] [address] [phone] * VASC US Lower Extremity Venous Duplex Bilateral (10/31/2024 8:45 AM EDT) 10/31/2024 8:45 AM EDT Narrative [facility] - 10/31/2024 10:01 AM EDT ? [facility] ?[address] ?[place] [address] ? Ultrasound Report ? Signed ? Patient: Nola Styles ?MR#: MM ?? [id number] ? : 1940 ?Acct:[id number] ? Age/Sex: 84 / F ?ADM Date: 10/31/24 ? Loc: HO.US ? Attending Dr: Consuelo Land PA-C ? Ordering Physician: Consuelo Land PA-C ?? Date of Service: 10/31/24 ?? Procedure(s): US venous duplex LE BI ?? Accession Number(s): [id number] ? cc: Jaime Tinoco MD; Consuelo Land PA-C ? EXAMINATION: ? US VENOUS ULTRASOUND WITH DOPPLER LOWER EXTREMITY, BILATERAL ? CLINICAL INFORMATION: ? Varicose veins of right lower extremity with inflammation. ? COMPARISON: ? DVT ultrasound 11/06/2023. ? TECHNIQUE: ?? Ultrasound of the superficial veins is performed in the bilateral lower ?? extremities from the hip to the calf with compression sonography and ?? color and pulse Doppler assessment. Spectral analysis with color-flow ?? imaging is performed. ? FINDINGS: ?? RIGHT SIDE: ? GREATER SAPHENOUS VEIN: ? The right saphenofemoral junction diameter is 0.4 cm. There is no ?? reflux. ?? The right proximal thigh diameter is 0.3 cm. There is no reflux. ?? The right mid thigh diameter is 0.2 cm. There is no reflux. ?? The right above-knee diameter is 0.2 cm. There is no reflux. ?? The right at-knee diameter is 0.2 cm. There is no reflux. ?? The right below-knee diameter is 0.2 cm. There is no reflux. ?? The right mid calf diameter is 0.1 cm. There is no reflux. ?? The right ankle diameter is 0.1 cm. There is no reflux. ? MEDIAL ACCESSORY GREATER SAPHENOUS VEIN: ? The right saphenofemoral junction diameter is 0.2 cm. There is no ?? reflux. ?? The right mid thigh diameter is 0.2 cm. There is no reflux. ? LESSER SAPHENOUS VEIN: ? The right saphenopopliteal junction diameter is 0.2 cm. There is no ?? reflux. ?? The right mid calf diameter is 0.2 cm. There is no reflux. ?? The right distal calf diameter is 0.2 cm. There is no reflux. ?? The vein of Giacomini diameter 0.3 cm. There is no reflux. ? SAPHENOUS PERFORATORS: ?? None. ? VARICOSITIES: ?? None. ? LEFT SIDE: ? GREATER SAPHENOUS VEIN: ? The left saphenofemoral junction diameter is 0.7 cm. There is no reflux. ?? The left proximal thigh diameter is 0.5 cm. There is no reflux. ?? The left mid thigh diameter is 0.3 cm. There is no reflux. ?? The left above-knee diameter is 0.3 cm. There is no reflux. ?? The left at-knee diameter is 0.3 cm. There is no reflux. ?? The left below-knee diameter is 0.2 cm. There is no reflux. ?? The left mid calf diameter is 0.2 cm. There is no reflux. ?? The left ankle diameter is 0.2 cm. There is no reflux. ? LATERAL ACCESSORY GREATER SAPHENOUS VEIN: ? The left saphenofemoral junction diameter is 0.1 cm. There is no reflux ?? The left mid thigh diameter is 0.2 cm. There is no reflux. ? LESSER SAPHENOUS VEIN: ? The left saphenopopliteal junction diameter is 0.2 cm. There is no ?? reflux. ?? The left mid calf diameter is 0.2 cm. There is no reflux. ?? The left distal calf diameter is 0.2 cm. There is no reflux. ?? The vein of Giacomini diameter 0.2 cm. There is no reflux. ? SAPHENOUS PERFORATORS: ?? None. ? VARICOSITIES: ?? At the left greater saphenous vein proximal calf measures 0.2 cm. There ?? is no reflux. ? OTHER: ?? There is no evidence of DVT in either lower extremity. ?? Mildly prominent reactive appearing left groin lymph node measuring 1.9 ?? x 0.8 x 1.8). This is nonspecific. ? US/US venous duplex LE BI ?? IMPRESSION: ?: ?? 1. No hemodynamically significant reflux is seen of the bilateral ?? greater or lesser saphenous veins. ?? 2. There is a solitary left greater saphenous varicosity in the ?? proximal left calf measuring 0.2 cm. There is no reflux. ?? 3. There are no right lower extremity varicosities. ?? 4. See above for details. ? Electronically signed by: ??Reyes Gutierrez MD ??10/31/2024 09:59 AM EDT RP ?? Workstation: [id number] ? Dictated By: ?Reyes Gutierrez MD ? Signed By: ?<Electronically signed by Reyes Gutierrez MD in OV> ?10/31/24 0959 ? DD/ 0845 ? TD/TT: 10/31/24 0912 ? Institutional Cook: ? Procedure Note [facility] Cardenas - 10/31/[address] [address] Ultrasound Report Signed Patient: Nola Styles MMR#: [id number] : 3Acct:[id number] Age/Sex: 84 / FADM Date: 10/31/24 Loc: HO.US Attending Dr: Consuelo Land PA-C Ordering Physician: Consuelo Land PA-C Date of Service: 10/31/24 Procedure(s): US venous duplex LE BI Accession Number(s): [id number] cc: Jaime Tinoco MD; Consuelo Land PA-C EXAMINATION: US VENOUS ULTRASOUND WITH DOPPLER LOWER EXTREMITY, BILATERAL CLINICAL INFORMATION: Varicose veins of right lower extremity with inflammation. COMPARISON: DVT ultrasound 11/06/2023. TECHNIQUE: Ultrasound of the superficial veins is performed in the bilateral lower extremities from the hip to the calf with compression sonography and color and pulse Doppler assessment. Spectral analysis with color-flow imaging is performed. FINDINGS: RIGHT SIDE: GREATER SAPHENOUS VEIN: The right saphenofemoral junction diameter is 0.4 cm. There is no reflux. The right proximal thigh diameter is 0.3 cm. There is no reflux. The right mid thigh diameter is 0.2 cm. There is no reflux. The right above-knee diameter is 0.2 cm. There is no reflux. The right at-knee diameter is 0.2 cm. There is no reflux. The right below-knee diameter is 0.2 cm. There is no reflux. The right mid calf diameter is 0.1 cm. There is no reflux. The right ankle diameter is 0.1 cm. There is no reflux. MEDIAL ACCESSORY GREATER SAPHENOUS VEIN: The right saphenofemoral junction diameter is 0.2 cm. There is no reflux. The right mid thigh diameter is 0.2 cm. There is no reflux. LESSER SAPHENOUS VEIN: The right saphenopopliteal junction diameter is 0.2 cm. There is no reflux. The right mid calf diameter is 0.2 cm. There is no reflux. The right distal calf diameter is 0.2 cm. There is no reflux. The vein of Giacomini diameter 0.3 cm. There is no reflux. SAPHENOUS PERFORATORS: None. VARICOSITIES: None. LEFT SIDE: GREATER SAPHENOUS VEIN: The left saphenofemoral junction diameter is 0.7 cm. There is no reflux. The left proximal thigh diameter is 0.5 cm. There is no reflux. The left mid thigh diameter is 0.3 cm. There is no reflux. The left above-knee diameter is 0.3 cm. There is no reflux. The left at-knee diameter is 0.3 cm. There is no reflux. The left below-knee diameter is 0.2 cm. There is no reflux. The left mid calf diameter is 0.2 cm. There is no reflux. The left ankle diameter is 0.2 cm. There is no reflux. LATERAL ACCESSORY GREATER SAPHENOUS VEIN: The left saphenofemoral junction diameter is 0.1 cm. There is no reflux The left mid thigh diameter is 0.2 cm. There is no reflux. LESSER SAPHENOUS VEIN: The left saphenopopliteal junction diameter is 0.2 cm. There is no reflux. The left mid calf diameter is 0.2 cm. There is no reflux. The left distal calf diameter is 0.2 cm. There is no reflux. The vein of Giacomini diameter 0.2 cm. There is no reflux. SAPHENOUS PERFORATORS: None. VARICOSITIES: At the left greater saphenous vein proximal calf measures 0.2 cm. There is no reflux. OTHER: There is no evidence of DVT in either lower extremity. Mildly prominent reactive appearing left groin lymph node measuring 1.9 x 0.8 x 1.8). This is nonspecific. US/US venous duplex LE BI IMPRESSION: : 1. No hemodynamically significant reflux is seen of the bilateral greater or lesser saphenous veins. 2. There is a solitary left greater saphenous varicosity in the proximal left calf measuring 0.2 cm. There is no reflux. 3. There are no right lower extremity varicosities. 4. See above for details. Electronically signed by: Reyes Gutierrez MD 10/31/2024 09:59 AM EDT Dictated By: Reyes Gutierrez MD Signed By: <Electronically signed by Reyes Gutierrez MD in OV> 10/31/24 0959 DD/ 0845 TD/TT: 10/31/24 0912 Institutional Cook: [facility] External Provider CV VASC ULAR PROCEDURES Edited Result - Final [facility] [address] [place] [phone] * BD DEXA Axial (10/25/2024 11:30 AM EST) Anatomical Region Laterality Modality Body Radiographic Juju ging 10/25/2024 11:3 0 AM EST Narrative 10/25/2024 1:43 PM EST ? [facility] ? [address] ?[place] [address] ? Mammography Report ? Signed ? Patient: Nola Styles M ?MR#: MM ?? [id number] ? : 1940 ?Acct:[id number] ? Age/Sex: 84 / F ?ADM Date: 10/25/24 ? Loc: HO.MAMMO ? Attending Dr: Jaime Tinoco MD ? Ordering Physician: Jaime Tinoco MD ?Resu ?? lts: ? Date of Service: 10/25/24 ?Follow Up: ? Procedure(s): XR DEXA axial skeleton ?? Accession Number(s): [id number] ? cc: Jaime Tinoco MD; Quin Diaz MD ? EXAMINATION: ??DXA BONE DENSITY AXIAL ? HISTORY: ??Estrogen deficiency ? TECHNIQUE: K[employer]ocket Dual energy absorptiometry (DEXA) ?? of the [...] is a trademark of the [employer]'s ?? [place] for Metabolic Bone Disease, a World Health Organization (WHO) ?? Collaborating Center. ? Electronically signed by: ??Cristhian Draper MD ??10/25/2024 01:40 PM EST ?? RP ? Dictated By: ?Cristhian Draper MD ? Signed By: ?<Electronically signed by Cristhian Draper MD in OV> ?10/25/24 1340 ? DD/ 1130 ? TD/TT: 10/25/24 1159 ? Institutional Cook: ? Procedure Note Donotuseinterpreter, Image - 10/25/2024 [facility] [address] [place], [place] [address] Mammography Report Signed Patient: Nola Styles MMR#: [id number] : 3Acct:[id number] Age/Sex: 84 / FADM Date: 10/25/24 Loc: NUZHAT Attending Dr: Jaime Tinoco MD Ordering Physician: Jaime Tinocou lts: Date of Service: 10/25/24Follow Up: Procedure(s): XR DEXA axial skeleton Accession Number(s): [id number] cc: Jaime Tinoco MD; Quin Diaz MD EXAMINATION: DXA BONE DENSITY AXIAL HISTORY: Estrogen deficiency TECHNIQUE: KartRocket Dual energy absorptiometry (DEXA) of the lumbar [...] is a trademark of the [employer]'s [place] [facility] [employer] Disease, a World Health Organization (WHO) Collaborating Center. Electronically signed by: Cristhian Draper MD 10/25/2024 01:40 PM EST Dictated By: Cristhian Draper MD Signed By: <Electronically signed by Cristhian Draper MD in OV> 10/25/24 1340 DD/ 1130 TD/TT: 10/25/24 1159 Institutional Cook: Jaime Christopher MD IMG DXA PROCEDURES Fi nal Result * TSH with Reflex to Free T4 (10/22/2024 1:43 PM EST) Pathologist [facility] TSH reflex Free T4 1.07 0.32 - 4.0 uIU/mL [facility] Blood Venous blood specimen / Unknown 10/22/2024 1:43 PM EST 10/22/2024 4:06 PM EST Jaime Christopher MD LAB BLOOD ORDERABLES Final Result [facility] [address] [place] [phone] * (ABNORMAL) Albumin, Random Urine W/Creatinine (10/22/2024 1:43 PM EST) Creatinine, Urine 24.46 mg/dL [facility] Microalbumin Urine 13.0 mg/L H [facility] Microalbum Creatinine Ratio Ur 53.1(H) <30 ug/mg cr [facility] Comment:Albumin/Creatinine R atio Reference Ranges: Normal: < 30 ug/mg creatinine Microalbuminuria: 30 - 300 ug/mg creatinineClinical Albuminuria: > 300 ug/mg creatinine Urine (Urine, Random) 10/22/2024 1:43 PM EST 10/22/2024 4:36 PM EST Jaime Christopher MD LAB URINE ORDERABLES Final Result [facility] [address] [place] [phone] * (ABNORMAL) Lipid Panel, Standard (10/22/2024 1:43 PM EST) Triglycerides 205(H) <150 mg/dL [facility] Comment:Desirable Triglyceri de: less than 150 mg/dLBorderline High Triglyceride 150-199 mg/dLHigh Triglyceride: 200-499 mg/dLVery High Triglyceride: greater than or equal to 5OO mg/dL Cholesterol 227(H) <200 mg/dL [facility] Comment:Desirable Cholestero l: less than 200 mg/dLBorderline High Cholesterol: 200-239 mg/dLHigh Cholesterol: greater than 239 mg/dL LDL Cholesterol Calculated 139(H) <100 mg/dL [facility] Comment:Desirable LDL: less than 100 mg/dLNear Optimal/Above Optimal LDL: 110- 129 mg/dLBorderline High LDL: 130-159 mg/dLHigh LDL: 160-189 mg/dLVery High LDL: greater than or equal to 190 mg/dL HDL Cholesterol 47 >40 mg/dL [facility] Comment:Desirable HDL: great er than 40 mg/dL Note: This HDL assay may give artificially low results in patients with liver disease. Blood Venous blood specimen / Unknown 10/22/2024 1:43 PM EST 10/22/2024 4:06 PM EST Jaime Christopher MD LAB BLOOD ORDERABLES Final Result [facility] [address] [place] [address] [phone] * POCT Glucose (10/22/2024 1:20 PM EST) Glucose Blood, POC 96 60 - 200 mg/dL QC Media Lot # [id number] Lot# Expiration Date 8 Blood Capillary blood specimen / Unknown 10/22/2024 [...] CARE TEST EN TER/EDIT ORDERABLES Final Result from Last 3 Months or Most Recently Relevant to Health Maintenance Insurance [facility] [employer] [employer] Care Teams Older Worker Specialist Relationship Specialty Start Date End Date Jaime Mares MD [address] [place] [id number] PCP - General Internal Medicine 06/23/14
--- OUTSIDE RECORDS SUMMARY | 2024-12-26 14:02 | XMS_ITS | Encounter Summary ---
Author Organization [employer] Address [address] [facility] 7 [place] [address] Care Team Providers Care Food Service Assistant Name Role Phone Jaime Mares MD Primary Care Provide r Reason for Visit * Reason Onset Date Comments Medication Question 09/19/2024 Encounter Details Date Type Department Care Team ([facility] st Contact Info) Description 09/19/2024 Telephone [facility] MEDICINE [address] [place] [address] Jaime Mares MD [address] [place] [address] Medication Question Social History Tobacco Use Types [...] Description 01/23/2025 11:15 AM EDT Office Visit [facility] [address] [place] [address] Jaime Mares MD [address] [place] [address] documented as of this encounter Visit Diagnoses Not on filedocumented in this encounter Additional Health Concerns Assessment Noted Time PHQ-9 Depression Total Score: 1 12/05/19 24 9:34 AM EDT documented as of this encounter Care Teams Food Service Assistant Relationship Specialty Start Date End Date Jaime Mares MD [address] [place] [address] PCP - General Internal Medicine 06/23/14 documented as of this encounter
--- OUTSIDE RECORDS SUMMARY | 2024-12-26 14:02 | XMS_ITS | Encounter Summary ---
Author Organization [employer] Address [address] [facility] 7t [place] [address] Care Team Providers Care Field Mechanic Name Role Phone Jaime Mares MD Primary Care Provide r Reason for Visit * Reason Comments Med Refill Encounter Details Date Type Department Care Team ([facility] st Contact Info) Description 06/05/2024 Refill [facility] MED[facility]INE [address] [place] [address] Olya Harris MD [address] [place] [address] Type 2 diabetes mellitus with diabetic polyneuropathy, without long-term current use of insulin ([facility]) Social History Tobacco Use Types Packs/Day Years [...] Description 01/23/2025 11:15 AM EDT Office Visit [facility]INE [address] [place] [address] Jaime Mares MD [address] [place] [phone] documented as of this encounter Visit Diagnoses Diagnosis Type 2 diabetes mellitus with diabetic polyneuropathy, without long-term current use of insulin ([facility]) documented in this encounter Additional Health Concerns Assessment Noted Time PHQ-9 Depression Total Score: 1 12/05/19 24 9:34 AM EDT documented as of this encounter Care Teams Field Mechanic Relationship Specialty Start Date End Date Jaime Mares MD [address] [place] [phone] PCP - General Internal Medicine 06/23/14 documented as of this encounter
--- OUTSIDE RECORDS SUMMARY | 2024-12-26 14:02 | XMS_ITS | Encounter Summary ---
Author Organization [employer] Address [address] [facility] 7t [place] [address] Care Team Providers Care Education Program Associate Name Role Phone Jaime Mares MD Primary Care Provide r Reason for Visit * Reason Comments Med Refill Encounter Details Date Type Department Care Team (Late st Contact Info) Description 03/29/2023 Refill [facility] MEDICINE [address] [place] [address] Jaime Mares MD [address] [place], [place] [phone] Essential (primary) hypertension Social History Tobacco Use [...] Description 01/23/2025 11:15 AM EDT Office Visit [facility] MED[facility]INE [address] [place], [place] [phone] Jaime Mares MD [address] [place] [address] documented as of this encounter Visit Diagnoses Diagnosis Essential (primary) hypertension Unspecified essential hypertension documented in this encounter Care Teams Education Program Associate Relationship Specialty Start Date End Date Jaime Mares MD [address] [place] [address] PCP - General Internal Medicine 06/23/14 documented as of this encounter
--- OUTSIDE RECORDS SUMMARY | 2024-12-26 14:02 | XMS_ITS | Encounter Summary ---
Author Organization [employer] Address [address] [facility] 7 [place] [address] Care Team Providers Care Billing And Quality Technician Name Role Phone Jaime Mares MD Primary Care Provide r Reason for Visit * Reason Onset Date Comments triage 2022 Encounter Details Date Type Department Care Team ([facility] st Contact Info) Description 2022 Telephone [facility] MED[facility]INE [address] [place] [address] Jaime Mares MD [address] [place] [address] triage Social History Tobacco Use Types Packs/Day [...] Description 01/23/2025 11:15 AM EDT Office Visit [facility] [address] [facility] [place] [address] Jaime Mares MD [address] [place] [address] documented as of this encounter Visit Diagnoses Not on filedocumented in this encounter Care Teams Billing And Quality Technician Relationship Specialty Start Date End Date Jaime Mares MD [address] [place] [address] PCP - General Internal Medicine 06/23/14 documented as of this encounter
--- OUTSIDE RECORDS SUMMARY | 2024-12-26 14:02 | XMS_ITS | Encounter Summary ---
Author Organization [employer] Address [address] [facility] [address] [place] [address] Care Team Providers Care Featheredger And Reducer Machine Name Role Phone Jaime Mares MD Primary Care Provide r Encounter Details Date Type Department Care Team (Late st Contact Info) Description 01/23/2023 Orders Only [facility] [address] [place], [place] [phone] Duyen Burgess LPN Social History Tobacco Use [...] Description 01/23/2025 11:15 AM EDT Office Visit [facility] MEDICINE [address] [place] [address] Jaime Maers MD [address] [place] [address] documented as of this encounter Visit Diagnoses Not on filedocumented in this encounter Care Teams Featheredger And Reducer Machine Relationship Specialty Start Date End Date Jaime Mares MD [address] [place], [place] [phone] PCP - General Internal Medicine 06/23/14 documented as of this encounter
== END 2024-12-26 13:38 | disposition home or self-care (01) ==
LOC: HO.ENCR 12:55
PROVIDERS: PCP Internal Medicine; Visit Provider Internal Medicine Endocrinology, Diabetes & Metabolism
DX: M81.0 Age-related osteoporosis without current pathological fracture (principal)
CPT/HCPCS: 99204

== ENCOUNTER → 2024-12-26 12:54 | Outpatient (BNVA) | payer MEDICARE, SELFPAY | PROVIDERS: PCP Internal Medicine; Visit Provider Internal Medicine Endocrinology, Diabetes & Metabolism | DX: M81.0 Age-related osteoporosis without current pathological fracture (principal) | CPT/HCPCS: 99202 ==

== ENCOUNTER 2025-01-10 11:00 | Outpatient (RCR) | payer MEDICARE, OTHER, SELFPAY ==
--- NOTE | 2024-12-30 15:11 | MHC.OT.EP ---
[address] [phone] Occupational Therapy Plan of Care Patient Name: Nola Guzman Date of Evaluation: 12/30/24 Diagnosis: S/P L IF GLANGLION CYST EXCISION Pain Location: 8/10 DORSAL IF AND WEB SPACE AT REST AND WITH ACTIVITY Pain Score: 8/10 Pain Scale Used: Numeric (0 - 10) Aggravating Factors: CARRYING HEAVY ITEMS Alleviating Factors: USING HEAT, TYLENOL Assessment: MS GUZMAN IS TWO AND A HAL[age] WEEKS S/P L INDEX FINGER GANGLION CYST EXCISION. THREE STERISTRIPS ARE INTACT TO THE DORSAL PIPj OF INDEX FINGER. SHE STATES THAT SHE HAS HIGH PAIN AT REST AND WITH ACTIVITY 8/10. A 75% LIMITATION IS REPORTED PER THE QUICK DASH ASSESSMENT. DIFFICULTIES WITH CUTTING WITH A KNIFE, HOLDING ITEMS > TEA CUP AND ASSIST WITH MOST IADLs. ONGOING SKILLED OT IS WARRANTED TO ADDRESS Pt EDUCATION, PAIN, FMC, EDEMA MANAGEMENT, ROM, STRENGTH, SCAR MOBILIZATION AND SAFE RETURN TO ADLs AND IADLs. Frequency and Duration: The patient will be seen 2X/WEEK FOR 4 WEEKS Short Term Goals: IND HEP IND ADL CLOSURE BOARD WITHOUT DIFFICULTIES IND JT PROTECTION/ ACTIVITY MODFICATION STRATEGIES IND SCAR MOBILIZATION STRATEGIES Mcc Goals: IND EDEMA MANAGEMENT STRATEGIES R GRASP >15 POUNDS ACHIEVE < 1 CM TIP TO DPC QUICK DASH <50% REPORT <4/10 PAIN WITH LIGHT IADLs Treatment Plan: Therapeutic Exercise Therapeutic Activity Home Exercise Program Splinting Neuro Re-ed Patient Education Desensitization/Sensory Re-ed Edema Control ADL Training Ultrasound NMES Iontophoresis Paraffin Fluidotherapy MHP Cold Packs Joint Mobilization Soft Tissue Mobilization Kinesiotaping Other (see comments) Electronically Signed By: YASEMIN RICH OTR/L Please Sign and return to therapist. Thank you once again for your referral.
--- NOTE | 2025-01-20 15:08 | MHC.OT.DC ---
[address] [phone] F: [phone] Occupational Therapy Discharge Note Patient Name: Nola Guzman Provider: Antony Alves Diagnosis: S/P L IF GLANGLION CYST EXCISION Date of Surgery: 12/10/24 Date of Evaluation: 12/30/24 Date of Discharge: 01/20/25 Treatments to Date: 4 Cancellations to Date: 2 No Shows to Date: 0 Discharge Status: Patient Elected to Stop Recommend MD Follow-up Discharge Summary: MS GUZMAN HAS ELECTED TO SELF D/C. DURING OT, SHE WAS MAKING LIGHT PROGRESS AND YET STILL GUARDING HER IF. EDUCATION WAS PROVIDED ON SCAR MOBILIZATION AND DESENSITIZATION STRATEGIES. RECOMMEND F/U WITH MD. Electronically Signed By: YASEMIN RICH OTR/L Reviewed/agree with student documentation: N/A Therapist: Please Sign and return to therapist, thank you for your referral.
== END 2025-01-22 14:55 | disposition home or self-care (01) ==
LOC: HO.OT 11:00
PROVIDERS: PCP Internal Medicine
DX: M67.442 Ganglion, left hand (principal)
CPT/HCPCS: 97110; 97140; 97166

== ENCOUNTER 2025-04-22 13:05 | Outpatient (REF) | payer MEDICARE, OTHER, SELFPAY ==
--- NOTE | ~2025-04-22 | XR_ITS ---
EXAMINATION: XR CHEST CLINICAL INFORMATION: cough COMPARISON: November 06, 2023. TECHNIQUE: 2 views of the chest were obtained. FINDINGS: Pulmonary reticular pattern. No hyperinflation. No consolidation pleural effusion or pneumothorax. Cardiomediastinal silhouette size is mildly prominent. Round apex. Calcified plaques in the thoracic aorta with tortuosity. S-shaped curvature of the thoracolumbar spine with multilevel spondylosis. Generative changes in the acromioclavicular joints. Osteopenia versus osteoporosis. Patient's large body habitus. XR/XR chest 2V IMPRESSION: Chronic interstitial lung disease. 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 Scoliosis and multilevel spondylosis. Electronically signed by: Rogelio Coreas MD 04/22/2025 02:00 PM EDT
--- OUTSIDE RECORDS SUMMARY | 2025-04-22 09:00 | XMS_ITS | Encounter Summary ---
Author Organization [employer] Address [address] [facility] 7 [place] [address] Care Team Providers Care Anodic Operator Name Role Phone Jaime Mares MD Primary Care Provide r Encounter Details Date Type Department Care Team ([facility] st Contact Info) Description 04/22/2025 9:00 AM EDT Telemedicine [facility] [address] [place] [address] Jaime Mares MD [address] [place] [address] Type 2 diabetes mellitus with diabetic polyneuropathy, without long-term current use of insulin ([facility]) (Primary Dx); Subacute cough; Dysuria; Essential hypertension; [...] polyneuropathy, without long-term current use of insulin ([facility]) - Primary Televisit Hgb A1c on 09/24/2024: [...] Eye exam was done on 12/12/13 via [facility] Eye care Microalbumin 10/22/2024 13 check [...] used to be under the care of [facility] Pain management. Last seen 02/25/2022 Pt has [...] MRI 11/25/2020 (Please see scanned document) The patient support specialist at [facility] already reviewed her MRI and has recommended [...] used to be under the care of [facility] Pain management. Last seen 02/25/2022 Pt has [...] MRI 11/25/2020 (Please see scanned document) The patient support specialist at [facility] already reviewed her MRI and has recommended [...] polyneuropathy, without long-term current use of insulin ([facility]) Televisit Hgb A1c on 09/24/2024: 7.8 She is on a regimen of Metformin XR 500 mg 2 tabs po BID and Glipizide ER 10 mg po Daily she is getting med boxes. Pt reports Glucometer at home: blood sugars within range Plan: No changes until she comes and sees me for a repeat Hgb A1c Eye exam was done on 12/12/13 via [facility] Eye [facility] Microalbumin 10/22/2024 13 check your blood sugars [...] PM EDT Narrative 04/22/2025 2:03 PM EDT [address] [address] XRay Report Signed Patient: Nola Styles MR#: [id number] : 1940 Acct:[id number] Age/Sex: 84 / F ADM Date: 04/22/25 Loc: [facility] Attending Dr: Jaime Tinoco MD Ordering Physician: Jaime Tinoco MD Date of Service: 04/22/25 Procedure(s): XR chest 2V Accession Number(s): [id number] cc: Jaime Tinoco MD Reason for Exam: [...] 04/22/25 1400 DD/ 1345 TD/TT: 04/22/25 1354 Bilingual Account Manager: Procedure Note Donotuseinterpreter, Image - 04/22/[address] [address] XRay Report Signed Patient: Nola Styles MMR#: [id number] : 1940cct:[id number] Age/Sex: 84 / FADM Date: 04/22/25 Loc: HO.XRAY Attending Dr: Jaime Tinoco MD Ordering Physician: Jaime Tinoco MD Date of Service: 04/22/25 Procedure(s): XR chest 2V Accession Number(s): [id number] cc: Jaime Tinoco MD Reason for Exam: [...] 04/22/25 1400 DD/ 1345 TD/TT: 04/22/25 1354 Bilingual Account Manager: Jaime Christopher MD IMG XR PROCEDURES Fin al Result documented in this encounter Visit Diagnoses Diagnosis Type 2 diabetes mellitus with diabetic polyneuropathy, without long-term current use of insulin ([facility])- Primary Subacute cough Dysuria Essential hypertension Unspecified essential hypertension Neuropathic pain of both legs Varicose veins of both lower extremities with pain Acquired hypothyroidism Unspecified hypothyroidism Chronic midline low back pain, unspecified whether sciatica present documented in this encounter Additional Health Concerns Assessment Noted Time PHQ-9 Depression Total Score: 3 09/24/19 25 11:09 AM EST documented as of this encounter Care Teams Anodic Operator Relationship Specialty Start Date End Date Jaime Mares MD [address] [place] [id number] PCP - General Internal Medicine 06/23/14 documented as of this encounter
--- OUTSIDE RECORDS SUMMARY | 2025-04-22 14:28 | XMS_ITS | Encounter Summary ---
Author Organization [email or web address] Address [address] [facility] 7 [place] [address] Care Team Providers Care Superintendent Menagerie Name Role Phone Jaime Mares MD Primary Care Provide r Reason for Visit * Reason Onset Date Comments triage 08/23/2022 Encounter Details Date Type Department Care Team ([facility] st Contact Info) Description 08/23/2022 Telephone [facility] [address] [place] [address] Jaime Mares MD [address] [place] [address] triage Social History Tobacco Use Types Packs/Day [...] 08/23/2022 1:08 PM EST Triage call with [employer] [place] [employer] [place] [id number] Pt reports home tested + for Covid this morning. Pt symptoms are mild with runny nose, sneezing, nasal congestion, dry cough, neg for fever, diarrhea, nausea. Pt was given home care handouts via textin dutch. Home care disposition agreed with and home care reviewed thoroughly. Pt is asking aboutmedications and if BP meds can be taken with certain cough syrups. Scheduled a tele visit with LEHR OPERATOR Catalina tejeda at 315pm . Insurance [...] COVID-19 * Clean Your Hands Often Cough (Lebanese) handout sent to [phone] CDC: Sick With COVID-19 (Lebanese) handout sent to [phone] * Telephone Encounter - Alejandra Ferreira - 08/23/2022 11:28 AM EST Patient calling to report Covid positive pt sneezing x 1 day. Patient speaks (Lebanese). Advised triage nurse will call patient back. documented in this encounter Plan of Treatment Not on file documented as of this encounter Visit Diagnoses Not on filedocumented in this encounter Care Teams Superintendent Menagerie Relationship Specialty Start Date End Date Jaime Mares MD [address] [place] [id number] PCP - General Internal Medicine 06/23/14 documented as of this encounter
--- OUTSIDE RECORDS SUMMARY | 2025-04-22 14:28 | XMS_ITS | Encounter Summary ---
Author Organization [employer] Address [address] [facility] [address] [place] [address] Care Team Providers Care Senior System Operator Name Role Phone Jaime Mares MD Primary Care Provide r Encounter Details Date Type Department Care Team (Late st Contact Info) Description 11/23/2022 Orders Only [facility] [address] [place], [place] [phone] Duyen Burgess LPN Social History Tobacco Use [...] as of this encounter Plan of Treatment Not on file documented as of this encounter Visit Diagnoses Not on filedocumented in this encounter Care Teams Senior System Operator Relationship Specialty Start Date End Date Jaime Mares MD [address] [place] [id number] PCP - General Internal Medicine 06/23/14 documented as of this encounter
--- OUTSIDE RECORDS SUMMARY | 2025-04-22 14:28 | XMS_ITS | Clinical Summary ---
Author Organization [employer] Address [address] [place] [address] [address] [place] [address] Care Team Providers Care Scheduling Coordinator Name Role Phone Jaime Mares MD Primary Care Provide r Allergies Active Allergy Reactions Criticality Noted Date Comments Alendronate 05/08/2014 Amlodipine Rash Low 07/03/2012 Penicillin G 03/15/2012 Medications Aspirin Low Dose 81 MG EC tablet TAKE 1 TABLET BY MOUTH EVERY EVENING 90 tablet 3 05/23/20 24 Active omeprazole (PriLOSEC) [address] capsule TAKE 1 CAPSULE BY MOUTH EVERY MORNING BEFORE MEALS 90 capsule 3 05/23/20 24 Active hydrALAZINE (Apresoline) 50 MG tabletIndications :Essential (primary) hypertension TAKE 1 TABLET BY MOUTH THREE TIMES DAILY IN THE MORNING, EVENING, AND BEDTIME 270 tablet 1 11/21/19 25 Active metFORMIN XR (Glucophage-XR) 500 MG 24 hr tabletIndications :Type 2 diabetes mellitus with diabetic polyneuropathy, without long-term current use of insulin (CMS/HCC) TAKE 2 TABLETS BY MOUTH TWICE DAILY AT NOON AND IN THE EVENING 120 tablet 6 01/11/20 25 Active valsartan (Diovan) 40 MG tabletIndications :Essential hypertension TAKE 1 TABLET BY MOUTH EVERY EVENING 30 tablet 5 02/12/20 25 Active gabapentin (Neurontin) 300 MG capsuleIndication s:Uncontrolled type 2 diabetes mellitus with hyperglycemia (CMS/HCC) TAKE 1 CAPSULE BY MOUTH EVERY 8 HOURS 90 capsule 3 03/06/20 25 Active atenolol (Tenormin) 100 MG tabletIndications :Essential hypertension TAKE 1 TABLET BY MOUTH EVERYDAY AT NOON 90 tablet 1 04/07/20 25 Active glipiZIDE XL (Glucotrol XL) 10 MG 24 hr tabletIndications :Type 2 diabetes mellitus with diabetic polyneuropathy, without long-term current use of insulin (CMS/HCC) TAKE 1 TABLET BY MOUTH EVERY MORNING WITH BREAKFAST 90 tablet 1 04/07/20 25 Active hydroCHLOROthiazi de (HYDRODiuril) 50 MG tabletIndications :Essential hypertension TAKE 1 TABLET BY MOUTH EVERY MORNING 90 tablet 1 04/07/20 25 Active Calcium Carb-Cholecalcife rol (Oyster Shell Calcium w/D) 500-5 MG-MCG tablet TAKE 1 TABLET BY MOUTH TWICE DAILY IN THE MORNING AND IN THE EVENING 180 tablet 1 04/07/20 25 Active simvastatin (Zocor) 80 MG tabletIndications :Mixed hyperlipidemia TAKE 1 TABLET BY MOUTH EVERY EVENING 90 tablet 04/07/20 25 Active sulfamethoxazole- trimethoprim (Bactrim DS) 800-160 MG tabletIndications :Dysuria Take 1 tablet by mouth 2 times daily for 3 days. 6 tablet 04/22/20 25 025 Active guaiFENesin (Robitussin) 100 MG/5ML liquidIndications :Subacute cough Take 10 mL (200 mg) by mouth if needed in the morning, at noon, and at bedtime for cough for up to 10 days. 120 mL 04/22/20 25 025 Active cetirizine (ZyrTEC) 10 MG tabletIndications :Subacute cough Take 1 tablet (10 mg) by mouth Once per day for 10 days. 10 tablet 04/22/20 25 025 Active levothyroxine (Synthroid) 88 MCG tabletIndications :Acquired hypothyroidism Take 1 tablet (88 mcg) by mouth before breakfast. 30 tablet 6 04/22/20 25 Active Calcium Carb-Cholecalcife rol (Oyster Shell Calcium w/D) 500-5 MG-MCG tablet TAKE 1 TABLET BY MOUTH TWICE DAILY IN THE MORNING AND IN THE EVENING 180 tablet 1 10/08/19 25 025 Discontinued glipiZIDE XL (Glucotrol XL) 10 MG 24 hr tabletIndications :Type 2 diabetes mellitus with diabetic polyneuropathy, without long-term current use of insulin (CMS/HCC) TAKE 1 TABLET BY MOUTH EVERY MORNING WITH BREAKFAST 90 tablet 1 10/08/19 25 025 Discontinued atenolol (Tenormin) 100 MG tabletIndications :Essential hypertension TAKE 1 TABLET BY MOUTH EVERYDAY AT NOON 90 tablet 1 10/08/19 25 025 Discontinued simvastatin (Zocor) 80 MG tabletIndications :Mixed hyperlipidemia TAKE 1 TABLET BY MOUTH EVERY EVENING 90 tablet 1 10/08/19 25 025 Discontinued hydroCHLOROthiazi de (HYDRODiuril) 50 MG tabletIndications :Essential hypertension TAKE 1 TABLET BY MOUTH EVERY MORNING 90 tablet 1 10/08/19 25 025 Discontinued levothyroxine (Synthroid, Levoxyl) 75 MCG tablet TAKE 1 TABLET BY MOUTH EVERY MORNING 90 tablet 1 10/08/19 25 025 Discontinued levothyroxine (Synthroid, Levoxyl) 75 MCG tablet TAKE 1 TABLET BY MOUTH EVERY MORNING 90 tablet 1 04/07/20 025 Discontinued Active Problems Problem Noted Date Diagnosed Date Subacute cough 04/22/2025 Assessment & Plan (04/22/2025 12:49 PM EDT): Pt c/o mild dry cough, no fever, no sob Unable to auscultate Instructed her to have a chest x-ray and at home rapid covid testing Supportive measures for now Robitussin sent to her pharmacy, asked to call or come in if symptoms worsen or do not improve Pt verbalized understanding. Dysuria 04/22/2025 Assessment & Plan (04/22/2025 12:50 PM EDT): Televisit Pt with c/o persistent dysuria for days, no fever, no abdominal pain, no flank pain, no vaginal discharge Plan: U/A, started bactrim DS BID x 3 days empirically while waiting for UA Varicose veins of both lower extremities with pa in 09/24/2024 Assessment & Plan (04/22/2025 8:29 AM EDT): Seen by Vascular surgery 11/05/2024 venous ultrasound, performed on 10/31/2024, per vascular note there was no insufficiency found on ultrasound. She does continue with intermittent left lower extremity swelling and pain as well as left foot pain for qhich she takes gabapentin . Vascular surgeon states that Likely this pain and swelling is due to neuropathy. Assessment & Plan (10/22/2024 1:04 PM EST): Seen by Vascular surgery 10/03/2024 work up in progress Neuropathic pain of both legs 12/06/2023 Assessment & Plan (04/22/2025 12:51 PM EDT): Patient with c/o burning pain on both lower extremities, reports that she is doing better On a previous exam she had decreased sensation on her feet She is Gabapentin 300 mg po TID dose. Side effects such as over sedation discussed. Plan: Continue current treatment Assessment & Plan (10/22/2024 1:28 PM EST): [...] mckinney Brown, irregular borders, seborrheic hyperkeratosis Plan: [facility] Diabetes mellitus with diabe tic polyneuropathy, without long-term current use of insulin 08/26/2022 Assessment & Plan (04/22/2025 12:48 PM EDT): Televisit Hgb A1c on 09/24/2024: 7.8 She [...] on 12/12/13 via [facility] 10/22/2024 13 check your blood sugars regularly check your feet on a daily basis f/u 3 months Assessment & Plan (10/22/2024 1:19 PM EST): [...] on 12/12/13 via [facility] Microalbum[facility] re ordered Foot check [...] after a long hiatus, was living in [place] and was without medications for months, upon [...] basis f/u 3 months Essential hypertension 05/28/2015 Overview (04/22/2025): Pt had a [address] Branham, pt was seen 09/30/2019 Study showed BP was suboptimally controlled Pt is resistant to adding a new agent. Assessment & Plan (04/22/2025 8:33 AM EDT): Pt here for a f/u Pt reports [...] me in 3 months ECHO 02/26/24 unremarkable Assessment & Plan (10/22/2024 1:24 PM EST): [...] after a long hiatus. Pt was in [place] BP remains uncontrolled She is on a [...] after a long hiatus. Pt was in [place] BP remains uncontrolled She is on a [...] get up to use the bathroom at [facility]. Most recent electrolytes, Bun and Creatinine done [...] pt had a previous MRI done at [facility] that showed a heterogeneous mass like structure [...] to the radiologist. Pt was referred to [facility] surgical associates and pt told me she [...] follow up in 1 year. She saw [facility] 12/12/13. Lipoma 01/03/2014 Assessment & Plan [...] . Acquired hypothyroidism 08/21/1957 Assessment & Plan (04/22/2025 8:35 AM EDT): Pt doing well Pt is on synthroid 75 mcg po daily but most recent TSH Lab Results Component Value Date TSH 4.91 (H) 02/05/2025 Plan: Increase Synthroid to 88 mcg po daily Repeat in 3 months Assessment & Plan (10/22/2024 1:07 PM EST): [...] low back pain 08/21/1957 Assessment & Plan (04/22/2025 8:38 AM EDT): Pt c/o persistent low back pain She used to be under the care of [facility] Pain management. Last seen [...] also seen by a different Neurosurgeon (Dr Hrering) for a second opinion on 05/03/2012 and [...] for recurrent disc herniation and foraminal stenosis. MRI 11/25/2020 (Please see scanned document) The ammunition specialist at [facility] already reviewed her MRI [...] changes appears similar to exam from 2020. Assessment & Plan (02/06/2024 1:30 PM EDT): Pt c/o persistent low back pain She used to be under the care of [facility] Pain management. Last seen [...] MRI 11/25/2020 (Please see scanned document) The ammunition specialist at [facility] already reviewed her MRI and has recommended a steroid injections. She has had good results with them in the past. MRI booked for 02/16/24 @10:30AM Assessment & Plan (12/06/2023 1:54 PM EDT): Pt c/o persistent low back pain She used to be under the care of [facility] Pain management. Last seen [...] MRI 11/25/2020 (Please see scanned document) The ammunition specialist at [facility] already reviewed her MRI [...] Encounters Date Type Department Care Team Description 04/22/2025 9:00 AM EDT Telemedicine [facility] [address] [facility] [address] Jaime Mares MD Type 2 diabetes mellitus with diabetic polyneuropathy, without long-term current use of insulin ([facility]) (Primary Dx); Subacute cough; Dysuria; Essential hypertension; Neuropathic pain of both legs; Varicose veins of both lower extremities with pain; Acquired hypothyroidism; Chronic midline low back pain, unspecified whether sciatica present 04/07/2025 Refill [facility] [address] [facility] [place] [address] Jaime Mares MD Essential hypertension; Type 2 diabetes mellitus with diabetic polyneuropathy, without long-term current use of insulin ([facility]); Mixed hyperlipidemia 03/05/2025 Refill [facility] [address] [facility] [place] [address] Jaime Mares MD Uncontrolled type 2 diabetes mellitus with hyperglycemia (CMS/HCC) 02/15/2025 Orders Only [facility] [address] [facility] [place] [address] Jaime Mares MD Neuropathic pain of both legs (Primary Dx) 02/12/2025 Telephone [facility] [address] [facility] [place] [address] Jaime Mares MD NC ORDER 02/10/2025 Refill [facility] [address] [place] [address] Jaime Mares MD Essential hypertension 02/05/2025 Orders Only [facility] [address] [facility] [place] [address] Jaime Mares MD 01/31/2025 Telephone [facility] [address] [place] [address] Millicent Pedroza RN 01/27/2025 Orders Only [facility] [address] [place] [address] Jaime Mares MD Vascular insufficiency of extremity (Primary Dx); Neuropathic pain of both legs; Type 2 diabetes mellitus with diabetic polyneuropathy, without long-term current use of insulin ([facility]) 01/24/[address] [address] Jaime Mares MD Medication Question 01/21/[address] [address] Jaime Mares MD Nurse Triage 01/20/[address] [address] Jaime Mares MD Medication Question from Last 3 Months Immunizations Immunization Administration Dates Next Due Influenza High-dose Quadriva [...] 72 12/06/2024 12:49 PM EDT Temperature 36.1 C (96.9 F) 10/22/2024 1:08 PM EST Respiratory Rate 16 12/06/2024 12:49 PM EDT Oxygen Saturation 97% 12/06/2024 12:49 PM EDT Inhaled Oxygen Concentration - - Weight 72.3 kg (159 lb 6.4 oz) 10/22/2024 1:08 P M EST Height 172.4 cm (5' 7.88 ) 10/22/2024 1:08 PM ES T Body Mass Index 24.32 10/22/2024 1:08 PM EST Plan of Treatment Health Maintenance Due Date Last Done Comments Eye Exam 1950 Zoster Vaccines (2 of 3) 12/29/2015 11/03/2015 RSV Patients and Patients Aged 60 years or older (1 - 1-dose 75+ series) 2017 Diabetes: Foot Exam 12/04/2024 12/05/2023, 12/05/2023, 12/05/2023, Additional history exists Diabetes: Hemoglobin A1C 12/22/2024 025, 02/06/2024, 11/06/2023, Additional history exists COVID-19 Vaccine ( season) 2025 03/17/2022, 05/19/2021, 10/19/2020, Additional history exists Influenza Vaccine (#1) 2025 09/24/2024, 2021 Alcohol/Substance Use Screening 09/24/2025 09/24/2024 Depression Screening 09/24/2025 09/24/2024, 09/24/19 25 SDOH Screening 09/24/2025 09/24/2024 Diabetes: Urine Protein Screening 10/22/2025 10/22/2024, 06/27/2022, 11/25/2020, Additional history exists Lipid Panel 10/22/2025 10/22/2024, 01/19, 06/27/2022 Tobacco Screening 12/06/2025 12/06/2024 DTaP/Tdap/Td Vaccines (2 - Td or Tdap) 11/29/2026 11/29/2016, 04/02/1993 Pneumococcal Vaccine: 50+ Years Completed 11/29/2016, 05/28/2015 HIB Vaccines Aged Out No longer eligi [...] patient's age to complete this topic Meningococcal B Vaccine Aged Out No l onger eligible based on patient's age to complete this topic Meningococcal Vaccine Aged Out No naa marco eligible based on patient's age to complete this topic RSV under 20 months Aged Out No longe r eligible based on patient's age to complete this topic Rotavirus Vaccines Aged Out No longer eligible based on patient's age to complete this topic Procedures Procedure Name Priority Date/Time Associated Diagnosis Comments XR CHEST 2 VIEWS Routine 04/22/2025 1:45 PM EDT Subacute cough TSH Routine 02/05/2025 12:00 AM EDT COMPREHENSIVE METABOLIC PANEL Routine 02/05/2025 12:00 AM EDT ALBUMIN, RANDOM URINE W/CREATININE Routine 10/22/2024 1:43 PM EST Type 2 diabetes mellitus with diabetic polyneuropathy, without long-term current use of insulin (CMS/HCC) LIPID PANEL, STANDARD Routine 10/22/2024 1:43 PM EST Mixed hyperlipidemia POCT GLYCATED HEMOGLOBIN, TOTAL Routine 09/24/2024 11:20 AM EST Type 2 diabetes mellitus with diabetic polyneuropathy, without long-term current use of insulin ([facility]) from Last 3 Months or Most Recently Relevant to Health Maintenance Results * XR Chest 2 Views (04/22/2025 1:45 PM EDT) Anatomical Region Laterality Modality Chest Radiographic Juju ging 04/22/2025 1:45 PM EDT Narrative 04/22/2025 2:03 PM EDT [place] [address] XRay Report Signed Patient: Nola Styles MR#: [id number] : 1940 Acct:[id number] Age/Sex: 84 / F ADM Date: 04/22/25 Loc: HO.XRAY Attending Dr: Jaime Tinoco MD Ordering Physician: Jaime Tinoco MD Date of Service: 04/22/25 Procedure(s): XR chest 2V Accession Number(s): [id number] cc: Jaime Tinoco MD Reason for Exam: [...] 04/22/25 1400 DD/ 1345 TD/TT: 04/22/25 1354 Home Care Nurse: Procedure Note Donotuseinterpreter, Image - 04/22/[address] [address] XRay Report Signed Patient: Nola Styles MMR#: [id number] : 1940cct:[id number] Age/Sex: 84 / FADM Date: 04/22/25 Loc: HO.XRAY Attending Dr: Jaime Tinoco MD Ordering Physician: Jaime Tinoco MD Date of Service: 04/22/25 Procedure(s): XR chest 2V Accession Number(s): [id number] cc: Jaime Tinoco MD Reason for Exam: [...] 04/22/25 1400 DD/ 1345 TD/TT: 04/22/25 1354 Home Care Nurse: Jaime Christopher MD IMG XR PROCEDURES Fin al Result * (ABNORMAL) TSH (02/05/2025 12:00 AM EDT) TSH 4.91(H) 0.40 - 4.50 mIU/L [facility] 02/05/2025 02/05/2025 1:2 9 PM EDT Jaime Christopher MD LAB BLOOD ORDERABLES Final Result [facility] [address], [place] [address] [facility] [place] [facility] [address] [place] [address] * (ABNORMAL) Comprehensive Metabolic Panel (02/05/2025 12:00 AM EDT) Glucose 92 65 - 99 mg/dL [facility] Comment: Fasting reference interval Urea Nitrogen (BUN) 29(H) 7 - 25 mg/dL [facility] Creatinine, Serum 0.81 0.60 - 0.95 mg/dL [facility] eGFR 72 > OR = 60 mL/min/1. 73m2 [facility] BUN/Creatinine Ratio 36(H) 6 - 22 (calc) [facility] Sodium 140 135 - 146 mmol/L [facility] Potassium 4.4 3.5 - 5.3 mmol/L [facility] Chloride 102 98 - 110 mmol/L [facility] Carbon Dioxide 28 20 - 32 mmol/L [facility] Calcium 9.2 8.6 - 10.4 mg/dL [facility] Protein, Total 6.9 6.1 - 8.1 g/dL [facility] Albumin 4.5 3.6 - 5.1 g/dL [facility] Globulin 2.4 1.9 - 3.7 g/dL (calc) [facility] Albumin/Globulin Ratio 1.9 1.0 - 2.5 (calc) [facility] Bilirubin, Total 0.4 0.2 - 1.2 mg/dL [facility] Alkaline Phosphatase 61 37 - 153 U/L [facility] AST 15 10 - 35 U/L [facility] ALT 24 6 - 29 U/L [facility] 02/05/2025 02/05/2025 1:2 9 PM EDT Result [facility] Jaime Christopher MD LAB BLOOD ORDERABLES Final Result [facility] [address], [place] [address] [facility] [place] [facility] [address] [place] [address] * (ABNORMAL) Albumin, Random Urine W/Creatinine (10/22/2024 1:43 PM EST) Creatinine, Urine 24.46 mg/dL [facility] Microalbumin Urine 13.0 mg/L [facility] Microalbum Creatinine Ratio Ur 53.1(H) <30 ug/mg cr [facility] Comment:Albumin/Creatinine R atio Reference Ranges: Normal: < 30 ug/mg creatinine Microalbuminuria: 30 - 300 ug/mg creatinineClinical Albuminuria: > 300 ug/mg creatinine Urine (Urine, Random) 10/22/2024 1:43 PM EST 10/22/2024 4:36 PM EST Jaime Christopher MD LAB URINE ORDERABLES Final Result [facility] [address] [place] [address] [phone] * (ABNORMAL) Lipid Panel, Standard (10/22/2024 1:43 PM EST) Triglycerides 205(H) <150 mg/dL [facility] Comment:Desirable Triglyceri de: less than 150 mg/dLBorderline High Triglyceride 150-199 mg/dLHigh Triglyceride: 200-499 mg/dLVery High Triglyceride: greater than or equal to 5OO mg/dL Cholesterol 227(H) <200 mg/dL [facility] Comment:Desirable Cholestero l: less than 200 mg/dLBorderline High Cholesterol: 200-239 mg/dLHigh Cholesterol: greater than 239 mg/dL LDL Cholesterol Calculated 139(H) <100 mg/dL [facility] Comment:Desirable LDL: less than 100 mg/dLNear Optimal/Above Optimal LDL: 110- 129 mg/dLBorderline High LDL: 130-159 mg/dLHigh LDL: 160-189 mg/dLVery High LDL: greater than or equal to 190 mg/dL HDL Cholesterol 47 >40 mg/dL [facility] Comment:Desirable HDL: great er than 40 mg/dL Note: This HDL assay may give artificially low results in patients with liver disease. Blood Venous blood specimen / Unknown 10/22/2024 1:43 PM EST 10/22/2024 4:06 PM EST Jaime Christopher MD LAB BLOOD ORDERABLES Final Result [facility] [address] [place] [address] [phone] * (ABNORMAL) POCT HGB A1C (09/24/2024 11:20 AM EST) Hemoglobin A1C 7.8(A) 4.0 - 6.0 % QC Media Lot # [id number] Lot# Expiration Date Blood 09/24/2024 11:2 0 AM EST Jaime Christopher MD POINT OF CARE TEST EN TER/EDIT ORDERABLES Final Result from Last 3 Months or Most Recently Relevant to Health Maintenance Insurance [facility] MEDICARE ADVANTAGE Care Teams Scheduling Coordinator Relationship Specialty Start Date End Date Jaime Mares MD [address] [place] [phone] PCP - General Internal Medicine 06/23/14
--- OUTSIDE RECORDS SUMMARY | 2025-04-22 14:28 | XMS_ITS | Encounter Summary ---
Author Organization [employer] Address [address] [facility] [address] [place] [address] Care Team Providers Care Slide Attendant Name Role Phone Jaime Mares MD Primary Care Provide r Encounter Details Date Type Department Care Team (Late st Contact Info) Description 01/23/2023 Orders Only [facility] [address] [place], [place] [phone] Duyen Burgess LPN Social History Tobacco Use [...] on filedocumented in this encounter Care Teams Slide Attendant Relationship Specialty Start Date End Date Jaime Mares MD [address] [place] [id number] PCP - General Internal Medicine 06/23/14 documented as of this encounter
--- OUTSIDE RECORDS SUMMARY | 2025-04-22 14:28 | XMS_ITS | Encounter Summary ---
Author Organization [employer] Address [address] [place] [address] [address] [place] [address] Care Team Providers Care Physician President Name Role Phone Jaime Mares MD Primary Care Provide r Reason for Visit * Reason Comments Med Refill Encounter Details Date Type Department Care Team (Late st Contact Info) Description 03/29/[address] [facility] [address] [place], [place] [phone] Jaime Mares MD [address] [place] [address] Essential (primary) hypertension Social History Tobacco Use [...] hypertension documented in this encounter Care Teams Physician President Relationship Specialty Start Date End Date Jaime Mares MD [address] [place], [place] [phone] PCP - General Internal Medicine 06/23/14 documented as of this encounter
--- OUTSIDE RECORDS SUMMARY | 2025-04-22 14:28 | XMS_ITS | Encounter Summary ---
Author Organization [employer] Address [address] [facility] [address] [place] [address] Care Team Providers Care Adult Services Librarian Name Role Phone Jaime Mares MD Primary Care Provide r Reason for Visit * Reason Onset Date Comments triage 2022 Encounter Details Date Type Department Care Team ([facility] st Contact Info) Description 2022 Telephone [facility] [address] [place] [address] Jaime Mares MD [address] [place] [address] triage Social History Tobacco Use Types Packs/Day [...] on filedocumented in this encounter Care Teams Adult Services Librarian Relationship Specialty Start Date End Date Jaime Mares MD [address] [place] [address] PCP - General Internal Medicine 06/23/14 documented as of this encounter
--- OUTSIDE RECORDS SUMMARY | 2025-04-22 14:28 | XMS_ITS | Encounter Summary ---
Author Organization [employer] Address [address] [facility] [address] [place] [address] Care Team Providers Care Blister Rust Eradicator Name Role Phone Jaime Mares MD Primary Care Provide r Reason for Visit * Reason Comments Med Refill Encounter Details Date Type Department Care Team ([facility] Contact Info) Description 06/05/2024 Refill [facility] [address] [place] [address] Olya Harris MD [address] [place] [address] Type 2 diabetes mellitus with diabetic polyneuropathy, without long-term current use of insulin ([facility]) Social History Tobacco Use Types Packs/Day [...] polyneuropathy, without long-term current use of insulin ([facility]) documented in this encounter Additional Health Concerns Assessment Noted Time PHQ-9 Depression Total Score: 1 12/05/19 24 9:34 AM EDT documented as of this encounter Care Teams Blister Rust Eradicator Relationship Specialty Start Date End Date Jaime Mares MD [address] [place] [address] PCP - General Internal Medicine 06/23/14 documented as of this encounter
[2025-04-22 14:51] LABS: Alanine Aminotransferase 26 U/L (0-31); Albumin Level 4.7 g/dL (3.5-5.0); Alkaline Phosphatase 63 U/L (39-117); Anion Gap 16 (12-20); Aspartate Amino Transferase 24 U/L (5-31); Blood Urea Nitrogen 29 mg/dL (9-16); Calcium 9.0 mg/dL (8.4-10.2); Carbon Dioxide 26 mmol/L (22-29); Chloride 102 mmol/L (96-108); Estimated Glomerular Filt Rate > 60; Potassium 4.0 mmol/L (3.3-5.1); Sodium 140 mmol/L (135-145); Total Protein 7.4 g/dL (6.5-8.0)
== END 2025-04-22 13:06 | disposition home or self-care (01) ==
LOC: HO.XRAY 13:05
PROVIDERS: Absent Provider Internal Medicine Endocrinology, Diabetes & Metabolism; PCP Internal Medicine; Visit Provider Internal Medicine
DX: M81.0 Age-related osteoporosis without current pathological fracture (principal); E11.42 Type 2 diabetes mellitus with diabetic polyneuropathy; G57.93 Unspecified mononeuropathy of bilateral lower limbs; R05.2 Subacute cough
CPT/HCPCS: 36415; 71046; 80053; 82306; 84100; 84443

== ENCOUNTER → 2025-04-22 13:45 | Outpatient (BNV) | payer MEDICARE, SELFPAY | PROVIDERS: Absent Provider Internal Medicine Endocrinology, Diabetes & Metabolism; PCP Internal Medicine; Visit Provider Radiology Diagnostic Radiology | DX: J84.9 Interstitial pulmonary disease, unspecified (principal); M41.9 Scoliosis, unspecified; M47.9 Spondylosis, unspecified | CPT/HCPCS: 71046 ==

== ENCOUNTER 2025-04-26 12:31 | Outpatient (REF) | payer MEDICARE, OTHER, SELFPAY ==
--- OUTSIDE RECORDS SUMMARY | 2025-04-22 09:00 | XMS_ITS | Encounter Summary ---
Author Organization [employer] Address 75 [facility] 7 [place] [address] Care Team Providers Care Rn Procedures Name Role Phone Jaime Mares MD Primary Care Provide r Encounter Details Date Type Department Care Team ([facility] st Contact Info) Description 04/22/2025 9:00 AM EDT Telemedicine [facility] MEDICINE 230 [place] [address] Jaime Mares MD 230 [place] [address] Type 2 diabetes mellitus with diabetic polyneuropathy, without long-term current use of insulin ([facility]) (Primary Dx); Subacute cough; Dysuria; Essential hypertension; Neuropathic pain of both legs; Varicose veins of both lower extremities with pain; Acquired hypothyroidism; Chronic midline low back pain, unspecified whether sciatica present Social History Tobacco Use Types Packs/Day Years [...] AM EDT documented as of this encounter Progress Notes * Jaime Christopher MD - 04/22/2025 9:00 AM EDT SUBJECTIVE Nola Styles is a 84 y.o. female who presents for No chief complaint on file.. Cough This is a new problem. The current episode started 1 to 4 weeks ago. The problem has been graduallyimproving. The problem occurs constantly. The cough is Non- productive. Associated symptoms include nasal congestion and rhinorrhea. Pertinent negatives include no chest pain. Difficulty Urinating This is a new problem. The current episode started 1 to 4 weeks ago. There has been no fever. Review of Systems HENT: Positive for rhinorrhea. Respiratory: Positive for cough. Cardiovascular: Negative for chest pain. Genitourinary: Positive for dysuria. Allergies[1] OBJECTIVE There were no vitals filed for this visit. Physical Exam Vitals reviewed. Constitutional: Appearance: Normal [...] long-term current use of insulin ([facility]) - Primary Televisit Hgb A1c on 09/24/2024: 7.8 She is on a regimen of Metformin XR 500 mg 2 tabs po BID and Glipizide ER 10 mg po Daily she is getting med boxes. Pt reports Glucometer at home: blood sugars within range Plan: No changes until she comes and sees me for a repeat Hgb A1c Eye exam was done on 12/12/13 via [facility] Microalbumin 10/22/2024 13 check your blood sugars regularly check your feet on a daily basis f/u 3 months Subacute cough Pt c/o mild dry cough, no fever, no sob Unable to auscultate Instructed her to have a chest x-ray and at home rapid covid testing Supportive measures for now Jassi sent to her pharmacy, asked to call or come in if symptoms worsen or do not improve Pt verbalized understanding. Relevant Medications guaiFENesin (Robitussin) 100 MG/5ML liquid cetirizine (ZyrTEC) 10 MG tablet Other Relevant Orders XR Chest 2 Views Dysuria Televisit Pt with c/o persistent dysuria for days, no fever, no abdominal pain, no flank pain, no vaginal discharge Plan: U/A, started bactrim DS BID x 3 days empirically while waiting for UA Relevant Medications sulfamethoxazole-trimethoprim (Bactrim DS) 800-160 MG tablet Other Relevant Orders Urinalysis, Complete, with Reflex to Culture Essential hypertension Pt here for a f/u Pt reports BP at home is controlled She is supposed to be on a regimen of: Atenolol 100 mg po daily, Hctz 50 mg po daily and Hydralazine 25 mg po TID and Diovan 40 mg po daily (started last visit) Pt was on Irbesartan but refuses to take it, she did not want to take any other medications other than the Benicar She also did not tolerate Losartan because she felt lightheaded so she decided to stop. Most recent electrolytes, Bun and Creatinine done on Lab Results Component Value Date NA 140 02/05/2025 NA 142 09/15/2024 K 4.4 02/05/2025 K 3.9 09/15/2024 CL 102 02/05/2025 CL 107 09/15/2024 BUN 29 (H) 02/05/2025 BUN 30 (H) 09/15/2024 CREATININE 0.81 02/05/2025 CREATININE 0.93 09/15/2024 were wnl. Plan: Continue with current regimen until she comes and sees me in person Pt has medboxes patient advised to adhere to a low sodium diet, encouraged about medication compliance, counseled about weight loss. f/u with me in 3 months ECHO 02/26/24 unremarkable Neuropathic pain of both legs Patient with c/o burning pain on both lower extremities, reports that she is doing better On a previous exam she had decreased sensation on her feet She is Gabapentin 300 mg po TID dose. Side effects such as over sedation discussed. Plan: Continue current treatment Varicose veins of both lower extremities with pain Seen by Vascular surgery 11/05/2024 venous ultrasound, performed on 10/31/2024, per vascular note there was no insufficiency found on ultrasound. She does continue with intermittent left lower extremity swelling and pain as well as leftfoot pain for qhich she takes gabapentin . Vascular surgeon states that Likely this pain and swelling is due to neuropathy. Acquired hypothyroidism Pt doing well Pt is on synthroid 75 mcg po daily but most recent TSH Lab Results Component Value Date TSH 4.91 (H) 02/05/2025 Plan: Increase Synthroid to 88 mcg po daily Repeat in 3 months Relevant Medications levothyroxine (Synthroid) 88 MCG tablet Other Relevant Orders TSH with Reflex to Free T4 Chronic low back pain Pt c/o persistent low back pain She used to be under the care of [facility] Pain management. Last seen 02/25/2022 Pt has [...] lumbar interbody fusion for recurrent disc herniation andforaminal stenosis. MRI 11/25/2020 (Please see scanned document) The improvement specialist at [facility] already reviewed her MRI and has recommended a steroid injections. She has had good results with them in the past. MRI 02/16/24 showed: Instrumented posterior fusion of L5-S1. Posterior decompression of L3-L4. Moderate multilevel degenerative spondyloarthropathy of the lumbar spine as described in detail above. Most notably, there is mild spinal canal stenosis at L4-L5. Stenoses of the subarticular zones and moderate to severe neural foraminal stenoses from L3-S1. Overall, degenerative changes appears similar to exam from 2020. No future appointments. [1] Allergies Allergen Reactions Alendronate Penicillin G Amlodipine Rash documented in this encounter Miscellaneous Notes * Assessment & Plan Note - Jaime Christopher MD - 04/22/2025 12:50 PM EDT Associated Problem(s): Dysuria Televisit Pt with c/o persistent dysuria for days, no fever, no abdominal pain, no flank pain, no vaginal discharge Plan: U/A, started bactrim DS BID x 3 days empirically while waiting for UA * Assessment & Plan Note - Jaime Christopher MD - 04/22/2025 12:49 PM EDT Associated Problem(s): Subacute cough Pt c/o mild dry cough, no fever, no sob Unable to auscultate Instructed her to have a chest x-ray and at home rapid covid testing Supportive measures for now Robitussin sent to her pharmacy, asked to call or come in if symptoms worsen or do not improve Pt verbalized understanding. * Assessment & Plan Note - Jaime Christopher MD - 04/22/2025 8:38 AM EDT Associated Problem(s): Chronic low back pain Pt c/o persistent low back pain She used to be under the care of [facility] Pain management. Last seen 02/25/2022 Pt has [...] lumbar interbody fusion for recurrent disc herniation andforaminal stenosis. MRI 11/25/2020 (Please see scanned document) The improvement specialist at [facility] already reviewed her MRI and has recommended a steroid injections. She has had good results with them in the past. MRI 02/16/24 showed: Instrumented posterior fusion of L5-S1. Posterior decompression of L3-L4. Moderate multilevel degenerative spondyloarthropathy of the lumbar spine as described in detail above. Most notably, there is mild spinal canal stenosis at L4-L5. Stenoses of the subarticular zones and moderate to severe neural foraminal stenoses from L3-S1. Overall, degenerative changes appears similar to exam from 2020. * Assessment & Plan Note - Jaime Christopher MD - 04/22/2025 8:36 AM EDT Associated Problem(s): Neuropathic pain of both legs Patient with c/o burning pain on both lower extremities, reports that she is doing better On a previous exam she had decreased sensation on her feet She is Gabapentin 300 mg po TID dose. Side effects such as over sedation discussed. Plan: Continue current treatment * Assessment & Plan Note - Jaime Christopher MD - 04/22/2025 8:35 AM EDT Associated Problem(s): Acquired hypothyroidism Pt doing well Pt is on synthroid 75 mcg po daily but most recent TSH Lab Results Component Value Date TSH 4.91 (H) 02/05/2025 Plan: Increase Synthroid to 88 mcg po daily Repeat in 3 months * Assessment & Plan Note - Jaime Christopher MD - 04/22/2025 8:33 AM EDT Associated Problem(s): Diabetes mellitus with diabetic polyneuropathy, without long-term current use of insulin ([facility]) Televisit Hgb A1c on 09/24/2024: 7.8 She is on a regimen of Metformin XR 500 mg 2 tabs po BID and Glipizide ER 10 mg po Daily she is getting med boxes. Pt reports Glucometer at home: blood sugars within range Plan: No changes until she comes and sees me for a repeat Hgb A1c Eye exam was done on 12/12/13 via [facility] Microalbumin 10/22/2024 13 check your blood sugars regularly check your feet on a daily basis f/u 3 months * Assessment & Plan Note - Jaime Christopher MD - 04/22/2025 8:31 AM EDT Associated Problem(s): Essential hypertension Pt here for a f/u Pt reports BP at home is controlled She is supposed to be on a regimen of: Atenolol 100 mg po daily, Hctz 50 mg po daily and Hydralazine 25 mg po TID and Diovan 40 mg po daily (started last visit) Pt was on Irbesartan but refuses to take it, she did not want to take any other medications other than the Benicar She also did not tolerate Losartan because she felt lightheaded so she decided to stop. Most recent electrolytes, Bun and Creatinine done on Lab Results Component Value Date NA 140 02/05/2025 NA 142 09/15/2024 K 4.4 02/05/2025 K 3.9 09/15/2024 CL 102 02/05/2025 CL 107 09/15/2024 BUN 29 (H) 02/05/2025 BUN 30 (H) 09/15/2024 CREATININE 0.81 02/05/2025 CREATININE 0.93 09/15/2024 were wnl. Plan: Continue with current regimen until she comes and sees me in person Pt has medboxes patient advised to adhere to a low sodium diet, encouraged about medication compliance, counseled about weight loss. f/u with me in 3 months ECHO 02/26/24 unremarkable * Assessment & Plan Note - Jaime Christopher MD - 04/22/2025 8:29 AM EDT Associated Problem(s): Varicose veins of both lower extremities with pain Seen by Vascular surgery 11/05/2024 venous ultrasound, performed on 10/31/2024, per vascular note there was no insufficiency found on ultrasound. She does continue with intermittent left lower extremity swelling and pain as well as leftfoot pain for qhich she takes gabapentin . Vascular surgeon states that Likely this pain and swelling is due to neuropathy. documented in this encounter Plan of Treatment Scheduled Orders Name Type Priority Associated Diagnoses Orde r Schedule TSH with Reflex to Free T4 Lab Routine Acquired hypothyroidism Ordered: 04/22/2025 Urinalysis, Complete, with Reflex to Culture Lab Routine Dysuria Expected: 04/22/2025 (Approximate), Expires: 04/22/2026 documented as of this encounter Procedures Procedure Name Priority Date/Time Associated Diagnosis Comments XR CHEST 2 VIEWS Routine 04/22/2025 1:45 PM EDT Subacute cough documented in this encounter Results * XR Chest 2 Views (04/22/2025 1:45 PM EDT) Anatomical Region Laterality Modality Chest Radiographic Juju ging 04/22/2025 1:45 PM EDT Narrative 04/22/2025 2:03 PM EDT [address] [address] XRay Report Signed Patient: Nola Styles MR#: [id number] : 1940 Acct:[id number] Age/Sex: 84 / F ADM Date: 04/22/25 Loc: [facility] Attending Dr: Jaime Tinoco MD Ordering Physician: Jaime Tinoco MD Date of Service: 04/22/25 Procedure(s): XR chest 2V Accession Number(s): [id number] cc: Jaime Tinoco MD Reason for Exam: cough EXAMINATION: XR CHEST CLINICAL INFORMATION: cough COMPARISON: November 06, 2023. TECHNIQUE: 2 views of the chest were obtained. FINDINGS: Pulmonary reticular pattern. No hyperinflation. No consolidation pleural effusion or pneumothorax. Cardiomediastinal silhouette size is mildly prominent. Round apex. Calcified plaques in the thoracic aorta with tortuosity. S-shaped curvature of the thoracolumbar spine with multilevel spondylosis. Generative changes in the acromioclavicular joints. Osteopenia versus osteoporosis. Patient's large body habitus. XR/XR chest 2V IMPRESSION: Chronic interstitial lung disease. 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 Scoliosis and multilevel spondylosis. Electronically signed by: Rogelio Coreas MD 04/22/2025 02:00 PM EDT RP Dictated By: Rogelio Gerard MD Signed By: <Electronically signed by Rogelio Shin MD in OV> 04/22/25 1400 DD/ 1345 TD/TT: 04/22/25 1354 Welder Setter Electron Beam Machine: Procedure Note Donotuseinterpreter, Image - 04/22/[address] [address] XRay Report Signed Patient: Nola Styles MMR#: [id number] : 1940cct:[id number] Age/Sex: 84 / FADM Date: 04/22/25 Loc: HO.XRAY Attending Dr: Jaime Tinoco MD Ordering Physician: Jaime Tinoco MD Date of Service: 04/22/25 Procedure(s): XR chest 2V Accession Number(s): [id number] cc: Jaime Tinoco MD Reason for Exam: cough EXAMINATION: XR CHEST CLINICAL INFORMATION: cough COMPARISON: November 06, 2023. TECHNIQUE: 2 views of the chest were obtained. FINDINGS: Pulmonary reticular pattern. No hyperinflation. No consolidation pleural effusion or pneumothorax. Cardiomediastinal silhouette size is mildly prominent. Round apex. Calcified plaques in the thoracic aorta with tortuosity. S-shaped curvature of the thoracolumbar spine with multilevel spondylosis. Generative changes in the acromioclavicular joints. Osteopenia versus osteoporosis. Patient's large body habitus. XR/XR chest 2V IMPRESSION: Chronic interstitial lung disease. 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 Scoliosis and multilevel spondylosis. Electronically signed by: Rogelio Coreas MD 04/22/2025 02:00 PM EDT RP Dictated By: Rogelio Gerard MD Signed By: <Electronically signed by Rogelio Shin MDin OV> 04/22/25 1400 DD/ 1345 TD/TT: 04/22/25 1354 Welder Setter Electron Beam Machine: Jaime Christopher MD IMG XR PROCEDURES Fin al Result documented in this encounter Visit Diagnoses Diagnosis Type 2 diabetes mellitus with diabetic polyneuropathy, without long-term current use of insulin ([facility])- Primary Subacute cough Dysuria Essential hypertension Unspecified essential hypertension Neuropathic pain of both legs Varicose veins of both lower extremities with pain Acquired hypothyroidism Unspecified hypothyroidism Chronic midline low back pain, unspecified whether sciatica present documented in this encounter Additional Health Concerns Assessment Noted Time PHQ-9 Depression Total Score: 3 09/24/19 25 11:09 AM EST documented as of this encounter Care Teams Rn Procedures Relationship Specialty Start Date End Date Jaime Mares MD [address] [place] [id number] PCP - General Internal Medicine 06/23/14 documented as of this encounter
--- OUTSIDE RECORDS SUMMARY | 2025-04-26 12:36 | XMS_ITS | Clinical Summary ---
Author Organization [employer] Address [address] [place] [address] 7[address] [place] [address] Care Team Providers Care Medical Care Administrator Name Role Phone Jaime Mares MD Primary [...] polyneuropathy, without long-term current use of insulin ([facility]) TAKE 1 TABLET BY MOUTH EVERY MORNING [...] EVERY EVENING 90 tablet 04/07/20 25 Active guaiFENesin (Robitussin) 100 MG/5ML liquidIndications :Subacute cough Take 10 mL (200 mg) by mouth if needed in the morning, at noon, and at bedtime for cough for up to 10 days. 120 mL 04/22/20 25 025 Active cetirizine (ZyrTEC) 10 MG tabletIndications :Subacute cough Take 1 tablet (10 mg) by mouth Once per day for 10 days. 10 tablet 04/22/20 025 Active levothyroxine (Synthroid) 88 MCG tabletIndications [...] polyneuropathy, without long-term current use of insulin ([facility]) TAKE 1 TABLET BY MOUTH EVERY MORNING WITH BREAKFAST 90 tablet 10/08/19 25 025 Discontinued atenolol (Tenormin) 100 [...] MOUTH EVERY MORNING 90 tablet 1 10/08/19 025 Discontinued levothyroxine (Synthroid, Levoxyl) 75 MCG tablet TAKE 1 TABLET BY MOUTH EVERY MORNING 90 tablet 1 10/08/19 025 Discontinued levothyroxine (Synthroid, Levoxyl) 75 MCG tablet TAKE 1 TABLET BY MOUTH EVERY MORNING 90 tablet 1 04/07/20 25 025 Discontinued sulfamethoxazole- trimethoprim (Bactrim DS) 800-160 MG tabletIndications :Dysuria Take 1 tablet by mouth 2 times daily for 3 days. 6 tablet 04/22/20 025 Active Problems Problem Noted Date Diagnosed Date [...] mckinney Brown, irregular borders, seborrheic hyperkeratosis Plan: [facility] Derm Clinic Diabetes mellitus with diabe tic [...] Eye exam was done on 12/12/13 via [facility] Microalbumin 08/27/2019 was 5 ,pt on ARB. will repeat Foot check risk of zero, on Asa daily. Adhere to diabetic diet check your blood sugars regularly check your feet on a daily basis f/u 3 months Assessment & Plan (12/06/2023 1:49 PM EDT): Patient is here for a f/u after a long hiatus, was living in [place] and was without medications for months, upon [...] Eye exam was done on 12/12/13 via [facility] Microalbumin 08/27/2019 was 5 ,pt [...] after a long hiatus. Pt was in [place] BP remains uncontrolled She is on a [...] after a long hiatus. Pt was in [place] BP remains uncontrolled She is on a [...] get up to use the bathroom at [facility]. Most recent electrolytes, Bun and Creatinine [...] pt had a previous MRI done at [facility] that showed a heterogeneous mass like structure [...] to the radiologist. Pt was referred to [facility] surgical associates and pt told me she [...] used to be under the care of [facility] Pain management. Last [...] MRI 11/25/2020 (Please see scanned document) The health informatics specialist at [facility] already reviewed her [...] used to be under the care of [facility] Pain management. Last [...] MRI 11/25/2020 (Please see scanned document) The health informatics specialist at [facility] already reviewed her MRI and has recommended a steroid injections. She has had good results with them in the past. MRI booked for 02/16/24 @10:30AM Assessment & Plan (12/06/2023 1:54 PM EDT): Pt c/o persistent low back pain She used to be under the care of [facility] Pain management. Last [...] MRI 11/25/2020 (Please see scanned document) The health informatics specialist at [facility] already reviewed her [...] Team Description 04/22/2025 9:00 AM EDT Telemedicine [facility] [address] [facility] [place] [address] Jaime Mares MD Type 2 diabetes mellitus with diabetic polyneuropathy, without long-term current use of insulin ([facility]) (Primary Dx); Subacute cough; Dysuria; Essential hypertension; Neuropathic pain of both legs; Varicose veins of both lower extremities with pain; Acquired hypothyroidism; Chronic midline low back pain, unspecified whether sciatica present 04/22/2025 Results Follow-Up [facility] MED[facility] [address] [facility] [address] Jaime Mares MD XR Chest 2 Views 04/22/2025 Orders Only GENERIC EXTERNAL DATA DEPARTMENT Provider, Generic External Data 04/07/2025 Refill [facility] MED[facility] [address] [facility] [place] [address] Jaime Mares MD Essential hypertension; Type 2 diabetes mellitus with diabetic polyneuropathy, without long-term current use of insulin (CMS/HCC); Mixed hyperlipidemia 03/05/2025 Refill [facility] MED[facility] [address] [facility] [address] Jaime Mares MD Uncontrolled type 2 diabetes mellitus with hyperglycemia (CMS/HCC) 02/15/2025 Orders Only [facility] MEDICINE [address] [facility] [place] [address] Jaime Mares MD Neuropathic pain of both legs (Primary Dx) 02/12/2025 Telephone [facility] [address] [facility] [place] [phone] Jaime Mares MD [place] ORDER 02/10/2025 Refill [facility] MEDICINE [address] [facility] [place] [address] Jaime Mares MD Essential hypertension 02/05/2025 Orders Only [facility] MEDICINE [address] [place] [address] Jaime Mares MD 01/31/2025 Telephone [facility] MEDICINE [address] [place] [address] Millicent Pedroza RN 01/27/2025 Orders Only [facility] MEDICINE [address] [place] [address] Jaime Mares MD Vascular insufficiency of extremity (Primary Dx); Neuropathic pain of both legs; Type 2 diabetes mellitus with diabetic polyneuropathy, without long-term current use of insulin ([facility]) 01/24/2025 Telephone [facility] MEDICINE [address] [place] [address] Jaime Mares MD Medication Question from Last [...] your housing situation today? I have ray soheila 12/05/[address] you li [...] 12/05/2023, Additional history exists Diabetes: Hemoglobin A1C 12/22/202409/24/2 025, 02/06/2024, 11/06/2023, Additional history exists COVID-19 [...] Routine 04/22/2025 1:45 PM EDT Subacute cough VITAMIN D,25-OH,TOTAL,IA Routine 04/22/2025 1:24 PM EDT PHOSPHATE ( PHOSPHORUS) Routine 04/22/2025 1:24 PM EDT TSH W/REFLEX TO FT4 Routine 04/22/2025 1 :24 PM EDT Neuropathic pain of both legs Type 2 diabetes mellitus with diabetic polyneuropathy, without long-term current use of insulin (CMS/HCC) COMPREHENSIVE METABOLIC PANEL Routine 04/22/2025 1:24 PM EDT Neuropathic pain of both legs Type 2 diabetes mellitus with diabetic polyneuropathy, without long-term current use of insulin (CMS/HCC) TSH Routine 02/05/2025 12:00 AM EDT COMPREHENSIVE [...] without long-term current use of insulin (CMS/HCC) from Last 3 Months or Most Recently Relevant to Health Maintenance Results * XR Chest 2 Views (04/22/2025 1:45 PM EDT) Anatomical Region Laterality Modality Chest Radiographic Juju ging 04/22/2025 1:45 PM EDT Narrative 04/22/2025 2:03 PM EDT [address] [address] Patricia Report Signed Patient: Nola Styles MR#: [id number] : 1940 Acct:[id number] Age/Sex: 84 / F ADM Date: 04/22/25 Loc: [facility] Attending Dr: Jaime Tinoco MD Ordering Physician: Jaime Tinoco MD Date of Service: 04/22/25 Procedure(s): XR chest 2V Accession Number(s): [id number] cc: Jaime Tinoco MD Reason for Exam: [...] Rogelio Coreas MD 04/22/2025 02:00 PM EDT Dictated By: Rogelio Gerard MD Signed By: <Electronically signed by Rogelio Shin MD in OV> 04/22/25 1400 DD/ 1345 TD/TT: 04/22/25 1354 Farmworker Fur: Procedure Note Donotuseinterpreter, Image - 04/22/[address] [address] XRay Report Signed Patient: Nola Styles MMR#: [id number] : 1940cct:[id number] Age/Sex: 84 / FADM Date: 04/22/25 Loc: [facility] Attending Dr: Jaime Tinoco MD Ordering Physician: Jaime Tinoco MD Date of Service: 04/22/25 Procedure(s): XR chest 2V Accession Number(s): [id number] cc: Jaime Tinoco MD Reason for Exam: [...] 04/22/25 1400 DD/ 1345 TD/TT: 04/22/25 1354 Farmworker Fur: us Jaime Christopher MD IMG XR PROCEDURES Fin al Result * Vitamin D, 25-Hydroxy, Total, Immunoassay (04/22/2025 1:24 PM EDT) Vitamin D 25-OH Total 41.6 >30 ng/mL [facility] Comment: Health Based Reference Values*< 20 ng/mL Qfopgvleu09-60 ng/mL Insufficient> 30 ng/mL Sufficient*Van SCALES. N Engl J Med. 2007;357:266-280There is no well-established upper level of normal vitamin Dlevels. Some laboratories use 50 ng/mL as an upper limit ofnormal. However, toxicity is patient-dependent and may occurat any level. Careful correlation with the patient'spresentation is necessary and, if there is concern forvitamin D toxicity, treatment should be consideredirrespective of the serum level.Care must be taken in interpreting Vitamin D results fromdifferent laboratories and methodologies. Published datademonstrated that results from patients undergoinghemodialysis may show a negative bias when tested withvarious automated 25-OH vitamin D assays when compared toLC-MS/MS.When testing samples from patients whose predominant form ofVitamin D is Vitamin D2, such as patients receiving VitaminD2 supplementation, results that are subtherapeutic shouldbe confirmed with another method such as LC-MS/MS. 04/22/2025 1:24 PM EDT 04/22/2025 1:24 PM EDT us Generic External Data Provider LAB BLOOD ORDERAB LES Final Result Performing Organization Address [facility] Co de Phone Number [facility] [address] [place] [phone] * TSH with Reflex to Free T4 (04/22/2025 1:24 PM EDT) TSH reflex Free T4 3.38 0.32 - 4.0 uIU/mL [facility] Blood Venous blood specimen / Unknown 04/22/2025 1:24 PM EDT 04/22/2025 1:24 PM EDT Jaime Christopher MD LAB BLOOD ORDERABLES Final Result Performing Organization Address [facility] Co de Phone Number [facility] [address] [place] [phone] * Phosphate (As Phosphorus) (04/22/2025 1:24 PM EDT) Phosphorus 3.5 2.7 - 4.5 mg/dL [facility] 04/22/2025 1:24 PM EDT 04/22/2025 1:24 PM EDT us Generic External Data Provider LAB BLOOD ORDERAB LES Final Result Performing Organization Address [facility] Co de Phone Number [facility] [address] [place] [phone] * (ABNORMAL) Comprehensive Metabolic Panel (04/22/2025 1:24 PM EDT) Only the most recent of2 resultswithin the time period is included. Sodium 140 135 - 145 mmol/L [facility] Potassium 4.0 3.3 - 5.1 mmol/L [facility] Chloride 102 96 - 108 mmol/L [facility] Carbon Dioxide 26 22 - 29 mmol/L [facility] Anion Gap 16 12 - 20 [facility] Urea Nitrogen (BUN) 29(H) 9 - 16 mg/dL [facility] Creatinine, Serum 0.86 0.5 - 1.4 mg/dL [facility] Estimated Glomerular Filt Rate >60 [facility] Comment:Chronic Kidney Disea se: Estimated GFR < 60 mL/min/1.77u2Vqnpeg Kidney Disease: Estimated GFR < 15 mL/min/1.73m2 Glucose 132(H) 60 - 115 mg/dL [facility] Calcium 9.0 8.4 - 10.2 mg/dL [facility] Bilirubin, Total 0.4 0.0 - 1.0 mg/dL [facility] Aspartate Amino Transferase 24 5 - 31 U/L [facility] Alanine Aminotransferase 26 0 - 31 U/L [facility] Total Protein 7.4 6.5 - 8.0 g/dL [facility] Albumin Level 4.7 3.5 - 5.0 g/dL [facility] Alkaline Phosphatase 63 39 - 117 U/L [facility] Blood Venous blood specimen / Unknown 04/22/2025 1:24 PM EDT 04/22/2025 1:24 PM EDT us Jaime Christopher MD LAB BLOOD ORDERABLES Final Result [facility] [address] [place] [phone] * (ABNORMAL) TSH (02/05/2025 12:00 AM EDT) TSH 4.91(H) 0.40 - 4.50 mIU/L [facility] [place] [employer] 02/05/2025 02/05/2025 1:2 9 PM EDT Jaime Christopher MD LAB BLOOD ORDERABLES Final Result Performing Organization Address City/[facility]/ZIP Co de Phone Number [facility] [address] [place] [address] [employer] [place] [employer] [facility] [address] [place] [phone] * (ABNORMAL) Albumin, Random Urine W/Creatinine (10/22/2024 1:43 PM EST) Pathologist [facility] Creatinine, Urine 24.46 mg/dL [facility] Microalbumin Urine 13.0 mg/L [facility] Microalbum Creatinine Ratio Ur 53.1(H) <30 ug/mg cr [facility] Comment:Albumin/Creatinine R atio Reference Ranges: Normal: < 30 ug/mg creatinine Microalbuminuria: 30 - 300 ug/mg creatinineClinical Albuminuria: > 300 ug/mg creatinine Urine (Urine, Random) 10/22/2024 1:43 PM EST 10/22/2024 4:36 PM EST Jaime Christopher MD LAB URINE ORDERABLES Final Result Performing Organization Address City/[facility]/ZIP Co de Phone Number [facility] [address] [place] [phone] * (ABNORMAL) Lipid Panel, Standard (10/22/2024 1:43 PM EST) Pathologist [facility] Triglycerides 205(H) <150 mg/dL [facility] Comment:Desirable Triglyceri de: less than 150 mg/dLBorderline High Triglyceride 150-199 mg/dLHigh Triglyceride: 200-499 mg/dLVery High Triglyceride: greater than or equal to 5OO mg/dL Cholesterol 227(H) <200 mg/dL [facility] Comment:Desirable Cholestero l: less than 200 mg/dLBorderline High Cholesterol: 200-239 mg/dLHigh Cholesterol: greater than 239 mg/dL LDL Cholesterol Calculated 139(H) <100 mg/dL [facility] Comment:Desirable LDL: less than 100 mg/dLNear Optimal/Above Optimal LDL: 110- 129 mg/dLBorderline High LDL: 130-159 mg/dLHigh LDL: 160-189 mg/dLVery High LDL: greater than or equal to 190 mg/dL HDL Cholesterol 47 >40 mg/dL [facility] Comment:Desirable HDL: great er than 40 mg/dL Note: This HDL assay may give artificially low results in patients with liver disease. Blood Venous blood specimen / Unknown 10/22/2024 1:43 PM EST 10/22/2024 4:06 PM EST Jaime Christopher MD LAB BLOOD ORDERABLES Final Result [facility] [address] [place] [phone] * (ABNORMAL) POCT HGB A1C (09/24/2024 11:20 AM EST) Hemoglobin A1C 7.8(A) 4.0 - 6.0 % QC Media Lot # [id number] Lot# Expiration Date Blood 09/24/2024 11:2 0 AM EST Jaime Christopher MD POINT OF CARE TEST EN TER/EDIT ORDERABLES Final Result from Last 3 Months or Most Recently Relevant to Health Maintenance Insurance [id number] MEDICARE ADVANTAGE Care Teams Medical Care Administrator Relationship Specialty Start Date End Date Jaime Mares MD [address] [place] [phone] PCP - General Internal Medicine 06/23/14
--- OUTSIDE RECORDS SUMMARY | 2025-04-26 12:36 | XMS_ITS | Encounter Summary ---
Author Organization [employer] Address [address] [facility] [address] [place] [address] Care Team Providers Care Director Advanced Name Role Phone Jaime Mares MD Primary Care Provide r Reason for Visit * Reason Onset Date Comments triage 2022 Encounter Details Date Type Department Care Team ([facility] st Contact Info) Description 2022 Telephone [facility] MEDICINE [address] [place] [address] Jaime Mares MD [address] [place] [address] triage Social History Tobacco Use Types Packs/Day [...] on filedocumented in this encounter Care Teams Director Advanced Relationship Specialty Start Date End Date Jaime Mares MD [address] [place] [address] PCP - General Internal Medicine 06/23/14 documented as of this encounter
--- OUTSIDE RECORDS SUMMARY | 2025-04-26 12:36 | XMS_ITS | Encounter Summary ---
Author Organization [employer] Address [address] [place] [address] [address] [place] [address] Care Team Providers Care Order Management Specialist Name Role Phone Jaime Mares MD Primary Care Provide r Reason for Visit * Reason Comments Med Refill Encounter Details Date Type Department Care Team (Late st Contact Info) Description 03/29/2023 Refill [facility] MEDICINE [address] [place], [place] [phone] Jaime Mares MD [address] [place] [address] Essential (primary) hypertension Social History Tobacco Use [...] hypertension documented in this encounter Care Teams Order Management Specialist Relationship Specialty Start Date End Date Jaime Mares MD [address] [place], [place] [phone] PCP - General Internal Medicine 06/23/14 documented as of this encounter
--- OUTSIDE RECORDS SUMMARY | 2025-04-26 12:36 | XMS_ITS | Encounter Summary ---
Author Organization [employer] Address [address] [facility] 7 [place] [address] Care Team Providers Care Accounts Receivable Manager Name Role Phone Jaime Mares MD Primary Care Provide r Reason for Visit * Reason Onset Date Comments triage 08/23/2022 Encounter Details Date Type Department Care Team ([facility] st Contact Info) Description 08/23/2022 Telephone [facility] MEDICINE [address] [place] [address] Jaime Mares MD [address] [place] [address] triage Social History Tobacco Use Types Packs/Day [...] 08/23/2022 1:08 PM EST Triage call with [employer] [place] [id number] Pt reports home tested + for Covid this morning. Pt symptoms are mild with runny nose, sneezing, nasal congestion, dry cough, neg for fever, diarrhea, nausea. Pt was given home care handouts via textin libyan. Home care disposition agreed with and home care reviewed thoroughly. Pt is asking aboutmedications and if BP meds can be taken with certain cough syrups. Scheduled a tele visit with CENTERLESS GRINDER OPERATOR Catalina tejeda at 315pm . Insurance [...] COVID-19 * Clean Your Hands Often Cough (Brazilian) handout sent to [phone] CDC: Sick With COVID-19 (Brazilian) handout sent to [phone] * Telephone Encounter - Alejandra Ferreira - 08/23/2022 11:28 AM EST Patient calling to report Covid positive pt sneezing x 1 day. Patient speaks (Brazilian). Advised triage nurse will call patient back. documented in this encounter Plan of Treatment Not on file documented as of this encounter Visit Diagnoses Not on filedocumented in this encounter Care Teams Accounts Receivable Manager Relationship Specialty Start Date End Date Jaime Mares MD [address] [place] [phone] PCP - General Internal Medicine 06/23/14 documented as of this encounter
--- OUTSIDE RECORDS SUMMARY | 2025-04-26 12:36 | XMS_ITS | Encounter Summary ---
Author Organization [employer] Address [address] [facility] 7t [place] [address] Care Team Providers Care Vessel Captain Name Role Phone Jaime Mares MD Primary Care Provide r Encounter Details Date Type Department Care Team (Late st Contact Info) Description 04/22/2025 Orders Only GENERIC EXTERNAL DATA DEPARTMENT [...] on file documented as of this encounter Procedures Procedure Name Priority Date/Time Associated Diagnosis Comments VITAMIN D,25-OH,TOTAL,IA Routine 04/22/2025 1:24 PM EDT PHOSPHATE ( PHOSPHORUS) Routine 04/22/2025 1:24 PM EDT documented in this encounter Results * Vitamin D, 25-Hydroxy, Total, Immunoassay (04/22/2025 1:24 PM EDT) Vitamin D 25-OH Total 41.6 >30 ng/mL [facility] Comment: Health Based Reference Values*< 20 ng/mL [id number] ng/mL Insufficient> 30 ng/mL Sufficient*[place] SCALES. N [...] ORDERAB LES Final Result Performing Organization Address [facility] Co de Phone Number [facility] [address] [place] [phone] * Phosphate (As Phosphorus) (04/22/2025 1:24 PM EDT) Phosphorus 3.5 2.7 - 4.5 mg/dL [facility] 04/22/2025 1:24 PM EDT 04/22/2025 1:24 PM EDT us Generic External Data Provider LAB BLOOD ORDERAB LES Final Result Performing Organization Address [facility] de Phone Number [facility] [address] [place] [phone] documented in this encounter Visit Diagnoses Not on filedocumented in this encounter Additional Health Concerns Assessment Noted Time PHQ-9 Depression Total Score: 3 09/24/19 25 11:09 AM EST documented as of this encounter Care Teams Vessel Captain Relationship Specialty Start Date End Date Jaime Mares MD [address] [place] [phone] PCP - General Internal Medicine 06/23/14 documented as of this encounter
--- OUTSIDE RECORDS SUMMARY | 2025-04-26 12:36 | XMS_ITS | Encounter Summary ---
Author Organization [employer] Address [address] [place] [address] [address] [place] [address] Care Team Providers Care Shearer Helper Name Role Phone aJime Mares MD Primary Care Provide r Reason for Referral * Imaging (Routine) - Authorized Specialty Diagnoses / Procedures Referred By Contac t Referred To Contact Cardiology Diagnoses Essential hypertension Procedures Transthoracic Echo (TTE) Complete Jaime Mares MD [address] [place] [address] Phone: tel: fax: [address] Phone: tel: fax: Referral ID Status Reason Start Date Expiration Date Visits Requested Visits Authorized [id number] Authorized Perform Procedure 04/22/2025 04/22/2026 1 1 Reason for Visit * Reason Onset Date Comments Results 04/22/2025 Encounter Details Date Type Department Care Team (Late st Contact Info) Description 04/22/2025 Results Follow-Up [facility] [address] [place], [place] [phone] Jaime Mares MD [address] [place], [place] [phone] XR Chest 2 Views Social History Tobacco Use Types Packs/Day Years [...] encounter Miscellaneous Notes * Telephone Encounter - Sharyn Evangelista RN - 04/23/2025 9:46 AM EDT Telephone call to pt via BLS #[id number]. Explained that PCP ordered another echocardiogram, to expect call in 7-10 business days from [facility] [place], and that referral letter will be mailed to [facility]. Pt verbalized understanding, no further questions. * Telephone Encounter - Sharyn Evangelista RN - 04/23/2025 9:39 AM EDT ----- Message from Jaime Christopher MD sent at 04/22/2025 3:52 PM EDT ----- Please let patient know that I will be repeating her ECHOCARDIOGRAM. She had one last year, but given findings on chest x-ray I would like to repeat it ----- Message ----- From: Dominique, Ris Results In Sent: 04/22/2025 2:03 PM EDT To: Jaime Christopher MD * Result Encounter Note - Jaime Christopher MD - 04/22/2025 3:52 PM EDT Please let patient know that I will be repeating her ECHOCARDIOGRAM. She had one last year, but given findings on chest x-ray I would like to repeat it documented in this encounter Plan of Treatment Scheduled Orders Name Type Priority Associated Diagnoses Orde r Schedule Transthoracic Echo (TTE) Complete Echocardiography Routine Essential hypertension Ordered: 04/22/2025 documented as of this encounter Visit Diagnoses Diagnosis Essential hypertension- Primary Unspecified essential hypertension documented in this encounter Additional Health Concerns Assessment Noted Time PHQ-9 Depression Total Score: 3 09/24/19 25 11:09 AM EST documented as of this encounter Care Teams Shearer Helper Relationship Specialty Start Date End Date Jaime Mares MD [address] [place] [address] PCP - General Internal Medicine 06/23/14 documented as of this encounter
--- OUTSIDE RECORDS SUMMARY | 2025-04-26 12:36 | XMS_ITS | Encounter Summary ---
Author Organization [employer] Address [address] [facility] [address] [place] [address] Care Team Providers Care Director Funeral Name Role Phone Jaime Mares MD Primary Care Provide r Encounter Details Date Type Department Care Team (Late st Contact Info) Description 11/23/[address] [facility] MED & PEDS [address] [place], [place] [phone] Duyen Burgess LPN Social History Tobacco Use [...] filedocumented in this encounter Care Teams Director Funeral Relationship Specialty Start Date End Date Jaime Mares MD [address] [place] [phone] PCP - General Internal Medicine 06/23/14 documented as of this encounter
--- OUTSIDE RECORDS SUMMARY | 2025-04-26 12:36 | XMS_ITS | Encounter Summary ---
Author Organization [employer] Address [address] [facility] [address] [place] [address] Care Team Providers Care Information Coder Name Role Phone Jaime Mares MD Primary Care Provide r Encounter Details Date Type Department Care Team (Late st Contact Info) Description 01/23/2023 Orders Only [facility] CHC MED & PEDS [address] [place], [place] [phone] Duyen Burgess LPN Social History Tobacco Use [...] on filedocumented in this encounter Care Teams Information Coder Relationship Specialty Start Date End Date Jaime Mares MD [address] [place] [phone] PCP - General Internal Medicine 06/23/14 documented as of this encounter
--- OUTSIDE RECORDS SUMMARY | 2025-04-26 12:36 | XMS_ITS | Encounter Summary ---
Author Organization [employer] Address [address] [facility] 7t [place] [address] Care Team Providers Care Fiberglass Luggage Molder Name Role Phone Jaime Mares MD Primary Care Provide r Reason for Visit * Reason Comments Med Refill Encounter Details Date Type Department Care Team ([facility] Contact Info) Description 06/05/2024 Refill [facility] MED[facility]INE [address] [place] [address] Olya Harris MD [address] [place] [address] Type 2 diabetes mellitus with diabetic polyneuropathy, without long-term current use of insulin ([facility]) Social History Tobacco Use Types [...] polyneuropathy, without long-term current use of insulin ([facility]) documented in this encounter Additional Health Concerns Assessment Noted Time PHQ-9 Depression Total Score: 1 12/05/19 24 9:34 AM EDT documented as of this encounter Care Teams Fiberglass Luggage Molder Relationship Specialty Start Date End Date Jaime Mares MD [address] [place] [address] PCP - General Internal Medicine 06/23/14 documented as of this encounter
[2025-04-26 13:32] LABS: Appearance Urine Clear; Glucose Urine UA Negative (Negative); PH 6.5 (5.0-9.0); Specific Gravity - Urine 1.015 (1.005-1.025); UMIC TRIGGER UACC YES
[2025-04-26 13:47] LABS: UACC Culture Trigger YES
[2025-04-26 14:11] LABS: Creatinine, mg/dL 59.62
[2025-04-26 14:12] LABS: Microalbum/Creatinine Ratio Ur 61.6 ug/mg cr (<30)
[2025-04-26 14:46] LABS: Total Volume 24 Hour Urine 1050 mL
[2025-04-29 19:24] LABS: Calcium/Creatinine Ratio 36 mg/g creat (30-275); Creatinine 24Hr Urine 0.64 g/24 h (0.50-2.15)
== END 2025-04-26 12:32 | disposition home or self-care (01) ==
LOC: HO.LNP 12:31
PROVIDERS: Internal Medicine Endocrinology, Diabetes & Metabolism; Visit Provider Internal Medicine
DX: E11.42 Type 2 diabetes mellitus with diabetic polyneuropathy (principal); M81.0 Age-related osteoporosis without current pathological fracture; R30.0 Dysuria
CPT/HCPCS: 81001; 82043; 82340; 82570; 86335; 87086

== ENCOUNTER 2025-04-30 13:26 | Outpatient (AMB) | payer MEDICARE, SELFPAY ==
[2025-04-30 13:37] VITALS: BP 156/82; PULSE 76; BMI 29.6
--- NOTE | 2025-04-30 13:37 | MHC.OFFVIS ---
Vital Signs 04/30/25 13:37 Height 5 ft 1.73 in Weight 160 lb 11.472 oz BMI 29.6 BP 156/82 H Blood Pressure Location Rt brachial Position Sitting Pulse 76 Pulse Source Pulse Oximeter Intake Visit Reasons: f/u osteoporosis Intake Note: Patient present today for Osteoporosis follow up. Chemical Unit Operator Required: Yes Chemical Unit Operator Language: Vibration Technician Services: Chemical Unit Operator Present Chemical Unit Operator Name: EMMA Mejia Information Interpreted: non-clinical & clinical Accompanied by: Son Allergies codeine (Tylenol-Codeine) Allergy (Intermediate, Verified 04/30/25 13:38) rash Penicillins Allergy (Unknown, Verified 04/30/25 13:38) SKIN TURNS PURPLE Medication List - Last Reconciled 04/30/25 by Cristhian Estrada MD acetaminophen ER (Tylenol Arthritis Pain) 650 mg PO Q8H aspirin 81 mg PO QPM atenolol 100 mg PO DAILY diclofenac sodium 1% 2 grams topical BID gabapentin 100 mg PO Q8H gabapentin 300 mg PO TID glipizide 10 mg PO DAILY glipizide ER 10 mg PO DAILY hydralazine 25 mg PO ONCE hydrochlorothiazide 50 mg PO DAILY hydrocodone-acetaminophen 5-325 mg 1 tab PO Q6H PRN levothyroxine 75 mcg PO DAILY metformin ER 1,000 mg PO BID omeprazole 20 mg PO DAILY simvastatin 80 mg PO DAILY valsartan 40 mg PO DAILY HPI Comments Details: The patient is an 84-year-old female presenting with osteoporosis management concerns. Her condition has been present for three to four years and remains untreated by osteoporosis-specific medication, with no history of specialist consultation. She does not recall experiencing fractures but notes spinal disc issues, not attributed to fractures. She maintains an active lifestyle with daily light weight resistance exercises, temporarily affected by a recent hand surgery. Her dietary intake includes daily milk and intermittent yogurt consumption, but she avoids salmon due to intolerance. She has not supplemented her diet with calcium or vitamin D, despite acknowledging the recommendation for increased intake. Her medical history is notable for significant height loss over time, while she denies personal or familial history of conditions commonly associated with decreased bone density. The patient's social history is unremarkable with no smoking or alcohol misuse. There are no reported symptoms relating to other endocrine disorders. First diagnosed in 4-5 yrs ago . Not Received treatment in the past No history of pathologic fracture or ONJ. Has several servings of dietary calcium per day. Not Takes Calcium supplement or Vitamin D daily. - Omeprazole: Currently used, no specific dose or indication mentioned. - Vitamin D supplement: Recently purchased but details on dosage and usage are unclear. The patient consumes milk daily and has yogurt two or three times a week, providing some calcium intake. She avoids salmon, which causes gastrointestinal issues, but otherwise follows a varied diet as outlined in a provided list. She is currently not using calcium supplements despite being advised to supplement dietary intake as needed to reach 1200 mg daily. Denies ever using PPI, anticoagulant, antiepileptic or glucocorticoid medication. Does weight bearing exercise 5 days per week in the form of light weights . - Engages in light weight resistance exercises daily, at home and previously at the [facility]. - Goals included maintaining bone health through weightbearing activities, slightly limited by recent hand surgery. Fracture history: none Height loss: Y INNERSOLE FITTER history: Menarache at age 14 - Menopause age 42- nl menses Denies history of Kidney stones: Denies family history of Osteoporosis or hip fracture. UTD on dental cleanings and sees dentist every 6 months. No planned upcoming dental work or extractions. No tabacco use or ETOH abuse DXA dated 10/25/24 :S: The bone mineral density of the lumbar spine is 0.865 with a T-score of -2.5, and a Z-score of -0.8. This represents a BMD change of 5.1% compared to the prior exam. This is statistically significant. The bone mineral density of the left total hip is 0.947 with a T-score of -0.5, and a Z-score of 1.5. This represents BMD change of 4.4% compared to the prior exam. This is statistically significant. The bone mineral density of the left femoral neck is 0.928 with a T-score of -0.8, and a Z-score of 1.4. This represents BMD change of 4.0% compared to the prior exam. FRACTURE RISK: The FRAX index suggests a ten year probability of major osteoporotic fracture of 6.4%, and of hip fracture 1.2%. Labs: Secondary workup negative The patient is an 84-year-old female presenting with osteoporosis management concerns. Her bone density is described as borderline, and she has not experienced any fractures to date. She is currently taking calcium and vitamin D supplements as a preventative measure. The patient has a family history of multiple myeloma, but her screening tests, including blood and urine tests, have returned negative results. She has no personal history of fractures or breast cancer. The patient also reports having acid reflux, which could be exacerbated by certain osteoporosis medications. She is physically active, regularly attending the [facility], which is beneficial for her bone health. The patient engages in regular physical activity by attending the [facility], which supports her bone health and overall well-being. - Labs: Urine test showed low calcium levels, likely due to HCTZ - Screening: Negative for multiple myeloma [facility] Medical History (Updated 12/26/24 @ 13:05 by Cristhian Estrada MD) Osteoporosis GERD (gastroesophageal reflux disease) Hypercholesteremia Diabetes Hypertension Chronic pain syndrome Postlaminectomy syndrome of lumbar region Disc degeneration, lumbar Surgical History Hx of total thyroidectomy Hx of hand surgery Hx of colonoscopy Social History Are you a primary field care advocate to a significant other at home: No Do you presently have visiting nurse or other home services: No Alcohol intake: never Patient Tobacco Use Status: Never used Tobacco Current occupational status: retired Current occupation: right hand dominant Assessment & Plan Assessment & Plan (1) Osteoporosis: Code(s): M81.0 - Age-related osteoporosis without current pathological fracture Category: Medical Plan: This 84-year-old female with a history of borderline osteoporosis. Secondary workup was negative except for hypercalciuria which probably result of hydrochlorothiazide Plan is to continue the calcium and vitamin-D supplementation. We will talk to the patient about potentially starting a bisphosphonate but might hold off considering DEXA bone density is borderline and push nonpharmacologic therapy. At this point, patient returned to the care of her primary care provider who can repeat a DEXA bone density in 2 years if there are significant declines can returned back to endocrinology Coding Level of Care Code Est Pt Level 3 (39965) Diagnoses Osteoporosis M81.0
--- OUTSIDE RECORDS SUMMARY | 2025-04-30 16:30 | XMS_ITS | Encounter Summary ---
Author Organization [employer] Address [address] [facility] 7t [place] [address] Care Team Providers Care Neurosurgeon Name Role Phone Jaime Mares MD Primary Care Provide r Encounter Details Date Type Department Care Team (Late st Contact Info) Description 04/26/2025 Orders Only GENERIC EXTERNAL DATA DEPARTMENT Provider, [...] Procedure Name Priority Date/Time Associated Diagnosis Comments CREATININE, 24 HR GROUP Routine 04/26/2025 9:30 AM EDT CALCIUM, 24 HOUR URINE (W/ CREATININE) Routine 04/26/2025 9:30 AM EDT IMMUNOFIXATION, URINE Routine 04/26/2025 8:45 AM EDT ALBUMIN, RANDOM URINE W/CREATININE Routine 04/26/2025 8:45 AM EDT CULTURE, URINE, ROUTINE Routine 04/26/2025 8:45 AM EDT documented in this encounter Results * (ABNORMAL) Calcium, 24 Hour Urine W/ Creatinine (04/26/2025 9:30 AM EDT) Calcium, 24 Hour Urine 23(A) mg/24 h [facility] Comment:Reference Range 35-2 50 Low calcium diet 35-200 Calcium/Creatini ne Ratio 36 30 - 275 mg/g creat [facility] Creatinine, 24 Hour Urine 0.64 0.50 - 2.15 g/24 h [facility] Comment:THIS TEST WAS PERFOR MED AT:[facility] [place] [id number] LUU MD 04/26/2025 9:30 AM EDT 04/26/2025 12:52 PM EDT Narrative [facility] - 04/29/2025 7:24 PM EDT [id number] Generic External Data Provider LAB URINE ORDERAB LES Final Result Performing Organization Address City/[facility]/ZIP Co de Phone Number [facility] [address] [place] [phone] * (ABNORMAL) CREATININE, 24 HR GROUP (04/26/2025 9:30 AM EDT) Creatinine, 24 Hour Urine 0.6(L) 1.0 - 2.0 G/Day [facility] Creatinine, Urine 59.62 [facility] Urine Total Volume 24 Hour 1,050 mL [facility] 04/26/2025 9:30 AM EDT 04/26/2025 12:52 PM EDT Narrative [facility] - 04/26/2025 2:46 PM EDT [id number] Generic External Data Provider LAB URINE ORDERAB LES Final Result Performing Organization Address [facility] Co de Phone Number [facility] [address] [place] [phone] * Immunofixation (BRIDGETTE), Urine (04/26/2025 8:45 AM EDT) [place]GETTE Interpretation [facility] Comment:No monoclonal protei ns detectedTHIS TEST WAS PERFORMED AT:[facility] [place] [id number] LUU MD 04/26/2025 8:45 AM EDT 04/26/2025 12:46 PM EDT Generic External Data Provider LAB URINE ORDERAB LES Final Result Performing Organization Address [facility]/ZIP Co de Phone Number [facility] [address] [place] [phone] * Culture, Urine, Routine (04/26/2025 8:45 AM EDT) Urine Urine specimen obtained by clean catch procedure / Unknown 04/26/2025 8:45 AM EDT 04/26/2025 7:40 PM EDT Comment:UACC Narrative [facility] - 04/28/2025 8:20 AM EDT Urine Culture Report Result Urine Culture > 100,000 cfu/ml Urine Culture Mixed bacterial brinda characteristic of Urine Culture urogenital contamination. Specimen Source: Urine clean catch Jaime Christopher MD LAB MICROBIOLOGY - GE NERAL ORDERABLES Final Result Performing Organization Address [facility] Co de Phone Number [facility] [address] [place] [phone] * (ABNORMAL) Albumin, Random Urine W/Creatinine (04/26/2025 8:45 AM EDT) Creatinine, Urine 45.45 mg/dL [facility] Microalbumin Urine 28.0 mg/L H [facility] Microalbum Creatinine Ratio Ur 61.6(H) <30 ug/mg cr [facility] Comment:Albumin/Creatinine R atio Reference Ranges: Normal: < 30 ug/mg creatinine Microalbuminuria: 30 - 300 ug/mg creatinineClinical Albuminuria: > 300 ug/mg creatinine 04/26/2025 8:45 AM EDT 04/26/2025 12:46 PM EDT Jaime Christopher MD LAB URINE ORDERABLES Final Result Performing Organization Address [facility] Co de Phone Number [facility] [address] [place] [phone] documented in this encounter Visit Diagnoses Not on filedocumented in this encounter Additional Health Concerns Assessment Noted Time PHQ-9 Depression Total Score: 3 09/24/19 25 11:09 AM EST documented as of this encounter Care Teams Neurosurgeon Relationship Specialty Start Date End Date Jaime Mares MD [address] [place] [phone] PCP - General Internal Medicine 06/23/14 documented as of this encounter
--- OUTSIDE RECORDS SUMMARY | 2025-04-30 16:30 | XMS_ITS | Encounter Summary ---
Author Organization [employer] Address [address] [facility] 7t [place] [address] Care Team Providers Care Associate Vice President Name Role Phone Jaime Mares MD Primary Care Provide r Reason for Visit * Reason Comments Med Refill Encounter Details Date Type Department Care Team ([facility] Contact Info) Description 06/05/2024 Refill [facility] MEDICINE [address] [place] [address] Olya Harris MD [address] [place] [address] Type 2 diabetes mellitus with diabetic polyneuropathy, without long-term current use of insulin ([facility]) Social History Tobacco Use Types Packs/Day Years [...] of insulin ([facility]) documented in this encounter Additional Health Concerns Assessment Noted Time PHQ-9 Depression Total Score: 1 12/05/19 24 9:34 AM EDT documented as of this encounter Care Teams Associate Vice President Relationship Specialty Start Date End Date Jaime Mares MD [address] [place] [address] PCP - General Internal Medicine 06/23/14 documented as of this encounter
--- OUTSIDE RECORDS SUMMARY | 2025-04-30 16:30 | XMS_ITS | Clinical Summary ---
Author Organization [employer] Address [address] [place] [address] 7[address] [place] [address] Care Team Providers Care Bridge Repair Crew Person Name Role Phone Jaime Mares MD Primary [...] polyneuropathy, without long-term current use of insulin ([facility]) TAKE 1 TABLET BY MOUTH EVERY [...] polyneuropathy, without long-term current use of insulin ([facility]) TAKE 1 TABLET BY MOUTH EVERY [...] mckinney Brown, irregular borders, seborrheic hyperkeratosis Plan: [facility] Diabetes mellitus with diabe [...] Eye exam was done on 12/12/13 via [facility] Microalbumin 08/27/2019 was 5 ,pt on ARB. will repeat Foot check risk of zero, on Asa daily. Adhere to diabetic diet check your blood sugars regularly check your feet on a daily basis f/u 3 months Assessment & Plan (12/06/2023 1:49 PM EDT): Patient is here for a f/u after a long hiatus, was living in [place] and was without medications for months, upon [...] Eye exam was done on 12/12/13 via [facility] Microalbumin 08/27/2019 was 5 ,pt [...] after a long hiatus. Pt was in [place] BP remains uncontrolled She is on a [...] after a long hiatus. Pt was in [place] BP remains uncontrolled She is on a [...] get up to use the bathroom at [facility]. Most recent electrolytes, Bun and Creatinine [...] pt had a previous MRI done at [facility] that showed a heterogeneous mass like structure [...] to the radiologist. Pt was referred to [facility] surgical associates and pt told me she [...] used to be under the care of [facility] Pain management. Last seen 02/25/2022 Pt has [...] MRI 11/25/2020 (Please see scanned document) The personal injury specialist at [facility] already reviewed her MRI and has recommended [...] used to be under the care of [facility] Pain management. Last seen 02/25/2022 Pt has [...] MRI 11/25/2020 (Please see scanned document) The personal injury specialist at [facility] already reviewed her MRI and has recommended a steroid injections. She has had good results with them in the past. MRI booked for 02/16/24 @10:30AM Assessment & Plan (12/06/2023 1:54 PM EDT): Pt c/o persistent low back pain She used to be under the care of [facility] Pain management. Last seen 02/25/2022 Pt has [...] MRI 11/25/2020 (Please see scanned document) The personal injury specialist at [facility] already reviewed her MRI and has recommended [...] Encounters Date Type Department Care Team Description 04/26/2025 Orders Only GENERIC EXTERNAL DATA DEPARTMENT Provider, Generic External Data 04/22/2025 9:00 AM EDT Telemedicine [facility] [address] [place] [address] Jaime Mares MD Type 2 diabetes mellitus with diabetic polyneuropathy, without long-term current use of insulin ([facility]) (Primary Dx); Subacute cough; Dysuria; Essential hypertension; Neuropathic pain of both legs; Varicose veins of both lower extremities with pain; Acquired hypothyroidism; Chronic midline low back pain, unspecified whether sciatica present 04/22/2025 Results Follow-Up [facility] [address] [place] [address] Jaime Mares MD XR Chest 2 Views 04/22/2025 Orders Only GENERIC EXTERNAL DATA DEPARTMENT Provider, Generic External Data 04/07/2025 Refill [facility] [address] [place] [address] Jaime Mares MD Essential hypertension; Type 2 diabetes mellitus with diabetic polyneuropathy, without long-term current use of insulin (CMS/HCC); Mixed hyperlipidemia 03/05/2025 Refill [facility] [address] [place] [address] Jaime Mares MD Uncontrolled type 2 diabetes mellitus with hyperglycemia (CMS/HCC) 02/15/2025 Orders Only [facility] [address] [place] [address] Jaime Mares MD Neuropathic pain of both legs (Primary Dx) 02/12/2025 Telephone [facility] [address] [place] [phone] Jaime Mares MD [place] ORDER 02/10/2025 Refill [facility] [address] [place] [address] Jaime Mares MD Essential hypertension 02/05/2025 Orders Only [facility] [address] [facility] [address] Jaime Mares MD 01/31/2025 Telephone [facility] [address] [facility] [address] Millicent Pedroza, TELLY from Last 3 Months Immunizations Immunization Administration [...] Additional history exists Diabetes: Hemoglobin A1C 12/22/2024 02 025, 02/06/2024, 11/06/2023, Additional history exists COVID-19 Vaccine ( season) 2025 03/17/2022, 05/19/2021, 10/19/2020, Additional history exists Influenza Vaccine (#1) 2025 09/24/2024, 2021 Alcohol/Substance Use Screening 09/24/2025 09/24/2024 Depression Screening 09/24/2025 09/24/2024, 09/24/19 25 SDOH Screening 09/24/2025 09/24/2024 Lipid Panel 10/22/2025 10/22/2024, 01/19, 06/27/2022 Tobacco Screening 12/06/2025 12/06/2024 Diabetes: Urine Protein Screening 04/26/2026 04/26/2025, 10/22/2024, 06/27/2022, Additional history exists DTaP/Tdap/Td Vaccines (2 - Td or Tdap) [...] Procedure Name Priority Date/Time Associated Diagnosis Comments CALCIUM, 24 HOUR URINE (W/ CREATININE) Routine 04/26/2025 9:30 AM EDT CREATININE, 24 HR GROUP Routine 04/26/2025 9:30 AM EDT IMMUNOFIXATION, URINE Routine 04/26/2025 8:45 AM EDT ALBUMIN, RANDOM URINE W/CREATININE Routine 04/26/2025 8:45 AM EDT URINALYSIS, COMPLETE, WITH REFLEX TO CULTURE Routine 04/26/2025 8:45 AM EDT Dysuria CULTURE, URINE, ROUTINE Routine 04/26/2025 8:45 AM EDT XR CHEST 2 VIEWS Routine 04/22/2025 1:45 PM EDT Subacute cough VITAMIN D,25-OH,TOTAL,IA Routine 04/22/2025 1:24 PM EDT PHOSPHATE ( PHOSPHORUS) Routine 04/22/2025 1:24 PM EDT TSH W/REFLEX TO FT4 Routine 04/22/2025 1 :24 PM EDT Neuropathic pain of both legs Type 2 diabetes mellitus with diabetic polyneuropathy, without long-term current use of insulin ([facility]) COMPREHENSIVE METABOLIC PANEL Routine 04/22/2025 1:24 PM EDT Neuropathic pain of both legs Type 2 diabetes mellitus with diabetic polyneuropathy, without long-term current use of insulin ([facility]) TSH Routine 02/05/2025 12:00 AM EDT COMPREHENSIVE METABOLIC PANEL Routine 02/05/2025 12:00 AM EDT LIPID PANEL, STANDARD Routine 10/22/2024 1:43 PM EST Mixed hyperlipidemia POCT GLYCATED HEMOGLOBIN, TOTAL Routine 09/24/2024 11:20 AM EST Type 2 diabetes mellitus with diabetic polyneuropathy, without long-term current use of insulin ([facility]) from Last 3 Months or Most Recently Relevant to Health Maintenance Results * (ABNORMAL) CREATININE, 24 HR GROUP (04/26/2025 9:30 AM EDT) Creatinine, 24 Hour Urine 0.6(L) 1.0 - 2.0 G/Day [facility] Creatinine, Urine 59.62 [facility] Urine Total Volume 24 Hour 1,050 mL [facility] 04/26/2025 9:30 AM EDT 04/26/2025 12:52 PM EDT [facility] - 04/26/2025 2:46 PM EDT [id number] Generic External Data Provider LAB URINE ORDERAB LES Final Result Performing Organization Address [place] [facility] de Phone Number [facility] [address] [place] [phone] * (ABNORMAL) Calcium, 24 Hour Urine W/ Creatinine (04/26/2025 9:30 AM EDT) Calcium, 24 Hour Urine 23(A) mg/24 h [facility] Comment:Reference Range 35-2 50 Low calcium diet 35-200 Calcium/Creatini ne Ratio 36 30 - 275 mg/g creat [facility] Creatinine, 24 Hour Urine 0.64 0.50 - 2.15 g/24 h [facility] Comment:THIS TEST WAS PERFOR MED AT:[employer] [place] [id number] LUU MD 04/26/2025 9:30 AM EDT 04/26/2025 12:52 PM EDT [facility] - 04/29/2025 7:24 PM EDT [id number] us Generic External Data Provider LAB URINE ORDERAB LES Final Result Performing Organization Address [place] [facility] Co de Phone Number [facility] [address] [place] [phone] * (ABNORMAL) Urinalysis, Complete, with Reflex to Culture (04/26/2025 8:45 AM EDT) Color Urine Yellow [facility] Appearance Urine Clear [facility] PH 6.5 5.0 - 9.0 [facility] Glucose Urine UA Negative Negative mg/dL [facility] Urine Blood Negative Negative [facility] Specific [place] - Urine 1.015 1.005 - 1.025 [facility] Urine Protein Negative Neg-Trace mg/dL [facility] Urine Ketones Negative Negative mg/dL [facility] Nitrite Urine Negative Negative [facility] Leukocyte Esterase Urine Small (1+)(A) Negative [facility] RBC Urine 0-2 0 - 2 /HPF [facility] Urine WBC 0-5 0 - 5 /HPF [facility] Urine Squamous Epithelial Cell 0-2 0 - 2 /HPF [facility] Urine Bacteria 1+ None Seen [facility] Hyaline Casts, Urine 0-2 0 - 2 /LPF [facility] Urine 04/26/2025 8:45 AM EDT 04/26/2025 12:46 PM EDT Narrative [facility] - 04/26/2025 1:47 PM EDT Urine, Clean Catch us Jaime Christopher MD LAB URINE ORDERABLES Final Result Performing Organization Address [place] [facility]/ZIP Co de Phone Number [facility] [address] [place] [phone] * Immunofixation (BRIDGETTE), Urine (04/26/2025 8:45 AM EDT) BRIDGETTE Interpretation [facility] Comment:No monoclonal protei ns detectedTHIS TEST WAS PERFORMED AT:[employer] [place] [id number] LUU MD 04/26/2025 8:45 AM EDT 04/26/2025 12:46 PM EDT us Generic External Data Provider LAB URINE ORDERAB LES Final Result Performing Organization Address [place] [facility]/ZIP Co de Phone Number [facility] [address] [place] [phone] * (ABNORMAL) Albumin, Random Urine W/Creatinine (04/26/2025 8:45 AM EDT) Creatinine, Urine 45.45 mg/dL [facility] Microalbumin Urine 28.0 mg/L H [facility] Microalbum Creatinine Ratio Ur 61.6(H) <30 ug/mg cr [facility] Comment:Albumin/Creatinine R atio Reference Ranges: Normal: < 30 ug/mg creatinine Microalbuminuria: 30 - 300 ug/mg creatinineClinical Albuminuria: > 300 ug/mg creatinine 04/26/2025 8:4 5 AM EDT 04/26/2025 12:46 PM EDT Jaime Christopher MD LAB URINE ORDERABLES Final Result Performing Organization Address [place] [facility] Co de Phone Number [facility] [address] [place] [address] [phone] * Culture, Urine, Routine (04/26/2025 8:45 AM EDT) Urine Urine specimen obtained by clean catch procedure / Unknown 04/26/2025 8:45 AM EDT 04/26/2025 7:40 PM EDT Comment:UACC Narrative [facility] - 04/28/2025 8:20 AM EDT Urine Culture Report Result Urine Culture > 100,000 cfu/ml Urine Culture Mixed bacterial brinda characteristic of Urine Culture urogenital contamination. Specimen Source: Urine clean catch Jaime Christopher MD LAB MICROBIOLOGY - GE NERAL ORDERABLES Final Result Performing Organization Address City/[facility] Co de Phone Number [facility] [address] [place] [address] [phone] * XR Chest 2 Views (04/22/2025 1:45 PM EDT) Anatomical Region Laterality Modality Chest Radiographic Juju ging 04/22/2025 1:45 PM EDT Narrative 04/22/2025 2:03 PM EDT [address] [address] XRay Report Signed Patient: Nola Styles MR#: [id number] : 1940 Acct:[id number] Age/Sex: 84 / F ADM Date: 04/22/25 Loc: [facility] Attending Dr: Jaime Tinoco MD Ordering Physician: Jaime Tinoco MD Date of Service: 04/22/25 Procedure(s): XR chest 2V Accession Number(s): [id number] cc: Jaime Tinoco MD Reason for Exam: [...] 04/22/25 1400 DD/ 1345 TD/TT: 04/22/25 1354 Roofer Assistant: Procedure Note Donotuseinterpreter, Image - 04/22/[address] [address] XRay Report Signed Patient: Nola Styles MMR#: [id number] : 1940cct:[id number] Age/Sex: 84 / FADM Date: 04/22/25 Loc: HOMELANIE Attending Dr: Jaime Tinoco MD Ordering Physician: Jaime Tinoco MD Date of Service: 04/22/25 Procedure(s): XR chest 2V Accession Number(s): [id number] cc: Jaime Tinoco MD Reason for Exam: [...] 04/22/25 1400 DD/ 1345 TD/TT: 04/22/25 1354 Roofer Assistant: us Jaime Christopher MD IMG XR PROCEDURES Fin al Result * Vitamin D, 25-Hydroxy, Total, Immunoassay (04/22/2025 1:24 PM EDT) Vitamin D 25-OH Total 41.6 >30 ng/mL [facility] Comment: Health Based Reference Values*< 20 ng/mL [id number] ng/mL Insufficient> 30 ng/mL Sufficient*Van SCALES. N [...] 1:24 PM EDT 04/22/2025 1:24 PM EDT Generic External Data Provider LAB BLOOD ORDERAB LES Final Result Performing Organization Address [place] [facility] Co de Phone Number [facility] [address] [place] [address] [phone] * TSH with Reflex to Free T4 (04/22/2025 1:24 PM EDT) TSH reflex Free T4 3.38 0.32 - 4.0 uIU/mL [facility] Blood Venous blood specimen / Unknown 04/22/2025 1:24 PM EDT 04/22/2025 1:24 PM EDT us Jaime Christopher MD LAB BLOOD ORDERABLES Final Result Performing Organization Address [place] [facility] Co de Phone Number [facility] [address] [place] [phone] * Phosphate (As Phosphorus) (04/22/2025 1:24 PM EDT) Phosphorus 3.5 2.7 - 4.5 mg/dL [facility] 04/22/2025 1:24 PM EDT 04/22/2025 1:24 PM EDT Generic External Data Provider LAB BLOOD ORDERAB LES Final Result Performing Organization Address [place] [facility]/ZIP Co de Phone Number [facility] [address] [place] [phone] * (ABNORMAL) Comprehensive Metabolic Panel (04/22/2025 1:24 PM EDT) Only the most recent of2 resultswithin the time period is included. Sodium 140 135 - 145 mmol/L [facility] Potassium 4.0 3.3 - 5.1 mmol/L [facility] Chloride 102 96 - 108 mmol/L [facility] Carbon Dioxide 26 22 - 29 mmol/L [facility] Anion Gap 16 12 - 20 [facility] Urea Nitrogen (BUN) 29(H) 9 - 16 mg/dL [facility] Creatinine, Serum 0.86 0.5 - 1.4 mg/dL [facility] Estimated Glomerular Filt Rate >60 [facility] Comment:Chronic Kidney Disea se: Estimated GFR < 60 mL/min/1.14p4Sgklph Kidney Disease: Estimated GFR < 15 mL/min/1.73m2 Glucose 132(H) 60 - 115 mg/dL [facility] Calcium 9.0 8.4 - 10.2 mg/dL [facility] Bilirubin, Total 0.4 0.0 - 1.0 mg/dL [facility] Aspartate Amino Transferase 24 5 - 31 U/L [facility] Alanine Aminotransferase 26 0 - 31 U/L [facility] Total Protein 7.4 6.5 - 8.0 g/dL [facility] Albumin Level 4.7 3.5 - 5.0 g/dL [facility] Alkaline Phosphatase 63 39 - 117 U/L [facility] Blood Venous blood specimen / Unknown 04/22/2025 1:24 PM EDT 04/22/2025 1:24 PM EDT us Jaime Christopher MD LAB BLOOD ORDERABLES Final Result Performing Organization Address City/[facility]/ZIP Co de Phone Number [facility] [address] [place] [phone] * (ABNORMAL) TSH (02/05/2025 12:00 AM EDT) TSH 4.91(H) 0.40 - 4.50 mIU/L [facility] 02/05/2025 02/05/2025 1:2 9 PM EDT us Jaime Christopher MD LAB BLOOD ORDERABLES Final Result [facility] [address], [place] [phone] [facility] [place] [facility] [address] [place] [phone] * (ABNORMAL) Lipid Panel, Standard (10/22/2024 1:43 PM EST) Pathologist [facility] Triglycerides 205(H) <150 mg/dL [facility] Comment:Desirable Triglyceri de: less than 150 mg/dLBorderline High Triglyceride 150-199 mg/dLHigh Triglyceride: 200-499 mg/dLVery High Triglyceride: greater than or equal to 5OO mg/dL Cholesterol 227(H) <200 mg/dL [facility] Comment:Desirable Cholestero l: less than 200 mg/dLBorderline High Cholesterol: 200-239 mg/dLHigh Cholesterol: greater than 239 mg/dL LDL Cholesterol Calculated 139(H) <100 mg/dL [facility] Comment:Desirable LDL: less than 100 mg/dLNear Optimal/Above Optimal LDL: 110- 129 mg/dLBorderline High LDL: 130-159 mg/dLHigh LDL: 160-189 mg/dLVery High LDL: greater than or equal to 190 mg/dL HDL Cholesterol 47 >40 mg/dL [facility] Comment:Desirable HDL: great er than 40 mg/dL Note: This HDL assay may give artificially low results in patients with liver disease. Blood Venous blood specimen / Unknown 10/22/2024 1:43 PM EST 10/22/2024 4:06 PM EST Jaime Christopher MD LAB BLOOD ORDERABLES Final Result [facility] [address] [place] [phone] * (ABNORMAL) POCT HGB A1C (09/24/2024 11:20 AM EST) Hemoglobin A1C 7.8(A) 4.0 - 6.0 % QC Media Lot # [id number] Lot# Expiration Date ,196,[id number] Blood 09/24/2024 11:2 0 AM EST Jaime Christopher MD POINT OF CARE TEST EN TER/EDIT ORDERABLES Final Result from Last 3 Months or Most Recently Relevant to Health Maintenance Insurance [facility] [employer] Care Teams Bridge Repair Crew Person Relationship Specialty Start Date End Date Jaime Mares MD [address] [place] [phone] PCP - General Internal Medicine 06/23/14
--- OUTSIDE RECORDS SUMMARY | 2025-04-30 16:30 | XMS_ITS | Encounter Summary ---
Author Organization [employer] Address [address] [facility] 7 [place] [address] Care Team Providers Care Credit And Collections Analyst Name Role Phone Jaime Mares MD Primary Care Provide r Reason for Visit * Reason Onset Date Comments triage 08/23/2022 Encounter Details Date Type Department Care Team ([facility] st Contact Info) Description 08/23/2022 Telephone [facility] [address] [place] [address] Jaime Mares MD [address] [place] [address] triage Social History Tobacco Use Types Packs/Day [...] 08/23/2022 1:08 PM EST Triage call with [employer] Mgr ID [id number] Pt reports home tested + for Covid this morning. Pt symptoms are mild with runny nose, sneezing, nasal congestion, dry cough, neg for fever, diarrhea, nausea. Pt was given home care handouts via textin kyrgyz. Home care disposition agreed with and home care reviewed thoroughly. Pt is asking aboutmedications and if BP meds can be taken with certain cough syrups. Scheduled a tele visit with ETHNOLOGY PROFESSOR Catalina tejeda at 315pm . Insurance is [...] COVID-19 * Clean Your Hands Often Cough (Pakistani) handout sent to [phone] CDC: Sick With COVID-19 (Pakistani) handout sent to [phone] * Telephone Encounter - Alejandra Ferreira - 08/23/2022 11:28 AM EST Patient calling to report Covid positive pt sneezing x 1 day. Patient speaks (Pakistani). Advised triage nurse will call patient back. documented in this encounter Plan of Treatment Not on file documented as of this encounter Visit Diagnoses Not on filedocumented in this encounter Care Teams Credit And Collections Analyst Relationship Specialty Start Date End Date Jaime Mares MD [address] [place] [phone] PCP - General Internal Medicine 06/23/14 documented as of this encounter
--- OUTSIDE RECORDS SUMMARY | 2025-04-30 16:30 | XMS_ITS | Encounter Summary ---
Author Organization [employer] Address [address] [facility] [address] [place] [address] Care Team Providers Care Charge Rn Name Role Phone Jaime Mares MD Primary Care Provide r Encounter Details Date Type Department Care Team (Late st Contact Info) Description 01/23/2023 Orders Only [facility] [address] [place], [place] [phone] Duyen Burgess LPN Social History Tobacco Use [...] on filedocumented in this encounter Care Teams Charge Rn Relationship Specialty Start Date End Date Jaime Mares MD [address] [place] [phone] PCP - General Internal Medicine 06/23/14 documented as of this encounter
--- OUTSIDE RECORDS SUMMARY | 2025-04-30 16:30 | XMS_ITS | Encounter Summary ---
Author Organization [employer] Address [address] [facility] [address] [place] [address] Care Team Providers Care Maintenance Parts Technician Name Role Phone Jaime Mares MD Primary Care Provide r Encounter Details Date Type Department Care Team (Late st Contact Info) Description 11/23/2022 Orders Only [facility] [address] [place], [place] [phone] Duyen Burgess LPN Social History Tobacco Use [...] on filedocumented in this encounter Care Teams Maintenance Parts Technician Relationship Specialty Start Date End Date Jaime Mares MD [address] [place] [phone] PCP - General Internal Medicine 06/23/14 documented as of this encounter
--- OUTSIDE RECORDS SUMMARY | 2025-04-30 16:30 | XMS_ITS | Encounter Summary ---
Author Organization [employer] Address [address] [place] [address] [address] [place] [address] Care Team Providers Care Landing Worker Name Role Phone Jaime Mares MD Primary Care Provide r Reason for Visit * Reason Comments Med Refill Encounter Details Date Type Department Care Team (Late st Contact Info) Description 03/29/[address] [facility] [address] [place], [place] [phone] Jaime Mares MD [address] [place] [address] Essential (primary) hypertension Social History Tobacco Use [...] hypertension documented in this encounter Care Teams Landing Worker Relationship Specialty Start Date End Date Jaime Mares MD [address] [place] [address] PCP - General Internal Medicine 06/23/14 documented as of this encounter
--- OUTSIDE RECORDS SUMMARY | 2025-04-30 16:30 | XMS_ITS | Encounter Summary ---
Author Organization [employer] Address [address] [facility] [address] [place] [address] Care Team Providers Care Tower Operator Name Role Phone Jaime Mares MD Primary Care Provide r Reason for Visit * Reason Onset Date Comments triage 2022 Encounter Details Date Type Department Care Team ([facility] st Contact Info) Description 2022 Telephone [facility] [address] [place] [address] Jaime Mares MD [address] [place] [address] triage Social History Tobacco Use Types Packs/Day [...] on filedocumented in this encounter Care Teams Tower Operator Relationship Specialty Start Date End Date Jaime Mares MD [address] [place] [address] PCP - General Internal Medicine 06/23/14 documented as of this encounter
== END 2025-04-30 14:31 | disposition home or self-care (01) ==
LOC: HO.ENCR 13:27
PROVIDERS: PCP Internal Medicine; Visit Provider Internal Medicine Endocrinology, Diabetes & Metabolism
DX: M81.0 Age-related osteoporosis without current pathological fracture (principal)
CPT/HCPCS: 99213

== ENCOUNTER → 2025-04-30 13:26 | Outpatient (BNVA) | payer MEDICARE, OTHER, SELFPAY | PROVIDERS: PCP Internal Medicine; Visit Provider Internal Medicine Endocrinology, Diabetes & Metabolism | DX: M81.0 Age-related osteoporosis without current pathological fracture (principal) | CPT/HCPCS: 99212 ==

== ENCOUNTER 2025-05-06 10:33 | Outpatient (REF) | payer MEDICARE, SELFPAY ==
--- NOTE | 2025-05-06 10:36 | EMG_ITS ---
Chief complaint: Bilateral lower extremity pain Reason for referral: Evaluated for diabetic polyneuropathy Referred by: Jaime Christopher MD Procedure done: Right lower extremity NCS and EMG Right tibial and peroneal motor studies were performed right superficial peroneal and sural sensory studies were performed tibial H-reflex was obtained an EMG needle examination was performed. Impression: 1. 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 Chronic right lower lumbar radiculopathy MTDD
--- OUTSIDE RECORDS SUMMARY | 2025-05-06 13:51 | XMS_ITS | Encounter Summary ---
Author Organization [employer] Address [address] [place] [address] 7 [place] [address] Care Team Providers Care Forest Products Gatherer Name Role Phone Jaime Mares MD Primary Care Provide r Reason for Visit * Reason Comments Med Refill Encounter Details Date Type Department Care Team (Late st Contact Info) Description 03/29/2023 Refill [facility] [address] [place], [place] [phone] Jaime Mares MD 230 [place] [address] Essential (primary) hypertension Social History Tobacco Use [...] hypertension documented in this encounter Care Teams Forest Products Gatherer Relationship Specialty Start Date End Date Jaime Mares MD [address] [place] [address] PCP - General Internal Medicine 06/23/14 documented as of this encounter
--- OUTSIDE RECORDS SUMMARY | 2025-05-06 13:51 | XMS_ITS | Encounter Summary ---
Author Organization [employer] Address [address] [facility] 7t [place] [address] Care Team Providers Care Strategic Account Manager Name Role Phone Jaime Mares MD Primary Care Provide r Reason for Visit * Reason Comments Med Refill Encounter Details Date Type Department Care Team ([facility] Contact Info) Description 06/05/2024 Refill [facility] [address] [place] [address] Olya Harris MD 230 [place] [address] Type 2 diabetes mellitus with diabetic polyneuropathy, without long-term current use of insulin ([facility]) Social History Tobacco Use Types Packs/Day [...] long-term current use of insulin ([facility]) documented in this encounter Additional Health Concerns Assessment Noted Time PHQ-9 Depression Total Score: 1 12/05/19 24 9:34 AM EDT documented as of this encounter Care Teams Strategic Account Manager Relationship Specialty Start Date End Date Jaime Mares MD 230 [place] [address] PCP - General Internal Medicine 06/23/14 documented as of this encounter
--- OUTSIDE RECORDS SUMMARY | 2025-05-06 13:51 | XMS_ITS | Encounter Summary ---
Author Organization [employer] Address 75 [facility] 7 [place] [address] Care Team Providers Care Director Of Quantitative Research Name Role Phone Jaime Mares MD Primary Care Provide r Reason for Visit * Reason Onset Date Comments triage 2022 Encounter Details Date Type Department Care Team ([facility] st Contact Info) Description 2022 Telephone [facility] 230 [place] [address] Jaime Mares MD 230 [place] [address] triage Social History Tobacco Use Types Packs/Day [...] filedocumented in this encounter Care Teams Director Of Quantitative Research Relationship Specialty Start Date End Date Jaime Mares MD [address] [place] [address] PCP - General Internal Medicine 06/23/14 documented as of this encounter
--- OUTSIDE RECORDS SUMMARY | 2025-05-06 13:51 | XMS_ITS | Encounter Summary ---
Author Organization [employer] Address [address] [facility] 7 [place] [address] Care Team Providers Care Credit Correspondence Clerk Name Role Phone Jaime Mares MD Primary Care Provide r Reason for Visit * Reason Comments Med Refill Encounter Details Date Type Department Care Team ([facility] st Contact Info) Description 05/04/2025 Refill [facility]INE 230 [place] [address] Jaime Mares MD 230 [place] [address] Essential (primary) hypertension Social History Tobacco Use [...] documented as of this encounter Care Teams Credit Correspondence Clerk Relationship Specialty Start Date End Date Jaime Mares MD 230 [place] [address] PCP - General Internal Medicine 06/23/14 documented as of this encounter
--- OUTSIDE RECORDS SUMMARY | 2025-05-06 13:51 | XMS_ITS | Clinical Summary ---
Author Organization [employer] Address [address] [place] [address] 7t [place] [address] Care Team Providers Care Tariff Supervisor Name Role Phone Jaime Mares MD [...] polyneuropathy, without long-term current use of insulin ([facility]) TAKE 1 TABLET BY MOUTH EVERY [...] BY MOUTH EVERY EVENING 90 tablet 1 04/07/20 25 Active cetirizine (ZyrTEC) 10 MG tabletIndications :Subacute cough Take 1 tablet (10 mg) by mouth Once per day for 10 days. 10 tablet 04/22/20 25 Active levothyroxine (Synthroid) 88 MCG tabletIndications :Acquired hypothyroidism Take 1 tablet (88 mcg) by mouth before breakfast. 30 tablet 6 04/22/20 25 Active Calcium Carb-Cholecalcife rol (Oyster Shell Calcium w/D) 500-5 MG-MCG tablet TAKE 1 TABLET BY MOUTH TWICE DAILY IN THE MORNING AND IN THE EVENING 180 tablet 10/08/19 25 025 Discontinued glipiZIDE XL (Glucotrol XL) 10 MG 24 hr tabletIndications :Type 2 diabetes mellitus with diabetic polyneuropathy, without long-term current use of insulin ([facility]) TAKE 1 TABLET BY MOUTH EVERY [...] for 3 days. 6 tablet 04/22/20 025 guaiFENesin (Robitussin) 100 MG/5ML liquidIndications :Subacute cough Take 10 mL (200 mg) by mouth if needed in the morning, at noon, and at bedtime for cough for up to 10 days. 120 mL 04/22/20 025 Active Problems Problem Noted Date [...] Brown, irregular borders, seborrheic hyperkeratosis Plan: [facility] Diabetes mellitus with [...] Eye exam was done on 12/12/13 via [facility] Microalbumin 08/27/2019 was 5 ,pt on ARB. will repeat Foot check risk of zero, on Asa daily. Adhere to diabetic diet check your blood sugars regularly check your feet on a daily basis f/u 3 months Assessment & Plan (12/06/2023 1:49 PM EDT): Patient is here for a f/u after a long hiatus, was living in [place] and was without medications for months, upon [...] Eye exam was done on 12/12/13 via [facility] Microalbumin 08/27/2019 was 5 ,pt [...] after a long hiatus. Pt was in [place] BP remains uncontrolled She is on a [...] after a long hiatus. Pt was in [place] BP remains uncontrolled She is on a [...] get up to use the bathroom at [facility]. Most recent electrolytes, Bun and Creatinine [...] pt had a previous MRI done at [facility] that showed a heterogeneous mass like structure [...] to the radiologist. Pt was referred to [facility] surgical [facility] and pt told me she [...] used to be under the care of [facility]. Last seen 02/25/2022 Pt has [...] MRI 11/25/2020 (Please see scanned document) The presales senior specialist at [facility] already reviewed her MRI and has recommended [...] used to be under the care of [facility] management. Last seen 02/25/2022 Pt has [...] MRI 11/25/2020 (Please see scanned document) The presales senior specialist at [facility] already reviewed her MRI and has recommended a steroid injections. She has had good results with them in the past. MRI booked for 02/16/24 @10:30AM Assessment & Plan (12/06/2023 1:54 PM EDT): Pt c/o persistent low back pain She used to be under the care of [facility]. Last seen 02/25/2022 Pt has [...] MRI 11/25/2020 (Please see scanned document) The presales senior specialist at [facility] already reviewed her MRI and has recommended [...] Encounters Date Type Department Care Team Description 05/05/2025 Telephone [facility] [place] [address] Jaime Mares MD July05/04/2025 Refill [facility] [place] [address] Jaime Mares MD Essential (primary) hypertension 04/26/2025 Orders Only GENERIC EXTERNAL DATA DEPARTMENT Provider, Generic External Data 04/22/2025 9:00 AM EDT Telemedicine [facility] [place] [address] Jaime Mares MD Type 2 diabetes mellitus with diabetic polyneuropathy, without long-term current use of insulin ([facility]) (Primary Dx); Subacute cough; Dysuria; Essential hypertension; Neuropathic pain of both legs; Varicose veins of both lower extremities with pain; Acquired hypothyroidism; Chronic midline low back pain, unspecified whether sciatica present 04/22/2025 Results Follow-Up [facility] [place] [address] Jaime Mares MD XR Chest 2 Views 04/22/2025 Orders Only GENERIC EXTERNAL DATA DEPARTMENT Provider, Generic External Data 04/07/2025 Refill [facility] [place] [address] Jaime Mares MD Essential hypertension; Type 2 diabetes mellitus with diabetic polyneuropathy, without long-term current use of insulin (CMS/HCC); Mixed hyperlipidemia 03/05/2025 Refill [facility] [address] [place] [address] Jaime Mares MD Uncontrolled type 2 diabetes mellitus with hyperglycemia (CMS/HCC) 02/15/2025 Orders Only [facility] [place] [address] Jaime Mares MD Neuropathic pain of both legs (Primary Dx) 02/12/2025 Telephone [facility] [place] [address] Jaime Mares MD NC ORDER 02/10/2025 Refill [facility] [address] [place] [phone] Jaime Mares MD Essential hypertension 02/05/2025 Orders Only [facility] [address] [facility] [place] [address] Jaime Mares MD from Last 3 Months Immunizations Immunization Administration [...] 09/24/2025 09/24/2024, 09/24/19 SDOH Screening 09/24/2025 09/24/2024 Lipid Panel 10/22/2025 [...] polyneuropathy, without long-term current use of insulin ([facility]) COMPREHENSIVE METABOLIC PANEL Routine 04/22/2025 1:24 PM EDT Neuropathic pain of both legs Type 2 diabetes mellitus with diabetic polyneuropathy, without long-term current use of insulin ([facility]) TSH Routine 02/05/2025 12:00 AM EDT COMPREHENSIVE METABOLIC PANEL Routine 02/05/2025 12:00 AM EDT LIPID PANEL, STANDARD Routine 10/22/2024 1:43 PM EST Mixed hyperlipidemia POCT GLYCATED HEMOGLOBIN, TOTAL Routine 09/24/2024 11:20 AM EST Type 2 diabetes mellitus with diabetic polyneuropathy, without long-term current use of insulin ([facility]) from Last 3 Months or Most Recently Relevant to Health Maintenance Results * (ABNORMAL) CREATININE, 24 HR GROUP (04/26/2025 9:30 AM EDT) Creatinine, 24 Hour Urine 0.6(L) 1.0 - 2.0 G/Day [facility] Creatinine, Urine 59.62 [facility] Urine Total Volume 24 Hour 1,050 mL [facility] 04/26/2025 9:30 AM EDT 04/26/2025 12:52 PM EDT [facility] - 04/26/2025 2:46 PM EDT [id number] us Generic External Data Provider LAB URINE ORDERAB LES Final Result Performing Organization Address City/[facility]/ZIP Co de Phone Number [facility] [address] [place] [address] [phone] * (ABNORMAL) Calcium, 24 Hour Urine W/ Creatinine (04/26/2025 9:30 AM EDT) Calcium, 24 Hour Urine 23(A) mg/24 h [facility] Comment:Reference Range 35-2 50 Low calcium diet 35-200 Calcium/Creatini ne Ratio 36 30 - 275 mg/g creat [facility] Creatinine, 24 Hour Urine 0.64 0.50 - 2.15 g/24 h [facility] Comment:THIS TEST WAS PERFOR MED AT:[address] [place] [id number] LUU MD 04/26/2025 9:30 AM EDT 04/26/2025 12:52 PM EDT [facility] - 04/29/2025 7:24 PM EDT [id number] us Generic External Data Provider LAB URINE ORDERAB LES Final Result Performing Organization Address City/[facility]/ZIP Co de Phone Number [facility] [address] [place] [address] [phone] * (ABNORMAL) Urinalysis, Complete, with Reflex to Culture (04/26/2025 8:45 AM EDT) Color Urine Yellow [facility] Appearance Urine Clear [facility] PH 6.5 5.0 - 9.0 [facility] Glucose Urine UA Negative Negative mg/dL [facility] Urine Blood Negative Negative [facility] Specific [place] - Urine 1.015 1.005 - 1.025 [facility] Urine Protein Negative Neg-Trace mg/dL [facility] Urine Ketones Negative Negative mg/dL [facility] Nitrite Urine Negative Negative [facility] Leukocyte Esterase Urine Small (1+)(A) Negative [facility] RBC Urine 0-2 0 - 2 /HPF [facility] Urine WBC 0-5 0 - 5 /HPF [facility] Urine Squamous Epithelial Cell 0-2 0 - 2 /HPF [facility] Urine Bacteria 1+ None Seen [facility] Hyaline Casts, Urine 0-2 0 - 2 /LPF [facility] Urine 04/26/2025 8:45 AM EDT 04/26/2025 12:46 PM EDT Narrative [facility] - 04/26/2025 1:47 PM EDT Urine, Clean Catch us Jaime Christopher MD LAB URINE ORDERABLES Final Result Performing Organization Address [facility] Co de Phone Number [facility] [address] [place] [phone] * Immunofixation (BRIDGETTE), Urine (04/26/2025 8:45 AM EDT) BRIDGETTE Interpretation [facility] Comment:No monoclonal protei ns detectedTHIS TEST WAS PERFORMED AT:[address] [place] [id number] LUU MD 04/26/2025 8:45 AM EDT 04/26/2025 12:46 PM EDT us Generic External Data Provider LAB URINE ORDERAB LES Final Result Performing Organization Address [facility] Co de Phone Number [facility] [address] [place] [phone] * (ABNORMAL) Albumin, Random Urine W/Creatinine (04/26/2025 8:45 AM EDT) Creatinine, Urine 45.45 mg/dL [facility] Microalbumin Urine 28.0 mg/L [facility] Microalbum Creatinine Ratio Ur 61.6(H) <30 ug/mg cr [facility] Comment:Albumin/Creatinine R atio Reference Ranges: Normal: < 30 ug/mg creatinine Microalbuminuria: 30 - 300 ug/mg creatinineClinical Albuminuria: > 300 ug/mg creatinine 04/26/2025 8:45 AM EDT 04/26/2025 12:46 PM EDT Jaime Christopher MD LAB URINE ORDERABLES Final Result Performing Organization Address City/[facility]/ZIP Co de Phone Number [facility] [address] [place] [phone] * Culture, Urine, Routine (04/26/2025 8:45 AM EDT) Urine Urine specimen obtained by clean catch procedure / Unknown 04/26/2025 8:45 AM EDT 04/26/2025 7:40 PM EDT Comment:UACC Narrative [facility] - 04/28/2025 8:20 AM EDT Urine Culture Report Result Urine Culture > 100,000 cfu/ml Urine Culture Mixed bacterial brinda characteristic of Urine Culture urogenital contamination. Specimen Source: Urine clean catch us Jaime Christopher MD LAB MICROBIOLOGY - GE NERAL ORDERABLES Final Result Performing Organization Address City/[facility]/ZIP Co de Phone Number [facility] [address] [place] [phone] * XR Chest 2 Views (04/22/2025 1:45 PM EDT) Anatomical Region Laterality Modality Chest Radiographic Juju ging 04/22/2025 1:45 PM EDT Narrative 04/22/2025 2:03 PM EDT [address] [address] XRay Report Signed Patient: Nola Styles MR#: [id number] : 1940 Acct:[id number] Age/Sex: 84 / F ADM Date: 04/22/25 Loc: HO.XRAY Attending Dr: Jaime Tinoco MD Ordering Physician: Jaime Tinoco MD Date of Service: 04/22/25 Procedure(s): XR chest 2V Accession Number(s): [id number] cc: Jaime Tinoco MD Reason for Exam: [...] 04/22/25 1400 DD/ 1345 TD/TT: 04/22/25 1354 C Python Developer: Procedure Note Donotuseinterpreter, Image - 04/22/[address] [address] XRay Report Signed Patient: Nola Styles MMR#: [id number] : 1940cct:[id number] Age/Sex: 84 / FADM Date: 04/22/25 Loc: HO.XRAY Attending Dr: Jaime Tinoco MD Ordering Physician: Jaime Tinoco MD Date of Service: 04/22/25 Procedure(s): XR chest 2V Accession Number(s): [id number] cc: Jaime Tinoco MD Reason for Exam: [...] 04/22/25 1400 DD/ 1345 TD/TT: 04/22/25 1354 C Python Developer: Jaime Christopher MD IMG XR PROCEDURES Fin al Result * Vitamin D, 25-Hydroxy, Total, Immunoassay (04/22/2025 1:24 PM EDT) Vitamin D 25-OH Total 41.6 >30 ng/mL [facility] Comment: Health Based Reference Values*< 20 ng/mL [id number] ng/mL Insufficient> 30 ng/mL Sufficient*Van SCALES. N [...] ORDERAB LES Final Result Performing Organization Address [facility]/ZIP Co de Phone Number [facility] [address] [place] [phone] * TSH with Reflex to Free T4 (04/22/2025 1:24 PM EDT) TSH reflex Free T4 3.38 0.32 - 4.0 uIU/mL [facility] Blood Venous blood specimen / Unknown 04/22/2025 1:24 PM EDT 04/22/2025 1:24 PM EDT us Jaime Christopher MD LAB BLOOD ORDERABLES Final Result Performing Organization Address [facility]/ZIP Co de Phone Number [facility] [address] [place] [phone] * Phosphate (As Phosphorus) (04/22/2025 1:24 PM EDT) Phosphorus 3.5 2.7 - 4.5 mg/dL [facility] 04/22/2025 1:24 PM EDT 04/22/2025 1:24 PM EDT us Generic External Data Provider LAB BLOOD ORDERAB LES Final Result [facility] [address] [place] [phone] * (ABNORMAL) Comprehensive Metabolic Panel (04/22/2025 1:24 PM EDT) Only the most recent of2 resultswithin the time period is included. Sodium 140 135 - 145 mmol/L [facility] Potassium 4.0 3.3 - 5.1 mmol/L [facility] Chloride 102 96 - 108 mmol/L [facility] Carbon Dioxide 26 22 - 29 mmol/L [facility] Anion Gap 16 12 - 20 [facility] Urea Nitrogen (BUN) 29(H) 9 - 16 mg/dL [facility] Creatinine, Serum 0.86 0.5 - 1.4 mg/dL [facility] Estimated Glomerular Filt Rate >60 [facility] Comment:Chronic Kidney Disea se: Estimated GFR < 60 mL/min/[id number] Kidney Disease: Estimated GFR < 15 mL/min/1.73m2 Glucose 132(H) 60 - 115 mg/dL [facility] Calcium 9.0 8.4 - 10.2 mg/dL [facility] Bilirubin, Total 0.4 0.0 - 1.0 mg/dL [facility] Aspartate Amino Transferase 24 5 - 31 U/L [facility] Alanine Aminotransferase 26 0 - 31 U/L [facility] Total Protein 7.4 6.5 - 8.0 g/dL [facility] Albumin Level 4.7 3.5 - 5.0 g/dL [facility] Alkaline Phosphatase 63 39 - 117 U/L [facility] Blood Venous blood specimen / Unknown 04/22/2025 1:24 PM EDT 04/22/2025 1:24 PM EDT Jaime Christopher MD LAB BLOOD ORDERABLES Final Result [facility] [address] [place] [phone] * (ABNORMAL) TSH (02/05/2025 12:00 AM EDT) TSH 4.91(H) 0.40 - 4.50 mIU/L [facility] 02/05/2025 02/05/2025 1:2 9 PM EDT Jaime Christopher MD LAB BLOOD ORDERABLES Final Result Performing Organization Address City/[facility]/ZIP Co de Phone Number [facility] [address], [place] [phone] [facility] [place] [facility] [address] [place] [phone] * (ABNORMAL) Lipid Panel, Standard (10/22/2024 1:43 PM EST) Triglycerides 205(H) <150 mg/dL [facility] Comment:Desirable Triglyceri de: less than 150 mg/dLBorderline High Triglyceride 150-199 mg/dLHigh Triglyceride: 200-499 mg/dLVery High Triglyceride: greater than or equal to 5OO mg/dL Cholesterol 227(H) <200 mg/dL [facility] Comment:Desirable Cholestero l: less than 200 mg/dLBorderline High Cholesterol: 200-239 mg/dLHigh Cholesterol: greater than 239 mg/dL LDL Cholesterol Calculated 139(H) <100 mg/dL [facility] Comment:Desirable LDL: less than 100 mg/dLNear Optimal/Above Optimal LDL: 110- 129 mg/dLBorderline High LDL: 130-159 mg/dLHigh LDL: 160-189 mg/dLVery High LDL: greater than or equal to 190 mg/dL HDL Cholesterol 47 >40 mg/dL [facility] Comment:Desirable HDL: great er than 40 mg/dL Note: This HDL assay may give artificially low results in patients with liver disease. Blood Venous blood specimen / Unknown 10/22/2024 1:43 PM EST 10/22/2024 4:06 PM EST us Jaime Christopher MD LAB BLOOD ORDERABLES Final Result [facility] [address] [place] [address] [phone] * (ABNORMAL) POCT HGB A1C (09/24/2024 11:20 AM EST) Hemoglobin A1C 7.8(A) 4.0 - 6.0 % QC Media Lot # [id number] Lot# Expiration Date Blood 09/24/2024 11:2 0 AM EST us Jaime Christopher MD POINT OF CARE TEST EN TER/EDIT ORDERABLES Final Result from Last 3 Months or Most Recently Relevant to Health Maintenance Insurance MEDICARE ADVANTAGE Care Teams Tariff Supervisor Relationship Specialty Start Date End Date Jaime Mares MD [address] [place] [phone] PCP - General Internal Medicine 06/23/14
--- OUTSIDE RECORDS SUMMARY | 2025-05-06 13:51 | XMS_ITS | Encounter Summary ---
Author Organization [employer] Address [address] [facility] 7 [place] [address] Care Team Providers Care Slot Machine Floor Person Name Role Phone Jaime Mares MD Primary Care Provide r Reason for Visit * Reason Onset Date Comments triage 08/23/2022 Encounter Details Date Type Department Care Team ([facility] st Contact Info) Description 08/23/2022 Telephone [facility] [address] [place] [address] Jaime Mares MD [address] [place] [address] triage Social History Tobacco Use Types Packs/Day [...] 1:08 PM EST Triage call with [employer] Resistor [place] [id number] Pt reports home tested + for Covid this morning. Pt symptoms are mild with runny nose, sneezing, nasal congestion, dry cough, neg for fever, diarrhea, nausea. Pt was given home care handouts via textin emirati. Home care disposition agreed with and home care reviewed thoroughly. Pt is asking aboutmedications and if BP meds can be taken with certain cough syrups. Scheduled a tele visit with HORSE RACER Catalina tejeda at 315pm . Insurance is [...] COVID-19 * Clean Your Hands Often Cough ([place]) handout sent to [phone] CDC: Sick With COVID-19 ([place]) handout sent to [phone] * Telephone Encounter - Alejandra Ferreira - 08/23/2022 11:28 AM EST Patient calling to report Covid positive pt sneezing x 1 day. Patient speaks ([place]). Advised triage nurse will call patient back. documented in this encounter Plan of Treatment Not on file documented as of this encounter Visit Diagnoses Not on filedocumented in this encounter Care Teams Slot Machine Floor Person Relationship Specialty Start Date End Date Jaime Mares MD [address] [place] [phone] PCP - General Internal Medicine 06/23/14 documented as of this encounter
--- OUTSIDE RECORDS SUMMARY | 2025-05-06 13:51 | XMS_ITS | Encounter Summary ---
Author Organization [employer] Address [address] [facility] [address] [place] [address] Care Team Providers Care Bolt Machine Operator Name Role Phone Jaime Mares MD Primary Care Provide r Reason for Visit * Reason Onset Date Comments July recall 05/05/2025 Encounter Details Date Type Department Care Team ([facility] st Contact Info) Description 05/05/2025 Telephone [facility] MEDICINE [address] [place] [address] Jaime Mares MD [address] [place] [address] July recall Social History Tobacco Use Types Packs/Day Years [...] encounter Miscellaneous Notes * Telephone Encounter - Domi Francis MA - 05/06/2025 10:33 AM EDT T/C- Adjunct Professor Left Voice Mail calling to return the call back. Adjunct Professor wants to confirm if Patient wants to canceled appointment and be placed on recall next appointment available.Appointment was not candled so wanted to confirm first. * Telephone Encounter - Gely Jackson - 05/06/2025 9:40 AM EDT Tc from pt to cancel appr from 07/29 due to she is going to be out of the stated. Please place pt inback in the recall list. Contact pt at [phone] * Telephone Encounter - Max Serrano MA - 05/05/2025 2:29 PM EDT Telephone call to patient to schedule the following recall: Visit type: Office visit Appointment notes: DM Patient agree to appointment on 07/29/25 at 1:15 PM with [place]. documented in this encounter Plan of Treatment Not on file documented as of this encounter Visit Diagnoses Not on filedocumented in this encounter Additional Health Concerns Assessment Noted Time PHQ-9 Depression Total Score: 3 09/24/19 25 11:09 AM EST documented as of this encounter Care Teams Bolt Machine Operator Relationship Specialty Start Date End Date Jaime Mares MD [address] [place] [address] PCP - General Internal Medicine 06/23/14 documented as of this encounter
--- OUTSIDE RECORDS SUMMARY | 2025-05-06 13:51 | XMS_ITS | Encounter Summary ---
Author Organization [employer] Address [address] [facility] [address] [place] [address] Care Team Providers Care Accountant Budget Name Role Phone Jaime Mares MD Primary Care Provide r Encounter Details Date Type Department Care Team (Late st Contact Info) Description 01/23/2023 Orders Only [facility] CHC MED & PEDS [address] [place], [place] [phone] Duyen Burgess LPN Social History Tobacco Use [...] on filedocumented in this encounter Care Teams Accountant Budget Relationship Specialty Start Date End Date Jaime Mares MD [address] [place] [id number] PCP - General Internal Medicine 06/23/14 documented as of this encounter
--- OUTSIDE RECORDS SUMMARY | 2025-05-06 13:51 | XMS_ITS | Encounter Summary ---
Author Organization [employer] Address [address] [facility] [address] [place] [address] Care Team Providers Care Last Ironer Name Role Phone Jaime Mares MD Primary Care Provide r Encounter Details Date Type Department Care Team (Late st Contact Info) Description 11/23/2022 Orders Only [facility] CHC MED & PEDS [address] [place], [place] [phone] Duyen Burgess LPN Social History Tobacco Use [...] on filedocumented in this encounter Care Teams Last Ironer Relationship Specialty Start Date End Date Jaime Mares MD [address] [place] [id number] PCP - General Internal Medicine 06/23/14 documented as of this encounter
== END 2025-05-06 10:34 | disposition home or self-care (01) ==
LOC: HO.NEURO 10:33
PROVIDERS: PCP Internal Medicine; Visit Provider Internal Medicine
DX: I99.8 Other disorder of circulatory system (principal); G57.93 Unspecified mononeuropathy of bilateral lower limbs
CPT/HCPCS: 95886; 95909

== ENCOUNTER → 2025-05-06 10:36 | Outpatient (BNV) | payer MEDICARE, SELFPAY | PROVIDERS: PCP Internal Medicine; Visit Provider Psychiatry & Neurology Neurology | DX: G62.89 Other specified polyneuropathies (principal); M54.16 Radiculopathy, lumbar region | CPT/HCPCS: 95886; 95909 ==

== ENCOUNTER → 2025-06-11 10:49 | Outpatient (REF) | payer MEDICARE, SELFPAY ==
--- NOTE | 2025-06-11 10:55 | CA_ITS ---
Transthoracic Echocardiogram Patient (Last, First, Middle): Nola Styles M Gender: F Date of : 1940 Age: 84 Procedure Date: 06/11/2025 Procedure Type: Transthoracic Echocardiogram Location: OP Height: 157.48 cm Weight: 72.58 kg BSA: 1.74 m2 Heart Rate: bpm BP: 130 / 83 mmHg Pilot Plant Technician: TO/RC Referring MD: Jaime Tinoco MD Instrument Assembly Supervisor: Mango Hawk MD Symptoms: HYPERTENSIVE CARDIOMYOPATHY. Study Quality: Technically Difficult ECG Rhythm: Sinus Conclusions: - 1. Normal LV ejection fraction 55-60% with grade 1 diastolic dysfunction with moderate asymmetric septal hypertrophy without clear obstructive physiology 2. Cardiac valvular Dopplers within normal limits Findings Left Ventricle Normal left ventricular size, thickness, and systolic function. The visually estimated ejection fraction is between 55-60%. There is no dynamic left ventricular outflow tract obstruction. There is systolic anterior motion of the chordae of the mitral valve. Spectral Doppler is indicative of an impaired relaxation filling pattern. E/E prime ratio is <8, consistent with normal filling pressures. Evidence suggests grade I (mild) diastolic dysfunction. There is moderate septal asymmetric hypertrophy. Right Ventricle The right ventricle was not well visualized. Atria The left atrium is likely dilated. There is lipomatous hypertrophy of the interatrial septum. There is no evidence of interatrial shunt. The right atrium was not well visualized. Aortic Valve The aortic valve was not well visualized. There is no aortic valve stenosis. There is no aortic valve regurgitation. Mitral Valve The mitral valve was not well visualized. There is no mitral valve regurgitation. There is no mitral valve stenosis. Pulmonic Valve The pulmonic valve was not well visualized. Tricuspid Valve Likely normal tricuspid valve structure and function. Tricuspid regurgitation envelope is inadequate for calculation of right ventricular systolic pressure. Normal right atrial pressure. Great Vessels The aorta was not well visualized. The pulmonary artery was not well visualized. Venous The inferior vena cava is normal in size. Pericardium/Pleural The pericardium was not well visualized. Prior Study Comparison No significant change compared to prior study dated: 02/26/2024. Measurements 2D Linear Measurements IVSd: 0.99 0.6-0.9/0.6-1.0 cm LVIDd: 4.60 3.9-5.3/4.2-5.9 cm LVIDd Index: 2.64 2.4-3.2/2.2-3.1 cm/m2 LVIDs: 3.10 2.0-3.6 cm LVPWd: 0.98 0.7-1.1 cm LA Diam: 3.90 2.7-3.8/3.0-4.0 cm LAIDs Index: 2.24 1.5-2.3 cm/m2 LV Mass: 194.25 67-162/88-224 g LV Mass Index: 111.64 43-95/49-115 g/m2 LVOT Diam: 1.90 3.0+(-)1.3 cm 2D Systolic Function EF 4C: 56.80 >55% Mitral Valve MV Pk E: 0.69 MV PK A: 0.92 MV Decel Time: 275.00 E/A: 0.80 E'Lateral: 6.74 E'Medial: 5.33 E/E' Med: 13.00 E/E' Lat: 10.30 PHT: 80.00 MVA PHT: 2.75 Decel [place]: 2.53 Aortic Valve AoV Pk Zach: 1.56 AoV Mn Zach: 1.09 AoV VTI: 0.36 AoV Pk Grad: 10.00 Aov Mn Grad: 5.00 NATALIA Cont.VTI: 2.17 LVOT LVOT Pk Zach: 1.05 LVOT Mn Zach: 0.76 LVOT VTI: 0.27 LVOT Pk Grad: 4.00 LVOT Mn Grad: 3.00 LVOT Diam: 1.90 LVOT Area: 2.84 Diastolic Function MV Pk E: 0.69 MV Pk A: 0.92 E/A: 0.80 E'Medial: 5.33 E/E' Med: 13.00 E' Laterial: 6.74 E/E' Lat: 10.30 Right Ventricle TAPSE (mm): 20.40 TVS' Zach: 11.40 Tricuspid Valve RA Press: 3.00 Great Vessels Aorta Sinus of Valsalva: 2.80 2.0-3.5 cm Pulmonary Veins Pulm Vein S/D 1.60 Pulmonary Valve PV Pk Zach: 1.06 Peak PV Grad: 4.00 Updated in Other Vendor System with Status of Final Mango Hawk MD electronically signed on 06/11/2025 12:54:35 PM with status of Final
--- OUTSIDE RECORDS SUMMARY | 2025-06-11 14:00 | XMS_ITS | Encounter Summary ---
Author Organization [employer] Address [address] [facility] [address] [place] [address] Care Team Providers Care Youth Coordinator Name Role Phone Jaime Mares MD Primary Care Provide r Encounter Details Date Type Department Care Team (Late st Contact Info) Description 11/23/2022 Orders Only [facility] CHC MED & PEDS [address] [place], [place] [phone] Duyen Burgess LPN Social History Tobacco Use [...] on filedocumented in this encounter Care Teams Youth Coordinator Relationship Specialty Start Date End Date Jaime Mares MD [address] [place] [id number] PCP - General Internal Medicine 06/23/14 documented as of this encounter
--- OUTSIDE RECORDS SUMMARY | 2025-06-11 14:00 | XMS_ITS | Encounter Summary ---
Author Organization [employer] Address [address] [facility] [address]t [place] [address] Care Team Providers Care Gift Officer Name Role Phone Jaime Mares MD Primary Care Provide r Reason for Visit * Reason Comments Med Refill Encounter Details Date Type Department Care Team ([facility] Contact Info) Description 06/05/2024 Refill [facility] MEDICINE [address] [place] [address] Olya Harris MD [address] [place] [address] Type 2 diabetes mellitus with diabetic polyneuropathy, without long-term current use of insulin ([facility]) Social History Tobacco Use Types [...] polyneuropathy, without long-term current use of insulin (HCC) documented in this encounter Additional Health Concerns Assessment Noted Time PHQ-9 Depression Total Score: 1 12/05/19 24 9:34 AM EDT documented as of this encounter Care Teams Gift Officer Relationship Specialty Start Date End Date Jaime Mares MD [address] [place] [address] PCP - General Internal Medicine 06/23/14 documented as of this encounter
--- OUTSIDE RECORDS SUMMARY | 2025-06-11 14:00 | XMS_ITS | Encounter Summary ---
Author Organization [employer] Address [address] [facility] [address] [place] [address] Care Team Providers Care Cyber Operator Name Role Phone Jaime Mares MD Primary Care Provide r Encounter Details Date Type Department Care Team (Late st Contact Info) Description 01/23/2023 Orders Only [facility] CHC MED & PEDS [address] [place], [place] [phone] Duyen Burgess LPN Social History Tobacco Use [...] on filedocumented in this encounter Care Teams Cyber Operator Relationship Specialty Start Date End Date Jaime Mares MD [address] [place] [id number] PCP - General Internal Medicine 06/23/14 documented as of this encounter
--- OUTSIDE RECORDS SUMMARY | 2025-06-11 14:00 | XMS_ITS | Encounter Summary ---
Author Organization [employer] Address [address] [place] [address] [address] [place] [address] Care Team Providers Care Genetic Engineer Name Role Phone Jaime Mares MD Primary Care Provide r Reason for Visit * Reason Comments Med Refill Encounter Details Date Type Department Care Team (Late st Contact Info) Description 03/29/2023 Refill [facility] MEDICINE [address] [place], [place] [phone] Jaime Mares MD [address] [place] [address] Essential (primary) hypertension Social History Tobacco Use [...] hypertension documented in this encounter Care Teams Genetic Engineer Relationship Specialty Start Date End Date Jaime Mares MD [address] [place] [address] PCP - General Internal Medicine 06/23/14 documented as of this encounter
--- OUTSIDE RECORDS SUMMARY | 2025-06-11 14:00 | XMS_ITS | Encounter Summary ---
Author Organization [employer] Address [address] [facility] 7 [place] [address] Care Team Providers Care Leasing Representative Name Role Phone Jaime Mares MD Primary Care Provide r Reason for Visit * Reason Onset Date Comments triage 08/23/2022 Encounter Details Date Type Department Care Team ([facility] st Contact Info) Description 08/23/2022 Telephone [facility] MEDICINE [address] [place] [address] Jaime Mares MD [address] [place] [address] triage Social History Tobacco Use Types Packs/Day [...] 08/23/2022 1:08 PM EST Triage call with [employer] Client Server Developer ID [id number] Pt reports home tested + for Covid this morning. Pt symptoms are mild with runny nose, sneezing, nasal congestion, dry cough, neg for fever, diarrhea, nausea. Pt was given home care handouts via textin maori. Home care disposition agreed with and home care reviewed thoroughly. Pt is asking aboutmedications and if BP meds can be taken with certain cough syrups. Scheduled a tele visit with MACERATOR OPERATOR Catalina tejeda at 315pm . Insurance [...] COVID-19 * Clean Your Hands Often Cough (Nigerian) handout sent to [phone] CDC: Sick With COVID-19 (Nigerian) handout sent to [phone] * Telephone Encounter - Alejandra Ferreira - 08/23/2022 11:28 AM EST Patient calling to report Covid positive pt sneezing x 1 day. Patient speaks (Nigerian). Advised triage nurse will call patient back. documented in this encounter Plan of Treatment Not on file documented as of this encounter Visit Diagnoses Not on filedocumented in this encounter Care Teams Leasing Representative Relationship Specialty Start Date End Date Jaime Mares MD [address] [place] [phone] PCP - General Internal Medicine 06/23/14 documented as of this encounter
--- OUTSIDE RECORDS SUMMARY | 2025-06-11 14:00 | XMS_ITS | Encounter Summary ---
Author Organization [employer] Address [address] [facility] [address] [place] [address] Care Team Providers Care Agriculture Teacher Name Role Phone Jaime Mares MD Primary Care Provide r Reason for Visit * Reason Onset Date Comments triage 2022 Encounter Details Date Type Department Care Team ([facility] st Contact Info) Description 2022 Telephone [facility] MEDICINE [address] [place] [address] Jaime Mares MD [address] [place] [address] triage Social History Tobacco Use Types Packs/Day [...] on filedocumented in this encounter Care Teams Agriculture Teacher Relationship Specialty Start Date End Date Jaime Mares MD [address] [place] [address] PCP - General Internal Medicine 06/23/14 documented as of this encounter
--- OUTSIDE RECORDS SUMMARY | 2025-06-11 14:00 | XMS_ITS | Clinical Summary ---
Author Organization [employer] Address [address] [place] [address] [address] [place] [address] Care Team Providers Care Hat Forming Machine Operator Name Role Phone Jaime Mares MD Primary Care Provide r Allergies Active Allergy Reactions Criticality Noted Date Comments Alendronate 05/08/2014 Amlodipine Rash Low 07/03/2012 Penicillin G 03/15/2012 Medications metFORMIN XR (Glucophage-XR) 500 MG 24 hr tabletIndications: Type 2 diabetes mellitus with diabetic polyneuropathy, without long-term current use of insulin (HCC) TAKE 2 TABLETS BY MOUTH TWICE DAILY AT NOON AND IN THE EVENING 120 tablet 6 5 Active valsartan (Diovan) 40 MG tabletIndications: Essential hypertension TAKE 1 TABLET BY MOUTH EVERY EVENING 30 tablet 5 5 Active gabapentin (Neurontin) 300 MG capsuleIndications :Uncontrolled type 2 diabetes mellitus with hyperglycemia (HCC) TAKE 1 CAPSULE BY MOUTH EVERY 8 HOURS 90 capsule 3 5 Active atenolol (Tenormin) 100 MG tabletIndications: Essential hypertension TAKE 1 TABLET BY MOUTH EVERYDAY AT NOON 90 tablet 1 5 Active glipiZIDE XL (Glucotrol XL) 10 MG 24 hr tabletIndications: Type 2 diabetes mellitus with diabetic polyneuropathy, without long-term current use of insulin (HCC) TAKE 1 TABLET BY MOUTH EVERY MORNING WITH BREAKFAST 90 tablet 1 5 Active hydroCHLOROthiazid e (HYDRODiuril) 50 MG tabletIndications: Essential hypertension TAKE 1 TABLET BY MOUTH EVERY MORNING 90 tablet 1 5 Active Calcium Carb-Cholecalcifer ol (Oyster Shell Calcium w/D) 500-5 MG-MCG tablet TAKE 1 TABLET BY MOUTH TWICE DAILY IN THE MORNING AND IN THE EVENING 180 tablet 1 5 Active simvastatin (Zocor) 80 MG tabletIndications: Mixed hyperlipidemia TAKE 1 TABLET BY MOUTH EVERY EVENING 90 tablet 1 5 Active cetirizine (ZyrTEC) 10 MG tabletIndications: Subacute cough Take 1 tablet (10 mg) by mouth Once per day for 10 days. 10 tablet 5 Active levothyroxine (Synthroid) 88 MCG tabletIndications: Acquired hypothyroidism Take 1 tablet (88 mcg) by mouth before breakfast. 30 tablet 6 5 Active Aspirin Low Dose 81 MG EC tablet TAKE 1 TABLET BY MOUTH EVERY EVENING 90 tablet 3 5 Active hydrALAZINE (Apresoline) 50 MG tabletIndications: Essential (primary) hypertension TAKE 1 TABLET BY MOUTH THREE TIMES DAILY IN THE MORNING, EVENING, AND BEDTIME 270 tablet 1 5 Active omeprazole (PriLOSEC) [address] capsule TAKE 1 CAPSULE BY MOUTH EVERY MORNING BEFORE A MEAL 90 capsule 3 5 Active Active Problems Problem Noted Date [...] Trial of gabapentin 300 mg po TID [facility] 12/05/2023 Assessment & Plan (10/22/2024 1:26 PM [...] mckinney Brown, irregular borders, seborrheic hyperkeratosis Plan: [facility] Diabetes mellitus with diabe [...] Eye exam was done on 12/12/13 via [facility] Microalbumin 10/22/2024 13 [...] after a long hiatus, was living in [place] and was without medications for months, upon [...] Eye exam was done on 12/12/13 via [facility] Microalbumin 08/27/2019 was 5 ,pt on ARB. [...] after a long hiatus. Pt was in [place] BP remains uncontrolled She is on a [...] after a long hiatus. Pt was in [place] BP remains uncontrolled She is on a [...] [facility]. Most recent electrolytes, Bun and Creatinine [...] pt had a previous MRI done at [facility] that showed a heterogeneous mass like structure [...] to the radiologist. Pt was referred to [facility] surgical associates and pt told me she [...] used to be under the care of [facility] Pain management. Last seen 02/25/2022 Pt has [...] MRI 11/25/2020 (Please see scanned document) The commercial loan specialist at [facility] already reviewed her MRI and has recommended [...] used to be under the care of [facility] Pain management. Last seen 02/25/2022 Pt has [...] MRI 11/25/2020 (Please see scanned document) The commercial loan specialist at [facility] already reviewed her MRI and has recommended a steroid injections. She has had good results with them in the past. MRI booked for 02/16/24 @10:30AM Assessment & Plan (12/06/2023 1:54 PM EDT): Pt c/o persistent low back pain She used to be under the care of [facility] Pain management. Last seen 02/25/2022 Pt has [...] MRI 11/25/2020 (Please see scanned document) The commercial loan specialist at [facility] already reviewed her MRI and has recommended [...] Type Department Care Team Description 05/05/2025 Telephone [facility] [address] [facility] [facility] [place] [address] Jaime Mares MD July05/04/2025 Refill [facility] [address] [facility] [place] [address] Jaime Mares MD Essential (primary) hypertension 04/26/2025 Orders Only GENERIC EXTERNAL DATA DEPARTMENT Provider, Generic External Data 04/22/2025 9:00 AM EDT Telemedicine [facility] [address] [place] [address] Jaime Mares MD Type 2 diabetes mellitus with diabetic polyneuropathy, without long-term current use of insulin ([facility]) (Primary Dx); Subacute cough; Dysuria; Essential hypertension; Neuropathic pain of both legs; Varicose veins of both lower extremities with pain; Acquired hypothyroidism; Chronic midline low back pain, unspecified whether sciatica present 04/22/2025 Results Follow-Up [facility] [address] [place] [address] Jaime Mares MD XR Chest 2 Views 04/22/2025 Orders Only GENERIC EXTERNAL DATA DEPARTMENT Provider, Generic External Data 04/07/2025 Refill [facility] [address] [facility] [place] [address] Jaime Mares MD Essential hypertension; Type 2 diabetes mellitus with diabetic polyneuropathy, without long-term current use of insulin (CMS/HCC); Mixed hyperlipidemia from Last 3 Months Immunizations Immunization Administration [...] Procedure Name Priority Date/Time Associated Diagnosis Comments NERVE CONDUCTION TEST Routine 05/06/2025 Neuropathic pain of both legs CALCIUM, 24 HOUR URINE (W/ CREATININE) Routine [...] polyneuropathy, without long-term current use of insulin ([facility]) COMPREHENSIVE METABOLIC PANEL Routine 04/22/2025 1:24 PM EDT Neuropathic pain of both legs Type 2 diabetes mellitus with diabetic polyneuropathy, without long-term current use of insulin (CMS/HCC) LIPID PANEL, STANDARD Routine 10/22/2024 1:43 PM EST Mixed hyperlipidemia POCT GLYCATED HEMOGLOBIN, TOTAL Routine 09/24/2024 11:20 AM EST Type 2 diabetes mellitus with diabetic polyneuropathy, without long-term current use of insulin ([facility]) from Last 3 Months or Most Recently Relevant to Health Maintenance Results * Nerve conduction test (05/06/2025) us Jaime Christopher MD NEUROLOGY ORDERABLES Final Result * (ABNORMAL) CREATININE, 24 HR GROUP (04/26/2025 9:30 AM EDT) Creatinine, 24 Hour Urine 0.6(L) 1.0 - 2.0 G/Day [facility] Creatinine, Urine 59.62 [facility] Urine Total Volume 24 Hour 1,050 mL [facility] 04/26/2025 9:30 AM EDT 04/26/2025 12:52 PM EDT Narrative [facility] - 04/26/2025 2:46 PM EDT [id number] us Generic External Data Provider LAB URINE ORDERAB LES Final Result [facility] [address] [place] [phone] * (ABNORMAL) Calcium, 24 Hour Urine W/ Creatinine (04/26/2025 9:30 AM EDT) Calcium, 24 Hour Urine 23(A) mg/24 h [facility] Comment:Reference Range 35-2 50 Low calcium diet 35-200 Calcium/Creatini ne Ratio 36 30 - 275 mg/g creat [facility] Creatinine, 24 Hour Urine 0.64 0.50 - 2.15 g/24 h [facility] Comment:THIS TEST WAS PERFOR MED AT:[id number] [place] [id number] LUU MD 04/26/2025 9:30 AM EDT 04/26/2025 12:52 PM EDT Narrative [facility] - 04/29/2025 7:24 PM EDT [id number] us Generic External Data Provider LAB URINE ORDERAB LES Final Result [facility] [address] [place] [address] [phone] * (ABNORMAL) Urinalysis, Complete, with Reflex to Culture (04/26/2025 8:45 AM EDT) Color Urine Yellow [facility] Appearance Urine Clear [facility] PH 6.5 5.0 - 9.0 [facility] Glucose Urine UA Negative Negative mg/dL [facility] Urine Blood Negative Negative [facility] Specific [place] - Urine 1.015 1.005 - 1.025 [facility] Urine Protein Negative Neg-Trace mg/dL [facility] Urine Ketones Negative Negative mg/dL [facility] Nitrite Urine Negative Negative [facility] Leukocyte Esterase Urine Small (1+)(A) Negative [facility] RBC Urine 0-2 0 - 2 /HPF [facility] Urine WBC 0-5 0 - 5 /HPF [facility] Urine Squamous Epithelial Cell 0-2 0 - 2 /HPF [facility] Urine Bacteria 1+ None Seen [facility] Hyaline Casts, Urine 0-2 0 - 2 /LPF [facility] Urine 04/26/2025 8:45 AM EDT 04/26/2025 12:46 PM EDT Narrative [facility] - 04/26/2025 1:47 PM EDT Urine, Clean Catch us Jaime Christopher MD LAB URINE ORDERABLES Final Result Performing Organization Address [facility]/ZIP Co de Phone Number [facility] [address] [place] [address] [phone] * Immunofixation (BRIDGETTE), Urine (04/26/2025 8:45 AM EDT) BRIDGETTE Interpretation [facility] Comment:No monoclonal protei ns detectedTHIS TEST WAS PERFORMED AT:[id number] [place] [id number] LUU MD 04/26/2025 8:45 AM EDT 04/26/2025 12:46 PM EDT us Generic External Data Provider LAB URINE ORDERAB LES Final Result Performing Organization Address [facility]/ZIP Co de Phone Number [facility] [address] [place] [address] [phone] * (ABNORMAL) Albumin, Random Urine W/Creatinine (04/26/2025 8:45 AM EDT) Creatinine, Urine 45.45 mg/dL [facility] Microalbumin Urine 28.0 mg/L [facility] Microalbum Creatinine Ratio Ur 61.6(H) <30 ug/mg cr [facility] Comment:Albumin/Creatinine R atio Reference Ranges: Normal: < 30 ug/mg creatinine Microalbuminuria: 30 - 300 ug/mg creatinineClinical Albuminuria: > 300 ug/mg creatinine 04/26/2025 8:45 AM EDT 04/26/2025 12:46 PM EDT Jaime Christopher MD LAB URINE ORDERABLES Final Result Performing Organization Address [facility] Co de Phone Number [facility] [address] [place] [phone] * Culture, Urine, Routine (04/26/2025 8:45 AM EDT) Urine Urine specimen obtained by clean catch procedure / Unknown 04/26/2025 8:45 AM EDT 04/26/2025 7:40 PM EDT Comment:UACC Narrative [facility] - 04/28/2025 8:20 AM EDT Urine Culture Report Result Urine Culture > 100,000 cfu/ml Urine Culture Mixed bacterial brinda characteristic of Urine Culture urogenital contamination. Specimen Source: Urine clean catch Jaime Christopher MD LAB MICROBIOLOGY - GE NERAL ORDERABLES Final Result Performing Organization Address [facility] Co de Phone Number [facility] [address] [place] [phone] * XR Chest 2 Views (04/22/2025 1:45 PM EDT) Anatomical Region Laterality Modality Chest Radiographic Juju ging 04/22/2025 1:45 PM EDT Narrative 04/22/2025 2:03 PM EDT [address] [address] XRay Report Signed Patient: Nola Styles MR#: [id number] : 1940 Acct:[id number] Age/Sex: 84 / F ADM Date: 04/22/25 Loc: [facility] Attending Dr: Jaime Tinoco MD Ordering Physician: Jaime Tinoco MD Date of Service: 04/22/25 Procedure(s): XR chest 2V Accession Number(s): [id number] cc: Jaime Tinoco MD Reason for Exam: [...] 04/22/25 1400 DD/ 1345 TD/TT: 04/22/25 1354 Assistant Professor Of Mathematics: Procedure Note Donotuseinterpreter, Image - 04/22/2025 [place] [address] XRay Report Signed Patient: Nola Styles MMR#: [id number] : 1940cct:[id number] Age/Sex: 84 / FADM Date: 04/22/25 Loc: [facility] Attending Dr: Jaime Tinoco MD Ordering Physician: Jaime Tinoco MD Date of Service: 04/22/25 Procedure(s): XR chest 2V Accession Number(s): [id number] cc: Jaime Tinoco MD Reason for Exam: [...] 04/22/25 1400 DD/ 1345 TD/TT: 04/22/25 1354 Assistant Professor Of Mathematics: us Jaime Christopher MD IMG XR PROCEDURES Fin al Result * Vitamin D, 25-Hydroxy, Total, Immunoassay (04/22/2025 1:24 PM EDT) Vitamin D 25-OH Total 41.6 >30 ng/mL [facility] Comment: Health Based Reference Values*< 20 ng/mL Jjjjelpmz09-85 ng/mL Insufficient> 30 ng/mL Sufficient*Van SCALES. N [...] Organization Address [facility] Co de Phone Number [facility] [address] [place] [phone] * TSH with Reflex to Free T4 (04/22/2025 1:24 PM EDT) [facility] TSH reflex Free T4 3.38 0.32 - 4.0 uIU/mL [facility] Blood Venous blood specimen / Unknown 04/22/2025 1:24 PM EDT 04/22/2025 1:24 PM EDT Jaime Christopher MD LAB BLOOD ORDERABLES Final Result Performing Organization Address [facility] Co de Phone Number [facility] [address] [place] [phone] * Phosphate (As Phosphorus) (04/22/2025 1:24 PM EDT) [facility] Phosphorus 3.5 2.7 - 4.5 mg/dL [facility] 04/22/2025 1:24 PM EDT 04/22/2025 1:24 PM EDT Generic External Data Provider LAB BLOOD ORDERAB LES Final Result Performing Organization Address [facility] Co de Phone Number [facility] [address] [place] [phone] * (ABNORMAL) Comprehensive Metabolic Panel (04/22/2025 1:24 PM EDT) [facility] Sodium 140 135 - 145 mmol/L [facility] Potassium 4.0 3.3 - 5.1 mmol/L [facility] Chloride 102 96 - 108 mmol/L [facility] Carbon Dioxide 26 22 - 29 mmol/L [facility] Anion Gap 16 12 - 20 [facility] Urea Nitrogen (BUN) 29(H) 9 - 16 mg/dL [facility] Creatinine, Serum 0.86 0.5 - 1.4 mg/dL [facility] Estimated Glomerular Filt Rate >60 [facility] Comment:Chronic Kidney Disea se: Estimated GFR < 60 mL/min/1.08x8[place] Kidney Disease: Estimated GFR < 15 mL/min/1.73m2 Glucose 132(H) 60 - 115 mg/dL [facility] Calcium 9.0 8.4 - 10.2 mg/dL [facility] Bilirubin, Total 0.4 0.0 - 1.0 mg/dL [facility] Aspartate Amino Transferase 24 5 - 31 U/L [facility] Alanine Aminotransferase 26 0 - 31 U/L [facility] Total Protein 7.4 6.5 - 8.0 g/dL [facility] Albumin Level 4.7 3.5 - 5.0 g/dL [facility] Alkaline Phosphatase 63 39 - 117 U/L [facility] Blood Venous blood specimen / Unknown 04/22/2025 1:24 PM EDT 04/22/2025 1:24 PM EDT us Jaime Christopher MD LAB BLOOD ORDERABLES Final Result [facility] [address] [place] [address] [phone] * (ABNORMAL) Lipid Panel, Standard (10/22/2024 1:43 PM EST) Triglycerides 205(H) <150 mg/dL [facility] Comment:Desirable Triglyceri de: less than 150 mg/dLBorderline High Triglyceride 150-199 mg/dLHigh Triglyceride: 200-499 mg/dLVery High Triglyceride: greater than or equal to 5OO mg/dL Cholesterol 227(H) <200 mg/dL [facility] Comment:Desirable Cholestero l: less than 200 mg/dLBorderline High Cholesterol: 200-239 mg/dLHigh Cholesterol: greater than 239 mg/dL LDL Cholesterol Calculated 139(H) <100 mg/dL [facility] Comment:Desirable LDL: less than 100 mg/dLNear Optimal/Above Optimal LDL: 110- 129 mg/dLBorderline High LDL: 130-159 mg/dLHigh LDL: 160-189 mg/dLVery High LDL: greater than or equal to 190 mg/dL HDL Cholesterol 47 >40 mg/dL [facility] Comment:Desirable HDL: great er than 40 mg/dL Note: This HDL assay may give artificially low results in patients with liver disease. Blood Venous blood specimen / Unknown 10/22/2024 1:43 PM EST 10/22/2024 4:06 PM EST Jaime Christopher MD LAB BLOOD ORDERABLES Final Result [facility] [address] [place] [phone] * (ABNORMAL) POCT HGB A1C (09/24/2024 11:20 AM EST) Hemoglobin A1C 7.8(A) 4.0 - 6.0 % QC Media Lot # [id number] Lot# Expiration Date Blood 09/24/2024 11:2 0 AM EST Jaime Christopher MD POINT OF CARE TEST EN TER/EDIT ORDERABLES Final Result from Last 3 Months or Most Recently Relevant to Health Maintenance Insurance [id number] MEDICARE ADVANTAGE Care Teams Hat Forming Machine Operator Relationship Specialty Start Date End Date Jaime Mares MD [address] [place] [phone] PCP - General Internal Medicine 06/23/14
== END ==
LOC: HO.CARD 10:49
PROVIDERS: PCP Internal Medicine; Visit Provider Internal Medicine
DX: I10 Essential (primary) hypertension (principal)
CPT/HCPCS: 93306

== ENCOUNTER → 2025-06-11 10:55 | Outpatient (BNV) | payer MEDICARE, SELFPAY | PROVIDERS: PCP Internal Medicine; Visit Provider Internal Medicine Cardiovascular Disease | DX: I42.2 Other hypertrophic cardiomyopathy (principal); I51.7 Cardiomegaly | CPT/HCPCS: 93306 ==

== ENCOUNTER 2025-07-07 13:33 | Outpatient (AMB) | payer MEDICARE, MEDICAID, SELFPAY ==
[2025-07-07 13:39] VITALS: BP 193/80; PULSE 59; RESP 16; O2SAT 96; BMI 29.7
--- NOTE | 2025-07-07 13:39 | A.OFFVIS_ITS ---
Vital Signs 07/07/25 13:39 Height 5 ft 1.73 in Weight 161 lb BMI 29.7 BP 193/80 H Blood Pressure Location Lt brachial Position Sitting Respiration 16 Pulse 59 Pulse Source Pulse Oximeter Pulse Oximetry (%) 96 Oxygen Delivery Method Room Air Intake Visit Reasons: LOW BACK PAIN Equity Research Analyst Required: No Allergies codeine (Tylenol-Codeine) Allergy (Intermediate, Verified 07/07/25 13:40) rash Penicillins Allergy (Unknown, Verified 07/07/25 13:40) SKIN TURNS PURPLE Medication List - Last Reconciled 07/07/25 by Danuta Alexander LPN acetaminophen ER (Tylenol Arthritis Pain) 650 mg PO Q8H aspirin 81 mg PO QPM atenolol 100 mg PO DAILY gabapentin 300 mg PO TID glipizide ER 10 mg PO DAILY hydralazine 25 mg PO ONCE hydrochlorothiazide 50 mg PO DAILY metformin ER 1,000 mg PO BID omeprazole 20 mg PO DAILY simvastatin 80 mg PO DAILY valsartan 40 mg PO DAILY HPI HPI LOW BACK PAIN: Details: History of Present Illness The patient is an 84-year-old female presenting with low back pain. The pain has been persistent and similar to previous episodes, with onset approximately two weeks ago. The patient reports that the pain sometimes radiates to her legs. Last June, the patient received an injection that provided relief for nearly a year. She is considering repeating the injection as the pain has returned to a similar level. The patient also mentioned urinary symptoms, including difficulty urinating and medication prescribed two months ago that may not be effective. She was advised to consult her primary care physician for further evaluation, as it might indicate a urinary tract infection. Pain Description - Onset: Approximately two weeks ago - Quality: Persistent, similar to previous episodes - Location: Low back, sometimes radiating to legs - Previous intervention: Injection last June provided relief for nearly a year Physical Exam - Appears afebrile. - Alert and oriented. - Mood and affect appropriate. - Follows and participates in conversation appropriately. - Respiratory effort is unlabored. Pain Management - Affect: Patient expresses frustration with ongoing pain - Analgesia: Previous injection provided relief for nearly a year; considering repeat injection - Activities of Daily Living: Pain impacts daily life, patient is eager for relief [facility] Medical History (Updated 12/26/24 @ 13:05 by Cristhian Estrada MD) Osteoporosis GERD (gastroesophageal reflux disease) Hypercholesteremia Diabetes Hypertension Chronic pain syndrome Postlaminectomy syndrome of lumbar region Disc degeneration, lumbar Surgical History Hx of total thyroidectomy Hx of hand surgery Hx of colonoscopy Social History Are you a primary palliative care nurse to a significant other at home: No Do you presently have visiting nurse or other home services: No Alcohol intake: never Patient Tobacco Use Status: Never used Tobacco Current occupational status: retired Current occupation: right hand dominant Physical Exam Vital Signs: Last Vital Signs Pulse 59 07/07/25 13:39 Resp 16 07/07/25 13:39 BP 193/80 H 07/07/25 13:39 Pulse Ox 96 07/07/25 13:39 Oxygen Delivery Method Room Air 07/07/25 13:39 BMI result Body Mass Index 29.7 Assessment & Plan Assessment & Plan (1) Lumbar radiculopathy: Code(s): M54.16 - Radiculopathy, lumbar region Category: Medical Plan Plan Patient was informed and verbally consented to the use of an ambient scribe for clinic note documentation during this visit. 1. Low Back Pain with Radiculopathy - Plan to repeat bilateral L4-5 transforaminal injection, which previously provided relief for more than 10 months. - If the repeat injection is not effective, consider interventions targeted towards the facet joints. 2. Urinary Symptoms Possibly Indicating A Urinary Tract Infection - Advised to consult primary care physician for further evaluation and management. Discussion Notes I discussed with the patient the plan to repeat the bilateral L4-5 transforaminal injection, which had previously provided significant relief. We also talked about the possibility of considering facet joint interventions if the repeat injection does not yield the desired results. The patient was informed about the need for insurance approval and scheduling logistics, and she was advised to coordinate with her primary care physician regarding urinary symptoms. Patient Instructions - Await a call for scheduling the injection and inform the clinic of preferred dates. - Consult your primary care physician for urinary symptoms as it might indicate an infection. Coding Level of Care Code Est Pt Level 3 (08840) Diagnoses Lumbar radiculopathy M54.16
== END 2025-07-07 13:59 | disposition home or self-care (01) ==
LOC: HO.PMC 13:34
PROVIDERS: PCP Internal Medicine; Visit Provider Internal Medicine
DX: M54.16 Radiculopathy, lumbar region (principal)
CPT/HCPCS: 99213

== ENCOUNTER → 2025-07-07 13:33 | Outpatient (BNVA) | payer MEDICARE, MEDICAID, SELFPAY | PROVIDERS: PCP Internal Medicine; Visit Provider Internal Medicine | DX: M54.16 Radiculopathy, lumbar region (principal) | CPT/HCPCS: 99212 ==